=== PATIENT | female | born 1970 | race African-American/Black ===

== ENCOUNTER 2017-09-06 10:48 | Day surgery (SDC) | payer OTHER ==
[2017-08-30 17:09] VITALS: BMI 54.3
[2017-09-06] MEDS ORDERED: HEPARIN NA (PORCINE) 5,000 UNITS/ML 1ML VIAL ONE (11:42)
[2017-09-06] MEDS ORDERED: PROPOFOL 20 ML ONE ×3 (13:34)
[2017-09-06] MEDS ORDERED: fentaNYL CITRATE 250 MCG/5 ML VIAL ONE (13:34)
[2017-09-06] MEDS ORDERED: ROCURONIUM BROMIDE 50 MG/5 ML VIAL ONE (13:34)
[2017-09-06] MEDS ORDERED: MIDAZOLAM HCL 2 MG/2 ML SINGLE DOSE VIAL ONE (13:35)
[2017-09-06] MEDS ORDERED: EPINEPHrine/PF 1 MG/1 ML (1:1,000) AMPULE ONE (14:23)
[2017-09-06] MEDS ORDERED: LIDOCAINE HCL 1%, 10 MG/ML (20ML VIAL) ONE (14:23)
[2017-09-06] MEDS ORDERED: BACITRACIN 15 GM TUBE TOPICAL OINTMENT ONE (14:59)
[2017-09-06] MEDS ORDERED: ONDANSETRON 4 MG/2 ML VIAL ONE (16:38)
[2017-09-06] MEDS ORDERED: NEOSTIGMINE METHYLSULFATE 0.5 MG/ML - 10 ML MDV ONE (16:52)
[2017-09-06] MEDS ORDERED: oxyCODONE HCL 5 MG TABLET PO PRN ×2 (17:08→17:11)
[2017-09-06] MEDS ORDERED: ONDANSETRON 4 MG/2 ML VIAL IVPUSH PRN (17:08)
[2017-09-06] MEDS ORDERED: PROMETHAZINE HCL 25 MG/1 ML VIAL IVPUSH PRN (17:08)
[2017-09-06] MEDS ORDERED: ONDANSETRON 4 MG/2 ML VIAL IVPB PRN (17:11)
[2017-09-06] MEDS ORDERED: LACTATED RINGERS SOLUTION 1,000 ML IV SCH ×2 (17:15)
--- NOTE | 2017-09-06 17:15 | OP ---
Operative Note - Note: Operative Date: 09/06/17 Pre-Operative Diagnosis: breast cancer with asymmetry Operation: bilateral revision of breast reconstruction with free fat grafting to left breast, bilateral nipple reconstruction, liposuction to abdomen and bilateral axillae Post-Operative Diagnosis: Same as Pre-op Surgeon: Joshua Dawkins Anesthesia: General Specimens Removed: right breast flap Operative Report Dictated: Yes
[2017-09-06] MEDS ORDERED: LACTATED RINGERS SOLUTION 1,000 ML/1,000 ML INFUS.BAG IV SCH (18:00)
[2017-09-06] MEDS: GABAPENTIN 100 MG CAPSULE (FP) PO SCH (21:10)
[2017-09-06] MEDS: predniSONE 1 MG TABLET (FP) PO SCH (21:10)
[2017-09-06] MEDS: HEPARIN NA (PORCINE) 5,000 UNITS/ML 1ML VIAL SQ SCH (21:11)
[2017-09-06] MEDS: CEFAZOLIN 1 GM/D5W 1 GM/50 ML BAG IVPB SCH (21:14)
[2017-09-06] MEDS: oxyCODONE HCL 5 MG TABLET PO PRN (21:19)
[2017-09-06] MEDS ORDERED: FOLIC ACID 1 MG TABLET (FP) PO SCH (22:00)
[2017-09-06] MEDS ORDERED: DOCUSATE SODIUM 100 MG CAPSULE (FP) PO SCH (22:00)
--- NOTE | 2017-09-06 23:17 | OP ---
DATE OF OPERATION: 09/06/2017 TITLE OF PROCEDURE: 1. Bilateral revision of breast reconstructive flaps with recreation of lateral mammary fold. 2. Bilateral nipple reconstructions with modified skate flap. 3. Free fat grafting to left reconstructive breast. 4. Liposuction to abdomen harvest of fat grafting. ATTENDING SURGEON: Joshua Dawkins M.D. ANESTHESIA: General endotracheal anesthesia. Patient is marked in the holding area. Awake, aware of all incisions and resulting scars. Understands, agrees to proceed. It is determined that the right reconstructive breast is slightly larger and more particularly laterally than left reconstructed breast and the attempt is to lift the right side while increasing the volume of the left side. Bilateral tunnels for the latissimus dorsi flaps are too full with volume and will be reduced. The patient is given 5000 units of subcutaneous heparin preoperatively. She is given 2 g Ancef preoperatively. She is awake and aware of all risks, benefits, alternatives to the procedure. Sequential compression stockings and CURTIS hose are applied in the holding area. She is brought to the operating room, placed in supine position. All points are carefully padded and positioned in preparation for surgery. The procedure is as follows. A timeout is called after patient is prepped and draped in standard surgical fashion. Patient, procedure, incision sites are verified. At this point, several stab wound incisions are marked and incisions are made for access of wetting solution. Infiltration of wetting solution is performed in bilateral axillae. The left and right breast lateral tails and the abdomen, a total infiltration of 2.5 L of wetting solution is infiltrated. The wetting solution is for each liter of normal saline 1 ampule of 1:100,000 epinephrine and 20 mL of 1% lidocaine plain. After the wetting solution is infiltrated, attention is directed toward the left nipple areolar. Modified skate flap which is inferiorly based is incised. The left sided flap is elevated and folded upon itself. The lateral wings of the skate flap are tubed around one another, secured to each other with a 4-0 nylon suture. The superior flap is then folded over the top of the cylinder and inset with a series of interrupted 4-0 nylon suture. The donor sites are closed with a series of interrupted buried 4-0 Vicryl suture followed by a running 4-0 nylon suture. At the completion of this, attention is then directed toward the fat harvesting. The lateral tail of each breast is marked, and the excess volume in the lateral tail of the reconstructions are liposucked using a 5-mm basket tipped cannula. A total of aspirate from each of these areas is 200 mL. Attention is then directed toward on the left side the lateral fold is adhered to the chest wall. Attention is then directed toward the abdomen where liposuction is performed in a similar fashion with 5 mm basket tipped cannula using a power assisted [employer] system. An additional 1.6 L is left from the abdomen. Endpoint is the adequate graft for use for augmenting the left reconstructed breast. The fat is processed using the [employer] fat processing system and prepared in 10 mL syringes for injection. The liposuction holes are closed with a series of interrupted 5-0 nylon suture 1-cm stab wound incisions beneath the umbilicus and bilateral pannus crease. Attention is then directed toward the surgical revision of the right breast reconstruction. The lateral superior extent of the latissimus dorsi skin paddle is marked and excised. The mastectomy flap superolaterally is re-elevated and the flap mobilized superiorly, tacked to fascia to reposition the flap superiorly with a series of interrupted 2-0 Vicryl suture. Hemostasis is achieved, and the flap is then an excision of additional superolateral mastectomy skin is made. The excised tissues are then closed with a series of interrupted buried deep dermal 3-0 Monocryl suture followed by a running subcuticular 3-0 Monocryl suture. The net effect of this revision is to lift the lateral portion of the right breast reconstruction elevating the inframammary fold, and the lateral breast fold more approximating the contralateral side. Patient brought to a seated upright position. The right nipple areolar is then marked. The right nipple reconstruction is then performed using a modified skate pattern flap as mirror image of the contralateral side. The donor sites are closed with a series of interrupted buried deep dermal 4-0 Vicryl suture followed by a running 4-0 nylon suture. The flap is tubed on itself, and the superior flap is used to create the top for the cylinder. This is inset with 4-0 nylon. Fat grafting is then performed on the slightly undersized left breast reconstruction through several stab wound incisions along the scar of the skin paddle. 1.2-mm Romero cannulas are used with 10 mL syringes, a total of 200 mL of fat is injected using a microdroplet Romero technique globally into the left breast. The end point is a symmetric size with the contralateral right breast. The stab wound incisions are closed with a series of interrupted 5-0 nylon suture. The skin incision is closed with half-inch Steri-Strips, 4x4 gauze, and ABD gauze. The nipple reconstructions are dressed with bacitracin, Xeroform. The liposuction holes in the abdomen are closed with a series of interrupted 5-0 nylon suture. Abdominal binder is applied. A surgical bra is applied. The patient is woken from anesthesia, having tolerated procedure well, transferred to recovery without complications. Kim [id number]
[2017-09-07] MEDS: morphine CARPU-JECT 10 MG/1 ML DISP.SYRIN IVPUSH PRN ×2 (00:11→09:47)
[2017-09-07] MEDS: CEFAZOLIN 1 GM/D5W 1 GM/50 ML BAG IVPB SCH ×2 (02:17→09:35)
[2017-09-07] MEDS: oxyCODONE HCL 5 MG TABLET PO PRN (06:10)
--- NOTE | 2017-09-07 07:40 | PN ---
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 (short form) - Note 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: VSS AF, ambulating, on DVT prophylaxis, all tissues viable, OK for discharge with instructions and eliquis prophylaxis
[2017-09-07] MEDS ORDERED: PT OWN MED DRAWER 7, Y5N ONE (09:19)
[2017-09-07] MEDS: GABAPENTIN 100 MG CAPSULE (FP) PO SCH (09:35)
[2017-09-07] MEDS: predniSONE 1 MG TABLET (FP) PO SCH (09:35)
[2017-09-07] MEDS: HEPARIN NA (PORCINE) 5,000 UNITS/ML 1ML VIAL SQ SCH (09:36)
[2017-09-07] MEDS ORDERED: chlorproMAZINE HCL 25 MG TABLET PO SCH (10:00)
[2017-09-07] MEDS ORDERED: DULoxetine HCL 30 MG CAPSULE.DR (FP) PO SCH (10:00)
[2017-09-07] MEDS ORDERED: DULoxetine HCL 60 MG CAPSULE.DR PO SCH (10:00)
--- NOTE | 2017-09-07 11:50 | PN ---
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, Physician Chief Complaint: s/p bilateral breast reconstruction with fat transfer under general anesthesia History of Present Illness: post op day one - Current Medication List Current Medications: Active Medications Chlorpromazine HCl (Thorazine -) 25 mg PO DAILY [facility] Diltiazem HCl (Cardizem Cd -) 300 mg PO DAILY [facility] Last Admin: 09/07/17 09:34 Dose: 300 mg Docusate Sodium (Colace -) 100 mg PO [facility] Last Admin: 09/06/17 21:11 Dose: 100 mg Duloxetine HCl (Cymbalta -) 60 mg PO DAILY [facility] Last Admin: 09/07/17 09:35 Dose: 60 mg Folic Acid (Folic Acid -) 1 mg PO [facility] Last Admin: 09/06/17 21:10 Dose: 1 mg Gabapentin (Neurontin -) 200 mg PO BID [facility] Last Admin: 09/07/17 09:35 Dose: 200 mg Heparin Sodium (Porcine) (Heparin -) 5,000 unit SQ BID [facility] Last Admin: 09/07/17 09:36 Dose: 5,000 unit Cefazolin Sodium (Ancef 1 Gm Premixed Ivpb -) 1 gm in 50 mls @ 100 mls/hr IVPB Q6H-IV [facility] Stop: 09/12/17 20:59 Last Admin: 09/07/17 09:35 Dose: 100 mls/hr Lactated Ringer's (Lactated Ringers Solution) 1,000 ml in 1,000 mls @ 125 mls/ hr IV ASDIR [facility] Last Admin: 09/06/17 18:21 Dose: Not Given Metoprolol Succinate (Toprol Xl -) 100 mg PO [facility] Last Admin: 09/06/17 21:10 Dose: 100 mg Morphine Sulfate (Morphine Injection -) 3 mg IVPUSH Q4H PRN PRN Reason: PAIN LEVEL 6-10 Last Admin: 09/07/17 09:47 Dose: 3 mg Ondansetron HCl (Zofran Injection) 4 mg IVPUSH Q6H PRN PRN Reason: NAUSEA AND/OR VOMITING Ondansetron HCl (Zofran Injection) 8 mg IVPB Q6H PRN PRN Reason: NAUSEA Oxycodone HCl (Roxicodone -) 5 mg PO Q4H PRN PRN Reason: PAIN LEVEL 1-5 Oxycodone HCl (Roxicodone -) 10 mg PO Q4H PRN PRN Reason: PAIN LEVEL 6-10 Last Admin: 09/07/17 06:10 Dose: 10 mg Prednisone (Deltasone -) 1 mg PO BID [facility] Last Admin: 09/07/17 09:35 Dose: 1 mg - Objective Vital Signs: Vital Signs Temperature 97.6 F 09/07/17 06:00 Pulse Rate 72 09/07/17 06:00 Respiratory Rate 19 09/07/17 06:00 Blood Pressure 172/98 09/07/17 06:00 O2 Sat by Pulse Oximetry (%) 96 09/07/17 08:36 Constitutional: Yes: Well Nourished Cardiovascular: Yes: WNL Respiratory: Yes: WNL Gastrointestinal: Yes: WNL Assessment/Plan post op day one after general anesthesia. Pain controlled with oral analgesics with IV opioid for breakthrough. Pain controlled, no adverse reaction to anesthetic. patient believes she can cope with the pain at home with addition of motrin for additional analgesic. No further intervention by the dept of anesthesia.
--- NOTE | 2017-09-07 13:29 | CONSULT ---
Consultation: REQUESTING PROVIDER: Dr Dawkins CONSULT REQUEST: We have been asked to medically evaluate this patient for hypertension. HISTORY OF PRESENT ILLNESS: Patient is a 47 y/o female with a past medical history of hypertension, anxiety, RA, and left sided breast cancer. Patient is s/p bilateral revision of breast reconstruction with free fat grafting to left breast, bilateral nipple reconstruction, liposuction to abdomen and bilateral axilla. REVIEW OF SYSTEMS: CONSTITUTIONAL: Absent: fever, chills, diaphoresis, generalized weakness, malaise, loss of appetite, weight change HEENT: Absent: rhinorrhea, nasal congestion, throat pain, throat swelling, difficulty swallowing, mouth swelling, ear pain, eye pain, visual changes CARDIOVASCULAR: Absent: chest pain, syncope, palpitations, irregular heart rate, lightheadedness , peripheral edema RESPIRATORY: Absent: cough, shortness of breath, dyspnea with exertion, orthopnea, wheezing, stridor, hemoptysis GASTROINTESTINAL: Absent: abdominal pain, abdominal distension, nausea, vomiting, diarrhea, constipation, melena, hematochezia GENITOURINARY: Absent: dysuria, frequency, urgency, hesitancy, hematuria, flank pain, genital pain MUSCULOSKELETAL: present: pain to surgical site Absent: myalgia, arthralgia, joint swelling, back pain, neck pain SKIN: Absent: rash, itching, pallor HEMATOLOGIC/IMMUNOLOGIC: Absent: easy bleeding, easy bruising, lymphadenopathy, frequent infections ENDOCRINE: Absent: unexplained weight gain, unexplained weight loss, heat intolerance, cold intolerance NEUROLOGIC: Absent: headache, focal weakness or paresthesias, dizziness, unsteady gait, seizure, mental status changes, bladder or bowel incontinence PSYCHIATRIC: Absent: anxiety, depression, suicidal or homicidal ideation, hallucinations. PHYSICAL EXAMINATION Vital Signs - 24 hr 09/06/17 09/06/17 09/06/17 17:01 17:06 17:11 Temperature 98.8 F 98.8 F 98.8 F Pulse Rate 88 87 88 Respiratory 16 16 16 Rate Blood Pressure 176/98 173/97 165/97 O2 Sat by Pulse 98 97 97 Oximetry (%) 09/06/17 09/06/17 09/06/17 17:16 17:31 17:45 Temperature 98.8 F 98.8 F 98.8 F Pulse Rate 83 84 88 Respiratory 16 16 16 Rate Blood Pressure 155/82 152/79 141/76 O2 Sat by Pulse 97 98 98 Oximetry (%) 09/06/17 09/06/17 09/06/17 17:50 18:17 22:00 Temperature 98.8 F 97.4 F L 97.5 F L Pulse Rate 88 77 82 Respiratory 16 18 19 Rate Blood Pressure 141/76 134/76 117/64 O2 Sat by Pulse 100 97 Oximetry (%) 09/07/17 09/07/17 09/07/17 06:00 06:14 08:36 Temperature 97.6 F Pulse Rate 72 Respiratory 19 Rate Blood Pressure 172/98 O2 Sat by Pulse 96 96 Oximetry (%) GENERAL: obese, Awake, alert, and fully oriented, in no acute distress. HEAD: Normal with no signs of trauma. EYES: Pupils equal, round and reactive to light, extraocular movements intact, sclera anicteric, conjunctiva clear. No lid lag. EARS, NOSE, THROAT: Ears normal, nares patent, oropharynx clear without exudates. Moist mucous membranes. NECK: Normal range of motion, supple without lymphadenopathy, JVD, or masses. LUNGS: Breath sounds equal, clear to auscultation bilaterally. No wheezes, and no crackles. No accessory muscle use. HEART: Regular rate and rhythm, normal S1 and S2 without murmur, rub or gallop. ABDOMEN: Soft, nontender, not distended, normoactive bowel sounds, no guarding, no rebound, no masses. No hepatomegaly or splenomegaly. MUSCULOSKELETAL: Normal range of motion at all joints. No bony deformities or tenderness. No CVA tenderness. UPPER EXTREMITIES: 2+ pulses, warm, well-perfused. No cyanosis. No clubbing. Cap refill <2 seconds. No peripheral edema. LOWER EXTREMITIES: 2+ pulses, warm, well-perfused. No calf tenderness. No peripheral edema. NEUROLOGICAL: Cranial nerves II-XII intact. Normal speech. Normal gait. PSYCHIATRIC: Cooperative. Good eye contact. Appropriate mood and affect. SKIN: Warm, dry, normal turgor, chest-->surgical sites, clean dry and intact. no rashes or lesions noted. Active Medications Generic Name Dose Route Start Last Admin Trade Name Freq PRN Reason Stop Dose Admin Chlorpromazine HCl 25 mg 09/07/17 10:00 09/07/17 12:48 Thorazine - PO 25 mg DAILY [facility] Administration Diltiazem HCl 300 mg 09/07/17 10:00 09/07/17 09:34 Cardizem Cd - PO 300 mg DAILY [facility] Administration Docusate Sodium 100 mg 09/06/17 22:00 09/06/17 21:11 Colace - PO 100 mg HS [facility] Administration Duloxetine HCl 60 mg 09/07/17 10:00 09/07/17 09:35 Cymbalta - PO 60 mg DAILY [facility] Administration Folic Acid 1 mg 09/06/17 22:00 09/06/17 21:10 Folic Acid - PO 1 mg HS [facility] Administration Gabapentin 200 mg 09/06/17 22:00 09/07/17 09:35 Neurontin - PO 200 mg BID [facility] Administration Heparin Sodium (Porcine) 5,000 unit 09/06/17 22:00 09/07/17 09:36 Heparin - SQ 5,000 unit BID [facility] Administration Cefazolin Sodium 1 gm in 50 mls @ 100 mls/hr 09/06/17 21:00 09/07/17 09:35 Ancef 1 Gm Premixed Ivpb - IVPB 09/12/17 20:59 100 mls/hr Q6H-IV [facility] Administration Lactated Ringer's 1,000 ml in 1,000 mls @ 125 mls/hr 09/06/17 18:00 09/06/17 18:21 Lactated Ringers Solution IV Not Given ASDIR [facility] Metoprolol Succinate 100 mg 09/06/17 22:00 09/06/17 21:10 Toprol Xl - PO 100 mg HS [facility] Administration Morphine Sulfate 3 mg 09/06/17 17:11 09/07/17 09:47 Morphine Injection - IVPUSH 3 mg Q4H PRN Administration PAIN LEVEL 6-10 Ondansetron HCl 4 mg 09/06/17 17:08 Zofran Injection IVPUSH Q6H PRN NAUSEA AND/OR VOMITING Ondansetron HCl 8 mg 09/06/17 17:11 Zofran Injection IVPB Q6H PRN NAUSEA Oxycodone HCl 5 mg 09/06/17 17:08 Roxicodone - PO Q4H PRN PAIN LEVEL 1-5 Oxycodone HCl 10 mg 09/06/17 17:08 09/07/17 06:10 Roxicodone - PO 10 mg Q4H PRN Administration PAIN LEVEL 6-10 Prednisone 1 mg 09/06/17 22:00 09/07/17 09:35 Deltasone - PO 1 mg BID [facility] Administration ASSESSMENT/PLAN: 1)cardiovascular hypertension - b/p noted to be elevated, likely secondary pain, patient denies any headache, chest pain, or blurred vision - continue home medications, toprol xl and cardizem - strict monitoring q4h 2) heme/onc s/p bilateral revision of breast reconstruction with free fat grafting to left breast, bilateral nipple reconstruction, liposuction to abdomen and bilateral axilla. - continue prn pain medication 3) ms ra - continue prednisone f/e/n - low sodium diet - replete lytes prn Dispo: We will continue to follow the patient. Thank you for this consultative opportunity. Visit type - Emergency Visit Emergency Visit: No - New Patient This patient is new to me today: Yes Date on this admission: 09/07/17 - Critical Care Critical Care patient: No
[2017-09-07 14:07] VITALS: BP 133/64; PULSE 85; TEMP 98.2
--- NOTE | 2017-09-08 09:56 | PATH ---
Surgical Pathology Report Patient Name: CONSTANCE IRELAND [facility]. Rec. #: [id number] /Age/Gender: 1970 (Age: 47) / F Account: [id number] Location: [facility] Taken: 09/06/2017 Received: 09/06/2017 Reported: 09/08/2017 Physicians: Joshua Dawkins Specimen(s) Received EXCESS RIGHT LATISSIMUS Clinical History Breast cancer Final Diagnosis EXCESS RIGHT LATISSIMUS FLAP, EXCISION: SKIN WITH SCAR. FIBROADIPOSE TISSUE WITH NO PATHOLOGIC FINDINGS. Electronically Signed Bonny Meehan M.D. Gross Description Received in formalin labeled "excess right latissimus flap," is a 15.0 x 4.2 cm levin-brown, unoriented portion of skin excised to a depth of 3.3 cm. The epidermal surface displays a central, linear, well-healed scar. There is an additional 3.7 x 1.1 x 0.8 cm unoriented portion of skin with underlying soft tissue also received within the same container. The epidermal surface is unremarkable. Sectioning reveals foci of white fibrous tissue. No discrete lesions are identified. Patient Assistant sections are submitted in one cassette. /09/07/201709/07/2017
== END 2017-09-07 15:52 | disposition home or self-care (01) ==
LOC: FASU 10:48 → FM/S 17:53 → FASU 09-07 15:52
PROVIDERS: ATTEND Plastic Surgery
PROC: 0HQX0ZZ Repair Left Nipple, Open Approach (ICD-10-PCS; 2017-09-06)
PROC: 0HQW0ZZ Repair Right Nipple, Open Approach (ICD-10-PCS; 2017-09-06)
PROC: 0HRU07Z Replacement of Left Breast with Autologous Tissue Substitute, Open Approach (ICD-10-PCS; 2017-09-06)
PROC: 0HRV37Z Replacement of Bilateral Breast with Autologous Tissue Substitute, Percutaneous Approach (ICD-10-PCS; principal; 2017-09-06 14:19)
DX: N65.0 Deformity of reconstructed breast (principal); Z85.3 Personal history of malignant neoplasm of breast
CPT/HCPCS: 84703; 88304-TC; 94010; 94760; J1644

== ENCOUNTER 2020-01-23 06:00 | Day surgery (SDC) | payer OTHER ==
[2020-01-23] MEDS ORDERED: GENTAMICIN SO4 80 MG/2 ML VIAL ONE (07:16)
[2020-01-23] MEDS ORDERED: THROMBIN (BOVINE) 20,000 UNIT VIAL TP ONE (07:16)
[2020-01-23] MEDS ORDERED: PROPOFOL 20 ML ONE ×2 (07:24)
[2020-01-23] MEDS ORDERED: SUCCINYLCHOLINE CHLORIDE 200 MG/10 ML SYRINGE ONE (07:40)
[2020-01-23] MEDS ORDERED: DEXAMETHASONE SOD PHOSPHATE 4 MG/1 ML VIAL ONE (07:40)
[2020-01-23] MEDS ORDERED: ROCURONIUM BROMIDE 50 MG/5 ML SYRINGE ONE (07:40)
[2020-01-23] MEDS ORDERED: EPHEDRINE SULFATE/0.9% NACL/PF 50 MG/10 ML SYRINGE NR ONE (07:40)
== END 2020-01-23 09:55 | disposition home or self-care (01) ==
LOC: JASUSAT 06:00 → EDSTATUS 08:00 → UNDODISIN 09:55 → JASUSAT 09:55
PROVIDERS: ATTEND Neurological Surgery
DX: Z53.8 Procedure and treatment not carried out for other reasons (principal)
CPT/HCPCS: U0003

== ENCOUNTER 2020-01-25 07:30 | Inpatient (IN) | payer OTHER ==
[~2020-01-25 07:30] MED LIST: CEFAZOLIN 3 GM in DEXTROSE 5%-WATER 100 ML IVPB ONE
[2020-01-25] MEDS ORDERED: GENTAMICIN SO4 80 MG/2 ML VIAL ONE (07:39)
[2020-01-25] MEDS ORDERED: THROMBIN (BOVINE) 20,000 UNIT VIAL TP ONE (07:39)
[2020-01-25] MEDS ORDERED: LIDOCAINE HCL 1%, 10 MG/ML (20ML VIAL) ONE (07:41)
[2020-01-25] MEDS ORDERED: THROMBIN (BOVINE) 5,000 UNIT VIAL TP ONE (07:41)
[2020-01-25] MEDS ORDERED: ceFAZolin SODIUM 1 GM VIAL IVPB ONE ×2 (10:47→10:57)
[2020-01-25] MEDS ORDERED: LIDOCAINE 1%/EPI 1:100000 (20 ML MULTI DOSE VIAL) IJ ONE ×2 (10:53→11:00)
[2020-01-25] MEDS ORDERED: HEPARIN NA (PORCINE) 5,000 UNITS/ML 1ML VIAL ONE (11:48)
[2020-01-25 12:32] LABS: ARTERIAL BLD GAS O2 SATURATION 98.5 mmHg (95-98); ARTERIAL BLOOD GAS PO2 142.3 mmHg (80-100)
[2020-01-25 12:33] LABS: BASO % 0.8 % (0-2.0); EOS % 0.7 % (0-4.5); HEMOGLOBIN 12.4 GM/dL (10.7-15.3); LYMPH % 34.2 % (8-40); MCH 25.7 pg (25.7-33.7); MCHC 30.2 g/dl (32.0-36.0); MEAN CELL VOLUME 85.2 fl (80-96); MEAN PLT VOLUME 8.1 fl (7.5-11.1); NEUT % 62.3 % (42.8-82.8); PLATELET COUNT 397 K/MM3 (134-434); RBC 4.82 M/mm3 (3.60-5.2); RDW 17.7 % (11.6-15.6); WHITE BLOOD COUNT 9.1 K/mm3 (4.0-10.0)
[2020-01-25 12:43] LABS: INR 1.16 (0.83-1.09); PROTHROMBIN TIME (PATIENT) 13.7 SEC (9.7-13.0)
[2020-01-25 12:46] LABS: ACTIVATED PTT 107.1 SECONDS (25.2-36.5)
[2020-01-25] MEDS: VASOPRESSIN 40 UNITS in SODIUM CHLORIDE 98 ML IVPB SCH (13:05)
[2020-01-25] MEDS ORDERED: HEPARIN NA (PORCINE) 5,000 UNITS/ML 1ML VIAL IVPUSH PRN ×2 (13:22)
[2020-01-25 13:29] LABS: ALBUMIN 2.7 g/dl (3.4-5.0); BILIRUBIN,TOTAL 0.2 mg/dL (0.2-1); BLOOD UREA NITROGEN 13.7 mg/dL (7-18); CALCIUM 8.8 mg/dL (8.5-10.1); CREATININE 1.1 mg/dL (0.55-1.3); TOT PROT 6.4 g/dl (6.4-8.2)
[2020-01-25] MEDS ORDERED: FENTANYL IVPB 500 MCG/100 ML BAG IVPB ONE (13:29)
[2020-01-25] MEDS ORDERED: HEPARIN - 25,000 UNIT in SODIUM CHLORIDE 495 ML IV SCH (13:30)
--- NOTE | 2020-01-25 13:35 | PN ---
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 (short form) - Note 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: 49F PMH HTN, DM, morbid obesity (BMI 60), severe b/l LE venous stasis and severe b/l upper extremity lymphedema secondary to prior breast cancer history for ACDF. Unable to obtain IV access peripherally and several large plaques and occlusions visualized in peripheral veins on ultrasound. Right subclavian unsuccessful due to inability to pass wire. Triple lumen successfully placed in right groin by Dr. Axel De La Cruz under direct ultrasound visualization. Smooth IV induction, atraumatic intubation x 1 attempt with Glidescope. ETT 7.0 secured 22cm at teeth. About 5 minutes after surgical incision pt becomes acutely hypotensive and hypoxic not responsive to phenylephrine. Epinephrine and vasopressin boluses required to maintain baseline BP. Clonidine patch removed. Decision made to abort surgery. Epinephrine and vasopressin infusions started. A line placed. CXR and official radiology reading rule out pneumothorax. ETT position confirmed above martha. 12 lead EKG done, ABG, lactate, CBC, CMP, d dimer and fibrinogen done. Heparin 5,000 units given IV. CTA to evaluate for PE requested and ordered. Brought pt to ICU. Discussed with ICU team and will follow.
[2020-01-25] MEDS: PROPOFOL 1,000,000 MCG/100 ML VIAL IVPB SCH ×2 (13:38→19:00)
[2020-01-25 13:41] LABS: POTASSIUM 3.8 mmol/L (3.5-5.1)
[2020-01-25] MEDS: FENTANYL NS IVPB 500 MCG/100 ML BAG IVPB SCH (13:52)
[2020-01-25] MEDS ORDERED: HEPARIN NA (PORCINE) 5,000 UNITS/ML 1ML VIAL IVPUSH ONE ×2 (14:15→14:57)
--- NOTE | 2020-01-25 14:21 | PROC ---
Procedure Note Procedure: PROCEDURE NOTE: Left Internal jugular central line placement under ultrasound guidance PROCEDURE FOAM MOLDER: Anatoliy Morataya M.D., PGY3 ATTENDING PHYSICIAN: Danie Hyman M.D. INDICATION: Hypotension requiring vasoactive agents and a Power Injectable central catheter CONSENT: Verbal consent was obtained from pt prior to the procedure. Indications, risks, and benefits were explained at length. PROCEDURE SUMMARY: A time out was performed. My hands were washed immediately prior to the procedure. I wore a surgical cap, mask with protective eyewear, sterile gown and sterile gloves throughout the procedure. The patient was placed in trendelenburg position. The left chest region was prepped using chlorhexidine scrub and draped in sterile fashion. The medial and lateral heads of the sternocleidomastoid muscle, as well as the carotid pulse were identified. The internal jugular vein was identified using dynamic ultrasound. Anesthesia was achieved using Lidocaine 1 percent without epinephrine. Using real-time out of plane guidance, the introducer needle was inserted into the internal jugular vein under direct ultrasound visualization. Venous blood was withdrawn. The syringe was removed and a guidewire was advanced into the introducer needle. The guidewire was visualized in the internal jugular vein by ultrasound. A small incision was made at the skin surface with a scalpel and the introducer needle was exchanged for a dilator over the guidewire. After appropriate dilation was obtained, the dilator was exchanged over the wire for a triple lumen central venous catheter. The wire was removed and the catheter was sutured in place at 15 cm. A biopatch and a sterile Tegaderm were placed over the catheter at the insertion site. At time of procedure completion, all ports aspirated and flushed properly. The patient tolerated the procedure without any hemodynamic compromise. Post-procedure chest x-ray is pending at this time. Estimated blood loss is <5 cc.
--- NOTE | 2020-01-25 14:33 | PN ---
Teaching Attending Note Name of Resident: Anatoliy Morataya ATTENDING PHYSICIAN STATEMENT I saw and evaluated the patient. I reviewed the resident's note and discussed the case with the resident. I agree with the resident's findings and plan as documented. SUBJECTIVE: Pt seen and examined in the ICU. Admitted from OR after hypotensive, hypoxic ep isode during the surgery. ACDF not started yet. Now on epinephrine and vasopressin gtts. Vented on volume assist control with 40% FiO2, PEEP 10. OBJECTIVE: Vital Signs Period Temp Pulse Resp BP Sys/Gibbs Pulse Ox Last 24 Hr 98.0 F-98.0 F 85-97 20-20 147-171/78-101 92-96 Intake & Output 01/22/20 01/23/20 01/24/20 01/25/20 23:59 23:59 23:59 23:59 Intake Total 1000 Output Total 400 Balance 600 Weight 158.757 kg Gen: intubated, sedated Heart: RRR Lung: distant breath sounds Abd: soft, obese Ext: + edema CBC, BMP 01/25/20 12:09 01/25/20 12:09 ABG Results ABG pH 7.280 (7.350-7.450) L 01/25/20 12:09 ABG HCO3 24.4 mmol/L (22-27) 01/25/20 12:09 ABG O2 Sat (Measured) 98.5 mmHg (95-98) H 01/25/20 12:09 ABG O2 Content No Result Required. 01/25/20 12:09 ABG Base Excess -3.0 mmol/L (-2-2) L 01/25/20 12:09 Active Medications Heparin Sodium (Porcine) (Heparin -) 1,000 unit IVPUSH PRN PRN PRN Reason: Heparin Heparin Sodium (Porcine) (Heparin -) 5,000 unit IVPUSH PRN PRN PRN Reason: Heparin Last Admin: 01/25/20 14:15 Dose: 5,000 unit Documented by: Heparin Sodium (Porcine) 25, (000 unit/ Sodium Chloride) 500 mls @ 20 mls/hr IV TITR [facility]; Protocol Last Admin: 01/25/20 14:18 Dose: 1,000 unit/hr, 20 mls/hr Documented by: Fentanyl (Sublimaze Ivpb) 500 mcg in 100 mls @ 10 mls/hr IVPB TITR [facility]; Protocol Last Admin: 01/25/20 13:52 Dose: 50 mcg/hr, 10 mls/hr Documented by: Propofol (Diprivan -) 1,000,000 mcg in 100 mls @ 4.763 mls/hr IVPB TITR [facility]IE; Protocol Last Titration: 01/25/20 14:21 Dose: 10 mcg/kg/min, 9.525 mls/hr Documented by: ASSESSMENT AND PLAN: Acute Hypoxic and Hypercapneic Respiratory Failure r/o MO r/o VTE Shock of unclear etiology at this time Lactic Acidosis HTN DM Morbid Obesity - empiric anticoagulation - titrate pressors to maintain MAP >65 - CTA chest - LE dopplers - echocardiogram - IVF - trend cardiac enzymes, lactate - titrate FiO2, PEEP to keep SpO2 >90% - continue ICU monitoring critical care time spent in reviewing chart, evaluating patient and formulating plan 35 min
--- NOTE | 2020-01-25 14:42 | CONSULT ---
Consultation: REQUESTING PROVIDER: Dr. Vasquez CONSULT REQUEST: We have been asked to medically evaluate this patient for hypotension and respiratory failure. HISTORY OF PRESENT ILLNESS: Pt is a 49 y/o female with HTN, DM, morbid obesity, severe b/l LE venous stasis and severe b/l upper extremity lymphedema secondary to prior breast cancer history for ACDF. Corpectomy to be performed but there were difficulties with IV access and about 5 minutes after surgical incision pt became acutely hypotensive and hypoxic not responsive to phenylephrine. Epinephrine and vasopressin boluses required to maintain baseline BP. Clonidine patch removed. Decision made to abort surgery. Epinephrine and vasopressin infusions started. A-line placed, labs and EKG ordered, Heparin 5,000 units given IV for concern of PE. CTA ordered. Brought pt to ICU for evaluation and monitoring. REVIEW OF SYSTEMS: unable to perform PHYSICAL EXAMINATION Vital Signs - 24 hr 01/25/20 01/25/20 01/25/20 08:20 08:22 08:32 Temperature 98.0 F 98.0 F Pulse Rate 88 88 Respiratory 20 20 Rate Blood Pressure 171/101 H 171/101 H O2 Sat by Pulse 96 96 Oximetry (%) 01/25/20 01/25/20 13:16 13:52 Temperature Pulse Rate 97 H 85 Respiratory 20 20 Rate Blood Pressure 156/81 147/78 O2 Sat by Pulse 92 L 94 L Oximetry (%) GENERAL: Sedated. HEAD: Normal with no signs of trauma. EYES: Pupils equal, round and reactive to light, extraocular movements intact, conjunctiva clear. EARS, NOSE, THROAT: Ears normal, nares patent, moist mucous membranes. NECK: Supple. LUNGS: Clear to auscultation bilaterally. HEART: Regular rate and rhythm, no murmur. ABDOMEN: Soft, nontender, not distended, normoactive bowel sounds. MUSCULOSKELETAL: Normal range of motion at all joints. UPPER EXTREMITIES: Warm, well-perfused. +1 pitting edema. LOWER EXTREMITIES: Warm, well-perfused. +1 pitting edema. SCDs NEUROLOGICAL: unable to assess PSYCHIATRIC: unable to assess SKIN: Warm, dry, normal turgor. Laboratory Results - last 24 hr 01/25/20 01/25/20 01/25/20 08:14 09:00 12:09 WBC RBC Hgb Hct MCV MCH MCHC RDW Plt Count MPV Absolute Neuts (auto) Neutrophils % Lymphocytes % Monocytes % Eosinophils % Basophils % Nucleated RBC % PT with INR INR PTT (Actin FS) Fibrinogen D-Dimer Anticoagulation Therapy No Result Required. Puncture Site No Result Required. Patient Temperature No Result Required. ABG pH 7.280 L ABG pCO2 53.10 H ABG pO2 142.3 H ABG HCO3 24.4 ABG O2 Sat (Measured) 98.5 H ABG O2 Content No Result Required. ABG Base Excess -3.0 L Jeffrey Test No Result Required. Carboxyhemoglobin Methemoglobin Patient On Oxygen No Result Required. O2 Delivery Device No Result Required. Oxygen Flow Rate No Result Required. Vent Mode No Result Required. Vent Rate No Result Required. Mechanical Rate No Result Required. PEEP No Result Required. Pressure Support Vent No Result Required. Sodium Potassium Chloride Carbon Dioxide Anion Gap BUN Creatinine Est GFR (CKD-EPI)AfAm Est GFR (CKD-EPI)NonAf POC Glucometer 93 Random Glucose Lactic Acid Calcium Total Bilirubin AST ALT Alkaline Phosphatase Total Protein Albumin Blood Type O POSITIVE Antibody Screen Negative 01/25/20 01/25/20 01/25/20 12:09 12:09 12:09 WBC 9.1 RBC 4.82 Hgb 12.4 Hct 41.0 D MCV 85.2 MCH 25.7 MCHC 30.2 L RDW 17.7 H Plt Count 397 MPV 8.1 D Absolute Neuts (auto) 5.7 Neutrophils % 62.3 D Lymphocytes % 34.2 Monocytes % 2.0 L Eosinophils % 0.7 D Basophils % 0.8 Nucleated RBC % 0 PT with INR 13.70 H INR 1.16 H PTT (Actin FS) 107.1 H Fibrinogen 303.0 D-Dimer 8578 H Anticoagulation Therapy Puncture Site Patient Temperature ABG pH ABG pCO2 ABG pO2 ABG HCO3 ABG O2 Sat (Measured) ABG O2 Content ABG Base Excess Jeffrey Test Carboxyhemoglobin Methemoglobin Patient On Oxygen O2 Delivery Device Oxygen Flow Rate Vent Mode Vent Rate Mechanical Rate PEEP Pressure Support Vent Sodium Potassium Chloride Carbon Dioxide Anion Gap BUN Creatinine Est GFR (CKD-EPI)AfAm Est GFR (CKD-EPI)NonAf POC Glucometer Random Glucose Lactic Acid Calcium Total Bilirubin AST ALT Alkaline Phosphatase Total Protein Albumin Blood Type Antibody Screen 01/25/20 01/25/20 01/25/20 12:09 12:09 12:20 WBC RBC Hgb Hct MCV MCH MCHC RDW Plt Count MPV Absolute Neuts (auto) Neutrophils % Lymphocytes % Monocytes % Eosinophils % Basophils % Nucleated RBC % PT with INR INR PTT (Actin FS) Fibrinogen D-Dimer Anticoagulation Therapy Puncture Site Patient Temperature ABG pH ABG pCO2 ABG pO2 ABG HCO3 ABG O2 Sat (Measured) ABG O2 Content ABG Base Excess Jeffrey Test Carboxyhemoglobin Methemoglobin 0.3 Patient On Oxygen O2 Delivery Device Oxygen Flow Rate Vent Mode Vent Rate Mechanical Rate PEEP Pressure Support Vent Sodium 139 Potassium 3.8 Chloride 105 Carbon Dioxide 23 Anion Gap 11 BUN 13.7 Creatinine 1.1 Est GFR (CKD-EPI)AfAm 67.32 Est GFR (CKD-EPI)NonAf 58.08 POC Glucometer Random Glucose 223 H Lactic Acid 2.1 H Calcium 8.8 Total Bilirubin 0.2 AST 14 L ALT 14 Alkaline Phosphatase 69 Total Protein 6.4 Albumin 2.7 L Blood Type Antibody Screen 01/25/20 12:36 WBC RBC Hgb Hct MCV MCH MCHC RDW Plt Count MPV Absolute Neuts (auto) Neutrophils % Lymphocytes % Monocytes % Eosinophils % Basophils % Nucleated RBC % PT with INR INR PTT (Actin FS) Fibrinogen D-Dimer Anticoagulation Therapy Puncture Site Patient Temperature ABG pH ABG pCO2 ABG pO2 ABG HCO3 ABG O2 Sat (Measured) ABG O2 Content ABG Base Excess Jeffrey Test Carboxyhemoglobin 0.5 Methemoglobin Patient On Oxygen O2 Delivery Device Oxygen Flow Rate Vent Mode Vent Rate Mechanical Rate PEEP Pressure Support Vent Sodium Potassium Chloride Carbon Dioxide Anion Gap BUN Creatinine Est GFR (CKD-EPI)AfAm Est GFR (CKD-EPI)NonAf POC Glucometer Random Glucose Lactic Acid Calcium Total Bilirubin AST ALT Alkaline Phosphatase Total Protein Albumin Blood Type Antibody Screen Active Medications Generic Name Dose Route Start Last Admin Trade Name Freq PRN Reason Stop Dose Admin Heparin Sodium (Porcine) 1,000 unit 01/25/20 13:22 Heparin - IVPUSH PRN PRN Heparin Heparin Sodium (Porcine) 5,000 unit 01/25/20 13:22 01/25/20 14:15 Heparin - IVPUSH 5,000 unit PRN PRN Administration Heparin Heparin Sodium (Porcine) 25, 500 mls @ 20 mls/hr 01/25/20 13:30 01/25/20 14:18 000 unit/ Sodium Chloride IV 1,000 unit/hr TITR ANGIE 20 mls/hr Administration Protocol 1,000 UNIT/HR Fentanyl 500 mcg in 100 mls @ 10 mls/hr 01/25/20 13:30 01/25/20 13:52 Sublimaze Ivpb IVPB 50 mcg/hr TITR ANGIE 10 mls/hr Administration Protocol 50 MCG/HR Propofol 1,000,000 mcg in 100 mls @ 4.763 mls/hr 01/25/20 13:30 01/25/20 14:21 Diprivan - IVPB 10 mcg/kg/min TITR ANGIE 9.525 mls/hr Titration Protocol 5 MCG/KG/MIN ASSESSMENT/PLAN: Pt is a 49 y/o female with HTN, DM, morbid obesity, severe b/l LE venous stasis and severe b/l upper extremity lymphedema secondary to prior breast cancer history for ACDF. Five minutes into surgery, pt became acutely hypotensive and hypoxic not responsive to phenylephrine. Team was concerned for PE, aborted surgery, and consulted ICU. #neuro -sedated on fentanyl #cardio -hypotension possibly 2/2 hypoxia during procedure -vasopressin -keep MAP >65 #pulm -acute hypoxic and hypercapneic respiratory failure, ABG normalized on ventilator -vent 500/20/40 -CTA no evidence of PE; has posterior bibasilar atelectasis and increased right paratracheal density suggestive of edema or hematoma; pulmonary hypertension -bolus of heparin administered for ppx prior to CTA results -monitor labs #renal -lactic acidosis -trend LA #ID -not febrile, no leukocytosis DVT Ppx SCDs FEN LR 75mL/hr monitor lactate NPO Lines [facility] 01/24 ETT 22cm at [facility] 01/24 Dispo: ICU We will continue to follow the patient. Thank you for this consultative opportunity. FULL CODE updated son over the phone on events of the day Visit type - Emergency Visit Emergency Visit: Yes ED Registration Date: 01/25/20 Care time: The patient presented to the Emergency Department on the above date and was hospitalized for further evaluation of their emergent condition. - New Patient This patient is new to me today: Yes Date on this admission: 01/25/20 - Critical Care Critical Care patient: Yes Total Critical Care Time (in minutes): 36 Critical Care Statement: The care of this patient involved high complexity decision making to prevent further life threatening deterioration of the patient's condition and/or to evaluate & treat vital organ system(s) failure or risk of failure. ATTENDING PHYSICIAN STATEMENT I saw and evaluated the patient. I reviewed the resident's note and discussed the case with the resident. I agree with the resident's findings and plan as documented. SUBJECTIVE: OBJECTIVE: ASSESSMENT AND PLAN:
[2020-01-25 17:17] LABS: ARTERIAL BLD GAS O2 SATURATION 95.7 mmHg (95-98); ARTERIAL BLOOD GAS BASE EXCESS -1.5 mmol/L (-2-2); ARTERIAL BLOOD GAS pH 7.371 (7.350-7.450)
[2020-01-25 17:18] LABS: O2 CONTENT 94.5 % vol
[2020-01-25] MEDS: INSULIN SLIDING SCALE (NOVOLOG) 1 VIAL SQ SCH (18:15)
[2020-01-25 18:48] LABS: BASO % 0.1 % (0-2.0); EOS % 0.1 % (0-4.5); HEMOGLOBIN 11.4 GM/dL (10.7-15.3); LYMPH % 5.8 % (8-40); MCH 25.9 pg (25.7-33.7); MCHC 30.8 g/dl (32.0-36.0); MEAN CELL VOLUME 84.2 fl (80-96); MEAN PLT VOLUME 7.7 fl (7.5-11.1); MONO % 2.6 % (3.8-10.2); NEUT % 91.4 % (42.8-82.8); PLATELET COUNT 314 K/MM3 (134-434); RBC 4.39 M/mm3 (3.60-5.2); RDW 17.1 % (11.6-15.6); WHITE BLOOD COUNT 8.8 K/mm3 (4.0-10.0)
[2020-01-25] MEDS: LACTATED RINGERS SOLUTION 1,000 ML/1,000 ML INFUS.BAG IV SCH (19:00)
[2020-01-25 19:36] LABS: BLOOD UREA NITROGEN 13.9 mg/dL (7-18); CALCIUM 8.5 mg/dL (8.5-10.1); CREATININE 0.9 mg/dL (0.55-1.3); POTASSIUM 3.9 mmol/L (3.5-5.1)
[2020-01-25 20:04] LABS: ANISOCYTOSIS 2+
[2020-01-25 20:05] LABS: PLATELET ESTIMATE ADEQUATE
[2020-01-26] MEDS: INSULIN SLIDING SCALE (NOVOLOG) 1 VIAL SQ SCH ×4 (00:46→17:39)
[2020-01-26] MEDS: PROPOFOL 1,000,000 MCG/100 ML VIAL IVPB SCH ×8 (02:53→23:06)
[2020-01-26] MEDS: LACTATED RINGERS SOLUTION 1,000 ML/1,000 ML INFUS.BAG IV SCH ×3 (02:54→12:40)
[2020-01-26] MEDS: FENTANYL NS IVPB 500 MCG/100 ML BAG IVPB SCH ×4 (05:50→19:44)
[2020-01-26 07:00] LABS: N-TERMINAL BNP 380.5 pg/ml (5-125)
[2020-01-26 08:01] LABS: ALBUMIN 2.9 g/dl (3.4-5.0); BILIRUBIN,TOTAL 0.2 mg/dL (0.2-1); BLOOD UREA NITROGEN 14.4 mg/dL (7-18); CALCIUM 8.8 mg/dL (8.5-10.1); CREATININE 0.7 mg/dL (0.55-1.3); TOT PROT 6.6 g/dl (6.4-8.2)
[2020-01-26 09:26] LABS: ARTERIAL BLD GAS O2 SATURATION 98.1 mmHg (95-98); ARTERIAL BLOOD GAS BASE EXCESS -1.8 mmol/L (-2-2); ARTERIAL BLOOD GAS PO2 119.3 mmHg (80-100); ARTERIAL BLOOD GAS pH 7.349 (7.350-7.450)
--- NOTE | 2020-01-26 09:26 | PN ---
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 (short form) - Note 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: Pt seen and examined. Remains intubated, sedation trial in effect. Pt responsive, following commands. No issues overnight. Chest cta done yesterday with no PE visualized. Vital Signs Temp 97.6 F 01/26/20 07:29 Pulse 76 01/26/20 08:05 Resp 20 01/26/20 08:05 BP 153/87 01/26/20 07:29 Pulse Ox 100 01/26/20 08:05 Intake & Output 01/25/20 01/25/20 01/26/20 11:59 23:59 11:59 Intake Total 1000 344.4 1469 Output Total 860 325 Balance 1000 -515.6 1144 Intake: IV 1000 344.4 1469 DIPRIVAN - 1,000,000 mcg 58.6 429 In 100 ml @ 5 MCG/KG/MIN 4.763 mls/hr IVPB TITR ANGIE Rx#:[id number] Heparin - 25,000 Unit In 210.4 0 Normal Saline - 495 ml @ 1,000 UNIT/HR 20 mls/hr IV TITR ANGIE Rx#: [id number] LACTATED RINGERS SOLUTION 910 1,000 ml In 1,000 ml @ 125 mls/hr IV ASDIR ANGIE Rx#:[id number] Pitressin - 40 Units In 28.8 0 Normal Saline - 98 ml @ 2 UNITS/HR 5 mls/hr IVPB ASDIR ANGIE Rx#:[id number] SUBLIMAZE IVPB 500 mcg In 46.6 130 100 ml @ 50 MCG/HR 10 mls/hr IVPB TITR ANGIE Rx#: [id number] Output: Urine 860 325 Rodriguez 460 325 Other: Voiding Method Indwelling Catheter Indwelling Catheter Bowel Movement No CBC, BMP 01/25/20 18:30 01/26/20 06:00 Gen: intubated, off sedation, responsive, following commands Resp: intubated vented Neck: dressing c/d/i, no hematoma noted Ext: moving all extremities A/P: 49 y/o F w/ PMHx HTN, DM, morbid obesity, b/l LE venous stasis and b/l upper extremity lymphedema secondary to b/l mastectomy/reconstruction/lymph node dissection, now intubated in ICU s/p aborted cervical corpectomy. CTA for r/o PE yesterday negative Duplex for dvt negative Echo pending this AM Labs reviewed Off pressors since last night, maintaining bp systolic in 150s-160s- -Plan for extubation over the weekend -Keep dressing c/d/i -will follow d/w attending Dr Vasquez
--- NOTE | 2020-01-26 10:37 | ECHO ---
Version: 1 Name: [facility] Exam: Adult Echocardiogram Study Date: 01/26/2020, 9:34 AM Age: 49 Years MMode/2D Measurements & Calculations IVSd: 1.57 cm LVIDs: 2.6 cm LVIDd: 4.3 cm LVPWd: 1.34 cm ACS: 2.48 cm Ao root diam: 3.3 cm LVOT diam: 2.39 cm LA dimension: 3.4 cm Doppler Measurements & Calculations MV E max pillo: 58.2 cm/sec MV V2 max: 85.5 cm/sec MV A max pillo: 67.4 cm/sec MV max P.9 mmHg MV mean P.37 mmHg Med E/e': 10.3 MV E/A: 0.86 Med Peak E' Pillo: 5.7 cm/sec Lat E/e': 7.9 Lat Peak E' Pillo: 7.4 cm/sec Ao max P.9 mmHg Ao V2 max: 131.7 cm/sec TR max pillo: 117.4 cm/sec TR max P.5 mmHg Procedure The study was technically difficult with many images being suboptimal in quality. Left Ventricle There is mild concentric left ventricular hypertrophy. Left ventricular systolic function is grossly normal. Ejection Fraction = 50-55%. The transmitral spectral Doppler flow pattern is suggestive of impaired LV relaxation. Regional wall motion abnormalities cannot be excluded due to limited visualization. Right Ventricle The right ventricle is grossly normal size. The right ventricular systolic function is grossly cathy l. Atria The left atrium is borderline dilated. Mitral Valve The mitral valve is normal in structure and function. There is no mitral valve stenosis. There is mi ld mitral regurgitation. Tricuspid Valve The tricuspid valve is normal in structure and function. There is mild tricuspid regurgitation. Righ t ventricular systolic pressure is normal. Aortic Valve The aortic valve opens well. No hemodynamically significant valvular aortic stenosis. No aortic regu rgitation is present. Pulmonic Valve The pulmonic valve is not well seen, but is grossly normal. There is no pulmonic valvular stenosis. Great Vessels The aortic root is normal size. Pericardium/Pleura There is no pericardial effusion. Tech Comments Technically difficult study due to body habitus. Summary Statements The study was technically difficult with many images being suboptimal in quality. Regional wall motion abnormalities cannot be excluded due to limited visualization. Left ventricular systolic function is grossly normal. The transmitral spectral Doppler flow pattern is suggestive of impaired LV relaxation. There is mild tricuspid regurgitation. There is no pericardial effusion. MD Alfaro *Devan 01/26/2020, 10:36 AM Ordering Physician: Phuc Ragland Referring Physician: Lawson Vasquez Performed By: Jose Osorio
--- NOTE | 2020-01-26 11:27 | PN ---
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 (short form) - Note 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: 49F POD1 aborted cervical corpectomy secondary to hemodynamic intability. Pt ruled out for PE, is off pressors, is responsive and is being weaned in preparation for extubation. Will continue to follow.
[2020-01-26] MEDS ORDERED: FENTANYL IVPB 500 MCG/100 ML BAG IVPB ONE (11:28)
[2020-01-26 12:39] LABS: BASO % 0.1 % (0-2.0); HEMATOCRIT 33.6 % (32.4-45.2); HEMOGLOBIN 10.3 GM/dL (10.7-15.3); LYMPH % 13.9 % (8-40); MCH 25.6 pg (25.7-33.7); MCHC 30.5 g/dl (32.0-36.0); MEAN CELL VOLUME 83.7 fl (80-96); MEAN PLT VOLUME 8.1 fl (7.5-11.1); MONO % 6.4 % (3.8-10.2); NEUT % 79.6 % (42.8-82.8); PLATELET COUNT 279 K/MM3 (134-434); RBC 4.01 M/mm3 (3.60-5.2); RDW 17.2 % (11.6-15.6); WHITE BLOOD COUNT 6.2 K/mm3 (4.0-10.0)
[2020-01-26 12:46] LABS: INR 1.06 (0.83-1.09); PROTHROMBIN TIME (PATIENT) 12.5 SEC (9.7-13.0)
[2020-01-26 12:49] LABS: ACTIVATED PTT 28.2 SECONDS (25.2-36.5)
[2020-01-26 13:17] LABS: PHOSPHOROUS 4.4 mg/dL (2.5-4.9)
[2020-01-26] MEDS ORDERED: PROPOFOL 1,000,000 MCG/100 ML VIAL ONE (14:28)
--- NOTE | 2020-01-26 15:30 | EKG ---
Test Reason : Blood Pressure : / mmHG Vent. Rate : 099 BPM Atrial Rate : 099 BPM P-R Int : 180 ms QRS Dur : 094 ms QT Int : 404 ms P-R-T Axes : 063 067 056 degrees QTc Int : 518 ms NORMAL SINUS RHYTHM POSSIBLE LEFT ATRIAL ENLARGEMENT PROLONGED QT ABNORMAL ECG NO PREVIOUS ECGS AVAILABLE Confirmed by ALISSA SHER MD ([id number]) on 01/26/2020 3:30:12 PM Referred By: Lawson Vasquez Confirmed By:ALISSA SHER MD
--- NOTE | 2020-01-26 16:30 | PN ---
Teaching Attending Note Name of Resident: Brenna Tovar ATTENDING PHYSICIAN STATEMENT I saw and evaluated the patient. I reviewed the resident's note and discussed the case with the resident. I agree with the resident's findings and plan as documented. SUBJECTIVE: Patient seen and examined in the ICU. Remains intubated and sedated. Low dose Vasopressin. AC Mode of vent, 40% FiO2. Afberile. CT : Noted results : extensive right paratracheal soft tissue swelling (?) hematoma (?) thyroid Intake & Output 01/23/20 01/24/20 01/25/20 01/26/20 23:59 23:59 23:59 23:59 Intake Total 1344.4 1469 Output Total 860 825 Balance 484.4 644 Weight 350 lb Last Vital Signs Temp Pulse Resp BP Pulse Ox 97.6 F 76 20 153/87 100 01/26/20 07:29 01/26/20 08:05 01/26/20 15:35 01/26/20 07:29 01/26/20 15:35 Active Medications IV Flush (Triple Lumen Flush) 4 ml IVPUSH PRN PRN PRN Reason: Protocol Fentanyl (Sublimaze Ivpb) 500 mcg in 100 mls @ 10 mls/hr IVPB TITR ANGIE; Protocol Last Admin: 01/26/20 12:38 Dose: 100 mcg/hr, 20 mls/hr Documented by: Propofol (Diprivan -) 1,000,000 mcg in 100 mls @ 4.763 mls/hr IVPB TITR ANGIE; Protocol Last Admin: 01/26/20 12:39 Dose: 50 mcg/kg/min, 47.627 mls/hr Documented by: Vasopressin 40 units/ Sodium (Chloride) 100 mls @ 5 mls/hr IVPB ASDIR ANGIE; Protocol Last Titration: 01/25/20 17:04 Dose: 0 units/hr, 0 mls/hr Documented by: Lactated Ringer's (Lactated Ringers Solution) 1,000 ml in 1,000 mls @ 75 mls/hr IV ASDIR ANGIE Last Admin: 01/26/20 12:40 Dose: 75 mls/hr Documented by: Insulin Aspart (Novolog Vial Sliding Scale -) 1 vial SQ Q6HPO ANGIE; Protocol Last Admin: 01/26/20 12:37 Dose: Not Given Documented by: PHYSICAL EXAMINATION Vital Signs - 24 hr 01/25/20 01/25/20 01/25/20 08:20 08:22 08:32 Temperature 98.0 F 98.0 F Pulse Rate 88 88 Respiratory 20 20 Rate Blood Pressure 171/101 H 171/101 H O2 Sat by Pulse 96 96 Oximetry (%) 01/25/20 01/25/20 13:16 13:52 Temperature Pulse Rate 97 H 85 Respiratory 20 20 Rate Blood Pressure 156/81 147/78 O2 Sat by Pulse 92 L 94 L Oximetry (%) GENERAL: Intubated and sedated HEAD: Normal with no signs of trauma. EYES: Pupils equal, round and reactive to light, sclera anicteric, conjunctiva clear. EARS, NOSE, THROAT: Ears normal, nares patent, oropharynx clear without exudates. Moist mucous membranes. NECK: Normal range of motion, supple without lymphadenopathy, JVD, or masses. LUNGS: Vented, diminished. No wheezes, and no crackles. No accessory muscle use. HEART: Regular rate and rhythm, normal S1 and S2 without murmur, rub or gallop. ABDOMEN: Soft, nontender, not distended, normoactive bowel sounds, no guarding, no rebound, no masses. No hepatomegaly or splenomegaly. MUSCULOSKELETAL: Normal range of motion at all joints. No bony deformities or tenderness. No CVA tenderness. UPPER EXTREMITIES: 2+ pulses, warm, well-perfused. No cyanosis. No clubbing. Cap refill <2 seconds. No peripheral edema. LOWER EXTREMITIES: 2+ pulses, warm, well-perfused. No calf tenderness. No peripheral edema. NEUROLOGICAL: Sedated PSYCHIATRIC: Sedated SKIN: Warm, dry, normal turgor, no rashes or lesions noted. Laboratory Results - last 24 hr 01/25/20 01/25/20 01/25/20 08:14 09:00 12:09 WBC RBC Hgb Hct MCV MCH MCHC RDW Plt Count MPV Absolute Neuts (auto) Neutrophils % Lymphocytes % Monocytes % Eosinophils % Basophils % Nucleated RBC % PT with INR INR PTT (Actin FS) Fibrinogen D-Dimer Anticoagulation Therapy No Result Required. Puncture Site No Result Required. Patient Temperature No Result Required. ABG pH 7.280 L ABG pCO2 53.10 H ABG pO2 142.3 H ABG HCO3 24.4 ABG O2 Sat (Measured) 98.5 H ABG O2 Content No Result Required. ABG Base Excess -3.0 L Jeffrey Test No Result Required. Carboxyhemoglobin Methemoglobin Patient On Oxygen No Result Required. O2 Delivery Device No Result Required. Oxygen Flow Rate No Result Required. Vent Mode No Result Required. Vent Rate No Result Required. Mechanical Rate No Result Required. PEEP No Result Required. Pressure Support Vent No Result Required. Sodium Potassium Chloride Carbon Dioxide Anion Gap BUN Creatinine Est GFR (CKD-EPI)AfAm Est GFR (CKD-EPI)NonAf POC Glucometer 93 Random Glucose Lactic Acid Calcium Total Bilirubin AST ALT Alkaline Phosphatase Total Protein Albumin Blood Type O POSITIVE Antibody Screen Negative 01/25/20 01/25/20 01/25/20 12:09 12:09 12:09 WBC 9.1 RBC 4.82 Hgb 12.4 Hct 41.0 D MCV 85.2 MCH 25.7 MCHC 30.2 L RDW 17.7 H Plt Count 397 MPV 8.1 D Absolute Neuts (auto) 5.7 Neutrophils % 62.3 D Lymphocytes % 34.2 Monocytes % 2.0 L Eosinophils % 0.7 D Basophils % 0.8 Nucleated RBC % 0 PT with INR 13.70 H INR 1.16 H PTT (Actin FS) 107.1 H Fibrinogen 303.0 D-Dimer 8578 H Anticoagulation Therapy Puncture Site Patient Temperature ABG pH ABG pCO2 ABG pO2 ABG HCO3 ABG O2 Sat (Measured) ABG O2 Content ABG Base Excess Jeffrey Test Carboxyhemoglobin Methemoglobin Patient On Oxygen O2 Delivery Device Oxygen Flow Rate Vent Mode Vent Rate Mechanical Rate PEEP Pressure Support Vent Sodium Potassium Chloride Carbon Dioxide Anion Gap BUN Creatinine Est GFR (CKD-EPI)AfAm Est GFR (CKD-EPI)NonAf POC Glucometer Random Glucose Lactic Acid Calcium Total Bilirubin AST ALT Alkaline Phosphatase Total Protein Albumin Blood Type Antibody Screen 01/25/20 01/25/20 01/25/20 12:09 12:09 12:20 WBC RBC Hgb Hct MCV MCH MCHC RDW Plt Count MPV Absolute Neuts (auto) Neutrophils % Lymphocytes % Monocytes % Eosinophils % Basophils % Nucleated RBC % PT with INR INR PTT (Actin FS) Fibrinogen D-Dimer Anticoagulation Therapy Puncture Site Patient Temperature ABG pH ABG pCO2 ABG pO2 ABG HCO3 ABG O2 Sat (Measured) ABG O2 Content ABG Base Excess Jeffrey Test Carboxyhemoglobin Methemoglobin 0.3 Patient On Oxygen O2 Delivery Device Oxygen Flow Rate Vent Mode Vent Rate Mechanical Rate PEEP Pressure Support Vent Sodium 139 Potassium 3.8 Chloride 105 Carbon Dioxide 23 Anion Gap 11 BUN 13.7 Creatinine 1.1 Est GFR (CKD-EPI)AfAm 67.32 Est GFR (CKD-EPI)NonAf 58.08 POC Glucometer Random Glucose 223 H Lactic Acid 2.1 H Calcium 8.8 Total Bilirubin 0.2 AST 14 L ALT 14 Alkaline Phosphatase 69 Total Protein 6.4 Albumin 2.7 L Blood Type Antibody Screen 01/25/20 12:36 WBC RBC Hgb Hct MCV MCH MCHC RDW Plt Count MPV Absolute Neuts (auto) Neutrophils % Lymphocytes % Monocytes % Eosinophils % Basophils % Nucleated RBC % PT with INR INR PTT (Actin FS) Fibrinogen D-Dimer Anticoagulation Therapy Puncture Site Patient Temperature ABG pH ABG pCO2 ABG pO2 ABG HCO3 ABG O2 Sat (Measured) ABG O2 Content ABG Base Excess Jeffrey Test Carboxyhemoglobin 0.5 Methemoglobin Patient On Oxygen O2 Delivery Device Oxygen Flow Rate Vent Mode Vent Rate Mechanical Rate PEEP Pressure Support Vent Sodium Potassium Chloride Carbon Dioxide Anion Gap BUN Creatinine Est GFR (CKD-EPI)AfAm Est GFR (CKD-EPI)NonAf POC Glucometer Random Glucose Lactic Acid Calcium Total Bilirubin AST ALT Alkaline Phosphatase Total Protein Albumin Blood Type Antibody Screen Active Medications Generic Name Dose Route Start Last Admin Trade Name Freq PRN Reason Stop Dose Admin Heparin Sodium (Porcine) 1,000 unit 01/25/20 13:22 Heparin - IVPUSH PRN PRN Heparin Heparin Sodium (Porcine) 5,000 unit 01/25/20 13:22 01/25/20 14:15 Heparin - IVPUSH 5,000 unit PRN PRN Administration Heparin Heparin Sodium (Porcine) 25, 500 mls @ 20 mls/hr 01/25/20 13:30 01/25/20 14:18 000 unit/ Sodium Chloride IV 1,000 unit/hr TITR ANGIE 20 mls/hr Administration Protocol 1,000 UNIT/HR Fentanyl 500 mcg in 100 mls @ 10 mls/hr 01/25/20 13:30 01/25/20 13:52 Sublimaze Ivpb IVPB 50 mcg/hr TITR ANGIE 10 mls/hr Administration Protocol 50 MCG/HR Propofol 1,000,000 mcg in 100 mls @ 4.763 mls/hr 01/25/20 13:30 01/25/20 14:21 Diprivan - IVPB 10 mcg/kg/min TITR ANGIE 9.525 mls/hr Titration Protocol 5 MCG/KG/MIN ASSESSMENT/PLAN: Acute Respiratory Failure Suspected narrowed tracheal lumen due to a combination of soft tissue swelling / hematoma / thyromegaly HTN DM Morbid obesity Severe LE venous stasis Severe b/l upper extremity lymphedema secondary to prior breast cancer history for ACDF. Pulmonary HTN Likely OSAS / OHS AC Mode of vent Sedation Follow H & H (+) Leak on cuff testing but less than 50% volume return Hole all AC Monitor off ABX for now but have a low threshold to start Strict I & O Follow CBC Will be conservative with extubation attempts due to complicated condition Requires ICU monitoring Dr Florentino Critical care time spent in reviewing chart, evaluating patient and formulating plan - 36 minutes.
[2020-01-26] MEDS: VASOPRESSIN 40 UNITS in SODIUM CHLORIDE 98 ML IVPB SCH (17:39)
--- NOTE | 2020-01-26 18:39 | PN ---
Physical Exam: SUBJECTIVE: Patient seen and examined. Sedated and on ventilator. OBJECTIVE: Vital Signs Period Temp Pulse Resp BP Sys/Gibbs Pulse Ox Last 24 Hr 97.6 F-98.5 F 70-88 20-24 117-161/69-93 100-100 GENERAL: Sedated. Minimal movement of legs. HEAD: Normal with no signs of trauma. EYES: Pupils equal, round and reactive to light, extraocular movements intact, conjunctiva clear. EARS, NOSE, THROAT: Ears normal, nares patent, moist mucous membranes. NECK: Supple. Minimally palpable air at upper chest midline and to the right. LUNGS: Bronchial sounds but otherwise clear. HEART: Regular rate and rhythm, no murmur. ABDOMEN: Soft, nontender, not distended, normoactive bowel sounds. MUSCULOSKELETAL: Normal range of motion at all joints. UPPER EXTREMITIES: Warm, well-perfused. +1 pitting edema. LOWER EXTREMITIES: Warm, well-perfused. +1 pitting edema. SCDs NEUROLOGICAL: unable to assess PSYCHIATRIC: unable to assess SKIN: Warm, dry, normal turgor. Laboratory Results - last 24 hr 01/25/20 01/25/20 01/25/20 18:30 18:30 18:30 WBC 8.8 RBC 4.39 Hgb 11.4 Hct 37.0 MCV 84.2 MCH 25.9 MCHC 30.8 L RDW 17.1 H Plt Count 314 D MPV 7.7 Absolute Neuts (auto) 8.0 Neutrophils % 91.4 H D Neutrophils % (Manual) 88.0 H Band Neutrophils % 2.0 Lymphocytes % 5.8 L D Lymphocytes % (Manual) 6.0 L Monocytes % 2.6 L Monocytes % (Manual) 4 Eosinophils % 0.1 D Basophils % 0.1 Nucleated RBC % 0 Hypochromia 2+ Platelet Estimate Adequate Anisocytosis 2+ Microcytosis 2+ Stomatocytes 1+ PT with INR INR PTT (Actin FS) Anticoagulation Therapy Puncture Site Patient Temperature ABG pH ABG pCO2 ABG pO2 ABG HCO3 ABG O2 Sat (Measured) ABG O2 Content ABG Base Excess Jeffrey Test Patient On Oxygen O2 Delivery Device Oxygen Flow Rate Vent Mode Vent Rate Mechanical Rate PEEP Pressure Support Vent Sodium 140 Potassium 3.9 Chloride 105 Carbon Dioxide 24 Anion Gap 11 BUN 13.9 Creatinine 0.9 Est GFR (CKD-EPI)AfAm 85.80 Est GFR (CKD-EPI)NonAf 74.03 POC Glucometer Random Glucose 192 H Lactic Acid 1.2 Calcium 8.5 Phosphorus Magnesium Total Bilirubin AST ALT Alkaline Phosphatase Troponin I 0.17 H B-Natriuretic Peptide Total Protein Albumin 01/25/20 01/26/20 01/26/20 20:30 00:45 05:58 WBC RBC Hgb Hct MCV MCH MCHC RDW Plt Count MPV Absolute Neuts (auto) Neutrophils % Neutrophils % (Manual) Band Neutrophils % Lymphocytes % Lymphocytes % (Manual) Monocytes % Monocytes % (Manual) Eosinophils % Basophils % Nucleated RBC % Hypochromia Platelet Estimate Anisocytosis Microcytosis Stomatocytes PT with INR INR PTT (Actin FS) Anticoagulation Therapy Puncture Site Patient Temperature ABG pH ABG pCO2 ABG pO2 ABG HCO3 ABG O2 Sat (Measured) ABG O2 Content ABG Base Excess Jeffrey Test Patient On Oxygen O2 Delivery Device Oxygen Flow Rate Vent Mode Vent Rate Mechanical Rate PEEP Pressure Support Vent Sodium Potassium Chloride Carbon Dioxide Anion Gap BUN Creatinine Est GFR (CKD-EPI)AfAm Est GFR (CKD-EPI)NonAf POC Glucometer 122 127 Random Glucose Lactic Acid Calcium Phosphorus Magnesium Total Bilirubin AST ALT Alkaline Phosphatase Troponin I 0.12 H B-Natriuretic Peptide Total Protein Albumin 01/26/20 01/26/20 01/26/20 06:00 07:48 07:48 WBC 6.2 RBC 4.01 Hgb 10.3 L Hct 33.6 MCV 83.7 MCH 25.6 L MCHC 30.5 L RDW 17.2 H Plt Count 279 MPV 8.1 Absolute Neuts (auto) 4.9 Neutrophils % 79.6 Neutrophils % (Manual) Band Neutrophils % Lymphocytes % 13.9 D Lymphocytes % (Manual) Monocytes % 6.4 D Monocytes % (Manual) Eosinophils % 0.0 D Basophils % 0.1 Nucleated RBC % 0 Hypochromia Platelet Estimate Anisocytosis Microcytosis Stomatocytes PT with INR INR PTT (Actin FS) Anticoagulation Therapy No Result Required. Puncture Site Arterial line Patient Temperature No Result Required. ABG pH 7.349 L ABG pCO2 44.30 ABG pO2 119.3 H ABG HCO3 23.9 ABG O2 Sat (Measured) 98.1 H ABG O2 Content No Result Required. ABG Base Excess -1.8 Jeffrey Test No Result Required. Patient On Oxygen Yes O2 Delivery Device V Oxygen Flow Rate 40 Vent Mode No Result Required. Vent Rate No Result Required. Mechanical Rate V PEEP 10.0 Pressure Support Vent No Result Required. Sodium 139 Potassium 4.0 Chloride 103 Carbon Dioxide 27 Anion Gap 9 BUN 14.4 Creatinine 0.7 Est GFR (CKD-EPI)AfAm 116.27 Est GFR (CKD-EPI)NonAf 100.32 POC Glucometer Random Glucose 133 H Lactic Acid Calcium 8.8 Phosphorus Magnesium Total Bilirubin 0.2 AST 15 ALT 13 Alkaline Phosphatase 56 Troponin I B-Natriuretic Peptide 380.5 H Total Protein 6.6 Albumin 2.9 L 01/26/20 01/26/20 01/26/20 07:48 07:48 12:35 WBC RBC Hgb Hct MCV MCH MCHC RDW Plt Count MPV Absolute Neuts (auto) Neutrophils % Neutrophils % (Manual) Band Neutrophils % Lymphocytes % Lymphocytes % (Manual) Monocytes % Monocytes % (Manual) Eosinophils % Basophils % Nucleated RBC % Hypochromia Platelet Estimate Anisocytosis Microcytosis Stomatocytes PT with INR 12.50 INR 1.06 PTT (Actin FS) 28.2 Anticoagulation Therapy Puncture Site Patient Temperature ABG pH ABG pCO2 ABG pO2 ABG HCO3 ABG O2 Sat (Measured) ABG O2 Content ABG Base Excess Ejffrey Test Patient On Oxygen O2 Delivery Device Oxygen Flow Rate Vent Mode Vent Rate Mechanical Rate PEEP Pressure Support Vent Sodium Potassium Chloride Carbon Dioxide Anion Gap BUN Creatinine Est GFR (CKD-EPI)AfAm Est GFR (CKD-EPI)NonAf POC Glucometer 121 Random Glucose Lactic Acid Calcium Phosphorus 4.4 Magnesium 2.0 Total Bilirubin AST ALT Alkaline Phosphatase Troponin I 0.03 B-Natriuretic Peptide Total Protein Albumin 01/26/20 17:37 WBC RBC Hgb Hct MCV MCH MCHC RDW Plt Count MPV Absolute Neuts (auto) Neutrophils % Neutrophils % (Manual) Band Neutrophils % Lymphocytes % Lymphocytes % (Manual) Monocytes % Monocytes % (Manual) Eosinophils % Basophils % Nucleated RBC % Hypochromia Platelet Estimate Anisocytosis Microcytosis Stomatocytes PT with INR INR PTT (Actin FS) Anticoagulation Therapy Puncture Site Patient Temperature ABG pH ABG pCO2 ABG pO2 ABG HCO3 ABG O2 Sat (Measured) ABG O2 Content ABG Base Excess Jeffrey Test Patient On Oxygen O2 Delivery Device Oxygen Flow Rate Vent Mode Vent Rate Mechanical Rate PEEP Pressure Support Vent Sodium Potassium Chloride Carbon Dioxide Anion Gap BUN Creatinine Est GFR (CKD-EPI)AfAm Est GFR (CKD-EPI)NonAf POC Glucometer 92 Random Glucose Lactic Acid Calcium Phosphorus Magnesium Total Bilirubin AST ALT Alkaline Phosphatase Troponin I B-Natriuretic Peptide Total Protein Albumin Active Medications Generic Name Dose Route Start Last Admin Trade Name Barbara PRN Reason Stop Dose Admin IV Flush 4 ml 01/25/20 14:44 Triple Lumen Flush IVPUSH PRN PRN Protocol Fentanyl 500 mcg in 100 mls @ 10 mls/hr 01/25/20 13:30 01/26/20 17:39 Sublimaze Ivpb IVPB Not Given TITR ANGIE Protocol 50 MCG/HR Propofol 1,000,000 mcg in 100 mls @ 4.763 mls/hr 01/25/20 13:30 01/26/20 18:29 Diprivan - IVPB 50 mcg/kg/min TITR ANGIE 47.627 mls/hr Administration Protocol 5 MCG/KG/MIN Vasopressin 40 units/ Sodium 100 mls @ 5 mls/hr 01/25/20 15:00 01/26/20 17:39 Chloride IVPB Not Given ASDIR ANGIE Protocol 2 UNITS/HR Lactated Ringer's 1,000 ml in 1,000 mls @ 75 mls/hr 01/26/20 07:40 01/26/20 12:40 Lactated Ringers Solution IV 75 mls/hr ASDIR ANGIE Administration Insulin Aspart 1 vial 01/25/20 18:00 01/26/20 17:39 Novolog Vial Sliding Scale - SQ Not Given Q6HPO ANGIE Protocol ASSESSMENT/PLAN: Pt is a 49 y/o female with HTN, DM, morbid obesity, severe b/l LE venous stasis and severe b/l upper extremity lymphedema secondary to prior breast cancer history for ACDF. Five minutes into surgery, pt became acutely hypotensive and hypoxic not responsive to phenylephrine. Team was concerned for PE, aborted surgery, and consulted ICU. #neuro -sedated on fentanyl and propofol -sedation vacation today but pt agitated #cardio -hypotension possibly 2/2 hypoxia during procedure -off vasopressin since last night -keep MAP >65 #pulm -acute hypoxic and hypercapneic respiratory failure, ABG normalized on ventilator yesterday -vent 500/23/06/30 -CTA yesterday showed no evidence of PE; has posterior bibasilar atelectasis and increased right paratracheal density suggestive of edema or hematoma; pulmonary hypertension -CT today shows increased swelling of right paratracheal area -keep pt intubated given swelling around trachea, will reassess if pt can be extubated -bolus of heparin given yesterday for empiric PE tx -monitor labs #renal -lactic acidosis, resolved #ID -not febrile, no leukocytosis DVT Ppx SCDs FEN LR 75mL/hr monitor lactate NPO Lines LIJ 01/24 ETT 22cm at teeth 01/24 Dispo: ICU FULL CODE Spoke to son at bedside today with updates. Visit type - Emergency Visit Emergency Visit: Yes ED Registration Date: 01/25/20 Care time: The patient presented to the Emergency Department on the above date and was hospitalized for further evaluation of their emergent condition. - New Patient This patient is new to me today: No - Critical Care Critical Care patient: Yes Total Critical Care Time (in minutes): 36 Critical Care Statement: The care of this patient involved high complexity decision making to prevent further life threatening deterioration of the patient's condition and/or to evaluate & treat vital organ system(s) failure or risk of failure. ATTENDING PHYSICIAN STATEMENT I saw and evaluated the patient. I reviewed the resident's note and discussed the case with the resident. I agree with the resident's findings and plan as documented. SUBJECTIVE: OBJECTIVE: ASSESSMENT AND PLAN:
[2020-01-27] MEDS: PROPOFOL 1,000,000 MCG/100 ML VIAL IVPB SCH ×10 (00:42→23:03)
[2020-01-27] MEDS: INSULIN SLIDING SCALE (NOVOLOG) 1 VIAL SQ SCH ×4 (00:42→17:23)
[2020-01-27] MEDS: FENTANYL NS IVPB 500 MCG/100 ML BAG IVPB SCH ×4 (00:57→13:33)
[2020-01-27] MEDS: LACTATED RINGERS SOLUTION 1,000 ML/1,000 ML INFUS.BAG IV SCH ×2 (03:38→15:21)
--- NOTE | 2020-01-27 09:04 | PN ---
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 (short form) - Note 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: Pulm/CCM 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 Pt seen and examined in the ICU. Remains intubated and sedated. Minimal vent settings. Edema. Hypertensive. RASS 0 to -1 Comfortable Active Medications IV Flush (Triple Lumen Flush) 4 ml IVPUSH PRN PRN PRN Reason: Protocol Fentanyl (Sublimaze Ivpb) 500 mcg in 100 mls @ 10 mls/hr IVPB TITR ANGIE; Protocol Last Admin: 01/27/20 06:33 Dose: 100 mcg/hr, 20 mls/hr Documented by: Propofol (Diprivan -) 1,000,000 mcg in 100 mls @ 4.763 mls/hr IVPB TITR ANGIE; Protocol Last Admin: 01/27/20 03:37 Dose: 50 mcg/kg/min, 47.627 mls/hr Documented by: Vasopressin 40 units/ Sodium (Chloride) 100 mls @ 5 mls/hr IVPB ASDIR ANGIE; Protocol Last Admin: 01/26/20 17:39 Dose: Not Given Documented by: Lactated Ringer's (Lactated Ringers Solution) 1,000 ml in 1,000 mls @ 75 mls/hr IV ASDIR ANGIE Last Admin: 01/27/20 03:38 Dose: 75 mls/hr Documented by: Insulin Aspart (Novolog Vial Sliding Scale -) 1 vial SQ Q6HPO ANGIE; Protocol Last Admin: 01/27/20 06:27 Dose: Not Given Documented by: Vital Signs Period Temp Pulse Resp BP Sys/Gibbs Pulse Ox Last 24 Hr 96.8 F-97.8 F 71-85 20-22 118-176/64-101 96-100 Intake & Output 01/24/20 01/25/20 01/26/20 01/27/20 23:59 23:59 23:59 23:59 Intake Total 1344.4 3045.3 1455 Output Total 860 1325 Balance 484.4 1720.3 1455 Weight 158.757 kg PHYSICAL EXAMINATION Gen: Morbid obese; orally intubated, calm Neuro: RASS -1; following simple commands HEENT: PERRL; MMM Chest: Rales bilat CV: RRR, S1S2; Abd: Obeses; soft, NT Ext: WWP; 1-2+edema; + pulses Skin:venous discoloration CBC, BMP 01/26/20 07:48 01/26/20 06:00 ABG Results ABG pH 7.349 (7.350-7.450) L 01/26/20 07:48 ABG HCO3 23.9 mmol/L (22-27) 01/26/20 07:48 ABG O2 Sat (Measured) 98.1 mmHg (95-98) H 01/26/20 07:48 ABG O2 Content No Result Required. 01/26/20 07:48 ABG Base Excess -1.8 mmol/L (-2-2) 01/26/20 07:48 CT : Noted results : extensive right paratracheal soft tissue swelling (?) hematoma (?) thyroid ASSESSMENT/PLAN: Acute Respiratory Failure Suspected narrowed tracheal lumen due to a combination of soft tissue swelling / hematoma / thyromegaly HTN DM Morbid obesity Severe LE venous stasis Severe b/l upper extremity lymphedema secondary to prior breast cancer history for ACDF. Pulmonary HTN Likely OSAS / OHS AC Mode of vent Sedation for RASS -1to-2 Diuresis for fluid overload/edema KVO fluid (+) Leak on cuff testing but less than 50% volume return Needs adequate cuff leak prior to extubation BP management Follow H & H Hold all AC Monitor off ABX for now but have a low threshold to start Strict I & O Requires ICU monitoring Lucretia Dia, BRIANA CCT 35mins
[2020-01-27] MEDS ORDERED: FUROSEMIDE 40 MG/4 ML INJECTABLE VIAL IVPUSH ONE (09:29)
[2020-01-27] MEDS: hydrALAZINE HCL 20 MG/ML VIAL IVPUSH PRN (13:36)
[2020-01-27] MEDS ORDERED: DEXTROSE 5%-LACTATED RINGERS 1,000 ML IV SCH (17:30)
[2020-01-28] MEDS: INSULIN SLIDING SCALE (NOVOLOG) 1 VIAL SQ SCH ×4 (00:07→18:01)
[2020-01-28] MEDS: FENTANYL NS IVPB 500 MCG/100 ML BAG IVPB SCH ×6 (00:08→20:15)
[2020-01-28] MEDS: PROPOFOL 1,000,000 MCG/100 ML VIAL IVPB SCH ×10 (00:09→23:05)
[2020-01-28] MEDS ORDERED: DEXTROSE 50%-WATER 25 GM/50 ML DISP.SYRIN ONE (00:15)
[2020-01-28] MEDS ORDERED: DEXTROSE 50%-WATER - 25 GM/50 ML VIAL IVPUSH ONE (00:28)
[2020-01-28] MEDS: DEXTROSE 5%-LACTATED RINGERS 1,000 ML IV SCH ×2 (01:45→22:05)
[2020-01-28 06:19] LABS: HEMATOCRIT 31.8 % (32.4-45.2); HEMOGLOBIN 9.7 GM/dL (10.7-15.3); MCH 25.4 pg (25.7-33.7); MCHC 30.5 g/dl (32.0-36.0); MEAN CELL VOLUME 83.2 fl (80-96); MEAN PLT VOLUME 7.4 fl (7.5-11.1); PLATELET COUNT 255 K/MM3 (134-434); RBC 3.82 M/mm3 (3.60-5.2); WHITE BLOOD COUNT 4.4 K/mm3 (4.0-10.0)
[2020-01-28 06:38] LABS: BLOOD UREA NITROGEN 7.8 mg/dL (7-18); CALCIUM 8.4 mg/dL (8.5-10.1); CREATININE 0.6 mg/dL (0.55-1.3); MAGNESIUM 1.9 mg/dL (1.8-2.4); PHOSPHOROUS 3.5 mg/dL (2.5-4.9); POTASSIUM 3.5 mmol/L (3.5-5.1)
[2020-01-28 06:57] LABS: ARTERIAL BLD GAS O2 SATURATION 98.6 mmHg (95-98); ARTERIAL BLOOD GAS BASE EXCESS 1.1 mmol/L (-2-2); ARTERIAL BLOOD GAS pH 7.399 (7.350-7.450)
[2020-01-28 07:00] LABS: VENT MODE A/C; VENT RATE 20
--- NOTE | 2020-01-28 08:45 | PN ---
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 (short form) - Note 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: Pulm/CCM Pt seen and examined in the ICU. Remains intubated and sedated on Propofol and Fentanyl, RASS-1. Hypertensive ABG Results ABG pH 7.399 (7.350-7.450) 01/28/20 06:00 ABG HCO3 26.1 mmol/L (22-27) 01/28/20 06:00 ABG O2 Sat (Measured) 98.6 mmHg (95-98) H 01/28/20 06:00 ABG O2 Content No Result Required. 01/28/20 06:00 ABG Base Excess 1.1 mmol/L (-2-2) 01/28/20 06:00 Active Medications Hydralazine HCl (Apresoline Injection -) 10 mg IVPUSH Q6H PRN PRN Reason: HYPERTENSION Last Admin: 01/28/20 11:11 Dose: 10 mg Documented by: Hydralazine HCl (Apresoline -) 50 mg PO BID ANGIE IV Flush (Triple Lumen Flush) 4 ml IVPUSH PRN PRN PRN Reason: Protocol Fentanyl (Sublimaze Ivpb) 500 mcg in 100 mls @ 10 mls/hr IVPB TITR ANGIE; Protocol Last Admin: 01/28/20 12:46 Dose: 150 mcg/hr, 30 mls/hr Documented by: Propofol (Diprivan -) 1,000,000 mcg in 100 mls @ 4.763 mls/hr IVPB TITR ANGIE; Protocol Last Admin: 01/28/20 11:03 Dose: 50 mcg/kg/min, 47.627 mls/hr Documented by: Dextrose/Lactated Ringer's (D5-Lr -) 1,000 mls @ 42 mls/hr IV ASDIR ANGIE Last Admin: 01/28/20 01:45 Dose: 42 mls/hr Documented by: Insulin Aspart (Novolog Vial Sliding Scale -) 1 vial SQ Q6HPO ANGIE; Protocol Last Admin: 01/28/20 11:28 Dose: Not Given Documented by: Metoprolol Tartrate (Lopressor -) 50 mg PO TID ANGIE Pantoprazole Sodium (Protonix Iv) 40 mg IVPUSH DAILY ANGIE Vital Signs Period Temp Pulse Resp BP Sys/Gibbs Pulse Ox Last 24 Hr 98.1 F-99.0 F 81-86 18-20 129-174/68-96 100-100 Intake & Output 01/25/20 01/26/20 01/27/20 01/28/20 23:59 23:59 23:59 23:59 Intake Total 1344.4 3045.3 2431.3 1323.6 Output Total 860 1325 3300 1400 Balance 484.4 1720.3 -868.7 -76.4 Weight 158.757 kg 167.829 kg Gen: Morbid obese; orally intubated, calm Neuro: RASS -1; following simple commands HEENT: PERRL; MMM Chest: Rales bilat CV: RRR, S1S2; Abd: Obeses; soft, NT Ext: WWP; 1-2+edema; + pulses Skin:venous discoloration CBC, BMP 01/28/20 05:00 01/28/20 05:00 ASSESSMENT/PLAN: Acute Respiratory Failure Suspected narrowed tracheal lumen due to a combination of soft tissue swelling / hematoma / thyromegaly HTN DM Morbid obesity Severe LE venous stasis Severe b/l upper extremity lymphedema secondary to prior breast cancer history for ACDF. Pulmonary HTN Likely OSAS / OHS -AC Mode of vent, ACPC 20/500/30%/+8 -Continue Fentanyl and Propofol for sedation for RASS -1to-2 -Keep euvolemic -Strict I/O -Trend and replete electrolytes, keep Mg>2, K>4 -KVO fluid -(+) Leak on cuff testing but less than 50% volume return -Needs adequate cuff leak prior to extubation -BP management, insert NGT and start Metoprolol 50 mg TID and Hydralazine 50 mg BID via NGT -Hold all AC due to hematoma -Monitor off ABX for now but have a low threshold to start -Fingersticks, Insulin coverage scale Requires ICU monitoring Tara Avila, ACNP [id number]
[2020-01-28] MEDS: hydrALAZINE HCL 20 MG/ML VIAL IVPUSH PRN (11:11)
[2020-01-28] MEDS ORDERED: METOPROLOL TARTRATE 50 MG TABLET (FP) PO SCH (14:00)
[2020-01-28] MEDS ORDERED: METOPROLOL TARTRATE 50 MG TABLET (FP) ONE ×3 (15:07→21:53)
[2020-01-28] MEDS ORDERED: METOPROLOL TARTRATE 25 MG TABLET (FP) ONE ×2 (15:08→21:54)
[2020-01-28] MEDS ORDERED: FUROSEMIDE 40 MG/4 ML INJECTABLE VIAL IVPUSH ONE (15:13)
[2020-01-28] MEDS: METOPROLOL TARTRATE 25 MG, METOPROLOL TARTRATE 50 MG PO SCH ×2 (15:15→21:55)
[2020-01-28] MEDS: PANTOPRAZOLE SODIUM 40 MG VIAL IVPUSH SCH (15:15)
[2020-01-28] MEDS ORDERED: FENTANYL IVPB 500 MCG/100 ML BAG IVPB ONE (19:49)
[2020-01-28] MEDS: hydrALAZINE HCL 25 MG TABLET (FP) PO SCH (22:51)
[2020-01-29] MEDS: PROPOFOL 1,000,000 MCG/100 ML VIAL IVPB SCH ×6 (01:20→17:25)
[2020-01-29] MEDS: INSULIN SLIDING SCALE (NOVOLOG) 1 VIAL SQ SCH ×5 (06:33→23:16)
[2020-01-29 07:17] LABS: BASO % 0.3 % (0-2.0); EOS % 2.9 % (0-4.5); HEMATOCRIT 30.4 % (32.4-45.2); HEMOGLOBIN 9.3 GM/dL (10.7-15.3); LYMPH % 26.1 % (8-40); MCH 25.3 pg (25.7-33.7); MCHC 30.6 g/dl (32.0-36.0); MEAN CELL VOLUME 82.7 fl (80-96); MONO % 9.7 % (3.8-10.2); PLATELET COUNT 250 K/MM3 (134-434); RBC 3.67 M/mm3 (3.60-5.2); RDW 17.3 % (11.6-15.6)
[2020-01-29] MEDS: DEXTROSE 5%-LACTATED RINGERS 1,000 ML IV SCH (07:34)
[2020-01-29 07:39] LABS: ALBUMIN 2.4 g/dl (3.4-5.0); BILIRUBIN,TOTAL 0.2 mg/dL (0.2-1); CALCIUM 7.8 mg/dL (8.5-10.1); CREATININE 0.4 mg/dL (0.55-1.3); MAGNESIUM 1.7 mg/dL (1.8-2.4); PHOSPHOROUS 3.4 mg/dL (2.5-4.9); POTASSIUM 3.2 mmol/L (3.5-5.1); TOT PROT 5.9 g/dl (6.4-8.2)
[2020-01-29] MEDS ORDERED: MAGNESIUM SULF 50% (8.12 MEQ/2 ML-1 GM VIAL) IVPB ONE (08:26)
[2020-01-29] MEDS ORDERED: KCL 10 MEQ IVPB 10 MEQ/100 ML INFUS.BAG IVPB SCH (08:30)
[2020-01-29] MEDS ORDERED: MAGNESIUM 1GM/D5W - 1 GM/100 ML IVPB IVPB ONE (08:30)
[2020-01-29] MEDS ORDERED: POTASSIUM CHLORIDE ORAL LIQUID 20 MEQ/15 ML PO ONE (08:37)
[2020-01-29] MEDS ORDERED: METOPROLOL TARTRATE 25 MG TABLET (FP) ONE ×2 (08:51→21:27)
[2020-01-29] MEDS ORDERED: METOPROLOL TARTRATE 50 MG TABLET (FP) ONE ×2 (08:51→21:26)
[2020-01-29] MEDS: METOPROLOL TARTRATE 25 MG, METOPROLOL TARTRATE 50 MG PO SCH ×2 (09:00→22:18)
[2020-01-29] MEDS: PANTOPRAZOLE SODIUM 40 MG VIAL IVPUSH SCH (09:01)
[2020-01-29] MEDS: hydrALAZINE HCL 25 MG TABLET (FP) PO SCH ×2 (09:01→22:18)
[2020-01-29] MEDS ORDERED: FUROSEMIDE 40 MG/4 ML INJECTABLE VIAL IVPUSH ONE (09:56)
[2020-01-29] MEDS: FENTANYL NS IVPB 500 MCG/100 ML BAG IVPB SCH ×4 (11:46→18:34)
--- NOTE | 2020-01-29 12:35 | PN ---
Teaching Attending Note Name of Resident: Kimmie Aquino ATTENDING PHYSICIAN STATEMENT I saw and evaluated the patient. I reviewed the resident's note and discussed the case with the resident. I agree with the resident's findings and plan as documented. SUBJECTIVE: Patient seen and examined in the ICU. Remains intubated and sedated on Propofol and Fentanyl. No appreciable leak noted. Exhaled VT almost 500cc. No pressors. Thick secretions noted. Intake & Output 01/26/20 01/27/20 01/28/20 01/29/20 23:59 23:59 23:59 23:59 Intake Total 3045.3 2431.3 2699.6 1405 Output Total 1325 3300 3200 1200 Balance 1720.3 -868.7 -500.4 205 Weight 350 lb 370 lb 370 lb Last Vital Signs Temp Pulse Resp BP Pulse Ox 97.8 F 75 20 140/83 100 01/29/20 08:00 01/29/20 11:56 01/29/20 11:56 01/29/20 11:56 01/29/20 11:56 Active Medications Hydralazine HCl (Apresoline Injection -) 10 mg IVPUSH Q6H PRN PRN Reason: HYPERTENSION Last Admin: 01/28/20 11:11 Dose: 10 mg Documented by: Hydralazine HCl (Apresoline -) 50 mg PO BID ANGIE Last Admin: 01/29/20 09:01 Dose: 50 mg Documented by: IV Flush (Triple Lumen Flush) 4 ml IVPUSH PRN PRN PRN Reason: Protocol Fentanyl (Sublimaze Ivpb) 500 mcg in 100 mls @ 10 mls/hr IVPB TITR ANGIE; Protocol Last Titration: 01/29/20 07:34 Dose: 100 mcg/hr, 20 mls/hr Documented by: Propofol (Diprivan -) 1,000,000 mcg in 100 mls @ 4.763 mls/hr IVPB TITR ANGIE; Protocol Last Admin: 01/29/20 11:13 Dose: 50 mcg/kg/min, 47.627 mls/hr Documented by: Dextrose/Lactated Ringer's (D5-Lr -) 1,000 mls @ 42 mls/hr IV ASDIR ANGIE Last Admin: 01/29/20 07:34 Dose: Not Given Documented by: Nicardipine HCl 25 mg/ (Dextrose) 250 mls @ 25 mls/hr IVPB TITR ANGIE; Protocol Insulin Aspart (Novolog Vial Sliding Scale -) 1 vial SQ Q6HPO ANGIE; Protocol Last Admin: 01/29/20 11:22 Dose: Not Given Documented by: Metoprolol Tartrate 25 mg/ (Metoprolol Tartrate 50 mg) 75 mg PO BID ANGIE Last Admin: 01/29/20 09:00 Dose: 75 mg Documented by: Pantoprazole Sodium (Protonix Iv) 40 mg IVPUSH DAILY [facility] Last Admin: 01/29/20 09:01 Dose: 40 mg Documented by: Gen: Morbid obese; orally intubated Neuro: Sedated HEENT: PERRL; MMM Chest: Vented, bilateral scattered rhonchi CV: RRR, S1S2; Abd: Obeses; soft, NT Ext: WWP; 1-2+edema; + pulses Skin: chronic venous changes Laboratory Results - last 24 hr 01/28/20 01/28/20 01/29/20 17:55 23:30 05:00 WBC 4.0 RBC 3.67 Hgb 9.3 L Hct 30.4 L MCV 82.7 MCH 25.3 L MCHC 30.6 L RDW 17.3 H Plt Count 250 MPV 8.0 Absolute Neuts (auto) 2.4 Neutrophils % 61.0 D Lymphocytes % 26.1 D Monocytes % 9.7 Eosinophils % 2.9 D Basophils % 0.3 Nucleated RBC % 0 Sodium Potassium Chloride Carbon Dioxide Anion Gap BUN Creatinine Est GFR (CKD-EPI)AfAm Est GFR (CKD-EPI)NonAf POC Glucometer 96 86 Random Glucose Calcium Phosphorus Magnesium Total Bilirubin AST ALT Alkaline Phosphatase Total Protein Albumin 01/29/20 01/29/20 01/29/20 05:00 06:32 11:20 WBC RBC Hgb Hct MCV MCH MCHC RDW Plt Count MPV Absolute Neuts (auto) Neutrophils % Lymphocytes % Monocytes % Eosinophils % Basophils % Nucleated RBC % Sodium 143 Potassium 3.2 L Chloride 106 Carbon Dioxide 27 Anion Gap 10 BUN 4.0 L Creatinine 0.4 L Est GFR (CKD-EPI)AfAm 139.77 Est GFR (CKD-EPI)NonAf 120.60 POC Glucometer 96 126 Random Glucose 105 Calcium 7.8 L Phosphorus 3.4 Magnesium 1.7 L Total Bilirubin 0.2 AST 38 H ALT 26 Alkaline Phosphatase 52 Total Protein 5.9 L Albumin 2.4 L ASSESSMENT/PLAN: Acute Respiratory Failure Narrowed tracheal lumen due to a combination of soft tissue swelling / hematoma / thyromegaly HTN DM Morbid obesity Severe LE venous stasis Severe b/l upper extremity lymphedema secondary to prior breast cancer history for ACDF. Pulmonary HTN Likely OSAS / OHS -AC Mode of vent -Continue Fentanyl and Propofol -Strict I/O -Trend and replete electrolytes, keep Mg>2, K>4 -Lasix today -Follow Leak -Enteral feeds -VTE prophylaxis -Monitor off ABX but have a low threshold to start -Follow BMG, Insulin coverage scale -Requires ICU monitoring Dr Florentino Critical care time spent in reviewing chart, evaluating patient and formulating plan - 36 minutes.
[2020-01-29] MEDS: DEXAMETHASONE SOD PHOSPHATE 10 MG/1 ML VIAL IVPUSH SCH ×2 (14:19→17:35)
--- NOTE | 2020-01-29 15:21 | PN ---
Physical Exam: SUBJECTIVE: Patient seen and examined. Pt remained intubated. Off sedation. OBJECTIVE: Vital Signs Period Temp Pulse Resp BP Sys/Gibbs Pulse Ox Last 24 Hr 97.8 F-99.4 F 73-98 14-20 137-198/71-125 95-100 GENERAL: Pt is sedated and intubated. HEENT: ETT in place. Thick secretions present. LUNGS: decreased lung sounds. Rhonchi present b/l HEART: Regular rate and rhythm, S1, S2 without murmur ABDOMEN: Obese. Soft, nondistended. EXTREMITIES: warm, well-perfused, 2+ pitting edema b/l lower extremities. SKIN: Warm, dry Laboratory Last Values WBC 4.0 K/mm3 (4.0-10.0) 01/29/20 05:00 RBC 3.67 M/mm3 (3.60-5.2) 01/29/20 05:00 Hgb 9.3 GM/dL (10.7-15.3) L 01/29/20 05:00 Hct 30.4 % (32.4-45.2) L 01/29/20 05:00 MCV 82.7 fl (80-96) 01/29/20 05:00 MCH 25.3 pg (25.7-33.7) L 01/29/20 05:00 MCHC 30.6 g/dl (32.0-36.0) L 01/29/20 05:00 RDW 17.3 % (11.6-15.6) H 01/29/20 05:00 Plt Count 250 K/MM3 (134-434) 01/29/20 05:00 MPV 8.0 fl (7.5-11.1) 01/29/20 05:00 Absolute Neuts (auto) 2.4 K/mm3 (1.5-8.0) 01/29/20 05:00 Neutrophils % 61.0 % (42.8-82.8) D 01/29/20 05:00 Neutrophils % (Manual) 88.0 % (42.8-82.8) H 01/25/20 18:30 Band Neutrophils % 2.0 % 01/25/20 18:30 Lymphocytes % 26.1 % (8-40) D 01/29/20 05:00 Lymphocytes % (Manual) 6.0 % (8-40) L 01/25/20 18:30 Monocytes % 9.7 % (3.8-10.2) 01/29/20 05:00 Monocytes % (Manual) 4 % (3.8-10.2) 01/25/20 18:30 Eosinophils % 2.9 % (0-4.5) D 01/29/20 05:00 Basophils % 0.3 % (0-2.0) 01/29/20 05:00 Nucleated RBC % 0 % (0-0) 01/29/20 05:00 Hypochromia 2+ 01/25/20 18:30 Platelet Estimate Adequate 01/25/20 18:30 Anisocytosis 2+ 01/25/20 18:30 Microcytosis 2+ 01/25/20 18:30 Stomatocytes 1+ 01/25/20 18:30 PT with INR 12.50 SEC (9.7-13.0) 01/26/20 07:48 INR 1.06 (0.83-1.09) 01/26/20 07:48 PTT (Actin FS) 28.2 SECONDS (25.2-36.5) 01/26/20 07:48 Fibrinogen 303.0 mg/dL (238-498) 01/25/20 12:09 D-Dimer 8578 ng/ml (0-500) H 01/25/20 12:09 Anticoagulation Therapy No Result Required. 01/28/20 06:00 Puncture Site Arterial line 01/28/20 06:00 Patient Temperature No Result Required. 01/28/20 06:00 ABG pH 7.399 (7.350-7.450) 01/28/20 06:00 ABG pCO2 43.20 mmHg (35-45) 01/28/20 06:00 ABG pO2 129.0 mmHg (80-100) H 01/28/20 06:00 ABG HCO3 26.1 mmol/L (22-27) 01/28/20 06:00 ABG O2 Sat (Measured) 98.6 mmHg (95-98) H 01/28/20 06:00 ABG O2 Content No Result Required. 01/28/20 06:00 ABG Base Excess 1.1 mmol/L (-2-2) 01/28/20 06:00 Jeffrey Test Not applicable 01/28/20 06:00 Carboxyhemoglobin 0.5 % (0-2) 01/25/20 12:36 Methemoglobin 0.3 % (0-2) 01/25/20 12:20 Patient On Oxygen Yes 01/28/20 06:00 O2 Delivery Device Vent 01/28/20 06:00 Oxygen Flow Rate 30% 01/28/20 06:00 Vent Mode A/c 01/28/20 06:00 Vent Rate 20 01/28/20 06:00 Mechanical Rate Yes 01/28/20 06:00 PEEP 10.0 cmH2O 01/28/20 06:00 Pressure Support Vent 500 01/28/20 06:00 Sodium 143 mmol/L (136-145) 01/29/20 05:00 Potassium 3.2 mmol/L (3.5-5.1) L 01/29/20 05:00 Chloride 106 mmol/L (98-107) 01/29/20 05:00 Carbon Dioxide 27 mmol/L (21-32) 01/29/20 05:00 Anion Gap 10 MMOL/L (8-16) 01/29/20 05:00 BUN 4.0 mg/dL (7-18) L 01/29/20 05:00 Creatinine 0.4 mg/dL (0.55-1.3) L 01/29/20 05:00 Est GFR (CKD-EPI)AfAm 139.77 01/29/20 05:00 Est GFR (CKD-EPI)NonAf 120.60 01/29/20 05:00 POC Glucometer 126 UNITS (80-120) 01/29/20 11:20 Random Glucose 105 mg/dL (74-106) 01/29/20 05:00 Lactic Acid 1.2 mmol/L (0.4-2.0) 01/25/20 18:30 Calcium 7.8 mg/dL (8.5-10.1) L 01/29/20 05:00 Phosphorus 3.4 mg/dL (2.5-4.9) 01/29/20 05:00 Magnesium 1.7 mg/dL (1.8-2.4) L 01/29/20 05:00 Total Bilirubin 0.2 mg/dL (0.2-1) 01/29/20 05:00 AST 38 U/L (15-37) H 01/29/20 05:00 ALT 26 U/L (13-61) 01/29/20 05:00 Alkaline Phosphatase 52 U/L (45-117) 01/29/20 05:00 Troponin I 0.03 ng/ml (0.00-0.05) 01/26/20 07:48 B-Natriuretic Peptide 380.5 pg/ml (5-125) H 01/26/20 06:00 Total Protein 5.9 g/dl (6.4-8.2) L 01/29/20 05:00 Albumin 2.4 g/dl (3.4-5.0) L 01/29/20 05:00 COVID-19 (AMANDA) Not detected (Not Detected) 01/25/20 12:09 Blood Type O POSITIVE 01/25/20 09:00 Antibody Screen Negative 01/25/20 09:00 Active Medications Dexamethasone Sodium Phosphate (Decadron Injection -) 10 mg IVPUSH Q8H-IV ANGIE Last Admin: 01/29/20 14:19 Dose: 10 mg Documented by: Hydralazine HCl (Apresoline Injection -) 10 mg IVPUSH Q6H PRN PRN Reason: HYPERTENSION Last Admin: 01/28/20 11:11 Dose: 10 mg Documented by: Hydralazine HCl (Apresoline -) 50 mg PO BID ANGIE Last Admin: 01/29/20 09:01 Dose: 50 mg Documented by: IV Flush (Triple Lumen Flush) 4 ml IVPUSH PRN PRN PRN Reason: Protocol Fentanyl (Sublimaze Ivpb) 500 mcg in 100 mls @ 10 mls/hr IVPB TITR ANGIE; Protocol Last Admin: 01/29/20 15:03 Dose: 150 mcg/hr, 30 mls/hr Documented by: Propofol (Diprivan -) 1,000,000 mcg in 100 mls @ 4.763 mls/hr IVPB TITR ANGIE; Protocol Last Admin: 01/29/20 15:07 Dose: 50 mcg/kg/min, 47.627 mls/hr Documented by: Dextrose/Lactated Ringer's (D5-Lr -) 1,000 mls @ 42 mls/hr IV ASDIR ANGIE Last Admin: 01/29/20 07:34 Dose: Not Given Documented by: Nicardipine HCl 25 mg/ (Dextrose) 250 mls @ 25 mls/hr IVPB TITR ANGIE; Protocol Insulin Aspart (Novolog Vial Sliding Scale -) 1 vial SQ Q6HPO [facility]; Protocol Last Admin: 01/29/20 11:22 Dose: Not Given Documented by: Metoprolol Tartrate 25 mg/ (Metoprolol Tartrate 50 mg) 75 mg PO BID [facility] Last Admin: 01/29/20 09:00 Dose: 75 mg Documented by: Pantoprazole Sodium (Protonix Iv) 40 mg IVPUSH DAILY [facility] Last Admin: 01/29/20 09:01 Dose: 40 mg Documented by: ASSESSMENT/PLAN: Pt is a 49 yo female with PMH HTN, DM, morbid obesity, severe b/l LE venous stasis and severe b/l upper extremity lymphedema secondary to prior breast cancer history for ACDF. Pt became acutely hypotensive and hypoxic 5 minutes into surgery and was not responsive to phenylephrine. Team was concerned for PE, aborted surgery, and consulted ICU. Attempted sedation vacation today, pt was agitated and biting on ETT. Thick secretions present, and thus, sedation turned on again. Neuro -sedated on fentanyl and propofol -sedation vacation today but pt agitated, biting on ETT -assess mental status Cardio Hypertension Hypotension possibly 2/2 hypoxia during procedure -Off pressors, keep MAP >65 -Given metoprolol and hydralazine due to HTN (SBP ~200) -Start cardene drip -Start lasix Pulm Narrowed tracheal lumen, bc hematoma vs. soft tissue swelling vs. thyromegaly Acute hypoxic and hypercapneic respiratory failure -vent 20/500/30%/8 -keep pt intubated given swelling around trachea, will reassess daily if pt can be extubated. On assessment, no leak appreciated. -CXR bibasilar pleural effusion w/ atelectasis and/or infiltrates -Start decadron 10q8 -CT neck to assess neck swelling Renal Lactic acidosis, resolved Hypokalemia -K+ 3.2, repleted with 40 mEq PO KCl -monitor I/O's Endo DM -ISS + BGM ID -not febrile, no leukocytosis Ppx -DVT: SCDs FEN -No IVF -Monitor and replete electrolytes -NPO Lines [facility] 01/24 ETT 01/24 OGT 01/24 Dispo: Continue monitoring in ICU Code status: full code Visit type - Emergency Visit Emergency Visit: Yes ED Registration Date: 01/25/20 Care time: The patient presented to the Emergency Department on the above date and was hospitalized for further evaluation of their emergent condition. - New Patient This patient is new to me today: No - Critical Care Critical Care patient: Yes Total Critical Care Time (in minutes): 38 Critical Care Statement: The care of this patient involved high complexity decision making to prevent further life threatening deterioration of the pa sandynt's condition and/or to evaluate & treat vital organ system(s) failure or risk of failure. ATTENDING PHYSICIAN STATEMENT I saw and evaluated the patient. I reviewed the resident's note and discussed the case with the resident. I agree with the resident's findings and plan as documented. SUBJECTIVE: OBJECTIVE: ASSESSMENT AND PLAN:
[2020-01-29] MEDS: NICARDIPINE 25 MG in DEXTROSE 5%-WATER - 240 ML IVPB SCH (22:18)
[2020-01-30] MEDS: hydrALAZINE HCL 20 MG/ML VIAL IVPUSH PRN (02:15)
[2020-01-30] MEDS: DEXAMETHASONE SOD PHOSPHATE 10 MG/1 ML VIAL IVPUSH SCH ×3 (02:27→18:43)
[2020-01-30 06:06] LABS: BASO % 0.1 % (0-2.0); HEMATOCRIT 34.5 % (32.4-45.2); HEMOGLOBIN 10.7 GM/dL (10.7-15.3); LYMPH % 10.4 % (8-40); MCH 25.5 pg (25.7-33.7); MCHC 31.1 g/dl (32.0-36.0); MEAN PLT VOLUME 7.4 fl (7.5-11.1); MONO % 1.9 % (3.8-10.2); NEUT % 87.6 % (42.8-82.8); PLATELET COUNT 288 K/MM3 (134-434); RBC 4.21 M/mm3 (3.60-5.2); WHITE BLOOD COUNT 5.6 K/mm3 (4.0-10.0)
[2020-01-30 06:29] LABS: ALBUMIN 2.7 g/dl (3.4-5.0); BILIRUBIN,TOTAL 0.3 mg/dL (0.2-1); BLOOD UREA NITROGEN 5.5 mg/dL (7-18); CALCIUM 8.7 mg/dL (8.5-10.1); CREATININE 0.5 mg/dL (0.55-1.3); MAGNESIUM 1.9 mg/dL (1.8-2.4); PHOSPHOROUS 3.2 mg/dL (2.5-4.9); POTASSIUM 3.7 mmol/L (3.5-5.1); TOT PROT 7.1 g/dl (6.4-8.2)
[2020-01-30] MEDS: DEXTROSE 5%-LACTATED RINGERS 1,000 ML IV SCH (06:35)
[2020-01-30] MEDS: INSULIN SLIDING SCALE (NOVOLOG) 1 VIAL SQ SCH ×3 (06:37→18:41)
[2020-01-30] MEDS: PROPOFOL 1,000,000 MCG/100 ML VIAL IVPB SCH ×6 (08:05→22:58)
[2020-01-30] MEDS ORDERED: METOPROLOL TARTRATE 50 MG TABLET (FP) ONE ×2 (08:54→21:55)
[2020-01-30] MEDS ORDERED: METOPROLOL TARTRATE 25 MG TABLET (FP) ONE ×2 (08:55→21:55)
[2020-01-30] MEDS: hydrALAZINE HCL 25 MG TABLET (FP) PO SCH ×2 (09:15→22:59)
[2020-01-30] MEDS: FENTANYL NS IVPB 500 MCG/100 ML BAG IVPB SCH ×5 (09:15→22:58)
[2020-01-30] MEDS: PANTOPRAZOLE SODIUM 40 MG VIAL IVPUSH SCH (09:15)
[2020-01-30] MEDS: METOPROLOL TARTRATE 25 MG, METOPROLOL TARTRATE 50 MG PO SCH ×2 (09:17→22:59)
[2020-01-30] MEDS: NICARDIPINE 25 MG in DEXTROSE 5%-WATER - 240 ML IVPB SCH (09:26)
--- NOTE | 2020-01-30 12:16 | PN ---
Physical Exam: SUBJECTIVE: Patient seen and examined. Pt remained intubated and sedated. Received hydralazine 1x overnight. En route to CT scan, pt passed blood clot through left nares as per nurse. OBJECTIVE: Vital Signs Period Temp Pulse Resp BP Sys/Gibbs Pulse Ox Last 24 Hr 97.9 F-98.5 F 72-80 20-22 124-187/67-111 97-100 GENERAL: The patient is awake, alert, and fully oriented, in no acute distress. HEENT: NCAT, pupils LUNGS: decreased breath sounds at the bases. HEART: S1, S2 present, regular rate and rhythm, no murmurs. ABDOMEN: Obese. Soft, nondistended, normoactive bowel sounds. EXTREMITIES: warm, well-perfused, no edema. SKIN: Warm, dry Laboratory Last Values WBC 5.6 K/mm3 (4.0-10.0) 01/30/20 05:23 RBC 4.21 M/mm3 (3.60-5.2) 01/30/20 05:23 Hgb 10.7 GM/dL (10.7-15.3) 01/30/20 05:23 Hct 34.5 % (32.4-45.2) 01/30/20 05:23 MCV 82.0 fl (80-96) 01/30/20 05:23 MCH 25.5 pg (25.7-33.7) L 01/30/20 05:23 MCHC 31.1 g/dl (32.0-36.0) L 01/30/20 05:23 RDW 17.0 % (11.6-15.6) H 01/30/20 05:23 Plt Count 288 K/MM3 (134-434) 01/30/20 05:23 MPV 7.4 fl (7.5-11.1) L 01/30/20 05:23 Absolute Neuts (auto) 4.9 K/mm3 (1.5-8.0) 01/30/20 05:23 Neutrophils % 87.6 % (42.8-82.8) H D 01/30/20 05:23 Neutrophils % (Manual) 88.0 % (42.8-82.8) H 01/25/20 18:30 Band Neutrophils % 2.0 % 01/25/20 18:30 Lymphocytes % 10.4 % (8-40) D 01/30/20 05:23 Lymphocytes % (Manual) 6.0 % (8-40) L 01/25/20 18:30 Monocytes % 1.9 % (3.8-10.2) L D 01/30/20 05:23 Monocytes % (Manual) 4 % (3.8-10.2) 01/25/20 18:30 Eosinophils % 0.0 % (0-4.5) D 01/30/20 05:23 Basophils % 0.1 % (0-2.0) 01/30/20 05:23 Nucleated RBC % 0 % (0-0) 01/30/20 05: Hypochromia 2+ 01/25/20 18:30 Platelet Estimate Adequate 01/25/20 18:30 Anisocytosis 2+ 01/25/20 18:30 Microcytosis 2+ 01/25/20 18:30 Stomatocytes 1+ 01/25/20 18:30 PT with INR 12.50 SEC (9.7-13.0) 01/26/20 07:48 INR 1.06 (0.83-1.09) 01/26/20 07:48 PTT (Actin FS) 28.2 SECONDS (25.2-36.5) 01/26/20 07:48 Fibrinogen 303.0 mg/dL (238-498) 01/25/20 12:09 D-Dimer 8578 ng/ml (0-500) H 01/25/20 12:09 Anticoagulation Therapy No Result Required. 01/28/20 06:00 Puncture Site Arterial line 01/28/20 06:00 Patient Temperature No Result Required. 01/28/20 06:00 ABG pH 7.399 (7.350-7.450) 01/28/20 06:00 ABG pCO2 43.20 mmHg (35-45) 01/28/20 06:00 ABG pO2 129.0 mmHg (80-100) H 01/28/20 06:00 ABG HCO3 26.1 mmol/L (22-27) 01/28/20 06:00 ABG O2 Sat (Measured) 98.6 mmHg (95-98) H 01/28/20 06:00 ABG O2 Content No Result Required. 01/28/20 06:00 ABG Base Excess 1.1 mmol/L (-2-2) 01/28/20 06:00 Jeffrey Test Not applicable 01/28/20 06:00 Carboxyhemoglobin 0.5 % (0-2) 01/25/20 12:36 Methemoglobin 0.3 % (0-2) 01/25/20 12:20 Patient On Oxygen Yes 01/28/20 06:00 O2 Delivery Device Vent 01/28/20 06:00 Oxygen Flow Rate 30% 01/28/20 06:00 Vent Mode A/c 01/28/20 06:00 Vent Rate 20 01/28/20 06:00 Mechanical Rate Yes 01/28/20 06:00 PEEP 10.0 cmH2O 01/28/20 06:00 Pressure Support Vent 500 01/28/20 06:00 Sodium 140 mmol/L (136-145) 01/30/20 05:23 Potassium 3.7 mmol/L (3.5-5.1) 01/30/20 05:23 Chloride 104 mmol/L (98-107) 01/30/20 05:23 Carbon Dioxide 31 mmol/L (21-32) 01/30/20 05:23 Anion Gap 6 MMOL/L (8-16) L 01/30/20 05:23 BUN 5.5 mg/dL (7-18) L 01/30/20 05:23 Creatinine 0.5 mg/dL (0.55-1.3) L 01/30/20 05:23 Est GFR (CKD-EPI)AfAm 129.88 01/30/20 05:23 Est GFR (CKD-EPI)NonAf 112.06 01/30/20 05:23 POC Glucometer 141 UNITS (80-120) 01/30/20 06:27 Random Glucose 164 mg/dL (74-106) H 01/30/20 05:23 Lactic Acid 1.2 mmol/L (0.4-2.0) 01/25/20 18:30 Calcium 8.7 mg/dL (8.5-10.1) 01/30/20 05:23 Phosphorus 3.2 mg/dL (2.5-4.9) 01/30/20 05:23 Magnesium 1.9 mg/dL (1.8-2.4) 01/30/20 05:23 Total Bilirubin 0.3 mg/dL (0.2-1) 01/30/20 05:23 AST 32 U/L (15-37) 01/30/20 05:23 ALT 39 U/L (13-61) 01/30/20 05:23 Alkaline Phosphatase 66 U/L (45-117) 01/30/20 05:23 Troponin I 0.03 ng/ml (0.00-0.05) 01/26/20 07:48 B-Natriuretic Peptide 380.5 pg/ml (5-125) H 01/26/20 06:00 Total Protein 7.1 g/dl (6.4-8.2) 01/30/20 05:23 Albumin 2.7 g/dl (3.4-5.0) L 01/30/20 05:23 COVID-19 (AMANDA) Not detected (Not Detected) 01/25/20 12:09 Blood Type O POSITIVE 01/25/20 09:00 Antibody Screen Negative 01/25/20 09:00 Active Medications Dexamethasone Sodium Phosphate (Decadron Injection -) 10 mg IVPUSH Q8H-IV ANGIE Last Admin: 01/30/20 09:15 Dose: 10 mg Documented by: Hydralazine HCl (Apresoline Injection -) 10 mg IVPUSH Q6H PRN PRN Reason: HYPERTENSION Last Admin: 01/30/20 02:15 Dose: 10 mg Documented by: Hydralazine HCl (Apresoline -) 50 mg PO BID ANGIE Last Admin: 01/30/20 09:15 Dose: 50 mg Documented by: IV Flush (Triple Lumen Flush) 4 ml IVPUSH PRN PRN PRN Reason: Protocol Fentanyl (Sublimaze Ivpb) 500 mcg in 100 mls @ 10 mls/hr IVPB TITR ANGIE; Protocol Last Admin: 01/30/20 09:15 Dose: 150 mcg/hr, 30 mls/hr Documented by: Propofol (Diprivan -) 1,000,000 mcg in 100 mls @ 4.763 mls/hr IVPB TITR ANGIE; Protocol Last Admin: 01/30/20 10:14 Dose: 50 mcg/kg/min, 47.627 mls/hr Documented by: Dextrose/Lactated Ringer's (D5-Lr -) 1,000 mls @ 42 mls/hr IV ASDIR ANGIE Last Admin: 01/30/20 06:35 Dose: Not Given Documented by: Nicardipine HCl 25 mg/ (Dextrose) 250 mls @ 25 mls/hr IVPB TITR [facility]; Protocol Last Admin: 01/30/20 09:26 Dose: Not Given Documented by: Insulin Aspart (Novolog Vial Sliding Scale -) 1 vial SQ Q6HPO [facility]; Protocol Last Admin: 01/30/20 06:37 Dose: Not Given Documented by: Metoprolol Tartrate 25 mg/ (Metoprolol Tartrate 50 mg) 75 mg PO BID [facility] Last Admin: 01/30/20 09:17 Dose: 75 mg Documented by: Pantoprazole Sodium (Protonix Iv) 40 mg IVPUSH DAILY [facility] Last Admin: 01/30/20 09:15 Dose: 40 mg Documented by: ASSESSMENT/PLAN: Pt is a 49 yo female with PMH HTN, DM, morbid obesity, severe b/l LE venous stasis and severe b/l upper extremity lymphedema secondary to prior breast cancer history for ACDF. Pt became acutely hypotensive and hypoxic 5 minutes into surgery and pt was not responsive to phenylephrine. Team was concerned for PE, aborted surgery, and consulted ICU. Neuro -sedated on fentanyl and propofol -sedation vacation daily -assess mental status Cardio Hypertension Hypotension possibly 2/2 hypoxia during procedure -Off pressors, keep MAP >65 -Continue Hydralazine 10mg IV q6h PRN, metoprolol 75 mg BID for BP control -Start cardene drip if needed Pulm Narrowed tracheal lumen, bc hematoma vs. soft tissue swelling vs. thyromegaly Acute hypoxic and hypercapneic respiratory failure -Assess cuff leak daily -vent 20/500/30%/8 -keep pt intubated given swelling around trachea, will reassess daily if pt can be extubated. On assessment, no leak appreciated. -Continue decadron 10q8 -CT neck showed slight decrease of swelling/hematoma. -CXR slightly improved infiltrative change and pleural fluid diminished slightly Renal Lactic acidosis, resolved Hypokalemia, resolved -Monitor electrolytes -monitor I/O's -IV furosemide today Endo DM -ISS + BGM ID -not febrile, no leukocytosis -COVID negative Ppx -DVT: SCDs -GI: PPI FEN -D5/LR @ 42 mls/hr -Monitor and replete electrolytes -NPO Lines [facility] 01/24 ETT 01/24 OGT 01/24 Dispo: Continue monitoring in ICU. Code status: full code Visit type - Emergency Visit Emergency Visit: Yes ED Registration Date: 01/25/20 Care time: The patient presented to the Emergency Department on the above date and was hospitalized for further evaluation of their emergent condition. - New Patient This patient is new to me today: No - Critical Care Critical Care patient: Yes Total Critical Care Time (in minutes): 41 Critical Care Statement: The care of this patient involved high complexity decision making to prevent further life threatening deterioration of the patient's condition and/or to evaluate & treat vital organ system(s) failure or risk of failure. ATTENDING PHYSICIAN STATEMENT I saw and evaluated the patient. I reviewed the resident's note and discussed the case with the resident. I agree with the resident's findings and plan as documented. SUBJECTIVE: OBJECTIVE: ASSESSMENT AND PLAN:
--- NOTE | 2020-01-30 12:59 | PN ---
Teaching Attending Note Name of Resident: Kimmie Aquino ATTENDING PHYSICIAN STATEMENT I saw and evaluated the patient. I reviewed the resident's note and discussed the case with the resident. I agree with the resident's findings and plan as documented. SUBJECTIVE: Patient seen and examined in the ICU. Remains intubated and sedated on Propofol and Fentanyl. No appreciable leak noted. Exhaled VT almost 500cc. No pressors. Thick bloody secretions noted. Intake & Output 01/27/20 01/28/20 01/29/20 01/30/20 23:59 23:59 23:59 23:59 Intake Total 2431.3 2699.6 3803 Output Total 3300 3200 3650 900 Balance -868.7 -500.4 153 -900 Weight 350 lb 370 lb 370 lb 375 lb Last Vital Signs Temp Pulse Resp BP Pulse Ox 97.9 F 80 20 169/95 98 01/30/20 10:00 01/30/20 10:00 01/30/20 10:00 01/30/20 10:00 01/30/20 10:00 Active Medications Dexamethasone Sodium Phosphate (Decadron Injection -) 10 mg IVPUSH Q8H-IV ANGIE Last Admin: 01/30/20 09:15 Dose: 10 mg Documented by: Hydralazine HCl (Apresoline Injection -) 10 mg IVPUSH Q6H PRN PRN Reason: HYPERTENSION Last Admin: 01/30/20 02:15 Dose: 10 mg Documented by: Hydralazine HCl (Apresoline -) 50 mg PO BID ANGIE Last Admin: 01/30/20 09:15 Dose: 50 mg Documented by: IV Flush (Triple Lumen Flush) 4 ml IVPUSH PRN PRN PRN Reason: Protocol Fentanyl (Sublimaze Ivpb) 500 mcg in 100 mls @ 10 mls/hr IVPB TITR ANGIE; Protocol Last Admin: 01/30/20 12:25 Dose: 150 mcg/hr, 30 mls/hr Documented by: Propofol (Diprivan -) 1,000,000 mcg in 100 mls @ 4.763 mls/hr IVPB TITR ANGIE; Protocol Last Admin: 01/30/20 10:14 Dose: 50 mcg/kg/min, 47.627 mls/hr Documented by: Dextrose/Lactated Ringer's (D5-Lr -) 1,000 mls @ 42 mls/hr IV ASDIR [facility] Last Admin: 01/30/20 06:35 Dose: Not Given Documented by: Nicardipine HCl 25 mg/ (Dextrose) 250 mls @ 25 mls/hr IVPB TITR [facility]; Protocol Last Admin: 01/30/20 09:26 Dose: Not Given Documented by: Insulin Aspart (Novolog Vial Sliding Scale -) 1 vial SQ Q6HPO [facility]; Protocol Last Admin: 01/30/20 12:31 Dose: 2 units Documented by: Metoprolol Tartrate 25 mg/ (Metoprolol Tartrate 50 mg) 75 mg PO BID [facility] Last Admin: 01/30/20 09:17 Dose: 75 mg Documented by: Pantoprazole Sodium (Protonix Iv) 40 mg IVPUSH DAILY [facility] Last Admin: 01/30/20 09:15 Dose: 40 mg Documented by: Gen: Morbid obese; orally intubated Neuro: Sedated HEENT: PERRL; MMM Chest: Vented, bilateral scattered rhonchi CV: RRR, S1S2; Abd: Obeses; soft, NT Ext: WWP; 1-2+edema; + pulses Skin: chronic venous changes Laboratory Results - last 24 hr 01/29/20 01/29/20 01/30/20 17:11 22:23 05:23 WBC 5.6 RBC 4.21 Hgb 10.7 Hct 34.5 MCV 82.0 MCH 25.5 L MCHC 31.1 L RDW 17.0 H Plt Count 288 MPV 7.4 L Absolute Neuts (auto) 4.9 Neutrophils % 87.6 H D Lymphocytes % 10.4 D Monocytes % 1.9 L D Eosinophils % 0.0 D Basophils % 0.1 Nucleated RBC % 0 Sodium Potassium Chloride Carbon Dioxide Anion Gap BUN Creatinine Est GFR (CKD-EPI)AfAm Est GFR (CKD-EPI)NonAf POC Glucometer 142 177 Random Glucose Calcium Phosphorus Magnesium Total Bilirubin AST ALT Alkaline Phosphatase Total Protein Albumin 01/30/20 01/30/20 01/30/20 05:23 06:27 12:29 WBC RBC Hgb Hct MCV MCH MCHC RDW Plt Count MPV Absolute Neuts (auto) Neutrophils % Lymphocytes % Monocytes % Eosinophils % Basophils % Nucleated RBC % Sodium 140 Potassium 3.7 Chloride 104 Carbon Dioxide 31 Anion Gap 6 L BUN 5.5 L Creatinine 0.5 L Est GFR (CKD-EPI)AfAm 129.88 Est GFR (CKD-EPI)NonAf 112.06 POC Glucometer 141 154 Random Glucose 164 H Calcium 8.7 Phosphorus 3.2 Magnesium 1.9 Total Bilirubin 0.3 AST 32 ALT 39 Alkaline Phosphatase 66 Total Protein 7.1 Albumin 2.7 L ASSESSMENT/PLAN: Acute Respiratory Failure Narrowed tracheal lumen due to a combination of soft tissue swelling / hematoma / thyromegaly HTN DM Morbid obesity Severe LE venous stasis Severe b/l upper extremity lymphedema secondary to prior breast cancer history for ACDF. Pulmonary HTN Likely OSAS / OHS -Dexamethasone -AC Mode of vent -Continue Fentanyl and Propofol -Strict I/O -Trend and replete electrolytes, keep Mg>2, K>4 -Lasix today -Follow Leak -Enteral feeds -VTE prophylaxis -Monitor off ABX but have a low threshold to start -Follow BMG, Insulin coverage scale -Requires ICU monitoring Dr Florentino Critical care time spent in reviewing chart, evaluating patient and formulating plan - 36 minutes.
[2020-01-30] MEDS ORDERED: FUROSEMIDE 40 MG/4 ML INJECTABLE VIAL IVPUSH ONE (14:53)
[2020-01-31] MEDS: PROPOFOL 1,000,000 MCG/100 ML VIAL IVPB SCH ×7 (02:04→20:24)
[2020-01-31] MEDS: DEXAMETHASONE SOD PHOSPHATE 10 MG/1 ML VIAL IVPUSH SCH ×3 (02:04→18:15)
[2020-01-31] MEDS: INSULIN SLIDING SCALE (NOVOLOG) 1 VIAL SQ SCH ×4 (02:25→18:32)
[2020-01-31] MEDS: DEXTROSE 5%-LACTATED RINGERS 1,000 ML IV SCH (06:18)
[2020-01-31] MEDS: FENTANYL NS IVPB 500 MCG/100 ML BAG IVPB SCH ×7 (06:19→21:20)
[2020-01-31 07:28] LABS: BASO % 0.1 % (0-2.0); HEMATOCRIT 33.9 % (32.4-45.2); HEMOGLOBIN 10.7 GM/dL (10.7-15.3); LYMPH % 12.9 % (8-40); MCH 25.8 pg (25.7-33.7); MCHC 31.6 g/dl (32.0-36.0); MEAN CELL VOLUME 81.5 fl (80-96); MEAN PLT VOLUME 7.8 fl (7.5-11.1); MONO % 4.2 % (3.8-10.2); NEUT % 82.8 % (42.8-82.8); PLATELET COUNT 303 K/MM3 (134-434); RBC 4.16 M/mm3 (3.60-5.2); RDW 16.9 % (11.6-15.6); WHITE BLOOD COUNT 6.1 K/mm3 (4.0-10.0)
[2020-01-31 07:42] LABS: ALBUMIN 2.6 g/dl (3.4-5.0); BILIRUBIN,TOTAL 0.3 mg/dL (0.2-1); BLOOD UREA NITROGEN 9.6 mg/dL (7-18); CALCIUM 8.5 mg/dL (8.5-10.1); CREATININE 0.5 mg/dL (0.55-1.3); MAGNESIUM 2.2 mg/dL (1.8-2.4); PHOSPHOROUS 3.2 mg/dL (2.5-4.9); POTASSIUM 3.6 mmol/L (3.5-5.1); TOT PROT 7.1 g/dl (6.4-8.2)
[2020-01-31] MEDS ORDERED: METOPROLOL TARTRATE 50 MG TABLET (FP) ONE ×2 (08:11→22:26)
[2020-01-31] MEDS ORDERED: METOPROLOL TARTRATE 25 MG TABLET (FP) ONE ×2 (08:11→22:26)
[2020-01-31] MEDS: hydrALAZINE HCL 25 MG TABLET (FP) PO SCH ×3 (08:16→22:36)
[2020-01-31] MEDS: METOPROLOL TARTRATE 25 MG, METOPROLOL TARTRATE 50 MG PO SCH ×3 (08:18→22:36)
[2020-01-31] MEDS: PANTOPRAZOLE SODIUM 40 MG VIAL IVPUSH SCH (09:32)
--- NOTE | 2020-01-31 11:56 | PN ---
Teaching Attending Note Name of Resident: Amanda Pierre ATTENDING PHYSICIAN STATEMENT I saw and evaluated the patient. I reviewed the resident's note and discussed the case with the resident. I agree with the resident's findings and plan as documented. SUBJECTIVE: Pt seen and examined in the ICU. Remains intubated, sedated. No air leak today with cuff deflation. Purulent drainage from nares. OBJECTIVE: Vital Signs Period Temp Pulse Resp BP Sys/Gibbs Pulse Ox Last 24 Hr 96.7 F-98.6 F 61-73 20-21 132-187/75-115 98-100 Intake & Output 01/28/20 01/29/20 01/30/20 01/31/20 23:59 23:59 23:59 23:59 Intake Total 2699.6 3803 1298 Output Total 3200 3650 2390 700 Balance -500.4 153 -1092 -700 Weight 167.829 kg 167.829 kg 170.097 kg Gen: intubated, sedated Heart: RRR Lung: distant breath sounds Abd: soft, obese Ext: + edema CBC, BMP 01/31/20 06:32 01/31/20 06:32 Active Medications Dexamethasone Sodium Phosphate (Decadron Injection -) 10 mg IVPUSH Q8H-IV ANGIE Last Admin: 01/31/20 09:32 Dose: 10 mg Documented by: Hydralazine HCl (Apresoline -) 50 mg PO BID ANGIE Last Admin: 01/31/20 09:31 Dose: Not Given Documented by: IV Flush (Triple Lumen Flush) 4 ml IVPUSH PRN PRN PRN Reason: Protocol Fentanyl (Sublimaze Ivpb) 500 mcg in 100 mls @ 10 mls/hr IVPB TITR ANGIE; Protocol Last Admin: 01/31/20 11:13 Dose: 150 mcg/hr, 30 mls/hr Documented by: Propofol (Diprivan -) 1,000,000 mcg in 100 mls @ 4.763 mls/hr IVPB TITR ANGIE; Protocol Last Admin: 01/31/20 11:20 Dose: 50 mcg/kg/min, 47.627 mls/hr Documented by: Dextrose/Lactated Ringer's (D5-Lr -) 1,000 mls @ 42 mls/hr IV ASDIR ANGIE Last Admin: 01/31/20 06:18 Dose: 42 mls/hr Documented by: Nicardipine HCl 25 mg/ (Dextrose) 250 mls @ 25 mls/hr IVPB TITR [facility]; Protocol Last Admin: 01/30/20 09:26 Dose: Not Given Documented by: Insulin Aspart (Novolog Vial Sliding Scale -) 1 vial SQ Q6HPO [facility]; Protocol Last Admin: 01/31/20 08:50 Dose: Not Given Documented by: Metoprolol Tartrate 25 mg/ (Metoprolol Tartrate 50 mg) 75 mg PO BID [facility] Last Admin: 01/31/20 09:31 Dose: Not Given Documented by: Pantoprazole Sodium (Protonix Iv) 40 mg IVPUSH DAILY [facility] Last Admin: 01/31/20 09:32 Dose: 40 mg Documented by: ASSESSMENT AND PLAN: Acute Hypoxic and Hypercapneic Respiratory Failure Upper Airway Obstruction/Soft Tissue Swelling/Hematoma/Thyromegaly Sinusitis Morbid Obesity Pulmonary HTN HTN DM Likely TEJAL/OHS - continue decadron - daily assessment of air leak - glucose control - start empiric antibiotics - FiO2, PEEP to keep SpO2 >90% - start enteral feeds - DVT/GI prophylaxis - continue ICU monitoring critical care time spent in reviewing chart, evaluating patient and formulating plan 35 min
[2020-01-31] MEDS ORDERED: AMINO ACIDS 4.25%/D5W 1,000 ML IV SCH (12:00)
[2020-01-31] MEDS ORDERED: FUROSEMIDE 40 MG/4 ML INJECTABLE VIAL IVPUSH ONE (13:06)
[2020-01-31] MEDS ORDERED: cefTRIAXone SODIUM 1 GM VIAL ONE (13:19)
[2020-01-31] MEDS ORDERED: DEXTROSE 5%-WATER - 50 ML IVPB ONE (13:19)
[2020-01-31] MEDS: CEFTRIAXONE 1 GM in DEXTROSE 5%-WATER - 50 ML IVPB SCH (13:25)
--- NOTE | 2020-01-31 13:44 | PN ---
Physical Exam: SUBJECTIVE: Patient seen and examined in the ICU. Pt remained sedated and intubated. No overnight events. OBJECTIVE: Vital Signs Period Temp Pulse Resp BP Sys/Gibbs Pulse Ox Last 24 Hr 96.7 F-98.6 F 61-73 20-21 132-187/75-115 98-100 GENERAL: The patient is sedated and intubated. HEENT: NCAT, ETT in place. OG tube in place. Green, foul-smelling exudates from b/l nares. LUNGS: decreased breath sounds at the bases. HEART: S1, S2 present, regular rate and rhythm, no murmurs. ABDOMEN: Obese. Soft, nondistended, bowel sounds present in all 4 quadrants. EXTREMITIES: warm, well-perfused, no edema. SCDs in place. SKIN: Warm, dry Laboratory Last Values WBC 6.1 K/mm3 (4.0-10.0) 01/31/20 06:32 RBC 4.16 M/mm3 (3.60-5.2) 01/31/20 06:32 Hgb 10.7 GM/dL (10.7-15.3) 01/31/20 06:32 Hct 33.9 % (32.4-45.2) 01/31/20 06:32 MCV 81.5 fl (80-96) 01/31/20 06:32 MCH 25.8 pg (25.7-33.7) 01/31/20 06:32 MCHC 31.6 g/dl (32.0-36.0) L 01/31/20 06:32 RDW 16.9 % (11.6-15.6) H 01/31/20 06:32 Plt Count 303 K/MM3 (134-434) 01/31/20 06:32 MPV 7.8 fl (7.5-11.1) 01/31/20 06:32 Absolute Neuts (auto) 5.1 K/mm3 (1.5-8.0) 01/31/20 06:32 Neutrophils % 82.8 % (42.8-82.8) 01/31/20 06:32 Neutrophils % (Manual) 88.0 % (42.8-82.8) H 01/25/20 18:30 Band Neutrophils % 2.0 % 01/25/20 18:30 Lymphocytes % 12.9 % (8-40) D 01/31/20 06:32 Lymphocytes % (Manual) 6.0 % (8-40) L 01/25/20 18:30 Monocytes % 4.2 % (3.8-10.2) D 01/31/20 06:32 Monocytes % (Manual) 4 % (3.8-10.2) 01/25/20 18:30 Eosinophils % 0.0 % (0-4.5) 01/31/20 06:32 Basophils % 0.1 % (0-2.0) 01/31/20 06:32 Nucleated RBC % 0 % (0-0) 01/31/20 06:32 Hypochromia 2+ 01/25/20 18:30 Platelet Estimate Adequate 01/25/20 18:30 Anisocytosis 2+ 01/25/20 18:30 Microcytosis 2+ 01/25/20 18:30 Stomatocytes 1+ 01/25/20 18:30 PT with INR 12.50 SEC (9.7-13.0) 01/26/20 07:48 INR 1.06 (0.83-1.09) 01/26/20 07:48 PTT (Actin FS) 28.2 SECONDS (25.2-36.5) 01/26/20 07:48 Fibrinogen 303.0 mg/dL (238-498) 01/25/20 12:09 D-Dimer 8578 ng/ml (0-500) H 01/25/20 12:09 Anticoagulation Therapy No Result Required. 01/28/20 06:00 Puncture Site Arterial line 01/28/20 06:00 Patient Temperature No Result Required. 01/28/20 06:00 ABG pH 7.399 (7.350-7.450) 01/28/20 06:00 ABG pCO2 43.20 mmHg (35-45) 01/28/20 06:00 ABG pO2 129.0 mmHg (80-100) H 01/28/20 06:00 ABG HCO3 26.1 mmol/L (22-27) 01/28/20 06:00 ABG O2 Sat (Measured) 98.6 mmHg (95-98) H 01/28/20 06:00 ABG O2 Content No Result Required. 01/28/20 06:00 ABG Base Excess 1.1 mmol/L (-2-2) 01/28/20 06:00 Jeffrey Test Not applicable 01/28/20 06:00 Carboxyhemoglobin 0.5 % (0-2) 01/25/20 12:36 Methemoglobin 0.3 % (0-2) 01/25/20 12:20 Patient On Oxygen Yes 01/28/20 06:00 O2 Delivery Device Vent 01/28/20 06:00 Oxygen Flow Rate 30% 01/28/20 06:00 Vent Mode A/c 01/28/20 06:00 Vent Rate 20 01/28/20 06:00 Mechanical Rate Yes 01/28/20 06:00 PEEP 10.0 cmH2O 01/28/20 06:00 Pressure Support Vent 500 01/28/20 06:00 Sodium 141 mmol/L (136-145) 01/31/20 06:32 Potassium 3.6 mmol/L (3.5-5.1) 01/31/20 06:32 Chloride 102 mmol/L (98-107) 01/31/20 06:32 Carbon Dioxide 30 mmol/L (21-32) 01/31/20 06:32 Anion Gap 8 MMOL/L (8-16) 01/31/20 06:32 BUN 9.6 mg/dL (7-18) 01/31/20 06:32 Creatinine 0.5 mg/dL (0.55-1.3) L 01/31/20 06:32 Est GFR (CKD-EPI)AfAm 129.88 01/31/20 06:32 Est GFR (CKD-EPI)NonAf 112.06 01/31/20 06:32 POC Glucometer 138 UNITS (80-120) 01/31/20 12:18 Random Glucose 186 mg/dL (74-106) H 01/31/20 06:32 Lactic Acid 1.2 mmol/L (0.4-2.0) 01/25/20 18:30 Calcium 8.5 mg/dL (8.5-10.1) 01/31/20 06:32 Phosphorus 3.2 mg/dL (2.5-4.9) 01/31/20 06:32 Magnesium 2.2 mg/dL (1.8-2.4) 01/31/20 06:32 Total Bilirubin 0.3 mg/dL (0.2-1) 01/31/20 06:32 AST 19 U/L (15-37) 01/31/20 06:32 ALT 32 U/L (13-61) 01/31/20 06:32 Alkaline Phosphatase 62 U/L (45-117) 01/31/20 06:32 Troponin I 0.03 ng/ml (0.00-0.05) 01/26/20 07:48 B-Natriuretic Peptide 380.5 pg/ml (5-125) H 01/26/20 06:00 Total Protein 7.1 g/dl (6.4-8.2) 01/31/20 06:32 Albumin 2.6 g/dl (3.4-5.0) L 01/31/20 06:32 COVID-19 (AMANDA) Not detected (Not Detected) 01/25/20 12:09 Blood Type O POSITIVE 01/25/20 09:00 Antibody Screen Negative 01/25/20 09:00 Active Medications Dexamethasone Sodium Phosphate (Decadron Injection -) 10 mg IVPUSH Q8H-IV ANGIE Last Admin: 01/31/20 09:32 Dose: 10 mg Documented by: Hydralazine HCl (Apresoline -) 50 mg PO BID ANGIE Last Admin: 01/31/20 09:31 Dose: Not Given Documented by: IV Flush (Triple Lumen Flush) 4 ml IVPUSH PRN PRN PRN Reason: Protocol Fentanyl (Sublimaze Ivpb) 500 mcg in 100 mls @ 10 mls/hr IVPB TITR ANGIE; Protocol Last Admin: 01/31/20 13:34 Dose: Not Given Documented by: Propofol (Diprivan -) 1,000,000 mcg in 100 mls @ 4.763 mls/hr IVPB TITR ANGIE; Protocol Last Admin: 01/31/20 13:34 Dose: 50 mcg/kg/min, 47.627 mls/hr Documented by: Dextrose/Lactated Ringer's (D5-Lr -) 1,000 mls @ 42 mls/hr IV ASDIR ANGIE Last Admin: 01/31/20 06:18 Dose: 42 mls/hr Documented by: Nicardipine HCl 25 mg/ (Dextrose) 250 mls @ 25 mls/hr IVPB TITR ANGIE; Protocol Last Admin: 01/30/20 09:26 Dose: Not Given Documented by: Amino Acids (Clinimix -) 1,000 mls @ 42 mls/hr IV Q24H ANGIE Ceftriaxone Sodium 1 gm/ (Dextrose) 50 mls @ 200 mls/hr IVPB DAILY [facility]; Protocol Last Admin: 01/31/20 13:25 Dose: 200 mls/hr Documented by: Insulin Aspart (Novolog Vial Sliding Scale -) 1 vial SQ Q6HPO [facility]; Protocol Last Admin: 01/31/20 13:13 Dose: Not Given Documented by: Metoprolol Tartrate 25 mg/ (Metoprolol Tartrate 50 mg) 75 mg PO BID ANGIE Last Admin: 01/31/20 09:31 Dose: Not Given Documented by: Pantoprazole Sodium (Protonix Iv) 40 mg IVPUSH DAILY [facility] Last Admin: 01/31/20 09:32 Dose: 40 mg Documented by: ASSESSMENT/PLAN: Pt is a 49 yo female with PMH HTN, DM, morbid obesity, severe b/l LE venous stasis and severe b/l upper extremity lymphedema secondary to prior breast cancer history for ACDF. Pt became acutely hypotensive and hypoxic 5 minutes into surgery and pt was not responsive to phenylephrine. Team was concerned for PE, aborted surgery, and consulted ICU. No acute overnight events. Neuro -sedated on fentanyl and propofol -sedation vacation daily -assess mental status Cardio Hypertension Hypotension possibly 2/2 hypoxia during procedure -Off pressors, keep MAP >65 -Continue Hydralazine 10mg IV q6h PRN, metoprolol 75 mg BID for BP control -Start cardene drip if needed Pulm Narrowed tracheal lumen, bc hematoma vs. soft tissue swelling vs. thyromegaly Acute hypoxic and hypercapneic respiratory failure -Assess cuff leak daily -vent 20/500/30%/8 -keep pt intubated given swelling around trachea, will reassess daily if pt can be extubated. On assessment, no leak appreciated. -Continue decadron 10q8 -CT neck showed slight decrease of swelling/hematoma. -CXR today with little change Renal Lactic acidosis, resolved Hypokalemia, resolved -Monitor electrolytes -monitor I/O's -IV furosemide today Endo DM -ISS + BGM ID Sinusitis - Start Ceftriaxone. -not febrile, no leukocytosis -COVID negative Ppx -DVT: SCDs -GI: PPI FEN -D5/LR @ 42 mls/hr -Monitor and replete electrolytes -Start Clinimix and triglycerides Lines [facility] 01/24 ETT 01/24 OGT 01/24 Dispo: Continue monitoring in ICU. Code status: full code Visit type - Emergency Visit Emergency Visit: Yes ED Registration Date: 01/25/20 Care time: The patient presented to the Emergency Department on the above date and was hospitalized for further evaluation of their emergent condition. - New Patient This patient is new to me today: No - Critical Care Critical Care patient: Yes Total Critical Care Time (in minutes): 38 Critical Care Statement: The care of this patient involved high complexity decision making to prevent further life threatening deterioration of the patient's condition and/or to evaluate & treat vital organ system(s) failure or risk of failure. ATTENDING PHYSICIAN STATEMENT I saw and evaluated the patient. I reviewed the resident's note and discussed the case with the resident. I agree with the resident's findings and plan as documented. SUBJECTIVE: OBJECTIVE: ASSESSMENT AND PLAN:
[2020-01-31] MEDS ORDERED: fentaNYL CITRATE 250 MCG/5 ML VIAL ONE (14:31)
[2020-01-31] MEDS: NICARDIPINE 25 MG in DEXTROSE 5%-WATER - 240 ML IVPB SCH ×2 (14:58→21:20)
[2020-01-31] MEDS ORDERED: PT OWN MED DRAWER 7, Y5N ONE (17:23)
[2020-02-01] MEDS: NICARDIPINE 25 MG in DEXTROSE 5%-WATER - 240 ML IVPB SCH ×3 (02:00→10:01)
[2020-02-01] MEDS: DEXAMETHASONE SOD PHOSPHATE 10 MG/1 ML VIAL IVPUSH SCH ×3 (02:02→17:23)
[2020-02-01] MEDS: INSULIN SLIDING SCALE (NOVOLOG) 1 VIAL SQ SCH ×5 (06:21→23:34)
[2020-02-01 07:25] LABS: HEMATOCRIT 35.1 % (32.4-45.2); HEMOGLOBIN 10.8 GM/dL (10.7-15.3); LYMPH % 13.4 % (8-40); MCH 25.2 pg (25.7-33.7); MCHC 30.8 g/dl (32.0-36.0); MEAN CELL VOLUME 81.8 fl (80-96); MEAN PLT VOLUME 7.7 fl (7.5-11.1); MONO % 6.4 % (3.8-10.2); NEUT % 80.2 % (42.8-82.8); PLATELET COUNT 315 K/MM3 (134-434); RBC 4.29 M/mm3 (3.60-5.2); RDW 17.3 % (11.6-15.6); WHITE BLOOD COUNT 6.2 K/mm3 (4.0-10.0)
[2020-02-01] MEDS: FENTANYL NS IVPB 500 MCG/100 ML BAG IVPB SCH ×2 (07:50→14:50)
[2020-02-01 07:51] LABS: ALBUMIN 2.6 g/dl (3.4-5.0); BILIRUBIN,TOTAL 0.3 mg/dL (0.2-1); BLOOD UREA NITROGEN 14.2 mg/dL (7-18); CALCIUM 8.2 mg/dL (8.5-10.1); CREATININE 0.6 mg/dL (0.55-1.3); MAGNESIUM 2.1 mg/dL (1.8-2.4); PHOSPHOROUS 2.8 mg/dL (2.5-4.9); POTASSIUM 3.7 mmol/L (3.5-5.1)
[2020-02-01] MEDS ORDERED: FUROSEMIDE 40 MG/4 ML INJECTABLE VIAL IVPUSH ONE (08:30)
[2020-02-01] MEDS: PROPOFOL 1,000,000 MCG/100 ML VIAL IVPB SCH ×4 (09:18→16:00)
[2020-02-01] MEDS ORDERED: DEXTROSE 5%-WATER - 50 ML IVPB ONE (09:35)
[2020-02-01] MEDS ORDERED: METOPROLOL TARTRATE 50 MG TABLET (FP) ONE ×2 (09:35→20:13)
[2020-02-01] MEDS ORDERED: METOPROLOL TARTRATE 25 MG TABLET (FP) ONE ×2 (09:35→20:13)
[2020-02-01] MEDS ORDERED: cefTRIAXone SODIUM 1 GM VIAL ONE (09:35)
[2020-02-01] MEDS: DEXTROSE 5%-LACTATED RINGERS 1,000 ML IV SCH (09:38)
[2020-02-01] MEDS: METOPROLOL TARTRATE 25 MG, METOPROLOL TARTRATE 50 MG PO SCH ×2 (09:39→22:17)
[2020-02-01] MEDS: PANTOPRAZOLE SODIUM 40 MG VIAL IVPUSH SCH (09:39)
[2020-02-01] MEDS: hydrALAZINE HCL 25 MG TABLET (FP) PO SCH ×2 (09:39→23:34)
[2020-02-01] MEDS: CEFTRIAXONE 1 GM in DEXTROSE 5%-WATER - 50 ML IVPB SCH (09:39)
--- NOTE | 2020-02-01 11:13 | PN ---
Physical Exam: SUBJECTIVE: Patient seen and examined. Pt remains intubated and sedated. No acute overnight events. OBJECTIVE: Vital Signs Period Temp Pulse Resp BP Sys/Gibbs Pulse Ox Last 24 Hr 97.6 F-98.6 F 63-85 18-21 127-170/68-101 100-100 GENERAL: The patient is sedated and intubated. HEENT: NCAT, ETT in place. OG tube in place. Green, foul-smelling exudates from nose and mouth. LUNGS: decreased breath sounds at the bases. HEART: S1, S2 present, regular rate and rhythm, no murmurs. ABDOMEN: Obese. Soft, nondistended, bowel sounds present in all 4 quadrants. EXTREMITIES: warm, well-perfused, edematous in extremities. SCDs in place. SKIN: Warm, dry Laboratory Last Values WBC 6.2 K/mm3 (4.0-10.0) 02/01/20 06:00 RBC 4.29 M/mm3 (3.60-5.2) 02/01/20 06:00 Hgb 10.8 GM/dL (10.7-15.3) 02/01/20 06:00 Hct 35.1 % (32.4-45.2) 02/01/20 06:00 MCV 81.8 fl (80-96) 02/01/20 06:00 MCH 25.2 pg (25.7-33.7) L 02/01/20 06:00 MCHC 30.8 g/dl (32.0-36.0) L 02/01/20 06:00 RDW 17.3 % (11.6-15.6) H 02/01/20 06:00 Plt Count 315 K/MM3 (134-434) 02/01/20 06:00 MPV 7.7 fl (7.5-11.1) 02/01/20 06:00 Absolute Neuts (auto) 5.0 K/mm3 (1.5-8.0) 02/01/20 06:00 Neutrophils % 80.2 % (42.8-82.8) 02/01/20 06:00 Neutrophils % (Manual) 88.0 % (42.8-82.8) H 01/25/20 18:30 Band Neutrophils % 2.0 % 01/25/20 18:30 Lymphocytes % 13.4 % (8-40) 02/01/20 06:00 Lymphocytes % (Manual) 6.0 % (8-40) L 01/25/20 18:30 Monocytes % 6.4 % (3.8-10.2) 02/01/20 06:00 Monocytes % (Manual) 4 % (3.8-10.2) 01/25/20 18:30 Eosinophils % 0.0 % (0-4.5) 02/01/20 06:00 Basophils % 0.0 % (0-2.0) 02/01/20 06:00 Nucleated RBC % 0 % (0-0) 02/01/20 06:00 Hypochromia 2+ 01/25/20 18:30 Platelet Estimate Adequate 01/25/20 18:30 Anisocytosis 2+ 01/25/20 18:30 Microcytosis 2+ 01/25/20 18:30 Stomatocytes 1+ 01/25/20 18:30 PT with INR 12.50 SEC (9.7-13.0) 01/26/20 07:48 INR 1.06 (0.83-1.09) 01/26/20 07:48 PTT (Actin FS) 28.2 SECONDS (25.2-36.5) 01/26/20 07:48 Fibrinogen 303.0 mg/dL (238-498) 01/25/20 12:09 D-Dimer 8578 ng/ml (0-500) H 01/25/20 12:09 Anticoagulation Therapy No Result Required. 01/28/20 06:00 Puncture Site Arterial line 01/28/20 06:00 Patient Temperature No Result Required. 01/28/20 06:00 ABG pH 7.399 (7.350-7.450) 01/28/20 06:00 ABG pCO2 43.20 mmHg (35-45) 01/28/20 06:00 ABG pO2 129.0 mmHg (80-100) H 01/28/20 06:00 ABG HCO3 26.1 mmol/L (22-27) 01/28/20 06:00 ABG O2 Sat (Measured) 98.6 mmHg (95-98) H 01/28/20 06:00 ABG O2 Content No Result Required. 01/28/20 06:00 ABG Base Excess 1.1 mmol/L (-2-2) 01/28/20 06:00 Jeffrey Test Not applicable 01/28/20 06:00 Carboxyhemoglobin 0.5 % (0-2) 01/25/20 12:36 Methemoglobin 0.3 % (0-2) 01/25/20 12:20 Patient On Oxygen Yes 01/28/20 06:00 O2 Delivery Device Vent 01/28/20 06:00 Oxygen Flow Rate 30% 01/28/20 06:00 Vent Mode A/c 01/28/20 06:00 Vent Rate 20 01/28/20 06:00 Mechanical Rate Yes 01/28/20 06:00 PEEP 10.0 cmH2O 01/28/20 06:00 Pressure Support Vent 500 01/28/20 06:00 Sodium 140 mmol/L (136-145) 02/01/20 06:00 Potassium 3.7 mmol/L (3.5-5.1) 02/01/20 06:00 Chloride 100 mmol/L (98-107) 02/01/20 06:00 Carbon Dioxide 29 mmol/L (21-32) 02/01/20 06:00 Anion Gap 11 MMOL/L (8-16) 02/01/20 06:00 BUN 14.2 mg/dL (7-18) 02/01/20 06:00 Creatinine 0.6 mg/dL (0.55-1.3) 02/01/20 06:00 Est GFR (CKD-EPI)AfAm 122.32 02/01/20 06:00 Est GFR (CKD-EPI)NonAf 105.54 02/01/20 06:00 POC Glucometer 198 UNITS (80-120) 02/01/20 11:47 Random Glucose 212 mg/dL (74-106) H 02/01/20 06:00 Lactic Acid 1.2 mmol/L (0.4-2.0) 01/25/20 18:30 Calcium 8.2 mg/dL (8.5-10.1) L 02/01/20 06:00 Phosphorus 2.8 mg/dL (2.5-4.9) 02/01/20 06:00 Magnesium 2.1 mg/dL (1.8-2.4) 02/01/20 06:00 Total Bilirubin 0.3 mg/dL (0.2-1) 02/01/20 06:00 AST 14 U/L (15-37) L 02/01/20 06:00 ALT 26 U/L (13-61) 02/01/20 06:00 Alkaline Phosphatase 57 U/L (45-117) 02/01/20 06:00 Troponin I 0.03 ng/ml (0.00-0.05) 01/26/20 07:48 B-Natriuretic Peptide 380.5 pg/ml (5-125) H 01/26/20 06:00 Total Protein 7.0 g/dl (6.4-8.2) 02/01/20 06:00 Albumin 2.6 g/dl (3.4-5.0) L 02/01/20 06:00 Triglycerides 159 mg/dL (0-150) H 02/01/20 06:00 COVID-19 (AMANDA) Not detected (Not Detected) 01/25/20 12:09 Blood Type O POSITIVE 01/25/20 09:00 Antibody Screen Negative 01/25/20 09:00 Active Medications Dexamethasone Sodium Phosphate (Decadron Injection -) 10 mg IVPUSH Q8H-IV ANGIE Last Admin: 02/01/20 09:39 Dose: 10 mg Documented by: Hydralazine HCl (Apresoline -) 50 mg PO BID ANGIE Last Admin: 02/01/20 09:39 Dose: 50 mg Documented by: IV Flush (Triple Lumen Flush) 4 ml IVPUSH PRN PRN PRN Reason: Protocol Fentanyl (Sublimaze Ivpb) 500 mcg in 100 mls @ 10 mls/hr IVPB TITR ANGIE; Protocol Last Admin: 02/01/20 07:50 Dose: 150 mcg/hr, 30 mls/hr Documented by: Propofol (Diprivan -) 1,000,000 mcg in 100 mls @ 4.763 mls/hr IVPB TITR ANGIE; Protocol Last Admin: 02/01/20 11:55 Dose: 50 mcg/kg/min, 47.627 mls/hr Documented by: Nicardipine HCl 25 mg/ (Dextrose) 250 mls @ 25 mls/hr IVPB TITR ANGIE; Protocol Last Titration: 02/01/20 11:00 Dose: 0 mg/hr, 0 mls/hr Documented by: Ceftriaxone Sodium 1 gm/ (Dextrose) 50 mls @ 200 mls/hr IVPB DAILY ANGIE; Protocol Last Admin: 02/01/20 09:39 Dose: 200 mls/hr Documented by: Insulin Aspart (Novolog Vial Sliding Scale -) 1 vial SQ Q6HPO ANGIE; Protocol Last Admin: 02/01/20 11:51 Dose: 4 units Documented by: Metoprolol Tartrate 25 mg/ (Metoprolol Tartrate 50 mg) 75 mg PO BID ANGIE Last Admin: 02/01/20 09:39 Dose: 75 mg Documented by: Pantoprazole Sodium (Protonix Iv) 40 mg IVPUSH DAILY [facility] Last Admin: 02/01/20 09:39 Dose: 40 mg Documented by: ASSESSMENT/PLAN: Pt is a 49 yo female with PMH HTN, DM, morbid obesity, severe b/l LE venous stasis and severe b/l upper extremity lymphedema secondary to prior breast cancer history for ACDF. Pt became acutely hypotensive and hypoxic 5 minutes into surgery and pt was not responsive to phenylephrine. Team aborted surgery, pt admitted to ICU. No acute overnight events. Neuro -sedated on fentanyl and propofol -sedation vacation daily -assess mental status Cardio Hypertension Hypotension possibly 2/2 hypoxia during procedure -Off pressors, but now hypertensive w/ SBP >180 -Continue Hydralazine 10mg IV q6h PRN, metoprolol 75 mg BID for BP control -C/w cardene drip -IV lasix today Pulm Narrowed tracheal lumen, secondary to hematoma vs. soft tissue swelling vs. thyromegaly Acute hypoxic and hypercapneic respiratory failure -Assess cuff leak daily -vent 20/500/30%/8 -keep pt intubated given swelling around trachea, will reassess daily if pt can be extubated. On assessment, no leak appreciated. -Continue decadron 10q8 -CT neck showed slight decrease of swelling/hematoma. -CXR 01/31 with congestive infiltrates. Renal Lactic acidosis, resolved Hypokalemia, resolved -Monitor electrolytes -monitor I/O's -IV furosemide today Endo DM -ISS + BGM ID Sinusitis - Continue Ceftriaxone. -not febrile, no leukocytosis -COVID negative Ppx -DVT: SCDs -GI: PPI FEN -D5/LR @ 42 mls/hr -Monitor and replete electrolytes -d/c Clinimix -started feeds (promote) Lines [facility] 01/24 ETT 01/24 OGT 01/24 Family discussion: Spoke to sister at bedside. Updated her on pt's status. Dispo: Continue monitoring in ICU. Code status: full code Visit type - Emergency Visit Emergency Visit: Yes ED Registration Date: 01/25/20 Care time: The patient presented to the Emergency Department on the above date and was hospitalized for further evaluation of their emergent condition. - New Patient This patient is new to me today: No - Critical Care Critical Care patient: Yes Total Critical Care Time (in minutes): 39 Critical Care Statement: The care of this patient involved high complexity decision making to prevent further life threatening deterioration of the patient's condition and/or to evaluate & treat vital organ system(s) failure or risk of failure. ATTENDING PHYSICIAN STATEMENT I saw and evaluated the patient. I reviewed the resident's note and discussed the case with the resident. I agree with the resident's findings and plan as documented. SUBJECTIVE: OBJECTIVE: ASSESSMENT AND PLAN:
[2020-02-01] MEDS ORDERED: FENTANYL NS IVPB 500 MCG/100 ML BAG IVPB ONE (13:51)
--- NOTE | 2020-02-01 15:12 | PN ---
Teaching Attending Note Name of Resident: Kimmie Aquino ATTENDING PHYSICIAN STATEMENT I saw and evaluated the patient. I reviewed the resident's note and discussed the case with the resident. I agree with the resident's findings and plan as documented. SUBJECTIVE: Patient seen and examined in the ICU. Remains intubated and sedated on Propofol and Fentanyl. No appreciable leak noted. Exhaled VT almost 500cc. No pressors. Thick bloody secretions still noted. Intake & Output 01/29/20 01/30/20 01/31/20 02/01/20 23:59 23:59 23:59 23:59 Intake Total 3803 1298 1235 1893 Output Total 3650 2390 2220 1900 Balance 153 -1092 -985 -7 Weight 370 lb 375 lb 373 lb 3.881 oz Last Vital Signs Temp Pulse Resp BP Pulse Ox 97.3 F L 59 L 20 152/92 100 02/01/20 14:00 02/01/20 14:00 02/01/20 14:00 02/01/20 14:00 02/01/20 14:00 Active Medications Amino Acids (Prosource No Carb Liquid Pkt) 30 ml PO TIDCM ANGIE Dexamethasone Sodium Phosphate (Decadron Injection -) 10 mg IVPUSH Q8H-IV ANGIE Last Admin: 02/01/20 09:39 Dose: 10 mg Documented by: Hydralazine HCl (Apresoline -) 50 mg PO BID ANGIE Last Admin: 02/01/20 09:39 Dose: 50 mg Documented by: IV Flush (Triple Lumen Flush) 4 ml IVPUSH PRN PRN PRN Reason: Protocol Propofol (Diprivan -) 1,000,000 mcg in 100 mls @ 4.763 mls/hr IVPB TITR ANGIE; Protocol Last Titration: 02/01/20 12:42 Dose: 35 mcg/kg/min, 33.339 mls/hr Documented by: Nicardipine HCl 25 mg/ (Dextrose) 250 mls @ 25 mls/hr IVPB TITR ANGIE; Protocol Last Titration: 02/01/20 11:00 Dose: 0 mg/hr, 0 mls/hr Documented by: Ceftriaxone Sodium 1 gm/ (Dextrose) 50 mls @ 200 mls/hr IVPB DAILY ANGIE; Protocol Last Admin: 02/01/20 09:39 Dose: 200 mls/hr Documented by: Fentanyl (Sublimaze Ivpb) 500 mcg in 100 mls @ 5 mls/hr IVPB TITR ANGIE; Protocol Insulin Aspart (Novolog Vial Sliding Scale -) 1 vial SQ Q6HPO [facility]; Protocol Last Admin: 02/01/20 11:51 Dose: 4 units Documented by: Metoprolol Tartrate 25 mg/ (Metoprolol Tartrate 50 mg) 75 mg PO BID [facility] Last Admin: 02/01/20 09:39 Dose: 75 mg Documented by: Pantoprazole Sodium (Protonix Iv) 40 mg IVPUSH DAILY [facility] Last Admin: 02/01/20 09:39 Dose: 40 mg Documented by: Gen: Morbid obese; orally intubated Neuro: Sedated HEENT: PERRL; MMM Chest: Vented, bilateral scattered rhonchi CV: RRR, S1S2; Abd: Obeses; soft, NT Ext: WWP; 1-2+edema; + pulses Skin: chronic venous changes Laboratory Results - last 24 hr 01/31/20 02/01/20 02/01/20 18:31 05:58 06:00 WBC 6.2 RBC 4.29 Hgb 10.8 Hct 35.1 MCV 81.8 MCH 25.2 L MCHC 30.8 L RDW 17.3 H Plt Count 315 MPV 7.7 Absolute Neuts (auto) 5.0 Neutrophils % 80.2 Lymphocytes % 13.4 Monocytes % 6.4 Eosinophils % 0.0 Basophils % 0.0 Nucleated RBC % 0 Sodium Potassium Chloride Carbon Dioxide Anion Gap BUN Creatinine Est GFR (CKD-EPI)AfAm Est GFR (CKD-EPI)NonAf POC Glucometer 145 202 Random Glucose Calcium Phosphorus Magnesium Total Bilirubin AST ALT Alkaline Phosphatase Total Protein Albumin Triglycerides 02/01/20 02/01/20 06:00 11:47 WBC RBC Hgb Hct MCV MCH MCHC RDW Plt Count MPV Absolute Neuts (auto) Neutrophils % Lymphocytes % Monocytes % Eosinophils % Basophils % Nucleated RBC % Sodium 140 Potassium 3.7 Chloride 100 Carbon Dioxide 29 Anion Gap 11 BUN 14.2 Creatinine 0.6 Est GFR (CKD-EPI)AfAm 122.32 Est GFR (CKD-EPI)NonAf 105.54 POC Glucometer 198 Random Glucose 212 H Calcium 8.2 L Phosphorus 2.8 Magnesium 2.1 Total Bilirubin 0.3 AST 14 L ALT 26 Alkaline Phosphatase 57 Total Protein 7.0 Albumin 2.6 L Triglycerides 159 H ASSESSMENT/PLAN: Acute Respiratory Failure Narrowed tracheal lumen due to a combination of soft tissue swelling / hematoma / thyromegaly HTN DM Morbid obesity Severe LE venous stasis Severe b/l upper extremity lymphedema secondary to prior breast cancer history for ACDF. Pulmonary HTN Likely OSAS / OHS -Dexamethasone -AC Mode of vent -Continue Fentanyl and Propofol -Strict I/O -Trend and replete electrolytes, keep Mg>2, K>4 -Lasix -Follow Leak -Enteral feeds -VTE prophylaxis -Follow BMG, Insulin coverage scale -Requires ICU monitoring Dr Florentino Critical care time spent in reviewing chart, evaluating patient and formulating plan - 36 minutes.
[2020-02-01] MEDS: AMINO ACIDS/PROTEIN HYDROLYS 30 ML LIQUID.PKT PO SCH (17:23)
[2020-02-01] MEDS ORDERED: PT OWN MED DRAWER 7, Y5N ONE (20:14)
[2020-02-02] MEDS ORDERED: MIDAZOLAM HCL 2 MG/2 ML SINGLE DOSE VIAL IVPUSH ONE (00:12)
[2020-02-02] MEDS: DEXAMETHASONE SOD PHOSPHATE 10 MG/1 ML VIAL IVPUSH SCH ×3 (02:17→17:09)
[2020-02-02 06:08] LABS: BASO % 0.1 % (0-2.0); HEMATOCRIT 34.6 % (32.4-45.2); HEMOGLOBIN 10.7 GM/dL (10.7-15.3); LYMPH % 19.3 % (8-40); MCH 25.4 pg (25.7-33.7); MCHC 30.8 g/dl (32.0-36.0); MEAN CELL VOLUME 82.3 fl (80-96); MEAN PLT VOLUME 7.5 fl (7.5-11.1); MONO % 6.2 % (3.8-10.2); NEUT % 74.4 % (42.8-82.8); PLATELET COUNT 315 K/MM3 (134-434); RDW 16.9 % (11.6-15.6); WHITE BLOOD COUNT 5.3 K/mm3 (4.0-10.0)
[2020-02-02] MEDS ORDERED: MIDAZOLAM 100 MG/100 ML MG IVPB ONE ×2 (06:20→22:52)
[2020-02-02 06:44] LABS: ALBUMIN 2.6 g/dl (3.4-5.0); BILIRUBIN,TOTAL 0.3 mg/dL (0.2-1); BLOOD UREA NITROGEN 17.4 mg/dL (7-18); CALCIUM 8.2 mg/dL (8.5-10.1); CREATININE 0.6 mg/dL (0.55-1.3); MAGNESIUM 2.4 mg/dL (1.8-2.4); PHOSPHOROUS 3.1 mg/dL (2.5-4.9); POTASSIUM 3.3 mmol/L (3.5-5.1); TOT PROT 6.8 g/dl (6.4-8.2)
[2020-02-02] MEDS: MIDAZOLAM 100 MG in SODIUM CHLORIDE 100 ML IVPB SCH (06:58)
[2020-02-02] MEDS: INSULIN SLIDING SCALE (NOVOLOG) 1 VIAL SQ SCH ×3 (06:59→17:10)
[2020-02-02] MEDS: PROPOFOL 1,000,000 MCG/100 ML VIAL IVPB SCH ×6 (07:19→18:54)
[2020-02-02] MEDS: SCOPOLAMINE HYDROBROMIDE 1 PATCH PATCH.TD72 TD SCH (07:20)
[2020-02-02] MEDS: AMINO ACIDS/PROTEIN HYDROLYS 30 ML LIQUID.PKT PO SCH ×3 (07:20→17:08)
--- NOTE | 2020-02-02 07:51 | PN ---
Physical Exam: SUBJECTIVE: Patient seen and examined. Pt was actively biting on tube and had copious secretions. Night team added versed and scopolamine patch. OBJECTIVE: Vital Signs Period Temp Pulse Resp BP Sys/Gibbs Pulse Ox Last 24 Hr 97.3 F-98.8 F 59-93 18-29 123-177/66-113 99-100 GENERAL: The patient is sedated and intubated. HEENT: NCAT, ETT in place. OG tube in place. Less secretions noted. LUNGS: decreased breath sounds at the bases. HEART: S1, S2 present, regular rate and rhythm, no murmurs. ABDOMEN: Obese. Soft, nondistended, bowel sounds present in all 4 quadrants. EXTREMITIES: warm, well-perfused, edematous in extremities. SCDs in place. SKIN: Warm, dry Laboratory Last Values WBC 5.3 K/mm3 (4.0-10.0) 02/02/20 05:15 RBC 4.20 M/mm3 (3.60-5.2) 02/02/20 05:15 Hgb 10.7 GM/dL (10.7-15.3) 02/02/20 05:15 Hct 34.6 % (32.4-45.2) 02/02/20 05:15 MCV 82.3 fl (80-96) 02/02/20 05:15 MCH 25.4 pg (25.7-33.7) L 02/02/20 05:15 MCHC 30.8 g/dl (32.0-36.0) L 02/02/20 05:15 RDW 16.9 % (11.6-15.6) H 02/02/20 05:15 Plt Count 315 K/MM3 (134-434) 02/02/20 05:15 MPV 7.5 fl (7.5-11.1) 02/02/20 05:15 Absolute Neuts (auto) 3.9 K/mm3 (1.5-8.0) 02/02/20 05:15 Neutrophils % 74.4 % (42.8-82.8) 02/02/20 05:15 Neutrophils % (Manual) 88.0 % (42.8-82.8) H 01/25/20 18:30 Band Neutrophils % 2.0 % 01/25/20 18:30 Lymphocytes % 19.3 % (8-40) D 02/02/20 05:15 Lymphocytes % (Manual) 6.0 % (8-40) L 01/25/20 18:30 Monocytes % 6.2 % (3.8-10.2) 02/02/20 05:15 Monocytes % (Manual) 4 % (3.8-10.2) 01/25/20 18:30 Eosinophils % 0.0 % (0-4.5) 02/02/20 05:15 Basophils % 0.1 % (0-2.0) D 02/02/20 05:15 Nucleated RBC % 0 % (0-0) 02/02/20 05:15 Hypochromia 2+ 01/25/20 18:30 Platelet Estimate Adequate 01/25/20 18:30 Anisocytosis 2+ 01/25/20 18:30 Microcytosis 2+ 01/25/20 18:30 Stomatocytes 1+ 01/25/20 18:30 PT with INR 12.50 SEC (9.7-13.0) 01/26/20 07:48 INR 1.06 (0.83-1.09) 01/26/20 07:48 PTT (Actin FS) 28.2 SECONDS (25.2-36.5) 01/26/20 07:48 Fibrinogen 303.0 mg/dL (238-498) 01/25/20 12:09 D-Dimer 8578 ng/ml (0-500) H 01/25/20 12:09 Anticoagulation Therapy No Result Required. 01/28/20 06:00 Puncture Site Arterial line 01/28/20 06:00 Patient Temperature No Result Required. 01/28/20 06:00 ABG pH 7.399 (7.350-7.450) 01/28/20 06:00 ABG pCO2 43.20 mmHg (35-45) 01/28/20 06:00 ABG pO2 129.0 mmHg (80-100) H 01/28/20 06:00 ABG HCO3 26.1 mmol/L (22-27) 01/28/20 06:00 ABG O2 Sat (Measured) 98.6 mmHg (95-98) H 01/28/20 06:00 ABG O2 Content No Result Required. 01/28/20 06:00 ABG Base Excess 1.1 mmol/L (-2-2) 01/28/20 06:00 Jeffrey Test Not applicable 01/28/20 06:00 Carboxyhemoglobin 0.5 % (0-2) 01/25/20 12:36 Methemoglobin 0.3 % (0-2) 01/25/20 12:20 Patient On Oxygen Yes 01/28/20 06:00 O2 Delivery Device Vent 01/28/20 06:00 Oxygen Flow Rate 30% 01/28/20 06:00 Vent Mode A/c 01/28/20 06:00 Vent Rate 20 01/28/20 06:00 Mechanical Rate Yes 01/28/20 06:00 PEEP 10.0 cmH2O 01/28/20 06:00 Pressure Support Vent 500 01/28/20 06:00 Sodium 137 mmol/L (136-145) 02/02/20 05:15 Potassium 3.3 mmol/L (3.5-5.1) L 02/02/20 05:15 Chloride 100 mmol/L (98-107) 02/02/20 05:15 Carbon Dioxide 31 mmol/L (21-32) 02/02/20 05:15 Anion Gap 6 MMOL/L (8-16) L 02/02/20 05:15 BUN 17.4 mg/dL (7-18) 02/02/20 05:15 Creatinine 0.6 mg/dL (0.55-1.3) 02/02/20 05:15 Est GFR (CKD-EPI)AfAm 122.32 02/02/20 05:15 Est GFR (CKD-EPI)NonAf 105.54 02/02/20 05:15 POC Glucometer 224 UNITS (80-120) 02/02/20 10:57 Random Glucose 215 mg/dL (74-106) H 02/02/20 05:15 Lactic Acid 1.2 mmol/L (0.4-2.0) 01/25/20 18:30 Calcium 8.2 mg/dL (8.5-10.1) L 02/02/20 05:15 Phosphorus 3.1 mg/dL (2.5-4.9) 02/02/20 05:15 Magnesium 2.4 mg/dL (1.8-2.4) 02/02/20 05:15 Total Bilirubin 0.3 mg/dL (0.2-1) 02/02/20 05:15 AST 9 U/L (15-37) L 02/02/20 05:15 ALT 22 U/L (13-61) 02/02/20 05:15 Alkaline Phosphatase 57 U/L (45-117) 02/02/20 05:15 Troponin I 0.03 ng/ml (0.00-0.05) 01/26/20 07:48 B-Natriuretic Peptide 380.5 pg/ml (5-125) H 01/26/20 06:00 Total Protein 6.8 g/dl (6.4-8.2) 02/02/20 05:15 Albumin 2.6 g/dl (3.4-5.0) L 02/02/20 05:15 Triglycerides 159 mg/dL (0-150) H 02/01/20 06:00 COVID-19 (AMANDA) Not detected (Not Detected) 01/25/20 12:09 Blood Type O POSITIVE 01/25/20 09:00 Antibody Screen Negative 01/25/20 09:00 Active Medications Amino Acids (Prosource No Carb Liquid Pkt) 30 ml PO TIDCM ANGIE Last Admin: 02/02/20 11:05 Dose: 30 ml Documented by: Dexamethasone Sodium Phosphate (Decadron Injection -) 10 mg IVPUSH Q8H-IV ANGIE Last Admin: 02/02/20 09:15 Dose: 10 mg Documented by: Hydralazine HCl (Apresoline -) 50 mg PO BID ANGIE Last Admin: 02/02/20 09:15 Dose: 50 mg Documented by: IV Flush (Triple Lumen Flush) 4 ml IVPUSH PRN PRN PRN Reason: Protocol Propofol (Diprivan -) 1,000,000 mcg in 100 mls @ 4.763 mls/hr IVPB TITR ANGIE; Protocol Last Admin: 02/02/20 15:44 Dose: Not Given Documented by: Nicardipine HCl 25 mg/ (Dextrose) 250 mls @ 25 mls/hr IVPB TITR ANGIE; Protocol Last Titration: 02/02/20 15:45 Dose: 0 mg/hr, 0 mls/hr Documented by: Ceftriaxone Sodium 1 gm/ (Dextrose) 50 mls @ 200 mls/hr IVPB DAILY ANGIE; Protocol Last Admin: 07/31/20 09:13 Dose: 200 mls/hr Documented by: Fentanyl (Sublimaze Ivpb) 500 mcg in 100 mls @ 5 mls/hr IVPB TITR [facility]; Protocol Last Admin: 02/02/20 15:46 Dose: 50 mcg/hr, 10 mls/hr Documented by: Midazolam HCl 100 mg/ Sodium (Chloride) 100 mls @ 1 mls/hr IVPB TITR [facility]; Protocol Last Admin: 02/02/20 06:58 Dose: 4 mg/hr, 4 mls/hr Documented by: Insulin Aspart (Novolog Vial Sliding Scale -) 1 vial SQ Q6HPO [facility]; Protocol Last Admin: 02/02/20 11:05 Dose: 4 units Documented by: Metoprolol Tartrate 25 mg/ (Metoprolol Tartrate 50 mg) 75 mg PO BID [facility] Last Admin: 02/02/20 09:15 Dose: 75 mg Documented by: Pantoprazole Sodium (Protonix Iv) 40 mg IVPUSH DAILY [facility] Last Admin: 02/02/20 09:13 Dose: 40 mg Documented by: Scopolamine HBr (Transderm-Scop -) 1 patch TD Q72H [facility] Last Admin: 02/02/20 07:20 Dose: 1 patch Documented by: ASSESSMENT/PLAN: Pt is a 49 yo female with PMH HTN, DM, morbid obesity, severe b/l LE venous stasis and severe b/l upper extremity lymphedema secondary to prior breast cancer history for ACDF. Pt became acutely hypotensive and hypoxic 5 minutes into surgery and pt was not responsive to phenylephrine. Team aborted surgery, pt admitted to ICU. Overnight, pt actively biting ETT. Night team added versed and scopolamine patch. Neuro -sedated on fentanyl, propofol. Started versed. -sedation vacation -assess mental status Cardio Hypertension Hypotension possibly 2/2 hypoxia during procedure -Off pressors, but now hypertensive w/ SBP >180 -Continue Hydralazine 50mg PO BID, metoprolol 75 mg BID for BP control -C/w cardene drip -IV lasix today Pulm Narrowed tracheal lumen, secondary to hematoma vs. soft tissue swelling vs. thyromegaly Acute hypoxic and hypercapneic respiratory failure -Assess cuff leak daily -vent 20/500/30%/8 -keep pt intubated given swelling around trachea, will reassess daily if pt can be extubated. On assessment, pt pulling Tv 410. Cuff leak appreciated (Tv sustained at 370). Will continue to reasses. -Continue decadron 10q8 -CT neck showed slight decrease of swelling/hematoma. -CXR 01/31 with congestive infiltrates. -Started scopolamine for secretions Renal Lactic acidosis, resolved Hypokalemia, resolved -Monitor electrolytes -monitor I/O's -IV furosemide today Endo DM -ISS + BGM MSK Aborted ACDF secondary to acute hypoxic respiratory failure -Discussed with surgery if previously planned surgery should be contemplated prior to extubation. Surgery recommends pt be medically optimized prior to surgical intervention and would like anesthesia input. ID Sinusitis - Continue Ceftriaxone (01/30). -not febrile, no leukocytosis -COVID negative Ppx -DVT: SCDs -GI: PPI FEN -no standing fluids -Monitor and replete electrolytes -continue feeds (promote) Lines RIJ 02/01 ETT 01/24 OGT 01/24 Dispo: Continue monitoring in ICU. Visit type - Emergency Visit Emergency Visit: No - New Patient This patient is new to me today: No - Critical Care Critical Care patient: Yes Total Critical Care Time (in minutes): 37 Critical Care Statement: The care of this patient involved high complexity decision making to prevent further life threatening deterioration of the patient's condition and/or to evaluate & treat vital organ system(s) failure or risk of failure. ATTENDING PHYSICIAN STATEMENT I saw and evaluated the patient. I reviewed the resident's note and discussed the case with the resident. I agree with the resident's findings and plan as documented. SUBJECTIVE: OBJECTIVE: ASSESSMENT AND PLAN:
[2020-02-02] MEDS ORDERED: METOPROLOL TARTRATE 25 MG TABLET (FP) ONE ×2 (08:57→19:38)
[2020-02-02] MEDS ORDERED: METOPROLOL TARTRATE 50 MG TABLET (FP) ONE ×2 (08:57→19:38)
[2020-02-02] MEDS ORDERED: DEXTROSE 5%-WATER - 50 ML IVPB ONE (08:58)
[2020-02-02] MEDS ORDERED: cefTRIAXone SODIUM 1 GM VIAL ONE (08:58)
[2020-02-02] MEDS: KCL 10 MEQ IVPB 10 MEQ/100 ML INFUS.BAG IVPB SCH ×3 (09:13→11:35)
[2020-02-02] MEDS: CEFTRIAXONE 1 GM in DEXTROSE 5%-WATER - 50 ML IVPB SCH (09:13)
[2020-02-02] MEDS: PANTOPRAZOLE SODIUM 40 MG VIAL IVPUSH SCH (09:13)
[2020-02-02] MEDS: METOPROLOL TARTRATE 25 MG, METOPROLOL TARTRATE 50 MG PO SCH ×2 (09:15→21:05)
[2020-02-02] MEDS: hydrALAZINE HCL 25 MG TABLET (FP) PO SCH ×2 (09:15→21:05)
[2020-02-02] MEDS ORDERED: FUROSEMIDE 40 MG/4 ML INJECTABLE VIAL IVPUSH ONE (10:35)
[2020-02-02] MEDS: FENTANYL NS IVPB 500 MCG/100 ML BAG IVPB SCH ×2 (10:46→15:46)
--- NOTE | 2020-02-02 12:26 | PN ---
Teaching Attending Note Name of Resident: Kimmie Aquino ATTENDING PHYSICIAN STATEMENT I saw and evaluated the patient. I reviewed the resident's note and discussed the case with the resident. I agree with the resident's findings and plan as documented. SUBJECTIVE: Patient seen and examined in the ICU. Remains intubated and sedated on Propofol and Fentanyl. (+) Leak today : but residual VT consistently around 350. No pressors. Less thick bloody secretions noted. Intake & Output 01/30/20 01/31/20 02/01/20 02/02/20 23:59 23:59 23:59 23:59 Intake Total 1298 1235 3000 1155 Output Total 2390 2220 2170 1400 Balance -1092 -985 830 -245 Weight 375 lb 373 lb 3.881 oz 363 lb 11.2 oz Last Vital Signs Temp Pulse Resp BP Pulse Ox 97.4 F L 74 20 113/60 100 02/02/20 08:00 02/02/20 10:45 02/02/20 12:01 02/02/20 10:45 02/02/20 10:00 Active Medications Amino Acids (Prosource No Carb Liquid Pkt) 30 ml PO TIDCM ANGIE Last Admin: 02/02/20 11:05 Dose: 30 ml Documented by: Dexamethasone Sodium Phosphate (Decadron Injection -) 10 mg IVPUSH Q8H-IV ANGIE Last Admin: 02/02/20 09:15 Dose: 10 mg Documented by: Hydralazine HCl (Apresoline -) 50 mg PO BID ANGIE Last Admin: 02/02/20 09:15 Dose: 50 mg Documented by: IV Flush (Triple Lumen Flush) 4 ml IVPUSH PRN PRN PRN Reason: Protocol Propofol (Diprivan -) 1,000,000 mcg in 100 mls @ 4.763 mls/hr IVPB TITR ANGIE; Protocol Last Titration: 02/02/20 09:38 Dose: 40 mcg/kg/min, 38.102 mls/hr Documented by: Nicardipine HCl 25 mg/ (Dextrose) 250 mls @ 25 mls/hr IVPB TITR ANGIE; Protocol Last Titration: 02/02/20 10:45 Dose: 1.25 mg/hr, 12.5 mls/hr Documented by: Ceftriaxone Sodium 1 gm/ (Dextrose) 50 mls @ 200 mls/hr IVPB DAILY ANGIE; Protocol Last Admin: 02/02/20 09:13 Dose: 200 mls/hr Documented by: Fentanyl (Sublimaze Ivpb) 500 mcg in 100 mls @ 5 mls/hr IVPB TITR ANGIE; Protocol Last Admin: 02/02/20 10:46 Dose: 50 mcg/hr, 10 mls/hr Documented by: Midazolam HCl 100 mg/ Sodium (Chloride) 100 mls @ 1 mls/hr IVPB TITR ANGIE; Protocol Last Admin: 02/02/20 06:58 Dose: 4 mg/hr, 4 mls/hr Documented by: Insulin Aspart (Novolog Vial Sliding Scale -) 1 vial SQ Q6HPO ANGIE; Protocol Last Admin: 02/02/20 11:05 Dose: 4 units Documented by: Metoprolol Tartrate 25 mg/ (Metoprolol Tartrate 50 mg) 75 mg PO BID ANGIE Last Admin: 02/02/20 09:15 Dose: 75 mg Documented by: Pantoprazole Sodium (Protonix Iv) 40 mg IVPUSH DAILY [facility] Last Admin: 02/02/20 09:13 Dose: 40 mg Documented by: Scopolamine HBr (Transderm-Scop -) 1 patch TD Q72H [facility] Last Admin: 02/02/20 07:20 Dose: 1 patch Documented by: Gen: Morbid obese; orally intubated Neuro: Sedated HEENT: PERRL; MMM Chest: Vented, bilateral scattered rhonchi CV: RRR, S1S2; Abd: Obeses; soft, NT Ext: WWP; 1-2+edema; + pulses Skin: chronic venous changes Laboratory Results - last 24 hr 02/01/20 02/01/20 02/02/20 17:44 22:42 05:15 WBC 5.3 RBC 4.20 Hgb 10.7 Hct 34.6 MCV 82.3 MCH 25.4 L MCHC 30.8 L RDW 16.9 H Plt Count 315 MPV 7.5 Absolute Neuts (auto) 3.9 Neutrophils % 74.4 Lymphocytes % 19.3 D Monocytes % 6.2 Eosinophils % 0.0 Basophils % 0.1 D Nucleated RBC % 0 Sodium Potassium Chloride Carbon Dioxide Anion Gap BUN Creatinine Est GFR (CKD-EPI)AfAm Est GFR (CKD-EPI)NonAf POC Glucometer 117 197 Random Glucose Calcium Phosphorus Magnesium Total Bilirubin AST ALT Alkaline Phosphatase Total Protein Albumin 02/02/20 02/02/20 02/02/20 05:15 05:51 10:57 WBC RBC Hgb Hct MCV MCH MCHC RDW Plt Count MPV Absolute Neuts (auto) Neutrophils % Lymphocytes % Monocytes % Eosinophils % Basophils % Nucleated RBC % Sodium 137 Potassium 3.3 L Chloride 100 Carbon Dioxide 31 Anion Gap 6 L BUN 17.4 Creatinine 0.6 Est GFR (CKD-EPI)AfAm 122.32 Est GFR (CKD-EPI)NonAf 105.54 POC Glucometer 302 224 Random Glucose 215 H Calcium 8.2 L Phosphorus 3.1 Magnesium 2.4 Total Bilirubin 0.3 AST 9 L ALT 22 Alkaline Phosphatase 57 Total Protein 6.8 Albumin 2.6 L ASSESSMENT/PLAN: Acute Respiratory Failure Narrowed tracheal lumen due to a combination of soft tissue swelling / hematoma / thyromegaly HTN DM Morbid obesity Severe LE venous stasis Severe b/l upper extremity lymphedema secondary to prior breast cancer history for ACDF. Pulmonary HTN Likely OSAS / OHS -Dexamethasone -AC Mode of vent -Continue Fentanyl and Propofol -Strict I/O -Trend and replete electrolytes, keep Mg>2, K>4 -Lasix -Follow Leak -Enteral feeds -VTE prophylaxis -Follow BMG, Insulin coverage scale -To discuss with surgery and anesthesia if previous planned surgical procedure should be contemplated prior to a trial of extubation -Requires ICU monitoring Dr Florentino Critical care time spent in reviewing chart, evaluating patient and formulating plan - 36 minutes.
[2020-02-02] MEDS: NICARDIPINE 25 MG in DEXTROSE 5%-WATER - 240 ML IVPB SCH (15:45)
--- NOTE | 2020-02-02 15:48 | PROC ---
Central Line Insertion Indication: Poor Venous Access Risks and Benefits Explained: Yes Consent on Chart: Yes Central Line: Triple Lumen Catheter Anesthesia: other Sterile Technique: Yes Ultrasound Guided Assistance: Yes Position: Right Internal Jugular Post Insertion: Yes: Bilateral Breath Sounds, Bilateral Chest Expansion, Chest X-Ray Ordered Sterile Dressing Applied: Yes
[2020-02-02] MEDS ORDERED: INSULIN (NOVOLOG) ASPART 100 UNITS/ML 10ML VIAL ONE (23:58)
[2020-02-03] MEDS: INSULIN SLIDING SCALE (NOVOLOG) 1 VIAL SQ SCH ×4 (00:30→17:04)
[2020-02-03] MEDS: DEXAMETHASONE SOD PHOSPHATE 10 MG/1 ML VIAL IVPUSH SCH ×3 (01:03→17:04)
[2020-02-03] MEDS ORDERED: PROPOFOL 1,000,000 MCG/100 ML VIAL ONE (06:23)
--- NOTE | 2020-02-03 07:20 | PN ---
Physical Exam: SUBJECTIVE: Patient seen and examined. Pt remained intubated and sedated. No acute overnight events. OBJECTIVE: Vital Signs Period Temp Pulse Resp BP Sys/Gibbs Pulse Ox Last 24 Hr 97.4 F-98.8 F 31-92 20-22 113-154/60-92 98-100 GENERAL: The patient is sedated and intubated. HEENT: NCAT, ETT in place. OG tube in place. Less secretions noted. LUNGS: decreased breath sounds at the bases. HEART: S1, S2 present, regular rate and rhythm, no murmurs. ABDOMEN: Obese. Soft, nondistended, bowel sounds present in all 4 quadrants. EXTREMITIES: warm, well-perfused, edematous in extremities. SCDs in place. SKIN: Warm, dry Laboratory Last Values WBC 5.8 K/mm3 (4.0-10.0) 02/03/20 05:00 RBC 4.35 M/mm3 (3.60-5.2) 02/03/20 05:00 Hgb 11.0 GM/dL (10.7-15.3) 02/03/20 05:00 Hct 35.3 % (32.4-45.2) 02/03/20 05:00 MCV 81.0 fl (80-96) 02/03/20 05:00 MCH 25.4 pg (25.7-33.7) L 02/03/20 05:00 MCHC 31.3 g/dl (32.0-36.0) L 02/03/20 05:00 RDW 16.6 % (11.6-15.6) H 02/03/20 05:00 Plt Count 307 K/MM3 (134-434) 02/03/20 05:00 MPV 7.7 fl (7.5-11.1) 02/03/20 05:00 Absolute Neuts (auto) 4.7 K/mm3 (1.5-8.0) 02/03/20 05:00 Neutrophils % 80.2 % (42.8-82.8) 02/03/20 05:00 Neutrophils % (Manual) 73.2 % (42.8-82.8) 02/03/20 05:00 Band Neutrophils % 0.0 % 02/03/20 05:00 Lymphocytes % 15.4 % (8-40) D 02/03/20 05:00 Lymphocytes % (Manual) 19.6 % (8-40) D 02/03/20 05:00 Monocytes % 4.3 % (3.8-10.2) 02/03/20 05:00 Monocytes % (Manual) 3 % (3.8-10.2) L 02/03/20 05:00 Eosinophils % 0.0 % (0-4.5) 02/03/20 05:00 Eosinophils % (Manual) 0.0 % (0-4.5) 02/03/20 05:00 Basophils % 0.1 % (0-2.0) 02/03/20 05:00 Basophils % (Manual) 0.0 % (0-2.0) 02/03/20 05:00 Myelocytes % (Man) 3 % (0-2) H 02/03/20 05:00 Promyelocytes % (Man) 0 % (0-2) 02/03/20 05:00 Blast Cells % (Manual) 0 % (0-0) 02/03/20 05:00 Nucleated RBC % 0 % (0-0) 02/03/20 05:00 Metamyelocytes 0 % (0-2) 02/03/20 05:00 Hypochromia 0 02/03/20 05:00 Platelet Estimate Normal 02/03/20 05:00 Polychromasia 0 02/03/20 05:00 Poikilocytosis 0 02/03/20 05:00 Anisocytosis 0 02/03/20 05:00 Microcytosis 0 02/03/20 05:00 Macrocytosis 0 02/03/20 05:00 Stomatocytes 1+ 01/25/20 18:30 PT with INR 12.50 SEC (9.7-13.0) 01/26/20 07:48 INR 1.06 (0.83-1.09) 01/26/20 07:48 PTT (Actin FS) 28.2 SECONDS (25.2-36.5) 01/26/20 07:48 Fibrinogen 303.0 mg/dL (238-498) 01/25/20 12:09 D-Dimer 8578 ng/ml (0-500) H 01/25/20 12:09 Anticoagulation Therapy No Result Required. 01/28/20 06:00 Puncture Site Arterial line 01/28/20 06:00 Patient Temperature No Result Required. 01/28/20 06:00 ABG pH 7.399 (7.350-7.450) 01/28/20 06:00 ABG pCO2 43.20 mmHg (35-45) 01/28/20 06:00 ABG pO2 129.0 mmHg (80-100) H 01/28/20 06:00 ABG HCO3 26.1 mmol/L (22-27) 01/28/20 06:00 ABG O2 Sat (Measured) 98.6 mmHg (95-98) H 01/28/20 06:00 ABG O2 Content No Result Required. 01/28/20 06:00 ABG Base Excess 1.1 mmol/L (-2-2) 01/28/20 06:00 Jeffrey Test Not applicable 01/28/20 06:00 Carboxyhemoglobin 0.5 % (0-2) 01/25/20 12:36 Methemoglobin 0.3 % (0-2) 01/25/20 12:20 Patient On Oxygen Yes 01/28/20 06:00 O2 Delivery Device Vent 01/28/20 06:00 Oxygen Flow Rate 30% 01/28/20 06:00 Vent Mode A/c 01/28/20 06:00 Vent Rate 20 01/28/20 06:00 Mechanical Rate Yes 01/28/20 06:00 PEEP 10.0 cmH2O 01/28/20 06:00 Pressure Support Vent 500 01/28/20 06:00 Sodium 136 mmol/L (136-145) 02/03/20 05:00 Potassium 4.0 mmol/L (3.5-5.1) 02/03/20 05:00 Chloride 101 mmol/L (98-107) 02/03/20 05:00 Carbon Dioxide 30 mmol/L (21-32) 02/03/20 05:00 Anion Gap 5 MMOL/L (8-16) L 02/03/20 05:00 BUN 23.4 mg/dL (7-18) H 02/03/20 05:00 Creatinine 0.6 mg/dL (0.55-1.3) 02/03/20 05:00 Est GFR (CKD-EPI)AfAm 122.32 02/03/20 05:00 Est GFR (CKD-EPI)NonAf 105.54 02/03/20 05:00 POC Glucometer 203 UNITS (80-120) 02/03/20 16:26 Random Glucose 221 mg/dL (74-106) H 02/03/20 05:00 Lactic Acid 1.2 mmol/L (0.4-2.0) 01/25/20 18:30 Calcium 8.2 mg/dL (8.5-10.1) L 02/03/20 05:00 Phosphorus 3.4 mg/dL (2.5-4.9) 02/03/20 05:00 Magnesium 2.4 mg/dL (1.8-2.4) 02/03/20 05:00 Total Bilirubin 0.4 mg/dL (0.2-1) 02/03/20 05:00 AST 28 U/L (15-37) 02/03/20 05:00 ALT 34 U/L (13-61) 02/03/20 05:00 Alkaline Phosphatase 59 U/L (45-117) 02/03/20 05:00 Troponin I 0.03 ng/ml (0.00-0.05) 01/26/20 07:48 B-Natriuretic Peptide 380.5 pg/ml (5-125) H 01/26/20 06:00 Total Protein 6.6 g/dl (6.4-8.2) 02/03/20 05:00 Albumin 2.4 g/dl (3.4-5.0) L 02/03/20 05:00 Triglycerides 159 mg/dL (0-150) H 02/01/20 06:00 COVID-19 (AMANDA) Not detected (Not Detected) 01/25/20 12:09 Blood Type O POSITIVE 01/25/20 09:00 Antibody Screen Negative 01/25/20 09:00 Active Medications Amino Acids (Prosource No Carb Liquid Pkt) 30 ml PO TIDCM ANGIE Last Admin: 02/03/20 17:04 Dose: 30 ml Documented by: Dexamethasone Sodium Phosphate (Decadron Injection -) 10 mg IVPUSH Q8H-IV ANGIE Last Admin: 02/03/20 17:04 Dose: 10 mg Documented by: Hydralazine HCl (Apresoline -) 50 mg PO TID ANGIE IV Flush (Triple Lumen Flush) 4 ml IVPUSH PRN PRN PRN Reason: Protocol Propofol (Diprivan -) 1,000,000 mcg in 100 mls @ 4.763 mls/hr IVPB TITR ANGIE; Protocol Last Admin: 02/03/20 15:25 Dose: 50 mcg/kg/min, 47.627 mls/hr Documented by: Nicardipine HCl 25 mg/ (Dextrose) 250 mls @ 25 mls/hr IVPB TITR ANGIE; Protocol Last Admin: 02/03/20 14:00 Dose: 5 mg/hr, 50 mls/hr Documented by: Fentanyl (Sublimaze Ivpb) 500 mcg in 100 mls @ 5 mls/hr IVPB TITR ANGIE; Protocol Last Admin: 02/03/20 16:46 Dose: 75 mcg/hr, 15 mls/hr Documented by: Midazolam HCl 100 mg/ Sodium (Chloride) 100 mls @ 1 mls/hr IVPB TITR ANGIE; Protocol Last Admin: 02/03/20 11:36 Dose: 5 mg/hr, 5 mls/hr Documented by: Insulin Aspart (Novolog Vial Sliding Scale -) 1 vial SQ Q6HPO ANGIE; Protocol Last Admin: 02/03/20 17:04 Dose: 4 units Documented by: Metoprolol Tartrate 25 mg/ (Metoprolol Tartrate 50 mg) 75 mg PO BID [facility] Last Admin: 02/03/20 09:04 Dose: 75 mg Documented by: Pantoprazole Sodium (Protonix Iv) 40 mg IVPUSH DAILY [facility] Last Admin: 02/03/20 09:03 Dose: 40 mg Documented by: Scopolamine HBr (Transderm-Scop -) 1 patch TD Q72H [facility] Last Admin: 02/02/20 07:20 Dose: 1 patch Documented by: ASSESSMENT/PLAN: Pt is a 49 yo female with PMH HTN, DM, morbid obesity, severe b/l LE venous stasis and severe b/l upper extremity lymphedema secondary to prior breast cancer history for ACDF. Pt became acutely hypotensive and hypoxic 5 minutes into surgery and pt was not responsive to phenylephrine. Team aborted surgery, pt admitted to ICU. No acute events overnight. Neuro -sedated on fentanyl, propofol, versed -sedation vacation -assess mental status Cardio Hypertension Hypotension possibly 2/2 hypoxia during procedure -Off pressors, but now hypertensive w/ SBP >180 -Continue metoprolol, hydralazine. -Taper cardene drip Pulm Narrowed tracheal lumen, secondary to hematoma vs. soft tissue swelling vs. thyromegaly Acute hypoxic and hypercapneic respiratory failure -Assess cuff leak daily -vent 20/500/30%/8 -keep pt intubated given swelling around trachea, will reassess daily if pt can be extubated. On assessment, no cuff leak appreciated. Will continue to assess. -Continue decadron 10q8 -CT neck showed slight decrease of swelling/hematoma. -CXR 02/01 with little change compared to yesterday's study. Continues to have b/l infiltrates -c/w scopolamine for secretions Renal Lactic acidosis, resolved Hypokalemia, resolved -Monitor electrolytes -monitor I/O's Endo DM -ISS + BGM MSK Aborted ACDF secondary to acute hypoxic respiratory failure -Discussed with surgery if previously planned surgery should be contemplated prior to extubation. Surgery recommends pt be medically optimized prior to surgical intervention. ID Sinusitis - Continue Ceftriaxone (01/30). -not febrile, no leukocytosis -COVID negative Ppx -DVT: SCDs -GI: PPI FEN -no standing fluids -Monitor and replete electrolytes -continue feeds (promote) Lines RIJ 02/01 ETT 01/24 OGT 01/24 Dispo: Continue monitoring in ICU. Visit type - Emergency Visit Emergency Visit: Yes ED Registration Date: 01/25/20 Care time: The patient presented to the Emergency Department on the above date and was hospitalized for further evaluation of their emergent condition. - New Patient This patient is new to me today: No - Critical Care Critical Care patient: Yes Total Critical Care Time (in minutes): 38 Critical Care Statement: The care of this patient involved high complexity decision making to prevent further life threatening deterioration of the patient's condition and/or to evaluate & treat vital organ system(s) failure or risk of failure. ATTENDING PHYSICIAN STATEMENT I saw and evaluated the patient. I reviewed the resident's note and discussed the case with the resident. I agree with the resident's findings and plan as documented. SUBJECTIVE: OBJECTIVE: ASSESSMENT AND PLAN:
[2020-02-03 07:23] LABS: BASO % 0.1 % (0-2.0); HEMATOCRIT 35.3 % (32.4-45.2); LYMPH % 15.4 % (8-40); MCH 25.4 pg (25.7-33.7); MCHC 31.3 g/dl (32.0-36.0); MEAN PLT VOLUME 7.7 fl (7.5-11.1); MONO % 4.3 % (3.8-10.2); NEUT % 80.2 % (42.8-82.8); PLATELET COUNT 307 K/MM3 (134-434); RBC 4.35 M/mm3 (3.60-5.2); RDW 16.6 % (11.6-15.6); WHITE BLOOD COUNT 5.8 K/mm3 (4.0-10.0)
[2020-02-03 07:33] LABS: ALBUMIN 2.4 g/dl (3.4-5.0); BILIRUBIN,TOTAL 0.4 mg/dL (0.2-1); BLOOD UREA NITROGEN 23.4 mg/dL (7-18); CALCIUM 8.2 mg/dL (8.5-10.1); CREATININE 0.6 mg/dL (0.55-1.3); MAGNESIUM 2.4 mg/dL (1.8-2.4); PHOSPHOROUS 3.4 mg/dL (2.5-4.9); TOT PROT 6.6 g/dl (6.4-8.2)
[2020-02-03] MEDS ORDERED: METOPROLOL TARTRATE 25 MG TABLET (FP) ONE (09:00)
[2020-02-03] MEDS ORDERED: METOPROLOL TARTRATE 50 MG TABLET (FP) ONE (09:00)
[2020-02-03] MEDS ORDERED: cefTRIAXone SODIUM 1 GM VIAL ONE (09:00)
[2020-02-03] MEDS ORDERED: DEXTROSE 5%-WATER - 50 ML IVPB ONE (09:00)
[2020-02-03] MEDS: AMINO ACIDS/PROTEIN HYDROLYS 30 ML LIQUID.PKT PO SCH ×3 (09:02→17:04)
[2020-02-03] MEDS: PANTOPRAZOLE SODIUM 40 MG VIAL IVPUSH SCH (09:03)
[2020-02-03] MEDS: CEFTRIAXONE 1 GM in DEXTROSE 5%-WATER - 50 ML IVPB SCH (09:03)
[2020-02-03] MEDS: hydrALAZINE HCL 25 MG TABLET (FP) PO SCH (09:04)
[2020-02-03] MEDS: METOPROLOL TARTRATE 25 MG, METOPROLOL TARTRATE 50 MG PO SCH ×2 (09:04→22:26)
[2020-02-03] MEDS: MIDAZOLAM 100 MG in SODIUM CHLORIDE 100 ML IVPB SCH ×2 (09:05→11:36)
[2020-02-03] MEDS: NICARDIPINE 25 MG in DEXTROSE 5%-WATER - 240 ML IVPB SCH ×2 (09:05→14:00)
--- NOTE | 2020-02-03 10:15 | PN ---
Teaching Attending Note Name of Resident: Kimmie Aquino ATTENDING PHYSICIAN STATEMENT I saw and evaluated the patient. I reviewed the resident's note and discussed the case with the resident. I agree with the resident's findings and plan as documented. SUBJECTIVE: Pt seen and examined in the ICU. Remains intubated, sedated. No air leak today with cuff deflation. Remains on cardene gtt for BP control. OBJECTIVE: Vital Signs Period Temp Pulse Resp BP Sys/Gibbs Pulse Ox Last 24 Hr 98 F-98.8 F 31-92 20-22 113-154/60-96 98-100 Intake & Output 01/31/20 02/01/20 02/02/20 02/03/20 23:59 23:59 23:59 23:59 Intake Total 1235 3000 2923 1047 Output Total 2220 2170 3100 Balance -985 830 -177 1047 Weight 169.3 kg 164.972 kg 164.291 kg Gen: intubated, sedated Heart: RRR Lung: distant breath sounds Abd: soft, obese Ext: + edema CBC, BMP 02/03/20 05:00 02/03/20 05:00 Active Medications Amino Acids (Prosource No Carb Liquid Pkt) 30 ml PO TIDCM ANGIE Last Admin: 02/03/20 09:02 Dose: 30 ml Documented by: Dexamethasone Sodium Phosphate (Decadron Injection -) 10 mg IVPUSH Q8H-IV ANGIE Last Admin: 02/03/20 09:04 Dose: 10 mg Documented by: Hydralazine HCl (Apresoline -) 50 mg PO BID ANGIE Last Admin: 02/03/20 09:04 Dose: 50 mg Documented by: IV Flush (Triple Lumen Flush) 4 ml IVPUSH PRN PRN PRN Reason: Protocol Propofol (Diprivan -) 1,000,000 mcg in 100 mls @ 4.763 mls/hr IVPB TITR ANGIE; Protocol Last Admin: 02/02/20 18:54 Dose: 40 mcg/kg/min, 38.102 mls/hr Documented by: Nicardipine HCl 25 mg/ (Dextrose) 250 mls @ 25 mls/hr IVPB TITR ANGIE; Protocol Last Admin: 02/03/20 09:05 Dose: 5 mg/hr, 50 mls/hr Documented by: Ceftriaxone Sodium 1 gm/ (Dextrose) 50 mls @ 200 mls/hr IVPB DAILY ANGIE; Protocol Last Admin: 02/03/20 09:03 Dose: 200 mls/hr Documented by: Fentanyl (Sublimaze Ivpb) 500 mcg in 100 mls @ 5 mls/hr IVPB TITR ANGIE; Protocol Last Titration: 02/03/20 06:08 Dose: 75 mcg/hr, 15 mls/hr Documented by: Midazolam HCl 100 mg/ Sodium (Chloride) 100 mls @ 1 mls/hr IVPB TITR ANGIE; Protocol Last Admin: 02/03/20 09:05 Dose: Not Given Documented by: Insulin Aspart (Novolog Vial Sliding Scale -) 1 vial SQ Q6HPO [facility]; Protocol Last Admin: 02/03/20 05:58 Dose: 4 units Documented by: Metoprolol Tartrate 25 mg/ (Metoprolol Tartrate 50 mg) 75 mg PO BID [facility] Last Admin: 02/03/20 09:04 Dose: 75 mg Documented by: Pantoprazole Sodium (Protonix Iv) 40 mg IVPUSH DAILY [facility] Last Admin: 02/03/20 09:03 Dose: 40 mg Documented by: Scopolamine HBr (Transderm-Scop -) 1 patch TD Q72H [facility] Last Admin: 02/02/20 07:20 Dose: 1 patch Documented by: ASSESSMENT AND PLAN: Acute Hypoxic and Hypercapneic Respiratory Failure Upper Airway Obstruction/Soft Tissue Swelling/Hematoma/Thyromegaly Sinusitis Hypertensive Urgency Morbid Obesity Pulmonary HTN HTN DM Likely TEJAL/OHS - continue decadron - daily assessment of air leak - glucose control - continue empiric antibiotics - taper cardene gtt - FiO2, PEEP to keep SpO2 >90% - enteral feeds - DVT/GI prophylaxis - continue ICU monitoring critical care time spent in reviewing chart, evaluating patient and formulating plan 35 min
[2020-02-03] MEDS ORDERED: MIDAZOLAM 100 MG/100 ML MG IVPB ONE ×2 (10:23→21:31)
[2020-02-03 10:30] LABS: ANISOCYTOSIS 0; MACROCYTOSIS 0; PLATELET ESTIMATE NORMAL
[2020-02-03] MEDS: PROPOFOL 1,000,000 MCG/100 ML VIAL IVPB SCH ×2 (11:00→15:25)
[2020-02-03] MEDS: FENTANYL NS IVPB 500 MCG/100 ML BAG IVPB SCH ×2 (11:36→16:46)
[2020-02-03] MEDS: hydrALAZINE HCL 50 MG TABLET (FP) PO SCH (22:26)
[2020-02-04] MEDS: INSULIN SLIDING SCALE (NOVOLOG) 1 VIAL SQ SCH ×4 (00:05→18:11)
[2020-02-04] MEDS ORDERED: PT OWN MED DRAWER 7, Y5N ONE (03:00)
[2020-02-04] MEDS: DEXAMETHASONE SOD PHOSPHATE 10 MG/1 ML VIAL IVPUSH SCH ×3 (03:05→17:42)
[2020-02-04] MEDS: MIDAZOLAM 100 MG in SODIUM CHLORIDE 100 ML IVPB SCH (07:11)
[2020-02-04] MEDS: hydrALAZINE HCL 50 MG TABLET (FP) PO SCH ×3 (07:11→21:33)
[2020-02-04 07:16] LABS: BASO % 0.1 % (0-2.0); HEMATOCRIT 37.6 % (32.4-45.2); HEMOGLOBIN 11.6 GM/dL (10.7-15.3); LYMPH % 10.3 % (8-40); MCH 25.3 pg (25.7-33.7); MEAN CELL VOLUME 81.8 fl (80-96); MEAN PLT VOLUME 7.7 fl (7.5-11.1); MONO % 4.4 % (3.8-10.2); NEUT % 85.2 % (42.8-82.8); PLATELET COUNT 332 K/MM3 (134-434); WHITE BLOOD COUNT 8.6 K/mm3 (4.0-10.0)
[2020-02-04] MEDS: PROPOFOL 1,000,000 MCG/100 ML VIAL IVPB SCH ×6 (07:27→18:37)
[2020-02-04 07:45] LABS: ALBUMIN 2.6 g/dl (3.4-5.0); BILIRUBIN,TOTAL 0.4 mg/dL (0.2-1); BLOOD UREA NITROGEN 21.4 mg/dL (7-18); CALCIUM 8.5 mg/dL (8.5-10.1); CREATININE 0.5 mg/dL (0.55-1.3); MAGNESIUM 2.8 mg/dL (1.8-2.4); PHOSPHOROUS 3.4 mg/dL (2.5-4.9); POTASSIUM 3.5 mmol/L (3.5-5.1); TOT PROT 6.7 g/dl (6.4-8.2)
[2020-02-04] MEDS ORDERED: fentaNYL CITRATE 250 MCG/5 ML VIAL ONE (08:32)
[2020-02-04] MEDS: FENTANYL NS IVPB 500 MCG/100 ML BAG IVPB SCH ×3 (08:38→17:42)
[2020-02-04] MEDS ORDERED: METOPROLOL TARTRATE 25 MG TABLET (FP) ONE ×2 (09:05→20:11)
[2020-02-04] MEDS ORDERED: METOPROLOL TARTRATE 50 MG TABLET (FP) ONE ×2 (09:05→20:11)
[2020-02-04] MEDS: PANTOPRAZOLE SODIUM 40 MG VIAL IVPUSH SCH (09:07)
[2020-02-04] MEDS: AMINO ACIDS/PROTEIN HYDROLYS 30 ML LIQUID.PKT PO SCH ×2 (09:07→11:54)
[2020-02-04] MEDS: NICARDIPINE 25 MG in DEXTROSE 5%-WATER - 240 ML IVPB SCH (09:07)
[2020-02-04] MEDS: METOPROLOL TARTRATE 25 MG, METOPROLOL TARTRATE 50 MG PO SCH ×2 (09:07→21:33)
--- NOTE | 2020-02-04 10:27 | PN ---
Teaching Attending Note Name of Resident: Holden Campos ATTENDING PHYSICIAN STATEMENT I saw and evaluated the patient. I reviewed the resident's note and discussed the case with the resident. I agree with the resident's findings and plan as documented. SUBJECTIVE: Pt seen and examined in the ICU. Remains intubated, sedated. + air leak today with cuff deflation. Off cardene gtt. OBJECTIVE: Vital Signs Period Temp Pulse Resp BP Sys/Gibbs Pulse Ox Last 24 Hr 97.9 F-99.1 F 60-74 20- 120-153/60-101 98-100 Intake & Output 02/01/20 02/02/20 02/03/20 02/04/20 23:59 23:59 23:59 23:59 Intake Total 3000 2923 2457 1052.6 Output Total 2170 3100 800 2000 Balance 830 -177 1657 -947.4 Weight 169.3 kg 164.972 kg 164.291 kg 166.06 kg Gen: intubated, sedated Heart: RRR Lung: distant breath sounds Abd: soft, obese Ext: + edema CBC, BMP 02/04/20 05:30 02/04/20 05:30 Active Medications Amino Acids (Prosource No Carb Liquid Pkt) 30 ml PO TIDCM ANGIE Last Admin: 02/04/20 09:07 Dose: 30 ml Documented by: Dexamethasone Sodium Phosphate (Decadron Injection -) 10 mg IVPUSH Q8H-IV ANGIE Last Admin: 02/04/20 09:07 Dose: 10 mg Documented by: Hydralazine HCl (Apresoline -) 50 mg PO TID ANGIE Last Admin: 02/04/20 07:11 Dose: 50 mg Documented by: IV Flush (Triple Lumen Flush) 4 ml IVPUSH PRN PRN PRN Reason: Protocol Propofol (Diprivan -) 1,000,000 mcg in 100 mls @ 4.763 mls/hr IVPB TITR ANGIE; Protocol Last Admin: 02/04/20 07:27 Dose: 50 mcg/kg/min, 47.627 mls/hr Documented by: Nicardipine HCl 25 mg/ (Dextrose) 250 mls @ 25 mls/hr IVPB TITR ANGIE; Protocol Last Admin: 02/04/20 09:07 Dose: Not Given Documented by: Fentanyl (Sublimaze Ivpb) 500 mcg in 100 mls @ 5 mls/hr IVPB TITR [facility]; Protocol Last Admin: 02/04/20 08:38 Dose: 75 mcg/hr, 15 mls/hr Documented by: Midazolam HCl 100 mg/ Sodium (Chloride) 100 mls @ 1 mls/hr IVPB TITR [facility]; Protocol Last Titration: 02/04/20 08:37 Dose: 5 mg/hr, 5 mls/hr Documented by: Insulin Aspart (Novolog Vial Sliding Scale -) 1 vial SQ Q6HPO [facility]; Protocol Last Admin: 02/04/20 07:11 Dose: 4 units Documented by: Metoprolol Tartrate 25 mg/ (Metoprolol Tartrate 50 mg) 75 mg PO BID [facility] Last Admin: 02/04/20 09:07 Dose: 75 mg Documented by: Pantoprazole Sodium (Protonix Iv) 40 mg IVPUSH DAILY [facility] Last Admin: 02/04/20 09:07 Dose: 40 mg Documented by: Scopolamine HBr (Transderm-Scop -) 1 patch TD Q72H [facility] Last Admin: 02/02/20 07:20 Dose: 1 patch Documented by: ASSESSMENT AND PLAN: Acute Hypoxic and Hypercapneic Respiratory Failure Upper Airway Obstruction/Soft Tissue Swelling/Hematoma/Thyromegaly Sinusitis Hypertensive Urgency Morbid Obesity Pulmonary HTN HTN DM Likely TEJAL/OHS - continue decadron - daily assessment of air leak - glucose control - continue empiric antibiotics - off cardene gtt - FiO2, PEEP to keep SpO2 >90% - hold sedation in AM to assess mental status - spontaneous breathing trials in AM if mental status improved - enteral feeds - DVT/GI prophylaxis - continue ICU monitoring critical care time spent in reviewing chart, evaluating patient and formulating plan 35 min
--- NOTE | 2020-02-04 13:39 | PN ---
Physical Exam: SUBJECTIVE: Patient seen and examined Patient was examined by bedside in the ICU. Patient in no acute distress. Pt Intubated and sedated. No acute events overnight. Tested cuff with deflation and was found to have air leak. OBJECTIVE: Vital Signs Period Temp Pulse Resp BP Sys/Gibbs Pulse Ox Last 24 Hr 97.8 F-99.1 F 58-74 20-20 120-153/60-101 98-100 GENERAL: The patient is awake, alert, and fully oriented, in no acute distress. HEAD: Normal with no signs of trauma. EYES: PERRL, extraocular movements intact, sclera anicteric, conjunctiva clear. No ptosis. ENT: Ears normal, nares patent, oropharynx clear without exudates, moist mucous membranes. NECK: Trachea midline, full range of motion, supple. LUNGS: Breath sounds decreased, clear to auscultation bilaterally, no wheezes, no crackles, no accessory muscle use. HEART: Regular rate and rhythm, S1, S2 without murmur, rub or gallop. ABDOMEN: Soft, nontender, nondistended, normoactive bowel sounds, no guarding, no rebound, n, no masses. EXTREMITIES: 2+ pulses, warm, well-perfused, no edema. NEUROLOGICAL: Cranial nerves II through XII grossly intact. Normal speech, gait not observed. PSYCH: Normal mood, normal affect. SKIN: Warm, dry, normal turgor, no rashes or lesions noted Laboratory Results - last 24 hr 02/03/20 02/03/20 02/04/20 16:26 23:56 05:30 WBC 8.6 RBC 4.60 Hgb 11.6 Hct 37.6 MCV 81.8 MCH 25.3 L MCHC 31.0 L RDW 17.0 H Plt Count 332 MPV 7.7 Absolute Neuts (auto) 7.4 Neutrophils % 85.2 H Lymphocytes % 10.3 D Monocytes % 4.4 Eosinophils % 0.0 Basophils % 0.1 Nucleated RBC % 0 Sodium Potassium Chloride Carbon Dioxide Anion Gap BUN Creatinine Est GFR (CKD-EPI)AfAm Est GFR (CKD-EPI)NonAf POC Glucometer 203 164 Random Glucose Calcium Phosphorus Magnesium Total Bilirubin AST ALT Alkaline Phosphatase Total Protein Albumin 02/04/20 02/04/20 02/04/20 05:30 05:50 11:40 WBC RBC Hgb Hct MCV MCH MCHC RDW Plt Count MPV Absolute Neuts (auto) Neutrophils % Lymphocytes % Monocytes % Eosinophils % Basophils % Nucleated RBC % Sodium 137 Potassium 3.5 Chloride 99 Carbon Dioxide 32 Anion Gap 6 L BUN 21.4 H Creatinine 0.5 L Est GFR (CKD-EPI)AfAm 129.88 Est GFR (CKD-EPI)NonAf 112.06 POC Glucometer 220 150 Random Glucose 220 H Calcium 8.5 Phosphorus 3.4 Magnesium 2.8 H Total Bilirubin 0.4 AST 20 ALT 38 Alkaline Phosphatase 62 Total Protein 6.7 Albumin 2.6 L Active Medications Generic Name Dose Route Start Last Admin Trade Name Freq PRN Reason Stop Dose Admin Amino Acids 30 ml 02/01/20 17:30 02/04/20 11:54 Prosource No Carb Liquid Pkt PO 30 ml TIDCM ANGIE Administration Dexamethasone Sodium Phosphate 10 mg 01/29/20 12:30 02/04/20 09:07 Decadron Injection - IVPUSH 10 mg Q8H-IV ANGIE Administration Hydralazine HCl 50 mg 02/03/20 22:00 02/04/20 07:11 Apresoline - PO 50 mg TID ANGIE Administration IV Flush 4 ml 01/25/20 14:44 Triple Lumen Flush IVPUSH PRN PRN Protocol Propofol 1,000,000 mcg in 100 mls @ 4.763 mls/hr 01/25/20 13:30 02/04/20 12:14 Diprivan - IVPB 50 mcg/kg/min TITR ANGIE 47.627 mls/hr Administration Protocol 5 MCG/KG/MIN Nicardipine HCl 25 mg/ 250 mls @ 25 mls/hr 01/29/20 10:00 02/04/20 09:07 Dextrose IVPB Not Given TITR ANGIE Protocol 2.5 MG/HR Fentanyl 500 mcg in 100 mls @ 5 mls/hr 02/01/20 14:45 02/04/20 08:38 Sublimaze Ivpb IVPB 75 mcg/hr TITR ANGIE 15 mls/hr Administration Protocol 25 MCG/HR Midazolam HCl 100 mg/ Sodium 100 mls @ 1 mls/hr 02/02/20 06:30 02/04/20 09:30 Chloride IVPB 4 mg/hr TITR ANGIE 4 mls/hr Titration Protocol 1 MG/HR Insulin Aspart 1 vial 01/25/20 18:00 02/04/20 11:48 Novolog Vial Sliding Scale - SQ Not Given Q6HPO [facility] Protocol Metoprolol Tartrate 25 mg/ 75 mg 01/28/20 14:15 02/04/20 09:07 Metoprolol Tartrate 50 mg PO 75 mg BID ANGIE Administration Pantoprazole Sodium 40 mg 01/28/20 12:15 02/04/20 09:07 Protonix Iv IVPUSH 40 mg DAILY ANGIE Administration Scopolamine HBr 1 patch 02/02/20 06:30 02/02/20 07:20 Transderm-Scop - TD 1 patch Q72H ANGIE Administration ASSESSMENT/PLAN: 49 y.o. F PMHx HTN, DM, obesity. She became hypotensive/hypoxic during surgery and was non-responsive to phenylepherine subsequently admitted to the ICU. # Neuro - Sedated on Propofol, fentanyol, versed - Plan in the morning to hold sedation to asses mental status and feeds. # Cardio - Not currently on pressors - Continue to maintain MAP >65 - Metoprolol and hydralazine for HTN - Cardene stopped # Pulm - Intubated - Narrowed tracheal lumen, secondary to hematoma vs soft tissue swelling vs. thyromegaly - Continue with cuff deflation for leaks - No cuff leak appreciated - Swellign around trachea, will be reqssesing daily with cuff leak to determine potential for extubation - b/l interstitial infiltrates - Scopolamine to reduce secretions - Decadron 10q8 # Renal - Lytes WNL continue to monitor - Monitor I&O's # MSK - Surgery recommends patient to be medically optimized prior to intervention # Prophylaxis - DVT: b/l SCD's - Protonix IVP 40mg daily # FEN - Not currently on IVF - Continue feeds - Monitor electrolytes - Monitor daily weights # Lines - RIJ Placed 02/01 - ETT Placed 01/24 - OGT Placed 01/24 # Dispo - Patient intubated and sedated in the ICU; Will continue to monitor vitals and labs. Visit type - Emergency Visit Emergency Visit: No - New Patient This patient is new to me today: Yes Date on this admission: 02/06/20 - Critical Care Critical Care patient: Yes Total Critical Care Time (in minutes): 45 Critical Care Statement: The care of this patient involved high complexity decision making to prevent further life threatening deterioration of the patient's condition and/or to evaluate & treat vital organ system(s) failure or risk of failure. ATTENDING PHYSICIAN STATEMENT I saw and evaluated the patient. I reviewed the resident's note and discussed the case with the resident. I agree with the resident's findings and plan as documented. SUBJECTIVE: OBJECTIVE: ASSESSMENT AND PLAN:
[2020-02-04] MEDS: AMINO ACIDS/PROTEIN HYDROLYS 30 ML LIQUID.PKT NGT SCH ×2 (18:11→21:33)
[2020-02-04] MEDS ORDERED: MIDAZOLAM 100 MG/100 ML MG IVPB ONE (20:10)
[2020-02-05] MEDS: INSULIN SLIDING SCALE (NOVOLOG) 1 VIAL SQ SCH ×5 (00:18→23:46)
[2020-02-05] MEDS: DEXAMETHASONE SOD PHOSPHATE 10 MG/1 ML VIAL IVPUSH SCH ×3 (01:02→17:51)
[2020-02-05] MEDS: hydrALAZINE HCL 50 MG TABLET (FP) PO SCH ×3 (06:08→21:29)
[2020-02-05] MEDS: SCOPOLAMINE HYDROBROMIDE 1 PATCH PATCH.TD72 TD SCH (06:09)
[2020-02-05 06:54] LABS: HEMATOCRIT 35.7 % (32.4-45.2); HEMOGLOBIN 11.1 GM/dL (10.7-15.3); MCH 25.4 pg (25.7-33.7); MEAN PLT VOLUME 7.9 fl (7.5-11.1); PLATELET COUNT 280 K/MM3 (134-434); RBC 4.36 M/mm3 (3.60-5.2); RDW 17.2 % (11.6-15.6); WHITE BLOOD COUNT 9.7 K/mm3 (4.0-10.0)
--- NOTE | 2020-02-05 07:06 | PN ---
Physical Exam: SUBJECTIVE: Patient seen and examined. No acute events overnight. Pt remained sedated and intubated. OBJECTIVE: Vital Signs Period Temp Pulse Resp BP Sys/Gibbs Pulse Ox Last 24 Hr 97.8 F-99.1 F 58-80 - 104-134/60-91 93-100 GENERAL: The patient remained sedated and intubated. HEENT: NCAT, ETT in place. OG tube in place. Less secretions noted. LUNGS: decreased breath sounds at the bases. HEART: S1, S2 present, regular rate and rhythm, no murmurs. ABDOMEN: Obese. Soft, nondistended, bowel sounds present in all 4 quadrants. EXTREMITIES: warm, well-perfused, edematous in extremities. SCDs in place. SKIN: Warm, dry Laboratory Last Values WBC 9.7 K/mm3 (4.0-10.0) 02/05/20 05:27 RBC 4.36 M/mm3 (3.60-5.2) 02/05/20 05:27 Hgb 11.1 GM/dL (10.7-15.3) 02/05/20 05:27 Hct 35.7 % (32.4-45.2) 02/05/20 05:27 MCV 82.0 fl (80-96) 02/05/20 05:27 MCH 25.4 pg (25.7-33.7) L 02/05/20 05:27 MCHC 31.0 g/dl (32.0-36.0) L 02/05/20 05:27 RDW 17.2 % (11.6-15.6) H 02/05/20 05:27 Plt Count 280 K/MM3 (134-434) 02/05/20 05:27 MPV 7.9 fl (7.5-11.1) 02/05/20 05:27 Absolute Neuts (auto) 7.4 K/mm3 (1.5-8.0) 02/04/20 05:30 Neutrophils % 85.2 % (42.8-82.8) H 02/04/20 05:30 Neutrophils % (Manual) 73.2 % (42.8-82.8) 02/03/20 05:00 Band Neutrophils % 0.0 % 02/03/20 05:00 Lymphocytes % 10.3 % (8-40) D 02/04/20 05:30 Lymphocytes % (Manual) 19.6 % (8-40) D 02/03/20 05:00 Monocytes % 4.4 % (3.8-10.2) 02/04/20 05:30 Monocytes % (Manual) 3 % (3.8-10.2) L 02/03/20 05:00 Eosinophils % 0.0 % (0-4.5) 02/04/20 05:30 Eosinophils % (Manual) 0.0 % (0-4.5) 02/03/20 05:00 Basophils % 0.1 % (0-2.0) 02/04/20 05:30 Basophils % (Manual) 0.0 % (0-2.0) 02/03/20 05:00 Myelocytes % (Man) 3 % (0-2) H 02/03/20 05:00 Promyelocytes % (Man) 0 % (0-2) 02/03/20 05:00 Blast Cells % (Manual) 0 % (0-0) 02/03/20 05:00 Nucleated RBC % 0 % (0-0) 02/04/20 05:30 Metamyelocytes 0 % (0-2) 02/03/20 05:00 Hypochromia 0 02/03/20 05:00 Platelet Estimate Normal 02/03/20 05:00 Polychromasia 0 02/03/20 05:00 Poikilocytosis 0 02/03/20 05:00 Anisocytosis 0 02/03/20 05:00 Microcytosis 0 02/03/20 05:00 Macrocytosis 0 02/03/20 05:00 Stomatocytes 1+ 01/25/20 18:30 PT with INR 12.50 SEC (9.7-13.0) 01/26/20 07:48 INR 1.06 (0.83-1.09) 01/26/20 07:48 PTT (Actin FS) 28.2 SECONDS (25.2-36.5) 01/26/20 07:48 Fibrinogen 303.0 mg/dL (238-498) 01/25/20 12:09 D-Dimer 8578 ng/ml (0-500) H 01/25/20 12:09 Anticoagulation Therapy No Result Required. 01/28/20 06:00 Puncture Site Arterial line 01/28/20 06:00 Patient Temperature No Result Required. 01/28/20 06:00 ABG pH 7.399 (7.350-7.450) 01/28/20 06:00 ABG pCO2 43.20 mmHg (35-45) 01/28/20 06:00 ABG pO2 129.0 mmHg (80-100) H 01/28/20 06:00 ABG HCO3 26.1 mmol/L (22-27) 01/28/20 06:00 ABG O2 Sat (Measured) 98.6 mmHg (95-98) H 01/28/20 06:00 ABG O2 Content No Result Required. 01/28/20 06:00 ABG Base Excess 1.1 mmol/L (-2-2) 01/28/20 06:00 Jeffrey Test Not applicable 01/28/20 06:00 Carboxyhemoglobin 0.5 % (0-2) 01/25/20 12:36 Methemoglobin 0.3 % (0-2) 01/25/20 12:20 Patient On Oxygen Yes 01/28/20 06:00 O2 Delivery Device Vent 01/28/20 06:00 Oxygen Flow Rate 30% 01/28/20 06:00 Vent Mode A/c 01/28/20 06:00 Vent Rate 20 01/28/20 06:00 Mechanical Rate Yes 01/28/20 06:00 PEEP 10.0 cmH2O 01/28/20 06:00 Pressure Support Vent 500 01/28/20 06:00 Sodium 138 mmol/L (136-145) 02/05/20 05:27 Potassium 3.7 mmol/L (3.5-5.1) 02/05/20 05:27 Chloride 101 mmol/L (98-107) 02/05/20 05:27 Carbon Dioxide 26 mmol/L (21-32) 02/05/20 05:27 Anion Gap 11 MMOL/L (8-16) 02/05/20 05:27 BUN 26.8 mg/dL (7-18) H 02/05/20 05:27 Creatinine 0.7 mg/dL (0.55-1.3) 02/05/20 05:27 Est GFR (CKD-EPI)AfAm 116.27 02/05/20 05:27 Est GFR (CKD-EPI)NonAf 100.32 02/05/20 05:27 POC Glucometer 154 UNITS (80-120) 02/05/20 11:06 Random Glucose 203 mg/dL (74-106) H 02/05/20 05:27 Lactic Acid 1.2 mmol/L (0.4-2.0) 01/25/20 18:30 Calcium 7.8 mg/dL (8.5-10.1) L 02/05/20 05:27 Phosphorus 3.7 mg/dL (2.5-4.9) 02/05/20 05:27 Magnesium 2.7 mg/dL (1.8-2.4) H 02/05/20 05:27 Total Bilirubin 0.4 mg/dL (0.2-1) 02/04/20 05:30 AST 20 U/L (15-37) 02/04/20 05:30 ALT 38 U/L (13-61) 02/04/20 05:30 Alkaline Phosphatase 62 U/L (45-117) 02/04/20 05:30 Troponin I 0.03 ng/ml (0.00-0.05) 01/26/20 07:48 B-Natriuretic Peptide 380.5 pg/ml (5-125) H 01/26/20 06:00 Total Protein 6.7 g/dl (6.4-8.2) 02/04/20 05:30 Albumin 2.6 g/dl (3.4-5.0) L 02/04/20 05:30 Triglycerides 159 mg/dL (0-150) H 02/01/20 06:00 COVID-19 (AMANDA) Not detected (Not Detected) 01/25/20 12:09 Blood Type O POSITIVE 01/25/20 09:00 Antibody Screen Negative 01/25/20 09:00 Active Medications Amino Acids (Prosource No Carb Liquid Pkt) 30 ml NGT QID [facility] Last Admin: 02/05/20 13:42 Dose: 30 ml Documented by: Dexamethasone Sodium Phosphate (Decadron Injection -) 6 mg IVPUSH Q8H-IV ANGIE Hydralazine HCl (Apresoline -) 50 mg PO TID [facility] Last Admin: 02/05/20 13:42 Dose: 50 mg Documented by: IV Flush (Triple Lumen Flush) 4 ml IVPUSH PRN PRN PRN Reason: Protocol Last Admin: 02/05/20 09:48 Dose: 4 ml Documented by: Propofol (Diprivan -) 1,000,000 mcg in 100 mls @ 4.763 mls/hr IVPB TITR ANGIE; Protocol Last Titration: 02/04/20 19:00 Dose: 50 mcg/kg/min, 47.627 mls/hr Documented by: Fentanyl (Sublimaze Ivpb) 500 mcg in 100 mls @ 5 mls/hr IVPB TITR ANGIE; Protocol Last Admin: 02/05/20 07:26 Dose: 75 mcg/hr, 15 mls/hr Documented by: Midazolam HCl 100 mg/ Sodium (Chloride) 100 mls @ 1 mls/hr IVPB TITR ANGIE; Protocol Last Titration: 02/04/20 19:00 Dose: 4 mg/hr, 4 mls/hr Documented by: Insulin Aspart (Novolog Vial Sliding Scale -) 1 vial SQ Q6HPO ANGIE; Protocol Last Admin: 02/05/20 11:07 Dose: 2 units Documented by: Metoprolol Tartrate 25 mg/ (Metoprolol Tartrate 50 mg) 75 mg PO BID ANGIE Last Admin: 02/05/20 09:39 Dose: 75 mg Documented by: Pantoprazole Sodium (Protonix Iv) 40 mg IVPUSH DAILY ANGIE Last Admin: 02/05/20 09:39 Dose: 40 mg Documented by: Scopolamine HBr (Transderm-Scop -) 1 patch TD Q72H ANGIE Last Admin: 02/05/20 06:09 Dose: 1 patch Documented by: ASSESSMENT/PLAN: Pt is a 49 yo female with PMH HTN, DM, morbid obesity, severe b/l LE venous stasis and severe b/l upper extremity lymphedema secondary to prior breast ca ncer history for ACDF. Pt became acutely hypotensive and hypoxic 5 minutes into surgery and pt was not responsive to phenylephrine. Team aborted surgery, pt admitted to ICU. Neuro Aborted ACDF secondary to acute hypoxic respiratory failure -Discussed with surgery if previously planned surgery should be contemplated prior to extubation. Surgery recommends pt be medically optimized prior to surgical intervention. -Hold sedation and assess mental status. Pt was arousable with sedation vacation. -Spontaneous breathing trials as tolerated. -If pt is not to be extubated and sedatives required, recommend precedex and/or propofol. Cardio Hypertension Hypotension possibly 2/2 hypoxia during procedure -Off pressors, but now hypertensive w/ SBP >180 -Continue metoprolol, hydralazine. -Off cardene drip Pulm Narrowed tracheal lumen, secondary to hematoma vs. soft tissue swelling vs. thyromegaly Acute hypoxic and hypercapneic respiratory failure -CPAP mode PSV 15, PEEP 8, FiO2 40%, tolerated well. -keep pt intubated given swelling around trachea, will reassess daily if pt can be extubated. On assessment, cuff leak appreciated. Continue to assess for cuff leak daily. -Tapered decadron to 6q8 -CT neck showed slight decrease of swelling/hematoma. -CXR 02/03 with worsening progressive bibasilar changes. -c/w scopolamine for secretions Renal Lactic acidosis, resolved Hypokalemia, resolved -Monitor electrolytes -monitor I/O's Endo DM -ISS + BGM ID Sinusitis - Currently off ceftriaxone. Received for 4 days. Low threshold to restart antibiotics. -not febrile, no leukocytosis -COVID negative -f/u sputum culture Ppx -DVT: SCDs -GI: PPI FEN -no standing fluids -Monitor and replete electrolytes -continue feeds (promote) Lines RIJ 02/01 ETT 01/24 OGT 01/24 Family discussion: 02/04 Spoke to sister, Cindy, on telephone. Updated her about pt's status. Dispo: Continue monitoring in ICU. Visit type - Emergency Visit Emergency Visit: Yes ED Registration Date: 01/25/20 Care time: The patient presented to the Emergency Department on the above date and was hospitalized for further evaluation of their emergent condition. - New Patient This patient is new to me today: No - Critical Care Critical Care patient: Yes Total Critical Care Time (in minutes): 39 Critical Care Statement: The care of this patient involved high complexity decision making to prevent further life threatening deterioration of the patient's condition and/or to evaluate & treat vital organ system(s) failure or risk of failure. ATTENDING PHYSICIAN STATEMENT I saw and evaluated the patient. I reviewed the resident's note and discussed the case with the resident. I agree with the resident's findings and plan as documented. SUBJECTIVE: OBJECTIVE: ASSESSMENT AND PLAN:
[2020-02-05 07:14] LABS: BLOOD UREA NITROGEN 26.8 mg/dL (7-18); CALCIUM 7.8 mg/dL (8.5-10.1); CREATININE 0.7 mg/dL (0.55-1.3); MAGNESIUM 2.7 mg/dL (1.8-2.4); PHOSPHOROUS 3.7 mg/dL (2.5-4.9); POTASSIUM 3.7 mmol/L (3.5-5.1)
[2020-02-05] MEDS ORDERED: METOPROLOL TARTRATE 50 MG TABLET (FP) ONE ×2 (07:17→20:35)
[2020-02-05] MEDS ORDERED: METOPROLOL TARTRATE 25 MG TABLET (FP) ONE ×2 (07:17→20:36)
[2020-02-05] MEDS: FENTANYL NS IVPB 500 MCG/100 ML BAG IVPB SCH (07:26)
[2020-02-05] MEDS: PANTOPRAZOLE SODIUM 40 MG VIAL IVPUSH SCH (09:39)
[2020-02-05] MEDS: AMINO ACIDS/PROTEIN HYDROLYS 30 ML LIQUID.PKT NGT SCH ×4 (09:39→21:29)
[2020-02-05] MEDS: METOPROLOL TARTRATE 25 MG, METOPROLOL TARTRATE 50 MG PO SCH ×2 (09:39→21:29)
[2020-02-05] MEDS: TRIPLE LUMEN FLUSH 4 ML ML IVPUSH PRN (09:48)
[2020-02-05] MEDS ORDERED: FUROSEMIDE 40 MG/4 ML INJECTABLE VIAL IVPUSH ONE (11:31)
--- NOTE | 2020-02-05 12:48 | PN ---
Teaching Attending Note Name of Resident: Kimmie Aquino ATTENDING PHYSICIAN STATEMENT I saw and evaluated the patient. I reviewed the resident's note and discussed the case with the resident. I agree with the resident's findings and plan as documented. SUBJECTIVE: Pt seen and examined in the ICU. Remains intubated, sedated. + air leak today w ith cuff deflation. Arousable off sedation. OBJECTIVE: Vital Signs Period Temp Pulse Resp BP Sys/Gibbs Pulse Ox Last 24 Hr 97.9 F-99.8 F 61-106 20-34 104-161/59-112 93-97 Intake & Output 02/02/20 02/03/20 02/04/20 02/05/20 23:59 23:59 23:59 23:59 Intake Total 2923 2457 2815.6 610 Output Total 3100 800 2850 600 Balance -177 1657 -34.4 10 Weight 164.972 kg 164.291 kg 166.06 kg Gen: intubated, sedated Heart: RRR Lung: distant breath sounds Abd: soft, obese Ext: + edema CBC, BMP 02/05/20 05:27 02/05/20 05:27 Active Medications Amino Acids (Prosource No Carb Liquid Pkt) 30 ml NGT QID [facility] Last Admin: 02/05/20 09:39 Dose: 30 ml Documented by: Dexamethasone Sodium Phosphate (Decadron Injection -) 6 mg IVPUSH Q8H-IV [facility]GIE Hydralazine HCl (Apresoline -) 50 mg PO TID [facility] Last Admin: 02/05/20 06:08 Dose: 50 mg Documented by: IV Flush (Triple Lumen Flush) 4 ml IVPUSH PRN PRN PRN Reason: Protocol Last Admin: 02/05/20 09:48 Dose: 4 ml Documented by: Propofol (Diprivan -) 1,000,000 mcg in 100 mls @ 4.763 mls/hr IVPB TITR [facility]; Protocol Last Titration: 02/04/20 19:00 Dose: 50 mcg/kg/min, 47.627 mls/hr Documented by: Fentanyl (Sublimaze Ivpb) 500 mcg in 100 mls @ 5 mls/hr IVPB TITR [facility]GIE; Protocol Last Admin: 02/05/20 07:26 Dose: 75 mcg/hr, 15 mls/hr Documented by: Midazolam HCl 100 mg/ Sodium (Chloride) 100 mls @ 1 mls/hr IVPB TITR [facility]; Protocol Last Titration: 02/04/20 19:00 Dose: 4 mg/hr, 4 mls/hr Documented by: Insulin Aspart (Novolog Vial Sliding Scale -) 1 vial SQ Q6HPO [facility]; Protocol Last Admin: 02/05/20 11:07 Dose: 2 units Documented by: Metoprolol Tartrate 25 mg/ (Metoprolol Tartrate 50 mg) 75 mg PO BID [facility] Last Admin: 02/05/20 09:39 Dose: 75 mg Documented by: Pantoprazole Sodium (Protonix Iv) 40 mg IVPUSH DAILY [facility] Last Admin: 02/05/20 09:39 Dose: 40 mg Documented by: Scopolamine HBr (Transderm-Scop -) 1 patch TD Q72H [facility] Last Admin: 02/05/20 06:09 Dose: 1 patch Documented by: ASSESSMENT AND PLAN: Acute Hypoxic and Hypercapneic Respiratory Failure Upper Airway Obstruction/Soft Tissue Swelling/Hematoma/Thyromegaly Sinusitis Hypertensive Urgency Morbid Obesity Pulmonary HTN HTN DM Likely TEJAL/OHS - taper decadron - daily assessment of air leak - glucose control - continue empiric antibiotics - off cardene gtt - FiO2, PEEP to keep SpO2 >90% - hold sedation to assess mental status - spontaneous breathing trials as tolerated - enteral feeds - DVT/GI prophylaxis - continue ICU monitoring critical care time spent in reviewing chart, evaluating patient and formulating plan 35 min
[2020-02-05] MEDS: PROPOFOL 1,000,000 MCG/100 ML VIAL IVPB SCH (17:20)
[2020-02-06] MEDS: DEXAMETHASONE SOD PHOSPHATE 10 MG/1 ML VIAL IVPUSH SCH ×2 (01:34→10:01)
[2020-02-06] MEDS: INSULIN SLIDING SCALE (NOVOLOG) 1 VIAL SQ SCH ×3 (06:58→17:00)
--- NOTE | 2020-02-06 07:05 | PN ---
Physical Exam: SUBJECTIVE: Patient seen and examined. Pt is arousable off sedation and remained intubated. Tolerated CPAP mode and was subsequently extubated during rounds. OBJECTIVE: Vital Signs Period Temp Pulse Resp BP Sys/Gibbs Pulse Ox Last 24 Hr 98.8 F-100.4 F 67-106 20-34 100-161/54-112 95-99 GENERAL: The patient is arousable off sedation. Follows commands. HEENT: NCAT, ETT in place. OG tube in place. Increased oral secretions. LUNGS: Decreased breath sounds b/l HEART: S1, S2 present, regular rate and rhythm, no murmurs. ABDOMEN: Obese. Soft, nondistended, bowel sounds present in all 4 quadrants. EXTREMITIES: warm, well-perfused, edematous in extremities. SCDs in place. SKIN: Warm, dry Laboratory Last Values WBC 9.7 K/mm3 (4.0-10.0) 02/05/20 05:27 RBC 4.36 M/mm3 (3.60-5.2) 02/05/20 05:27 Hgb 11.1 GM/dL (10.7-15.3) 02/05/20 05:27 Hct 35.7 % (32.4-45.2) 02/05/20 05:27 MCV 82.0 fl (80-96) 02/05/20 05:27 MCH 25.4 pg (25.7-33.7) L 02/05/20 05:27 MCHC 31.0 g/dl (32.0-36.0) L 02/05/20 05:27 RDW 17.2 % (11.6-15.6) H 02/05/20 05:27 Plt Count 280 K/MM3 (134-434) 02/05/20 05:27 MPV 7.9 fl (7.5-11.1) 02/05/20 05:27 Absolute Neuts (auto) 7.4 K/mm3 (1.5-8.0) 02/04/20 05:30 Neutrophils % 85.2 % (42.8-82.8) H 02/04/20 05:30 Neutrophils % (Manual) 73.2 % (42.8-82.8) 02/03/20 05:00 Band Neutrophils % 0.0 % 02/03/20 05:00 Lymphocytes % 10.3 % (8-40) D 02/04/20 05:30 Lymphocytes % (Manual) 19.6 % (8-40) D 02/03/20 05:00 Monocytes % 4.4 % (3.8-10.2) 02/04/20 05:30 Monocytes % (Manual) 3 % (3.8-10.2) L 02/03/20 05:00 Eosinophils % 0.0 % (0-4.5) 02/04/20 05:30 Eosinophils % (Manual) 0.0 % (0-4.5) 02/03/20 05:00 Basophils % 0.1 % (0-2.0) 02/04/20 05:30 Basophils % (Manual) 0.0 % (0-2.0) 02/03/20 05:00 Myelocytes % (Man) 3 % (0-2) H 02/03/20 05:00 Promyelocytes % (Man) 0 % (0-2) 02/03/20 05:00 Blast Cells % (Manual) 0 % (0-0) 02/03/20 05:00 Nucleated RBC % 0 % (0-0) 02/04/20 05:30 Metamyelocytes 0 % (0-2) 02/03/20 05:00 Hypochromia 0 02/03/20 05:00 Platelet Estimate Normal 02/03/20 05:00 Polychromasia 0 02/03/20 05:00 Poikilocytosis 0 02/03/20 05:00 Anisocytosis 0 02/03/20 05:00 Microcytosis 0 02/03/20 05:00 Macrocytosis 0 02/03/20 05:00 Stomatocytes 1+ 01/25/20 18:30 PT with INR 12.50 SEC (9.7-13.0) 01/26/20 07:48 INR 1.06 (0.83-1.09) 01/26/20 07:48 PTT (Actin FS) 28.2 SECONDS (25.2-36.5) 01/26/20 07:48 Fibrinogen 303.0 mg/dL (238-498) 01/25/20 12:09 D-Dimer 8578 ng/ml (0-500) H 01/25/20 12:09 Anticoagulation Therapy No Result Required. 01/28/20 06:00 Puncture Site Arterial line 01/28/20 06:00 Patient Temperature No Result Required. 01/28/20 06:00 ABG pH 7.399 (7.350-7.450) 01/28/20 06:00 ABG pCO2 43.20 mmHg (35-45) 01/28/20 06:00 ABG pO2 129.0 mmHg (80-100) H 01/28/20 06:00 ABG HCO3 26.1 mmol/L (22-27) 01/28/20 06:00 ABG O2 Sat (Measured) 98.6 mmHg (95-98) H 01/28/20 06:00 ABG O2 Content No Result Required. 01/28/20 06:00 ABG Base Excess 1.1 mmol/L (-2-2) 01/28/20 06:00 Jeffrey Test Not applicable 01/28/20 06:00 Carboxyhemoglobin 0.5 % (0-2) 01/25/20 12:36 Methemoglobin 0.3 % (0-2) 01/25/20 12:20 Patient On Oxygen Yes 01/28/20 06:00 O2 Delivery Device Vent 01/28/20 06:00 Oxygen Flow Rate 30% 01/28/20 06:00 Vent Mode A/c 01/28/20 06:00 Vent Rate 20 01/28/20 06:00 Mechanical Rate Yes 01/28/20 06:00 PEEP 10.0 cmH2O 01/28/20 06:00 Pressure Support Vent 500 01/28/20 06:00 Sodium 138 mmol/L (136-145) 02/05/20 05:27 Potassium 3.7 mmol/L (3.5-5.1) 02/05/20 05:27 Chloride 101 mmol/L (98-107) 02/05/20 05:27 Carbon Dioxide 26 mmol/L (21-32) 02/05/20 05:27 Anion Gap 11 MMOL/L (8-16) 02/05/20 05:27 BUN 26.8 mg/dL (7-18) H 02/05/20 05:27 Creatinine 0.7 mg/dL (0.55-1.3) 02/05/20 05:27 Est GFR (CKD-EPI)AfAm 116.27 08/03/20 05:27 Est GFR (CKD-EPI)NonAf 100.32 02/05/20 05:27 POC Glucometer 149 UNITS (80-120) 02/06/20 06:55 Random Glucose 203 mg/dL (74-106) H 02/05/20 05:27 Lactic Acid 1.2 mmol/L (0.4-2.0) 01/25/20 18:30 Calcium 7.8 mg/dL (8.5-10.1) L 02/05/20 05:27 Phosphorus 3.7 mg/dL (2.5-4.9) 02/05/20 05:27 Magnesium 2.7 mg/dL (1.8-2.4) H 02/05/20 05:27 Total Bilirubin 0.4 mg/dL (0.2-1) 02/04/20 05:30 AST 20 U/L (15-37) 02/04/20 05:30 ALT 38 U/L (13-61) 02/04/20 05:30 Alkaline Phosphatase 62 U/L (45-117) 02/04/20 05:30 Troponin I 0.03 ng/ml (0.00-0.05) 01/26/20 07:48 B-Natriuretic Peptide 380.5 pg/ml (5-125) H 01/26/20 06:00 Total Protein 6.7 g/dl (6.4-8.2) 02/04/20 05:30 Albumin 2.6 g/dl (3.4-5.0) L 02/04/20 05:30 Triglycerides 159 mg/dL (0-150) H 02/01/20 06:00 COVID-19 (AMANDA) Not detected (Not Detected) 01/25/20 12:09 Blood Type O POSITIVE 01/25/20 09:00 Antibody Screen Negative 01/25/20 09:00 Active Medications Amino Acids (Prosource No Carb Liquid Pkt) 30 ml NGT QID [facility] Last Admin: 02/06/20 10:01 Dose: 30 ml Documented by: Dexamethasone Sodium Phosphate (Decadron Injection -) 4 mg IVPUSH BID [facility] Hydralazine HCl (Apresoline -) 50 mg PO TID [facility] Last Admin: 02/06/20 07:11 Dose: 50 mg Documented by: IV Flush (Triple Lumen Flush) 4 ml IVPUSH PRN PRN PRN Reason: Protocol Last Admin: 02/06/20 09:48 Dose: 4 ml Documented by: Propofol (Diprivan -) 1,000,000 mcg in 100 mls @ 4.763 mls/hr IVPB TITR [facility]GIE; Protocol Last Titration: 02/06/20 08:45 Dose: 0 mcg/kg/min, 0 mls/hr Documented by: Piperacillin Sod/Tazobactam (Sod 4.5 gm/ Dextrose) 100 mls @ 200 mls/hr IVPB Q6H-IV ANGIE; Protocol Last Admin: 02/06/20 12:18 Dose: 200 mls/hr Documented by: Insulin Aspart (Novolog Vial Sliding Scale -) 1 vial SQ Q6HPO [facility]; Protocol Last Admin: 02/06/20 12:30 Dose: Not Given Documented by: Metoprolol Tartrate 25 mg/ (Metoprolol Tartrate 50 mg) 75 mg PO BID [facility] Last Admin: 02/06/20 10:04 Dose: 75 mg Documented by: Pantoprazole Sodium (Protonix Iv) 40 mg IVPUSH DAILY [facility] Last Admin: 02/06/20 10:00 Dose: 40 mg Documented by: Scopolamine HBr (Transderm-Scop -) 1 patch TD Q72H [facility] Last Admin: 02/05/20 06:09 Dose: 1 patch Documented by: ASSESSMENT/PLAN: Pt is a 49 yo female with PMH HTN, DM, morbid obesity, severe b/l LE venous stasis and severe b/l upper extremity lymphedema secondary to prior breast cancer history for ACDF. Pt became acutely hypotensive and hypoxic 5 minutes into surgery and pt was not responsive to phenylephrine. Team aborted surgery, pt admitted to ICU. Neuro Aborted ACDF secondary to acute hypoxic respiratory failure -Discussed with surgery if previously planned surgery should be contemplated prior to extubation. Surgery recommends pt be medically optimized prior to surgical intervention. -Hold sedation and assess mental status. Pt was arousable with sedation vacation. -Spontaneous breathing trials as tolerated. -Aspiration precautions Cardio Hypertension Hypotension possibly 2/2 hypoxia during procedure -Off pressors, but now hypertensive w/ SBP >180 -Continue metoprolol, hydralazine. -Off cardene drip Pulm Narrowed tracheal lumen, secondary to hematoma vs. soft tissue swelling vs. thyromegaly Acute hypoxic and hypercapneic respiratory failure -Extubated 02/05 during rounds. On BiPAP and tolerating well. Keep SpO2 >90% -Tapered decadron to 4mg BID. -CT neck showed slight decrease of swelling/hematoma. -CXR 02/05 persistent fluid, atelectasis at bases -c/w scopolamine for secretions Renal Lactic acidosis, resolved Hypokalemia, resolved -Monitor electrolytes -monitor I/O's Endo DM -ISS + BGM ID Sinusitis Leukocytosis - Start Zosyn -Afebrile -COVID negative -Sputum culture grew non-lactose fermenting GNB -f/u Bcx Ppx -DVT: SCDs -GI: PPI FEN -no standing fluids -Monitor and replete electrolytes -NPO as per dietary -Speech and swallow consulted Lines ALFREDITO 02/01 Family discussion: 02/05 Spoke to sister, Cindy, on telephone. Updated her about pt's status. Dispo: Continue monitoring in ICU. Visit type - Emergency Visit Emergency Visit: Yes ED Registration Date: 01/25/20 Care time: The patient presented to the Emergency Department on the above date and was hospitalized for further evaluation of their emergent condition. - New Patient This patient is new to me today: No - Critical Care Critical Care patient: Yes Total Critical Care Time (in minutes): 39 Critical Care Statement: The care of this patient involved high complexity decision making to prevent further life threatening deterioration of the patient's condition and/or to evaluate & treat vital organ system(s) failure or risk of failure. ATTENDING PHYSICIAN STATEMENT I saw and evaluated the patient. I reviewed the resident's note and discussed the case with the resident. I agree with the resident's findings and plan as documented. SUBJECTIVE: OBJECTIVE: ASSESSMENT AND PLAN:
[2020-02-06] MEDS: hydrALAZINE HCL 50 MG TABLET (FP) PO SCH ×2 (07:11→15:31)
[2020-02-06 07:42] LABS: BASO % 0.2 % (0-2.0); HEMATOCRIT 33.3 % (32.4-45.2); HEMOGLOBIN 10.4 GM/dL (10.7-15.3); LYMPH % 7.1 % (8-40); MCH 25.9 pg (25.7-33.7); MCHC 31.2 g/dl (32.0-36.0); MEAN CELL VOLUME 83.1 fl (80-96); MEAN PLT VOLUME 7.8 fl (7.5-11.1); MONO % 3.4 % (3.8-10.2); NEUT % 89.3 % (42.8-82.8); PLATELET COUNT 265 K/MM3 (134-434); RBC 4.01 M/mm3 (3.60-5.2); RDW 17.5 % (11.6-15.6); WHITE BLOOD COUNT 13.1 K/mm3 (4.0-10.0)
[2020-02-06 08:11] LABS: ALBUMIN 2.4 g/dl (3.4-5.0); BILIRUBIN,TOTAL 0.4 mg/dL (0.2-1); BLOOD UREA NITROGEN 31.8 mg/dL (7-18); CREATININE 0.7 mg/dL (0.55-1.3); MAGNESIUM 2.8 mg/dL (1.8-2.4); PHOSPHOROUS 2.9 mg/dL (2.5-4.9); POTASSIUM 3.5 mmol/L (3.5-5.1)
[2020-02-06] MEDS: TRIPLE LUMEN FLUSH 4 ML ML IVPUSH PRN (09:48)
[2020-02-06] MEDS ORDERED: METOPROLOL TARTRATE 50 MG TABLET (FP) ONE (09:52)
[2020-02-06] MEDS ORDERED: METOPROLOL TARTRATE 25 MG TABLET (FP) ONE (09:53)
[2020-02-06] MEDS ORDERED: cefTRIAXone SODIUM 1 GM VIAL ONE (09:53)
[2020-02-06] MEDS ORDERED: DEXTROSE 5%-WATER - 50 ML IVPB ONE (09:53)
[2020-02-06] MEDS: PANTOPRAZOLE SODIUM 40 MG VIAL IVPUSH SCH (10:00)
[2020-02-06] MEDS: AMINO ACIDS/PROTEIN HYDROLYS 30 ML LIQUID.PKT NGT SCH ×4 (10:01→22:17)
[2020-02-06] MEDS: CEFTRIAXONE 1 GM in DEXTROSE 5%-WATER - 50 ML IVPB SCH ×2 (10:01→10:47)
[2020-02-06] MEDS: METOPROLOL TARTRATE 25 MG, METOPROLOL TARTRATE 50 MG PO SCH (10:04)
[2020-02-06] MEDS ORDERED: PIPERACILLIN/TAZOB 3.375 GM 3.375 GM in DEXTROSE 5%-WATER - 50 ML IVPB SCH (10:30)
[2020-02-06] MEDS ORDERED: PIPERACILLIN/TAZOB 4.5 GM 4.5 GM in DEXTROSE 5%-WATER 100 ML IVPB ONE (11:29)
[2020-02-06] MEDS ORDERED: DEXTROSE 5%-WATER 100 ML IVPB ONE ×3 (12:15→21:10)
[2020-02-06] MEDS ORDERED: PIPERACILLIN/TAZOBACTAM 4.5 GM VIAL IVPB ONE ×3 (12:15→21:10)
[2020-02-06] MEDS: PIPERACILLIN/TAZOB 4.5 GM 4.5 GM in DEXTROSE 5%-WATER 100 ML IVPB SCH ×3 (12:18→22:16)
--- NOTE | 2020-02-06 12:37 | PN ---
Teaching Attending Note Name of Resident: Kimmie Aquino ATTENDING PHYSICIAN STATEMENT I saw and evaluated the patient. I reviewed the resident's note and discussed the case with the resident. I agree with the resident's findings and plan as documented. SUBJECTIVE: Pt seen and examined in the ICU. Remains intubated, arousable off sedation. Aaron ted on CPAP/PS with good RSBI and subsequently extubated during rounds. OBJECTIVE: Vital Signs Period Temp Pulse Resp BP Sys/Gibbs Pulse Ox Last 24 Hr 98.8 F-100.4 F 67-89 20-30 100-149/54-97 95-100 Intake & Output 02/03/20 02/04/20 02/05/20 02/06/20 23:59 23:59 23:59 23:59 Intake Total 2457 2815.6 1363 667 Output Total 800 2850 2100 1100 Balance 1657 -34.4 -737 -433 Weight 164.291 kg 166.06 kg 165.47 kg Gen: intubated, sedated Heart: RRR Lung: distant breath sounds Abd: soft, obese Ext: + edema CBC, BMP 02/06/20 05:00 02/06/20 05:00 Active Medications Amino Acids (Prosource No Carb Liquid Pkt) 30 ml NGT QID [facility] Last Admin: 02/06/20 10:01 Dose: 30 ml Documented by: Dexamethasone Sodium Phosphate (Decadron Injection -) 6 mg IVPUSH Q8H-IV [facility] Last Admin: 02/06/20 10:01 Dose: 6 mg Documented by: Hydralazine HCl (Apresoline -) 50 mg PO TID [facility] Last Admin: 02/06/20 07:11 Dose: 50 mg Documented by: IV Flush (Triple Lumen Flush) 4 ml IVPUSH PRN PRN PRN Reason: Protocol Last Admin: 02/06/20 09:48 Dose: 4 ml Documented by: Propofol (Diprivan -) 1,000,000 mcg in 100 mls @ 4.763 mls/hr IVPB TITR ANGIE; P rotocol Last Titration: 02/06/20 08:45 Dose: 0 mcg/kg/min, 0 mls/hr Documented by: Piperacillin Sod/Tazobactam (Sod 4.5 gm/ Dextrose) 100 mls @ 200 mls/hr IVPB Q6H-IV [facility]; Protocol Last Admin: 02/06/20 12:18 Dose: 200 mls/hr Documented by: Insulin Aspart (Novolog Vial Sliding Scale -) 1 vial SQ Q6HPO [facility]; Protocol Last Admin: 02/06/20 12:30 Dose: Not Given Documented by: Metoprolol Tartrate 25 mg/ (Metoprolol Tartrate 50 mg) 75 mg PO BID [facility] Last Admin: 02/06/20 10:04 Dose: 75 mg Documented by: Pantoprazole Sodium (Protonix Iv) 40 mg IVPUSH DAILY [facility] Last Admin: 02/06/20 10:00 Dose: 40 mg Documented by: Scopolamine HBr (Transderm-Scop -) 1 patch TD Q72H [facility] Last Admin: 02/05/20 06:09 Dose: 1 patch Documented by: ASSESSMENT AND PLAN: Acute Hypoxic and Hypercapneic Respiratory Failure Upper Airway Obstruction/Soft Tissue Swelling/Hematoma/Thyromegaly Sinusitis Hypertensive Urgency Morbid Obesity Pulmonary HTN HTN DM Likely TEJAL/OHS - taper decadron - pt extubated to BiPAP - glucose control - continue empiric antibiotics - off cardene gtt - FiO2, PEEP to keep SpO2 >90% - aspiration precautions - DVT/GI prophylaxis - continue ICU monitoring critical care time spent in reviewing chart, evaluating patient and formulating plan 35 min
--- NOTE | 2020-02-06 14:28 | CONSULT ---
Admitting History and Physical - Admission History of Present Illness: 49 y/o F w h/o DM,morbid obesity,severe bilateral LE venous stasis & lymphedema,Breast ca, admitted to ICU 01/24 with cervical spondylosis s/p aborted cervical corpectomy acute hypoxic and hypercapneic respiratory failure, ABG normalized on ventilator Enteral feeding started low rate due to propofol swelling at tracheal site- started on IV Decadro Extubated today. Selected Entries 02/06/20 02/06/20 02/06/20 00:22 02:00 04:00 Breakfast Temperature 99.1 F 99.2 F Blood Pressure 132/80 133/78 138/83 02/06/20 02/06/20 02/06/20 06:00 08:00 10:00 Breakfast NPO Temperature 99.5 F 98.9 F Blood Pressure 135/79 140/75 160/87 02/06/20 02/06/20 12:00 14:00 Breakfast Temperature 98.8 F Blood Pressure 158/95 141/84 Laboratory Tests 01/25/20 02/05/20 02/06/20 12:09 05:27 05:00 WBC 9.7 13.1 H COVID-19 ([facility]ANDA) Not detected Acute Hypoxic and Hypercapneic Respiratory Failure Upper Airway Obstruction/Soft Tissue Swelling/Hematoma/Thyromegaly Sinusitis Hypertensive Urgency Morbid Obesity Pulmonary HTN HTN DM Likely TEJAL/OHS - Past Medical History ...LMP: 08/24/17 ...LMP Comment: LMP>1year - Smoking History Smoking history: Never smoked Have you smoked in the past 12 months: No - Alcohol/Substance Use Hx Alcohol Use: No History - Admission Reason For Visit: CERVICAL SPONDYLOSIS - Diagnostics X-ray: Report Reviewed Other: Report Reviewed (CT soft tissue neck x 2) - Hearing Hearing: Normal Speech Evaluation - Communication Primary Language: ARGENTINE Recommendations - Speech Evaluation, Impression/Plan Impression: Chart reviewed. Pt on BIPAP. Too lethargic for PO trials - Dysphagia Impressions/Plan Dysphagia Impressions: Too Lethargic to Assess
[2020-02-06 14:53] LABS: ARTERIAL BLD GAS O2 SATURATION 97.1 mmHg (95-98); ARTERIAL BLOOD GAS BASE EXCESS 3.7 mmol/L (-2-2); ARTERIAL BLOOD GAS PO2 91.8 mmHg (80-100); ARTERIAL BLOOD GAS pH 7.416 (7.350-7.450)
[2020-02-06 14:57] LABS: ALLENS TEST POSITIVE
[2020-02-06 14:58] LABS: VENT MODE S/T; VENT RATE 14
[2020-02-06] MEDS: PROPOFOL 1,000,000 MCG/100 ML VIAL IVPB SCH (15:32)
[2020-02-06] MEDS ORDERED: hydrALAZINE HCL 20 MG/ML VIAL IVPUSH PRN (15:58)
[2020-02-06] MEDS ORDERED: METOPROLOL TARTRATE 5 MG/5 ML VIAL IVPUSH PRN (15:59)
[2020-02-06] MEDS: METOPROLOL TARTRATE 5 MG/5 ML VIAL IVPUSH SCH (19:04)
[2020-02-06] MEDS: hydrALAZINE HCL 20 MG/ML VIAL IVPUSH SCH (19:05)
[2020-02-06] MEDS ORDERED: ACETAMINOPHEN 1000 MG/100 ML VIAL (NON FORMULARY) IVPB PRN (22:16)
[2020-02-06] MEDS: DEXAMETHASONE SOD PHOSPHATE 4 MG/1 ML VIAL IVPUSH SCH (22:16)
[2020-02-07 01:14] LABS: ARTERIAL BLD GAS O2 SATURATION 95.8 mmHg (95-98); ARTERIAL BLOOD GAS BASE EXCESS 5.7 mmol/L (-2-2); ARTERIAL BLOOD GAS PO2 76.4 mmHg (80-100); ARTERIAL BLOOD GAS pH 7.455 (7.350-7.450)
[2020-02-07] MEDS: METOPROLOL TARTRATE 5 MG/5 ML VIAL IVPUSH SCH ×4 (01:17→21:16)
[2020-02-07] MEDS: INSULIN SLIDING SCALE (NOVOLOG) 1 VIAL SQ SCH ×2 (01:17→18:02)
[2020-02-07 01:22] LABS: ALLENS TEST POSITIVE
[2020-02-07] MEDS ORDERED: PIPERACILLIN/TAZOBACTAM 4.5 GM VIAL IVPB ONE ×4 (01:45→20:19)
[2020-02-07] MEDS ORDERED: DEXTROSE 5%-WATER 100 ML IVPB ONE ×4 (01:45→20:19)
[2020-02-07] MEDS: hydrALAZINE HCL 20 MG/ML VIAL IVPUSH SCH (02:08)
[2020-02-07] MEDS: PIPERACILLIN/TAZOB 4.5 GM 4.5 GM in DEXTROSE 5%-WATER 100 ML IVPB SCH ×4 (02:08→21:25)
[2020-02-07 06:30] LABS: BASO % 0.3 % (0-2.0); HEMATOCRIT 36.2 % (32.4-45.2); HEMOGLOBIN 11.2 GM/dL (10.7-15.3); LYMPH % 9.5 % (8-40); MCH 25.5 pg (25.7-33.7); MCHC 30.9 g/dl (32.0-36.0); MEAN CELL VOLUME 82.4 fl (80-96); MEAN PLT VOLUME 7.7 fl (7.5-11.1); MONO % 6.5 % (3.8-10.2); NEUT % 83.7 % (42.8-82.8); PLATELET COUNT 318 K/MM3 (134-434); RBC 4.39 M/mm3 (3.60-5.2); RDW 17.1 % (11.6-15.6); WHITE BLOOD COUNT 10.8 K/mm3 (4.0-10.0)
[2020-02-07 06:49] LABS: ALBUMIN 2.5 g/dl (3.4-5.0); BILIRUBIN,TOTAL 0.5 mg/dL (0.2-1); BLOOD UREA NITROGEN 19.8 mg/dL (7-18); CALCIUM 8.1 mg/dL (8.5-10.1); CREATININE 0.6 mg/dL (0.55-1.3); MAGNESIUM 2.5 mg/dL (1.8-2.4); PHOSPHOROUS 2.4 mg/dL (2.5-4.9); POTASSIUM 3.4 mmol/L (3.5-5.1); TOT PROT 6.6 g/dl (6.4-8.2)
[2020-02-07] MEDS ORDERED: hydrALAZINE HCL 20 MG/ML VIAL IVPUSH PRN (06:50)
--- NOTE | 2020-02-07 07:17 | PN ---
Physical Exam: SUBJECTIVE: Patient seen and examined. Overnight, pt had pooling secretion in her BiPAP and thus was changed to Hi-flow. Pt remained lethargic. Pt remained febrile, despite Ofirmev, as per night team. OBJECTIVE: Vital Signs Period Temp Pulse Resp BP Sys/Gibbs Pulse Ox Last 24 Hr 98.5 F-100.8 F 69-103 15-27 132-167/75-98 95-100 GENERAL: Lethargic. Follows commands. HEENT: NCAT, On high-flow oxygen. Less secretions noted. LUNGS: Decreased breath sounds b/l HEART: S1, S2 present, regular rate and rhythm, no murmurs. ABDOMEN: Obese. Soft, nondistended, bowel sounds present in all 4 quadrants. EXTREMITIES: warm, well-perfused, edematous in extremities. SCDs in place. SKIN: Warm, dry Laboratory Last Values WBC 10.8 K/mm3 (4.0-10.0) H 02/07/20 05:00 RBC 4.39 M/mm3 (3.60-5.2) 02/07/20 05:00 Hgb 11.2 GM/dL (10.7-15.3) 02/07/20 05:00 Hct 36.2 % (32.4-45.2) 02/07/20 05:00 MCV 82.4 fl (80-96) 02/07/20 05:00 MCH 25.5 pg (25.7-33.7) L 02/07/20 05:00 MCHC 30.9 g/dl (32.0-36.0) L 02/07/20 05:00 RDW 17.1 % (11.6-15.6) H 02/07/20 05:00 Plt Count 318 K/MM3 (134-434) 02/07/20 05:00 MPV 7.7 fl (7.5-11.1) 02/07/20 05:00 Absolute Neuts (auto) 9.0 K/mm3 (1.5-8.0) H 02/07/20 05:00 Neutrophils % 83.7 % (42.8-82.8) H 02/07/20 05:00 Neutrophils % (Manual) 73.2 % (42.8-82.8) 02/03/20 05:00 Band Neutrophils % 0.0 % 02/03/20 05:00 Lymphocytes % 9.5 % (8-40) D 02/07/20 05:00 Lymphocytes % (Manual) 19.6 % (8-40) D 02/03/20 05:00 Monocytes % 6.5 % (3.8-10.2) D 02/07/20 05:00 Monocytes % (Manual) 3 % (3.8-10.2) L 02/03/20 05:00 Eosinophils % 0.0 % (0-4.5) 02/07/20 05:00 Eosinophils % (Manual) 0.0 % (0-4.5) 02/03/20 05:00 Basophils % 0.3 % (0-2.0) 02/07/20 05:00 Basophils % (Manual) 0.0 % (0-2.0) 02/03/20 05:00 Myelocytes % (Man) 3 % (0-2) H 02/03/20 05:00 Promyelocytes % (Man) 0 % (0-2) 02/03/20 05:00 Blast Cells % (Manual) 0 % (0-0) 02/03/20 05:00 Nucleated RBC % 0 % (0-0) 02/07/20 05:00 Metamyelocytes 0 % (0-2) 02/03/20 05:00 Hypochromia 0 02/03/20 05:00 Platelet Estimate Normal 02/03/20 05:00 Polychromasia 0 02/03/20 05:00 Poikilocytosis 0 02/03/20 05:00 Anisocytosis 0 02/03/20 05:00 Microcytosis 0 02/03/20 05:00 Macrocytosis 0 02/03/20 05:00 Stomatocytes 1+ 01/25/20 18:30 PT with INR 12.50 SEC (9.7-13.0) 01/26/20 07:48 INR 1.06 (0.83-1.09) 01/26/20 07:48 PTT (Actin FS) 28.2 SECONDS (25.2-36.5) 01/26/20 07:48 Fibrinogen 303.0 mg/dL (238-498) 01/25/20 12:09 D-Dimer 8578 ng/ml (0-500) H 01/25/20 12:09 Anticoagulation Therapy No Result Required. 02/07/20 01:00 Puncture Site Right radial 02/07/20 01:00 Patient Temperature No Result Required. 02/07/20 01:00 ABG pH 7.455 (7.350-7.450) H 02/07/20 01:00 ABG pCO2 44.10 mmHg (35-45) 02/07/20 01:00 ABG pO2 76.4 mmHg (80-100) L 02/07/20 01:00 ABG HCO3 30.3 mmol/L (22-27) H 02/07/20 01:00 ABG O2 Sat (Measured) 95.8 mmHg (95-98) 02/07/20 01:00 ABG O2 Content No Result Required. 02/07/20 01:00 ABG Base Excess 5.7 mmol/L (-2-2) H 02/07/20 01:00 Jeffrey Test Positive 02/07/20 01:00 Carboxyhemoglobin 0.5 % (0-2) 01/25/20 12:36 Methemoglobin 0.3 % (0-2) 01/25/20 12:20 Patient On Oxygen Yes 02/07/20 01:00 O2 Delivery Device Hfnc 02/07/20 01:00 Oxygen Flow Rate 40% 02/07/20 01:00 Vent Mode No Result Required. 02/07/20 01:00 Vent Rate No Result Required. 02/07/20 01:00 Mechanical Rate No Result Required. 02/07/20 01:00 PEEP No Result Required. 02/07/20 01:00 Pressure Support Vent 30l 02/07/20 01:00 Sodium 142 mmol/L (136-145) 02/07/20 05:00 Potassium 3.4 mmol/L (3.5-5.1) L 02/07/20 05:00 Chloride 103 mmol/L (98-107) 02/07/20 05:00 Carbon Dioxide 30 mmol/L (21-32) 02/07/20 05:00 Anion Gap 10 MMOL/L (8-16) 02/07/20 05:00 BUN 19.8 mg/dL (7-18) H 02/07/20 05:00 Creatinine 0.6 mg/dL (0.55-1.3) 02/07/20 05:00 Est GFR (CKD-EPI)AfAm 122.32 02/07/20 05:00 Est GFR (CKD-EPI)NonAf 105.54 02/07/20 05:00 POC Glucometer 147 UNITS (80-120) 02/07/20 06:10 Random Glucose 147 mg/dL (74-106) H 02/07/20 05:00 Lactic Acid 1.2 mmol/L (0.4-2.0) 01/25/20 18:30 Calcium 8.1 mg/dL (8.5-10.1) L 02/07/20 05:00 Phosphorus 2.4 mg/dL (2.5-4.9) L 02/07/20 05:00 Magnesium 2.5 mg/dL (1.8-2.4) H 02/07/20 05:00 Total Bilirubin 0.5 mg/dL (0.2-1) 02/07/20 05:00 AST 15 U/L (15-37) 02/07/20 05:00 ALT 49 U/L (13-61) 02/07/20 05:00 Alkaline Phosphatase 65 U/L (45-117) 02/07/20 05:00 Troponin I 0.03 ng/ml (0.00-0.05) 01/26/20 07:48 B-Natriuretic Peptide 380.5 pg/ml (5-125) H 01/26/20 06:00 Total Protein 6.6 g/dl (6.4-8.2) 02/07/20 05:00 Albumin 2.5 g/dl (3.4-5.0) L 02/07/20 05:00 Triglycerides 159 mg/dL (0-150) H 02/01/20 06:00 COVID-19 (AMANDA) Not detected (Not Detected) 01/25/20 12:09 Blood Type O POSITIVE 01/25/20 09:00 Antibody Screen Negative 01/25/20 09:00 Active Medications Acetaminophen (Ofirmev Injection -) 1,000 mg IVPB Q6H PRN PRN Reason: FEVER Stop: 02/07/20 22:17 Amino Acids (Prosource No Carb Liquid Pkt) 30 ml NGT QID ANGIE Last Admin: 02/07/20 14:45 Dose: Not Given Documented by: Dexamethasone Sodium Phosphate (Decadron Injection -) 2 mg IVPUSH BID [facility] Stop: 02/08/20 10:01 Hydralazine HCl (Apresoline Injection -) 25 mg IVPUSH Q8H PRN PRN Reason: SBP > 110 IV Flush (Triple Lumen Flush) 4 ml IVPUSH PRN PRN PRN Reason: Protocol Last Admin: 02/06/20 09:48 Dose: 4 ml Documented by: Piperacillin Sod/Tazobactam (Sod 4.5 gm/ Dextrose) 100 mls @ 200 mls/hr IVPB Q6H-IV ANGIE; Protocol Last Admin: 02/07/20 14:47 Dose: 200 mls/hr Documented by: Insulin Aspart (Novolog Vial Sliding Scale -) 1 vial SQ Q6HPO ANGIE; Protocol Last Admin: 02/07/20 01:17 Dose: Not Given Documented by: Metoprolol Tartrate (Lopressor Injection -) 5 mg IVPUSH Q6H ANGIE Last Admin: 02/07/20 13:42 Dose: 5 mg Documented by: Pantoprazole Sodium (Protonix Iv) 40 mg IVPUSH DAILY ANGIE Last Admin: 02/07/20 09:23 Dose: 40 mg Documented by: Scopolamine HBr (Transderm-Scop -) 1 patch TD Q72H ANGIE Last Admin: 02/05/20 06:09 Dose: 1 patch Documented by: ASSESSMENT/PLAN: Pt is a 49 yo female with PMH HTN, DM, morbid obesity, severe b/l LE venous stasis and severe b/l upper extremity lymphedema secondary to prior breast cancer history for ACDF. Pt became acutely hypotensive and hypoxic 5 minutes into surgery and pt was not responsive to phenylephrine. Team aborted surgery, p t admitted to ICU. Patient seen and examined. Overnight, pt had pooling secretion in her BiPAP and thus was changed to HFOT. Pt remained lethargic and not following commands. Pt remained febrile, despite Ofirmev as per night team. Neuro Aborted ACDF secondary to acute hypoxic respiratory failure -Discussed with surgery if previously planned surgery should be contemplated prior to extubation. Surgery recommends pt be medically optimized prior to surgical intervention. -Aspiration precautions -remains lethargic, if there is evidence of focal deficits, consider CT head Cardio Hypertension Hypotension possibly 2/2 hypoxia during procedure -Off pressors, but now hypertensive w/ SBP >180 -Continue metoprolol, hydralazine. -Off cardene drip Pulm Narrowed tracheal lumen, secondary to hematoma vs. soft tissue swelling vs. thyromegaly Acute hypoxic and hypercapneic respiratory failure -Extubated 02/05 during rounds. Currently on HFOT 30%, tolerating well. Keep SpO2 >90% -Tapered decadron to 2mg BID. -CT neck showed slight decrease of swelling/hematoma. -CXR 02/06 persistent fluid, atelectasis at bases with slight improvement in R lung. -c/w scopolamine for secretions -Chest PT -incentive spirometry Renal Lactic acidosis, resolved Hypokalemia, resolved -Monitor electrolytes -monitor I/O's Endo DM -ISS + BGM ID Sinusitis Leukocytosis -Febrile overnight Tmax 100.8 -WBC downtrending -COVID negative -Sputum culture grew moderate Serratia marcescens; Blood culture grew gram positive cocci - C/w Zosyn (day 2) and start Vancomycin (day 1) - f/u cultures Ppx -DVT: SCDs -GI: PPI FEN -no standing fluids -Monitor and replete electrolytes -Speech and swallow consulted. Recommended NPO. Lines [facility] 02/01 Family discussion: 02/05 Spoke to sister, Cindy, on telephone. Updated her about pt's status. Dispo: Continue monitoring in ICU. Visit type - Emergency Visit Emergency Visit: Yes ED Registration Date: 01/25/20 Care time: The patient presented to the Emergency Department on the above date and was hospitalized for further evaluation of their emergent condition. - New Patient This patient is new to me today: No - Critical Care Critical Care patient: Yes Total Critical Care Time (in minutes): 37 Critical Care Statement: The care of this patient involved high complexity decision making to prevent further life threatening deterioration of the patient's condition and/or to evaluate & treat vital organ system(s) failure or risk of failure. ATTENDING PHYSICIAN STATEMENT I saw and evaluated the patient. I reviewed the resident's note and discussed the case with the resident. I agree with the resident's findings and plan as documented. SUBJECTIVE: OBJECTIVE: ASSESSMENT AND PLAN:
[2020-02-07 08:53] LABS: ARTERIAL BLD GAS O2 SATURATION 97.4 mmHg (95-98); ARTERIAL BLOOD GAS BASE EXCESS 7.6 mmol/L (-2-2); ARTERIAL BLOOD GAS PO2 92.7 mmHg (80-100); ARTERIAL BLOOD GAS pH 7.468 (7.350-7.450)
[2020-02-07 08:56] LABS: ALLENS TEST POSITIVE; PT'S TEMP 100.9
[2020-02-07 08:57] LABS: VENT MODE 30
[2020-02-07] MEDS: KCL 10 MEQ IVPB 10 MEQ/100 ML INFUS.BAG IVPB SCH ×3 (09:20→11:00)
[2020-02-07] MEDS: DEXAMETHASONE SOD PHOSPHATE 4 MG/1 ML VIAL IVPUSH SCH ×2 (09:20→21:25)
[2020-02-07] MEDS: AMINO ACIDS/PROTEIN HYDROLYS 30 ML LIQUID.PKT NGT SCH ×4 (09:23→21:25)
[2020-02-07] MEDS: PANTOPRAZOLE SODIUM 40 MG VIAL IVPUSH SCH (09:23)
--- NOTE | 2020-02-07 09:53 | PN ---
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, [employer] - Note 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: Selected Entries 02/06/20 02/07/20 02/07/20 22:00 00:00 01:00 Supper NPO Temperature 100.3 F H Pulse Rate 85 89 Blood Pressure 161/89 151/98 02/07/20 02/07/20 02/07/20 01:17 02:00 04:00 Supper Temperature 100.5 F H 100.6 F H Pulse Rate 83 80 98 H Blood Pressure 161/89 167/89 147/83 02/07/20 02/07/20 02/07/20 06:00 08:00 09:36 Supper Temperature 100.8 F H Pulse Rate 103 H 92 H 99 H Blood Pressure 161/87 159/98 139/90 Laboratory Tests 02/06/20 02/07/20 05:00 05:00 WBC 13.1 H 10.8 H Per EMR, overnight, pt had pooling secretion in her BiPAP and thus was changed to Hi-flow. Pt remained lethargic and not following commands. Pt remained febrile. Scopalamine patch placed on 02/04. Q72 hrs. To follow once more alert and responsive. Continue NPO.
--- NOTE | 2020-02-07 11:26 | PN ---
Teaching Attending Note Name of Resident: Kimmie Aquino ATTENDING PHYSICIAN STATEMENT I saw and evaluated the patient. I reviewed the resident's note and discussed the case with the resident. I agree with the resident's findings and plan as documented. SUBJECTIVE: Pt seen and examined in the ICU. Extubated yesterday without incident. Placed on HFOT 30% overnight. More alert, awake but still somnolent. Low grade fevers. OBJECTIVE: Vital Signs Period Temp Pulse Resp BP Sys/Gibbs Pulse Ox Last 24 Hr 98.5 F-100.8 F 73-103 15-29 132-167/75-98 95-100 Intake & Output 02/04/20 02/05/20 02/06/20 02/07/20 23:59 23:59 23:59 23:59 Intake Total 2815.6 1363 1027 Output Total 2850 2100 2500 Balance -34.4 -054 -1472 Weight 166.06 kg 165.47 kg Gen: intubated, sedated Heart: RRR Lung: distant breath sounds Abd: soft, obese Ext: + edema CBC, BMP 02/07/20 05:00 02/07/20 05:00 Active Medications Acetaminophen (Ofirmev Injection -) 1,000 mg IVPB Q6H PRN PRN Reason: FEVER Stop: 02/07/20 22:17 Amino Acids (Prosource No Carb Liquid Pkt) 30 ml NGT QID [facility] Last Admin: 02/07/20 09:23 Dose: Not Given Documented by: Dexamethasone Sodium Phosphate (Decadron Injection -) 4 mg IVPUSH BID [facility] Last Admin: 02/07/20 09:20 Dose: 4 mg Documented by: Hydralazine HCl (Apresoline Injection -) 25 mg IVPUSH Q8H PRN PRN Reason: SBP > 110 IV Flush (Triple Lumen Flush) 4 ml IVPUSH PRN PRN PRN Reason: Protocol Last Admin: 02/06/20 09:48 Dose: 4 ml Documented by: Piperacillin Sod/Tazobactam (Sod 4.5 gm/ Dextrose) 100 mls @ 200 mls/hr IVPB Q6H-IV [facility]; Protocol Last Admin: 02/07/20 09:20 Dose: 200 mls/hr Documented by: Insulin Aspart (Novolog Vial Sliding Scale -) 1 vial SQ Q6HPO [facility]; Protocol Last Admin: 02/07/20 01:17 Dose: Not Given Documented by: Metoprolol Tartrate (Lopressor Injection -) 5 mg IVPUSH Q6H [facility] Last Admin: 02/07/20 01:17 Dose: 5 mg Documented by: Pantoprazole Sodium (Protonix Iv) 40 mg IVPUSH DAILY [facility] Last Admin: 02/07/20 09:23 Dose: 40 mg Documented by: Scopolamine HBr (Transderm-Scop -) 1 patch TD Q72H [facility] Last Admin: 02/05/20 06:09 Dose: 1 patch Documented by: ASSESSMENT AND PLAN: Acute Hypoxic and Hypercapneic Respiratory Failure Upper Airway Obstruction/Soft Tissue Swelling/Hematoma/Thyromegaly Sinusitis Hypertensive Urgency Morbid Obesity Pulmonary HTN HTN DM Likely TEJAL/OHS - taper off decadron - glucose control - continue empiric antibiotics - incentive spirometry - chest PT - titrate HFOT to keep SpO2 >90% - aspiration precautions - DVT/GI prophylaxis - continue ICU monitoring critical care time spent in reviewing chart, evaluating patient and formulating plan 35 min
[2020-02-07] MEDS ORDERED: VANCOMYCIN 1 GM in D5W (PRE-DOCKED) 1,000 MG/250 ML IVPB ONE (12:00)
[2020-02-08] MEDS ORDERED: DEXTROSE 5%-WATER 100 ML IVPB ONE ×3 (00:56→15:26)
[2020-02-08] MEDS ORDERED: PIPERACILLIN/TAZOBACTAM 4.5 GM VIAL IVPB ONE ×2 (00:56→07:51)
[2020-02-08] MEDS: INSULIN SLIDING SCALE (NOVOLOG) 1 VIAL SQ SCH ×5 (01:25→17:58)
[2020-02-08] MEDS: METOPROLOL TARTRATE 5 MG/5 ML VIAL IVPUSH SCH ×4 (01:26→18:12)
[2020-02-08] MEDS: PIPERACILLIN/TAZOB 4.5 GM 4.5 GM in DEXTROSE 5%-WATER 100 ML IVPB SCH ×2 (02:00→08:07)
[2020-02-08] MEDS: SCOPOLAMINE HYDROBROMIDE 1 PATCH PATCH.TD72 TD SCH (06:48)
[2020-02-08 06:50] LABS: BASO % 0.1 % (0-2.0); EOS % 0.5 % (0-4.5); HEMATOCRIT 36.1 % (32.4-45.2); HEMOGLOBIN 10.9 GM/dL (10.7-15.3); LYMPH % 9.3 % (8-40); MCH 25.4 pg (25.7-33.7); MCHC 30.2 g/dl (32.0-36.0); MEAN CELL VOLUME 84.2 fl (80-96); MEAN PLT VOLUME 7.7 fl (7.5-11.1); MONO % 6.6 % (3.8-10.2); NEUT % 83.5 % (42.8-82.8); PLATELET COUNT 297 K/MM3 (134-434); RBC 4.29 M/mm3 (3.60-5.2); RDW 17.3 % (11.6-15.6)
[2020-02-08 07:29] LABS: ALBUMIN 2.6 g/dl (3.4-5.0); BILIRUBIN,TOTAL 0.6 mg/dL (0.2-1); CALCIUM 8.2 mg/dL (8.5-10.1); CREATININE 0.7 mg/dL (0.55-1.3); MAGNESIUM 2.5 mg/dL (1.8-2.4); PHOSPHOROUS 3.6 mg/dL (2.5-4.9); POTASSIUM 3.8 mmol/L (3.5-5.1); TOT PROT 6.4 g/dl (6.4-8.2)
--- NOTE | 2020-02-08 07:32 | PN ---
Physical Exam: SUBJECTIVE: Patient seen and examined. No acute events overnight. Pt tolerated HFOT. Upon my examination, pt tried to speak. She follows commands, squeezes hands and answers to yes/no questions. OBJECTIVE: Vital Signs Period Temp Pulse Resp BP Sys/Gibbs Pulse Ox Last 24 Hr 99.1 F-100.6 F 86-125 16-33 91-159/54-102 88-100 GENERAL: Lethargic. Follows commands. HEENT: NCAT, On high-flow oxygen. LUNGS: Decreased breath sounds b/l HEART: S1, S2 present, regular rate and rhythm, no murmurs. ABDOMEN: Obese. Soft, nondistended, bowel sounds present in all 4 quadrants. EXTREMITIES: warm, well-perfused, edematous in extremities. SCDs in place. SKIN: Warm, dry Laboratory Last Values WBC 10.0 K/mm3 (4.0-10.0) 02/08/20 05:30 RBC 4.29 M/mm3 (3.60-5.2) 02/08/20 05:30 Hgb 10.9 GM/dL (10.7-15.3) 02/08/20 05:30 Hct 36.1 % (32.4-45.2) 02/08/20 05:30 MCV 84.2 fl (80-96) 02/08/20 05:30 MCH 25.4 pg (25.7-33.7) L 02/08/20 05:30 MCHC 30.2 g/dl (32.0-36.0) L 02/08/20 05:30 RDW 17.3 % (11.6-15.6) H 02/08/20 05:30 Plt Count 297 K/MM3 (134-434) 02/08/20 05:30 MPV 7.7 fl (7.5-11.1) 02/08/20 05:30 Absolute Neuts (auto) 8.4 K/mm3 (1.5-8.0) H 02/08/20 05:30 Neutrophils % 83.5 % (42.8-82.8) H 02/08/20 05:30 Neutrophils % (Manual) 73.2 % (42.8-82.8) 02/03/20 05:00 Band Neutrophils % 0.0 % 02/03/20 05:00 Lymphocytes % 9.3 % (8-40) 02/08/20 05:30 Lymphocytes % (Manual) 19.6 % (8-40) D 02/03/20 05:00 Monocytes % 6.6 % (3.8-10.2) 02/08/20 05:30 Monocytes % (Manual) 3 % (3.8-10.2) L 02/03/20 05:00 Eosinophils % 0.5 % (0-4.5) D 02/08/20 05:30 Eosinophils % (Manual) 0.0 % (0-4.5) 02/03/20 05:00 Basophils % 0.1 % (0-2.0) 02/08/20 05:30 Basophils % (Manual) 0.0 % (0-2.0) 02/03/20 05:00 Myelocytes % (Man) 3 % (0-2) H 02/03/20 05:00 Promyelocytes % (Man) 0 % (0-2) 02/03/20 05:00 Blast Cells % (Manual) 0 % (0-0) 02/03/20 05:00 Nucleated RBC % 0 % (0-0) 02/08/20 05:30 Metamyelocytes 0 % (0-2) 02/03/20 05:00 Hypochromia 0 02/03/20 05:00 Platelet Estimate Normal 02/03/20 05:00 Polychromasia 0 02/03/20 05:00 Poikilocytosis 0 02/03/20 05:00 Anisocytosis 0 02/03/20 05:00 Microcytosis 0 02/03/20 05:00 Macrocytosis 0 02/03/20 05:00 Stomatocytes 1+ 01/25/20 18:30 PT with INR 12.50 SEC (9.7-13.0) 01/26/20 07:48 INR 1.06 (0.83-1.09) 01/26/20 07:48 PTT (Actin FS) 28.2 SECONDS (25.2-36.5) 01/26/20 07:48 Fibrinogen 303.0 mg/dL (238-498) 01/25/20 12:09 D-Dimer 8578 ng/ml (0-500) H 01/25/20 12:09 Anticoagulation Therapy No 02/07/20 08:25 Puncture Site Right radial 02/07/20 08:25 Patient Temperature 100.9 02/07/20 08:25 ABG pH 7.468 (7.350-7.450) H 02/07/20 08:25 ABG pCO2 45.60 mmHg (35-45) H 02/07/20 08:25 ABG pO2 92.7 mmHg (80-100) 02/07/20 08:25 ABG HCO3 32.3 mmol/L (22-27) H 02/07/20 08:25 ABG O2 Sat (Measured) 97.4 mmHg (95-98) 02/07/20 08:25 ABG O2 Content No Result Required. 02/07/20 08:25 ABG Base Excess 7.6 mmol/L (-2-2) H 02/07/20 08:25 Jeffrey Test Positive 02/07/20 08:25 Carboxyhemoglobin 0.5 % (0-2) 01/25/20 12:36 Methemoglobin 0.3 % (0-2) 01/25/20 12:20 Patient On Oxygen Yes 02/07/20 08:25 O2 Delivery Device Hf 02/07/20 08:25 Oxygen Flow Rate 40 02/07/20 08:25 Vent Mode 30 02/07/20 08:25 Vent Rate No Result Required. 02/07/20 08:25 Mechanical Rate Y 02/07/20 08:25 PEEP No Result Required. 02/07/20 08:25 Pressure Support Vent No Result Required. 02/07/20 08:25 Sodium 145 mmol/L (136-145) 02/08/20 05:30 Potassium 3.8 mmol/L (3.5-5.1) 02/08/20 05:30 Chloride 104 mmol/L (98-107) 02/08/20 05:30 Carbon Dioxide 32 mmol/L (21-32) 02/08/20 05:30 Anion Gap 9 MMOL/L (8-16) 02/08/20 05:30 BUN 18.0 mg/dL (7-18) 02/08/20 05:30 Creatinine 0.7 mg/dL (0.55-1.3) 02/08/20 05:30 Est GFR (CKD-EPI)AfAm 116.27 02/08/20 05:30 Est GFR (CKD-EPI)NonAf 100.32 02/08/20 05:30 POC Glucometer 93 UNITS (80-120) 02/08/20 11:20 Random Glucose 118 mg/dL (74-106) H 02/08/20 05:30 Lactic Acid 1.2 mmol/L (0.4-2.0) 01/25/20 18:30 Calcium 8.2 mg/dL (8.5-10.1) L 02/08/20 05:30 Phosphorus 3.6 mg/dL (2.5-4.9) 02/08/20 05:30 Magnesium 2.5 mg/dL (1.8-2.4) H 02/08/20 05:30 Total Bilirubin 0.6 mg/dL (0.2-1) 02/08/20 05:30 AST 101 U/L (15-37) H 02/08/20 05:30 ALT 176 U/L (13-61) H 02/08/20 05:30 Alkaline Phosphatase 79 U/L (45-117) 02/08/20 05:30 Troponin I 0.03 ng/ml (0.00-0.05) 01/26/20 07:48 B-Natriuretic Peptide 380.5 pg/ml (5-125) H 01/26/20 06:00 Total Protein 6.4 g/dl (6.4-8.2) 02/08/20 05:30 Albumin 2.6 g/dl (3.4-5.0) L 02/08/20 05:30 Triglycerides 159 mg/dL (0-150) H 02/01/20 06:00 Urine Color Yellow 02/08/20 16:00 Urine Appearance Cloudy 02/08/20 16:00 Urine pH 5.5 (5.0-8.0) 02/08/20 16:00 Ur Specific [place] 1.024 (1.010-1.035) 02/08/20 16:00 Urine Protein 1+ (NEGATIVE) H 02/08/20 16:00 Urine Glucose (UA) Negative (NEGATIVE) 02/08/20 16:00 Urine Ketones Trace (NEGATIVE) H 02/08/20 16:00 Urine Blood 2+ (NEGATIVE) H 02/08/20 16:00 Urine Nitrite Negative (NEGATIVE) 02/08/20 16:00 Urine Bilirubin Negative (NEGATIVE) 02/08/20 16:00 Urine Urobilinogen 1.0 mg/dL (0.2-1.0) 02/08/20 16:00 Ur Leukocyte Esterase 1+ (NEGATIVE) H 02/08/20 16:00 Urine WBC (Auto) 73 /uL (0-25.8) 02/08/20 16:00 Urine RBC (Auto) 298 /uL (0-23.9) 02/08/20 16:00 Urine Casts (Auto) 26 /uL (0-3.1) 02/08/20 16:00 U Epithel Cells (Auto) >36 /uL (0-25.1) 02/08/20 16:00 Urine Bacteria (Auto) 78 /uL (0-1359) 02/08/20 16:00 COVID-19 (AMANDA) Not detected (Not Detected) 01/25/20 12:09 Blood Type O POSITIVE 01/25/20 09:00 Antibody Screen Negative 01/25/20 09:00 Active Medications Amino Acids (Prosource No Carb Liquid Pkt) 30 ml NGT QID ANGIE Last Admin: 02/08/20 17:58 Dose: Not Given Documented by: Enoxaparin Sodium (Lovenox -) 40 mg SQ DAILY [facility] Hydralazine HCl (Apresoline Injection -) 25 mg IVPUSH Q8H PRN PRN Reason: SBP > 110 Last Admin: 02/08/20 16:04 Dose: 25 mg Documented by: IV Flush (Triple Lumen Flush) 4 ml IVPUSH PRN PRN PRN Reason: Protocol Last Admin: 02/06/20 09:48 Dose: 4 ml Documented by: Ceftriaxone Sodium 2 gm/ (Dextrose) 100 mls @ 100 mls/hr IVPB DAILY ANGIE; Protocol Last Admin: 02/08/20 15:36 Dose: 100 mls/hr Documented by: Vancomycin HCl 1,500 mg/ (Dextrose) 500 mls @ 125 mls/hr IVPB Q12H ANGIE; Protocol Last Admin: 02/08/20 16:55 Dose: 125 mls/hr Documented by: Amino Acids (Clinimix -) 1,000 mls @ 42 mls/hr IV Q24H ANGIE Last Admin: 02/08/20 17:07 Dose: 42 mls/hr Documented by: Insulin Aspart (Novolog Vial Sliding Scale -) 1 vial SQ Q6HPO [facility]; Protocol Last Admin: 02/08/20 17:58 Dose: Not Given Documented by: Metoprolol Tartrate (Lopressor Injection -) 5 mg IVPUSH Q6H [facility] Last Admin: 02/08/20 18:12 Dose: 5 mg Documented by: Multivitamins/Minerals (Infuvite Adult -) 10 ml IV DAILY [facility] Last Admin: 02/08/20 17:07 Dose: 10 ml Documented by: Pantoprazole Sodium (Protonix Iv) 40 mg IVPUSH DAILY [facility] Last Admin: 02/08/20 09:15 Dose: 40 mg Documented by: Scopolamine HBr (Transderm-Scop -) 1 patch TD Q72H [facility] Last Admin: 02/08/20 06:48 Dose: 1 patch Documented by: ASSESSMENT/PLAN: Pt is a 49 yo female with PMH HTN, DM, morbid obesity, severe b/l LE venous stasis and severe b/l upper extremity lymphedema secondary to prior breast cancer history for ACDF. Pt became acutely hypotensive and hypoxic 5 minutes into surgery and pt was not responsive to phenylephrine. Team aborted surgery, pt admitted to ICU. No acute events overnight. Pt tolerated HFOT. Upon my examination, pt tried to speak. She follows commands, squeezes hands and answers to yes/no questions. Neuro Aborted ACDF secondary to acute hypoxic respiratory failure -As per neurosurgery, pt is unfit to undergo previously planned spinal surgery. There are no plans to proceed with previously planned procedure during this admission. -Aspiration precautions -remains lethargic, if there is evidence of focal deficits, consider CT head Cardio Hypertension Hypotension possibly secondary to hypoxia during procedure -Off pressors, but now hypertensive w/ SBP >180 -Continue metoprolol, hydralazine. -Off cardene drip Pulm Narrowed tracheal lumen, secondary to hematoma vs. soft tissue swelling vs. thyromegaly Acute hypoxic and hypercapneic respiratory failure -Extubated 02/05 during rounds. Currently on HFOT 30%, tolerating well. Keep SpO2 >90% -CT neck showed slight decrease of swelling/hematoma. -CXR 02/06 persistent fluid, atelectasis at bases with slight improvement in R lung. -c/w scopolamine for secretions -Chest PT -incentive spirometry Renal Lactic acidosis, resolved Hypokalemia, resolved -Monitor electrolytes -monitor I/O's Endo DM -ISS + BGM ID Bacteremia Sinusitis, improved Leukocytosis, improved -Febrile overnight Tmax 100.8 -WBC downtrending -COVID negative -Sputum culture grew moderate Serratia marcescens; Blood culture grew coagulase negative staph - ID consulted. D/c Zosyn. C/w Vancomycin (day 2). Start ceftriaxone (day 1) - f/u cultures Ppx -DVT: lovenox -GI: PPI FEN -No standing fluids -Clinimix & infuvite -Monitor and replete electrolytes -Speech and swallow consulted. Recommended NPO. Lines [facility] 02/07 Family discussion: 02/07 Spoke to sister, Cindy, on telephone. Updated her about pt's status. Dispo: Continue monitoring in ICU. Visit type - Emergency Visit Emergency Visit: Yes ED Registration Date: 01/25/20 Care time: The patient presented to the Emergency Department on the above date and was hospitalized for further evaluation of their emergent condition. - New Patient This patient is new to me today: No - Critical Care Critical Care patient: Yes Total Critical Care Time (in minutes): 37 Critical Care Statement: The care of this patient involved high complexity decision making to prevent further life threatening deterioration of the patient's condition and/or to evaluate & treat vital organ system(s) failure or risk of failure. ATTENDING PHYSICIAN STATEMENT I saw and evaluated the patient. I reviewed the resident's note and discussed the case with the resident. I agree with the resident's findings and plan as documented. SUBJECTIVE: OBJECTIVE: ASSESSMENT AND PLAN:
[2020-02-08] MEDS: AMINO ACIDS/PROTEIN HYDROLYS 30 ML LIQUID.PKT NGT SCH ×4 (09:15→21:32)
[2020-02-08] MEDS: PANTOPRAZOLE SODIUM 40 MG VIAL IVPUSH SCH (09:15)
[2020-02-08] MEDS: DEXAMETHASONE SOD PHOSPHATE 4 MG/1 ML VIAL IVPUSH SCH (09:16)
--- NOTE | 2020-02-08 10:30 | PN ---
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, AIRPORT OPERATIONS SPECIALIST - Note 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: Selected Entries 02/07/20 02/07/20 02/07/20 00:00 01:00 01:17 Supper Temperature 100.3 F H Pulse Rate 85 89 83 Respiratory 22 H 27 H Rate Respiratory Depth Respiratory Effort Blood Pressure O2 Sat by Pulse 100 Oximetry (%) Oxygen Delivery High Flow O2 Method 02/07/20 02/07/20 02/07/20 02:00 04:00 04:25 Supper Temperature 100.5 F H 100.6 F H Pulse Rate 80 98 H Respiratory 27 H 24 H Rate Respiratory Depth Respiratory Effort Blood Pressure O2 Sat by Pulse 100 Oximetry (%) Oxygen Delivery Method 02/07/20 02/07/20 02/07/20 06:00 08:00 08:50 Supper Temperature 100.8 F H Pulse Rate 103 H 92 H Respiratory 25 H 26 H Rate Respiratory Depth Respiratory Effort Blood Pressure O2 Sat by Pulse 100 100 Oximetry (%) Oxygen Delivery Method 02/07/20 02/07/20 02/07/20 09:36 10:00 11:20 Supper NPO Temperature 100.6 F H Pulse Rate 99 H 98 H Respiratory 16 29 H Rate Respiratory Shallow Depth Respiratory Short of Breath Effort Blood Pressure O2 Sat by Pulse 100 100 Oximetry (%) Oxygen Delivery Method 02/07/20 02/07/20 02/07/20 12:00 13:42 14:00 Supper Temperature 99.1 F Pulse Rate 124 H 114 H 117 H Respiratory 26 H 33 H Rate Respiratory Depth Respiratory Effort Blood Pressure O2 Sat by Pulse 88 L 100 Oximetry (%) Oxygen Delivery Method 02/07/20 02/07/20 02/07/20 15:45 16:00 17:05 Supper Temperature Pulse Rate 104 H Respiratory 20 Rate Respiratory Depth Respiratory Effort Blood Pressure O2 Sat by Pulse 100 100 100 Oximetry (%) Oxygen Delivery Method 02/07/20 02/07/20 02/07/20 18:00 20:00 20:14 Supper Temperature 99.3 F 99.4 F Pulse Rate 106 H 106 H 104 H Respiratory 20 21 H Rate Respiratory Depth Respiratory Effort Blood Pressure O2 Sat by Pulse 100 100 100 Oximetry (%) Oxygen Delivery High Flow O2 Method 02/07/20 02/07/20 02/07/20 20:16 21:00 21:16 Supper Temperature 99.4 F Pulse Rate 89 89 Respiratory 25 H Rate Respiratory Shallow Depth Respiratory Short of Breath Effort Blood Pressure O2 Sat by Pulse 100 100 Oximetry (%) Oxygen Delivery High Flow O2 Method 02/07/20 02/08/20 02/08/20 22:00 00:00 00:33 Supper NPO Temperature 99.7 F H Pulse Rate 99 H Respiratory 27 H Rate Respiratory Depth Respiratory Effort Blood Pressure 126/94 O2 Sat by Pulse 100 Oximetry (%) Oxygen Delivery Method 02/08/20 02/08/20 02/08/20 01:26 02:00 04:00 Supper Temperature 100.3 F H Pulse Rate Respiratory Rate Respiratory Depth Respiratory Effort Blood Pressure 153/98 147/96 123/83 O2 Sat by Pulse 100 Oximetry (%) Oxygen Delivery Method 02/08/20 02/08/20 02/08/20 04:30 06:00 06:48 Supper Temperature 99.4 F Pulse Rate Respiratory Rate Respiratory Depth Respiratory Effort Blood Pressure 153/102 H 153/102 H O2 Sat by Pulse 100 Oximetry (%) Oxygen Delivery Method 02/08/20 02/08/20 02/08/20 08:00 08:20 08:33 Supper Temperature 99.7 F H Pulse Rate Respiratory Rate Respiratory Depth Respiratory Effort Blood Pressure 160/99 148/96 O2 Sat by Pulse 100 100 Oximetry (%) Oxygen Delivery Method 02/08/20 08:39 Supper Temperature Pulse Rate Respiratory Rate Respiratory Depth Respiratory Non-Labored Effort Blood Pressure O2 Sat by Pulse 100 Oximetry (%) Oxygen Delivery High Flow O2 Method Laboratory Tests 02/05/20 02/06/20 02/07/20 05:27 05:00 05:00 WBC 9.7 13.1 H 10.8 H 02/08/20 05:30 WBC 10.0 Per nursing last night-pt remains lethargic at times, is unable to verbalize and makes little attempt to do so. cannot move extremities with and without commands. pt cannot swallow saliva, it is either pooling in her mouth or it is dribbling out of the side of her mouth. She is constantly needing suctioning to clear her airway. pt coughing more frequently tonight. pt with low grade temp 100.3 Seen bedside in ICU, more awake, mouthing words occasioinally but aphonic/no voicing. No9 pooling of saliva noted. New scopalamine patch placed this am Continue NPO Consider Clinimix if not med contraindicated. On Hi-rocky; NGT contraindicated.
--- NOTE | 2020-02-08 11:16 | PN ---
Teaching Attending Note Name of Resident: Kimmie Aquino ATTENDING PHYSICIAN STATEMENT I saw and evaluated the patient. I reviewed the resident's note and discussed the case with the resident. I agree with the resident's findings and plan as documented. SUBJECTIVE: Pt seen and examined in the ICU. Remains on HFOT 70%, saturating well. More jess rt, awake but still somnolent. Low grade fevers. Blood cultures growing coag neg staph. OBJECTIVE: Vital Signs Period Temp Pulse Resp BP Sys/Gibbs Pulse Ox Last 24 Hr 99.1 F-100.3 F 86-125 16-33 91-160/54-102 88-100 Intake & Output 02/05/20 02/06/20 02/07/20 02/08/20 23:59 23:59 23:59 23:59 Intake Total 1363 1027 320 200 Output Total 2100 2500 1100 1200 Balance -737 -1473 -780 -1000 Weight 165.47 kg 165.47 kg Gen: intubated, sedated Heart: RRR Lung: distant breath sounds Abd: soft, obese Ext: + edema CBC, BMP 02/08/20 05:30 02/08/20 05:30 Active Medications Amino Acids (Prosource No Carb Liquid Pkt) 30 ml NGT QID ANGIE Last Admin: 02/08/20 09:15 Dose: Not Given Documented by: Hydralazine HCl (Apresoline Injection -) 25 mg IVPUSH Q8H PRN PRN Reason: SBP > 110 IV Flush (Triple Lumen Flush) 4 ml IVPUSH PRN PRN PRN Reason: Protocol Last Admin: 02/06/20 09:48 Dose: 4 ml Documented by: Piperacillin Sod/Tazobactam (Sod 4.5 gm/ Dextrose) 100 mls @ 200 mls/hr IVPB Q6H-IV ANGIE; Protocol Last Admin: 02/08/20 08:07 Dose: 200 mls/hr Documented by: Insulin Aspart (Novolog Vial Sliding Scale -) 1 vial SQ Q6HPO ANGIE; Protocol Last Admin: 02/08/20 05:48 Dose: Not Given Documented by: Metoprolol Tartrate (Lopressor Injection -) 5 mg IVPUSH Q6H ANGIE Last Admin: 02/08/20 06:48 Dose: 5 mg Documented by: Pantoprazole Sodium (Protonix Iv) 40 mg IVPUSH DAILY ANGIE Last Admin: 02/08/20 09:15 Dose: 40 mg Documented by: Scopolamine HBr (Transderm-Scop -) 1 patch TD Q72H [facility] Last Admin: 02/08/20 06:48 Dose: 1 patch Documented by: ASSESSMENT AND PLAN: Acute Hypoxic and Hypercapneic Respiratory Failure improving Upper Airway Obstruction/Soft Tissue Swelling/Hematoma/Thyromegaly Sinusitis Gram Positive Bacteremia Hypertensive Urgency Morbid Obesity Pulmonary HTN HTN DM Likely TEJAL/OHS - taper off decadron - glucose control - continue antibiotics - f/u cultures - d/c central line - incentive spirometry - chest PT - titrate HFOT to keep SpO2 >90% - aspiration precautions - DVT/GI prophylaxis - continue ICU monitoring critical care time spent in reviewing chart, evaluating patient and formulating plan 35 min
--- NOTE | 2020-02-08 12:40 | CON.ID ---
Consult Consult Specialty:: infectious disease Referred by:: dr meeks Reason for Consultation:: bacteremia - History of Present Illness Chief Complaint: positive blood cultures History of Present Illness: 49 yo female with obesity, breast cancer admitted after aborted neurosurgic surgery- she was in the OR for a C5 corpectomy- she developed hypotension and hypoxia and the procedure was aborted 01/24 she was transferred to the ICU intubated and sedated- w/u for PE was negative she was treated with iv cefazolin periop then ceftriaxone 01/31 to 02/02. she was extubated two days ago-02/05 low grade fevers since 02/04 has been on steroids since 01/28, d/ted today- for neck swelling that has improved (probable hematoma) she is alert without complaints cvp left IJ placed 01/24 and changed to Right IJ on 02/01 cultures sent 02/05 from central line for fever- now growing 10/06 bottle coag negative staph received vancomycin one gram yesterday started on zosyn 02/05 - History Source History Provided By: Patient, Medical Record Limitations to Obtaining History: Clinical Condition - Past Medical History Cardio/Vascular: Yes: HTN ...LMP: 08/24/17 ...LMP Comment: LMP>1year Heme/Onc: Yes: Cancer (breast cancer) Rheumatology: Yes: Rheumatoid Arthritis Additional Medical History: bilateral venous stasis. morbid obesity - Past Surgical History Additional Surgical History: s/p bilateral mastectomy and reconstruction 2014. s/p gastric lap band - Alcohol/Substance Use Hx Alcohol Use: No - Smoking History Smoking history: Never smoked Have you smoked in the past 12 months: No - Social History ADL: Independent History of Recent Travel: No Home Medications - Allergies Allergies/Adverse Reactions: Allergies Allergy/AdvReac Type Severity Reaction Status Date / Time CHELY Inhibitors Allergy "swelling Verified 01/25/20 08:18 of tongue and face" lisinopril [From Zestril] Allergy Angioedema Verified 01/25/20 08:18 - Home Medications Home Medications: Ambulatory Orders Metoprolol Succinate [Toprol Xl] 150 mg PO HS 09/20/15 Gabapentin [Neurontin] 300 mg PO AM 08/30/17 Baclofen 10 mg PO DAILY 01/01/20 Clonidine Patch [Catapres Tts Patch -] 0.2 mg TD WEEKLY 01/24/20 Doxepin HCl [Sinequan -] 25 mg PO HS 01/24/20 Fluticasone Propionate [Flovent Diskus] 50 mcg IH DAILY 01/24/20 Gabapentin 600 mg PO HS 01/24/20 Hydralazine HCl 50 mg PO Q8H 01/24/20 Omeprazole Magnesium [Prilosec Otc] 20 mg PO DAILY 01/24/20 Rosuvastatin [Crestor -] 10 mg PO DAILY 01/24/20 Sitagliptin Phosphate [Januvia] 100 mg PO DAILY 01/24/20 Chlorthalidone 25 mg PO DAILY 02/02/20 Folic Acid 1 mg PO DAILY 02/02/20 Furosemide 40 mg PO DAILY 02/02/20 Leflunomide 20 mg PO DAILY 02/02/20 Mirabegron [Myrbetriq] 50 mg PO DAILY 02/02/20 Oxybutynin Chloride [Oxybutynin Chloride ER] 10 mg PO DAILY 02/02/20 Family Medical History Family History: Unable to Obtain Review of Systems Unable to obtain ROS, reason: unable to obtain - Review of Systems HENT: reports: No Symptoms Cardiovascular: reports: No Symptoms. denies: Chest Pain, Shortness of Breath Gastrointestinal: reports: No Symptoms. denies: Abdominal Pain Physical Exam Vital Signs: Vital Signs Temperature 100.0 F H 02/08/20 12:00 Pulse Rate 96 H 02/08/20 12:19 Respiratory Rate 02/08/20 12:00 Blood Pressure 163/102 H 02/08/20 12:19 O2 Sat by Pulse Oximetry (%) 100 02/08/20 12:00 Constitutional: Yes: Well Nourished, No Distress, Calm, Obese Eyes: Yes: Conjunctiva Clear HENT: Yes: Atraumatic, Normocephalic. No: Thrush Neck: Yes: Supple, Other (right IJ- no erythema noted at IV site some fullness right neck no fluctuance) Cardiovascular: Yes: Regular Rate and Rhythm Respiratory: Yes: CTA Bilaterally, Diminished (bilaterally) Gastrointestinal: Yes: WNL, Normal Bowel Sounds, Soft Breast(s): Yes: Other (bilateral surgical incsions both breasts) Extremities: Yes: Other (bilateral venous stasis) Edema: No Peripheral Pulses WNL: Yes Psychiatric: Yes: Alert Labs: CBC, BMP 02/08/20 05:30 02/08/20 05:30 Microbiology 02/06/20 12:20 Blood - Central Line Blood Culture - Preliminary Staphylococcus Coagulase Neg 02/06/20 12:20 Blood - Central Line Blood Culture - Preliminary Staphylococcus Coagulase Neg 02/05/20 12:00 Sputum - Endotrachea Suction/Ventilator Gram Stain - Final 02/05/20 12:00 Sputum - Endotrachea Suction/Ventilator Sputum Culture - Final Serratia Marcescens Beta Hem Streptococcus Group F Imaging - Results Chest X-ray: Report Reviewed, Image Reviewed (patchy infiltrates) Problem List - Problems (1) Fever Code(s): R50.9 - FEVER, UNSPECIFIED (2) Bacteremia Code(s): R78.81 - BACTEREMIA (3) Pneumonia Code(s): J18.9 - PNEUMONIA, UNSPECIFIED ORGANISM (4) Obesity Code(s): E66.9 - OBESITY, UNSPECIFIED (5) Cervical spine disease Code(s): M48.9 - SPONDYLOPATHY, UNSPECIFIED (6) Breast cancer Code(s): C50.919 - MALIGNANT NEOPLASM OF UNSP SITE OF UNSPECIFIED FEMALE BREAST (7) History of breast cancer Code(s): Z85.3 - PERSONAL HISTORY OF MALIGNANT NEOPLASM OF BREAST Assessment/Plan fevers- ?pneumonia, ?catheter related bacteremia- 10/06/ bottles drawn from central line with coag neg staph ' would change line if possible repeat blood cultures, start vancomycin 1250 bid after repeat blood cultures are sent d/c zosyn can switch to rocephin based on sensitivities of the sputum culture d/w spud driller and icu team
--- NOTE | 2020-02-08 13:09 | PN ---
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 (short form) - Note 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: Patient extubated with positive blood cultures. Case reviewed with Dr. Polk of Anesthesiology who agrees that patient is not currently fit to undergo the previously planned spinal procedure. There are no plans to proceed with the surgery during this admission.
[2020-02-08] MEDS ORDERED: VANCOMYCIN HCL 1,250 MG in DEXTROSE 5%-WATER - 250 ML IVPB SCH (13:15)
[2020-02-08] MEDS: CEFTRIAXONE 2 GM in DEXTROSE 5%-WATER 100 ML IVPB SCH (15:36)
--- NOTE | 2020-02-08 16:18 | PROC ---
Central Line Insertion Indication: Poor Venous Access Risks and Benefits Explained: Yes Consent on Chart: Yes Central Line: Triple Lumen Catheter Anesthesia: 1% Lidocaine Sterile Technique: Yes Ultrasound Guided Assistance: Yes Position: Left Internal Jugular Post Insertion: Yes: Bilateral Breath Sounds, Bilateral Chest Expansion, Chest X-Ray Ordered Sterile Dressing Applied: Yes
[2020-02-08] MEDS ORDERED: FUROSEMIDE 40 MG/4 ML INJECTABLE VIAL IVPUSH ONE (16:41)
[2020-02-08] MEDS: VANCOMYCIN HCL 1,500 MG in DEXTROSE 5%-WATER - 500 ML IVPB SCH (16:55)
[2020-02-08] MEDS: AMINO ACIDS 4.25%/D5W 1,000 ML IV SCH (17:07)
[2020-02-08] MEDS: MULTIVIT INJ. ADULT COMBO WITH VIT K 1 COMBO 10 ML VIAL IV SCH (17:07)
[2020-02-08 17:37] LABS: EPI CELLS >36 /uL (0-25.1); HYALINE CASTS 26 /uL (0-3.1); PH,URINE 5.5 (5.0-8.0); URINE APPEARANCE CLOUDY; URINE BACTERIA 78 /uL (0-1359); URINE BILIRUBIN NEGATIVE (NEGATIVE); URINE COLOR YELLOW; URINE GLUCOSE (UA) NEGATIVE (NEGATIVE); URINE KETONE TRACE (NEGATIVE); URINE LEUK ESTERASE 1+ (NEGATIVE); URINE NITRITE NEGATIVE (NEGATIVE); URINE PROTEIN 1+ (NEGATIVE); URINE RBC 298 /uL (0-23.9); URINE WBC 73 /uL (0-25.8)
[2020-02-09] MEDS: METOPROLOL TARTRATE 5 MG/5 ML VIAL IVPUSH SCH ×4 (00:56→19:05)
[2020-02-09] MEDS: INSULIN SLIDING SCALE (NOVOLOG) 1 VIAL SQ SCH ×4 (00:56→18:54)
[2020-02-09] MEDS ORDERED: PT OWN MED DRAWER 7, Y5N ONE ×6 (01:06→18:42)
[2020-02-09] MEDS: VANCOMYCIN HCL 1,500 MG in DEXTROSE 5%-WATER - 500 ML IVPB SCH ×2 (02:20→14:48)
[2020-02-09 07:08] LABS: BASO % 0.1 % (0-2.0); EOS % 2.2 % (0-4.5); HEMATOCRIT 36.1 % (32.4-45.2); LYMPH % 20.5 % (8-40); MCH 25.5 pg (25.7-33.7); MCHC 30.4 g/dl (32.0-36.0); MEAN CELL VOLUME 83.7 fl (80-96); MEAN PLT VOLUME 7.7 fl (7.5-11.1); MONO % 12.2 % (3.8-10.2); PLATELET COUNT 257 K/MM3 (134-434); RBC 4.31 M/mm3 (3.60-5.2); RDW 17.4 % (11.6-15.6); WHITE BLOOD COUNT 6.9 K/mm3 (4.0-10.0)
[2020-02-09 07:37] LABS: ALBUMIN 2.7 g/dl (3.4-5.0); BILIRUBIN,TOTAL 0.4 mg/dL (0.2-1); BLOOD UREA NITROGEN 14.4 mg/dL (7-18); CALCIUM 8.2 mg/dL (8.5-10.1); CREATININE 0.5 mg/dL (0.55-1.3); MAGNESIUM 2.1 mg/dL (1.8-2.4); POTASSIUM 3.1 mmol/L (3.5-5.1); TOT PROT 6.4 g/dl (6.4-8.2)
[2020-02-09] MEDS ORDERED: POTASSIUM PHOSPHATE 15 MM in DEXTROSE 5%-WATER - 250 ML IVPB ONE (07:59)
[2020-02-09] MEDS ORDERED: POTASSIUM CHLORIDE 20 MEQ PREMIX IVPB 100 ML IVPB SCH (08:00)
--- NOTE | 2020-02-09 08:23 | PN ---
Physical Exam: SUBJECTIVE: Patient seen and examined. No acute events overnight. Pt has been afebrile overnight. She still follow commands and answers to yes or no questions. OBJECTIVE: Vital Signs Period Temp Pulse Resp BP Sys/Gibbs Pulse Ox Last 24 Hr 96.9 F-100.0 F 80-110 14-29 85-169/48-110 98-100 General: Follows commands. Opens eyes to voice. Lethargic. Not in acute distress. HEENT: NCAT, EOMI, on HFOT, dry mucous membranes Cardio: regular rate and rhythm, no murmurs Pulmonary: Decreased breath sounds at the bases b/l GI: Obese, soft, nontender to palpation. Bowel sounds present in all 4 quadrants. Extremities: warm, well-perfused, edematous in all extremities. SCD's in place. Skin: warm, dry Laboratory Last Values WBC 6.9 K/mm3 (4.0-10.0) 02/09/20 06:20 RBC 4.31 M/mm3 (3.60-5.2) 02/09/20 06:20 Hgb 11.0 GM/dL (10.7-15.3) 02/09/20 06:20 Hct 36.1 % (32.4-45.2) 02/09/20 06:20 MCV 83.7 fl (80-96) 02/09/20 06:20 MCH 25.5 pg (25.7-33.7) L 02/09/20 06:20 MCHC 30.4 g/dl (32.0-36.0) L 02/09/20 06:20 RDW 17.4 % (11.6-15.6) H 02/09/20 06:20 Plt Count 257 K/MM3 (134-434) 02/09/20 06:20 MPV 7.7 fl (7.5-11.1) 02/09/20 06:20 Absolute Neuts (auto) 4.5 K/mm3 (1.5-8.0) 02/09/20 06:20 Neutrophils % 65.0 % (42.8-82.8) D 02/09/20 06:20 Neutrophils % (Manual) 73.2 % (42.8-82.8) 02/03/20 05:00 Band Neutrophils % 0.0 % 02/03/20 05:00 Lymphocytes % 20.5 % (8-40) D 02/09/20 06:20 Lymphocytes % (Manual) 19.6 % (8-40) D 02/03/20 05:00 Monocytes % 12.2 % (3.8-10.2) H D 02/09/20 06:20 Monocytes % (Manual) 3 % (3.8-10.2) L 02/03/20 05:00 Eosinophils % 2.2 % (0-4.5) D 02/09/20 06:20 Eosinophils % (Manual) 0.0 % (0-4.5) 02/03/20 05:00 Basophils % 0.1 % (0-2.0) 02/09/20 06:20 Basophils % (Manual) 0.0 % (0-2.0) 02/03/20 05:00 Myelocytes % (Man) 3 % (0-2) H 02/03/20 05:00 Promyelocytes % (Man) 0 % (0-2) 02/03/20 05:00 Blast Cells % (Manual) 0 % (0-0) 02/03/20 05:00 Nucleated RBC % 0 % (0-0) 02/09/20 06:20 Metamyelocytes 0 % (0-2) 02/03/20 05:00 Hypochromia 0 02/03/20 05:00 Platelet Estimate Normal 02/03/20 05:00 Polychromasia 0 02/03/20 05:00 Poikilocytosis 0 02/03/20 05:00 Anisocytosis 0 02/03/20 05:00 Microcytosis 0 02/03/20 05:00 Macrocytosis 0 02/03/20 05:00 Stomatocytes 1+ 01/25/20 18:30 PT with INR 12.50 SEC (9.7-13.0) 01/26/20 07:48 INR 1.06 (0.83-1.09) 01/26/20 07:48 PTT (Actin FS) 28.2 SECONDS (25.2-36.5) 01/26/20 07:48 Fibrinogen 303.0 mg/dL (238-498) 01/25/20 12:09 D-Dimer 8578 ng/ml (0-500) H 01/25/20 12:09 Anticoagulation Therapy No 08/05/20 08:25 Puncture Site Right radial 02/07/20 08:25 Patient Temperature 100.9 02/07/20 08:25 ABG pH 7.468 (7.350-7.450) H 02/07/20 08:25 ABG pCO2 45.60 mmHg (35-45) H 02/07/20 08:25 ABG pO2 92.7 mmHg (80-100) 02/07/20 08:25 ABG HCO3 32.3 mmol/L (22-27) H 02/07/20 08:25 ABG O2 Sat (Measured) 97.4 mmHg (95-98) 02/07/20 08:25 ABG O2 Content No Result Required. 02/07/20 08:25 ABG Base Excess 7.6 mmol/L (-2-2) H 02/07/20 08:25 Jeffrey Test Positive 02/07/20 08:25 Carboxyhemoglobin 0.5 % (0-2) 01/25/20 12:36 Methemoglobin 0.3 % (0-2) 01/25/20 12:20 Patient On Oxygen Yes 02/07/20 08:25 O2 Delivery Device Hf 02/07/20 08:25 Oxygen Flow Rate 40 02/07/20 08:25 Vent Mode 30 02/07/20 08:25 Vent Rate No Result Required. 02/07/20 08:25 Mechanical Rate Y 02/07/20 08:25 PEEP No Result Required. 02/07/20 08:25 Pressure Support Vent No Result Required. 02/07/20 08:25 Sodium 143 mmol/L (136-145) 02/09/20 06:20 Potassium 3.1 mmol/L (3.5-5.1) L 02/09/20 06:20 Chloride 99 mmol/L (98-107) 02/09/20 06:20 Carbon Dioxide 34 mmol/L (21-32) H 02/09/20 06:20 Anion Gap 10 MMOL/L (8-16) 02/09/20 06:20 BUN 14.4 mg/dL (7-18) 02/09/20 06:20 Creatinine 0.5 mg/dL (0.55-1.3) L 02/09/20 06:20 Est GFR (CKD-EPI)AfAm 128.97 02/09/20 06:20 Est GFR (CKD-EPI)NonAf 111.28 02/09/20 06:20 POC Glucometer 141 UNITS (80-120) 02/09/20 12:12 Random Glucose 159 mg/dL (74-106) H 02/09/20 06:20 Lactic Acid 1.2 mmol/L (0.4-2.0) 01/25/20 18:30 Calcium 8.2 mg/dL (8.5-10.1) L 02/09/20 06:20 Phosphorus 2.0 mg/dL (2.5-4.9) L 02/09/20 06:20 Magnesium 2.1 mg/dL (1.8-2.4) 02/09/20 06:20 Total Bilirubin 0.4 mg/dL (0.2-1) 02/09/20 06:20 AST 25 U/L (15-37) 02/09/20 06:20 ALT 106 U/L (13-61) H 02/09/20 06:20 Alkaline Phosphatase 70 U/L (45-117) 02/09/20 06:20 Troponin I 0.03 ng/ml (0.00-0.05) 01/26/20 07:48 B-Natriuretic Peptide 380.5 pg/ml (5-125) H 01/26/20 06:00 Total Protein 6.4 g/dl (6.4-8.2) 02/09/20 06:20 Albumin 2.7 g/dl (3.4-5.0) L 02/09/20 06:20 Triglycerides 159 mg/dL (0-150) H 02/01/20 06:00 Urine Color Yellow 02/08/20 16:00 Urine Appearance Cloudy 02/08/20 16:00 Urine pH 5.5 (5.0-8.0) 02/08/20 16:00 Ur Specific Fowler 1.024 (1.010-1.035) 02/08/20 16:00 Urine Protein 1+ (NEGATIVE) H 02/08/20 16:00 Urine Glucose (UA) Negative (NEGATIVE) 02/08/20 16:00 Urine Ketones Trace (NEGATIVE) H 02/08/20 16:00 Urine Blood 2+ (NEGATIVE) H 02/08/20 16:00 Urine Nitrite Negative (NEGATIVE) 02/08/20 16:00 Urine Bilirubin Negative (NEGATIVE) 02/08/20 16:00 Urine Urobilinogen 1.0 mg/dL (0.2-1.0) 02/08/20 16:00 Ur Leukocyte Esterase 1+ (NEGATIVE) H 02/08/20 16:00 Urine WBC (Auto) 73 /uL (0-25.8) 02/08/20 16:00 Urine RBC (Auto) 298 /uL (0-23.9) 02/08/20 16:00 Urine Casts (Auto) 26 /uL (0-3.1) 02/08/20 16:00 U Pathogenic Cast Auto None /lpf (NEGATIVE) 02/08/20 16:00 U Epithel Cells (Auto) >36 /uL (0-25.1) 02/08/20 16:00 U Sm Round Cell (Auto) None 02/08/20 16:00 Urine Bacteria (Auto) 78 /uL (0-1359) 02/08/20 16:00 COVID-19 (AMANDA) Not detected (Not Detected) 01/25/20 12:09 Blood Type O POSITIVE 01/25/20 09:00 Antibody Screen Negative 01/25/20 09:00 Active Medications Enoxaparin Sodium (Lovenox -) 40 mg SQ DAILY ANGIE Last Admin: 02/09/20 09:14 Dose: 40 mg Documented by: Hydralazine HCl (Apresoline Injection -) 25 mg IVPUSH Q8H PRN PRN Reason: SBP > 110 Last Admin: 02/08/20 16:04 Dose: 25 mg Documented by: IV Flush (Triple Lumen Flush) 4 ml IVPUSH PRN PRN PRN Reason: Protocol Last Admin: 02/06/20 09:48 Dose: 4 ml Documented by: Ceftriaxone Sodium 2 gm/ (Dextrose) 100 mls @ 100 mls/hr IVPB DAILY ANGIE; Protocol Last Admin: 02/09/20 09:08 Dose: 100 mls/hr Documented by: Vancomycin HCl 1,500 mg/ (Dextrose) 500 mls @ 125 mls/hr IVPB Q12H ANGIE; Protocol Last Admin: 02/09/20 14:48 Dose: 125 mls/hr Documented by: Amino Acids (Clinimix -) 1,000 mls @ 42 mls/hr IV Q24H ANGIE Last Admin: 02/08/20 17:07 Dose: 42 mls/hr Documented by: Insulin Aspart (Novolog Vial Sliding Scale -) 1 vial SQ Q6HPO [facility]; Protocol Last Admin: 02/09/20 12:15 Dose: Not Given Documented by: Metoprolol Tartrate (Lopressor Injection -) 5 mg IVPUSH Q6H [facility] Last Admin: 02/09/20 12:06 Dose: 5 mg Documented by: Multivitamins/Minerals (Infuvite Adult -) 10 ml IV DAILY [facility] Last Admin: 02/09/20 10:04 Dose: Not Given Documented by: Pantoprazole Sodium (Protonix Iv) 40 mg IVPUSH DAILY [facility] Last Admin: 02/09/20 09:13 Dose: 40 mg Documented by: Scopolamine HBr (Transderm-Scop -) 1 patch TD Q72H [facility] Last Admin: 02/08/20 06:48 Dose: 1 patch Documented by: ASSESSMENT/PLAN: Pt is a 49 yo female with PMH HTN, DM, morbid obesity, severe b/l LE venous stasis and severe b/l upper extremity lymphedema secondary to prior breast cancer history for ACDF. Pt became acutely hypotensive and hypoxic 5 minutes into surgery and pt was not responsive to phenylephrine. Team aborted surgery, pt admitted to ICU. No acute events overnight. Pt tolerated HFOT. Upon my examination, pt tried to speak. She follows commands, squeezes hands and answers to yes/no questions. No acute events overnight. Neuro Aborted ACDF secondary to acute hypoxic respiratory failure -As per neurosurgery, pt is unfit to undergo previously planned spinal surgery. There are no plans to proceed with previously planned procedure during this admission. -Aspiration precautions -remains lethargic, if there is evidence of focal deficits, consider CT head Cardio Hypertension Hypotension possibly secondary to hypoxia during procedure -Off pressors, but now hypertensive w/ SBP >180 -Continue metoprolol, hydralazine. -Off cardene drip Pulm Narrowed tracheal lumen, secondary to hematoma vs. soft tissue swelling vs. thyromegaly Acute hypoxic and hypercapneic respiratory failure -Extubated 02/05. Currently on HFOT 50% at 40L/min, tolerating well. Keep SpO2 >90%. -CT neck showed slight decrease of swelling/hematoma. -CXR 02/08 showed NGT placement in satisfactory location -c/w scopolamine for secretions -Chest PT -incentive spirometry GI - Speech and swallow eval done. NPO for now. - Weapons Specialist consulted. Clinimix and infuvite provide insufficient calories. Insert NG tube and follow recommended diet. Renal Lactic acidosis, resolved Hypokalemia, resolved -Monitor electrolytes -monitor I/O's Endo DM -ISS + BGM ID Bacteremia Sinusitis, improved Leukocytosis, improved -Febrile overnight Tmax 100.8 -WBC downtrending -COVID negative -Sputum culture grew moderate Serratia marcescens; Blood culture grew coagulase negative staph - ID consulted. D/c Zosyn. C/w Vancomycin (day 3) and ceftriaxone (day 2). F/u vanc trough - f/u cultures Ppx -DVT: lovenox -GI: PPI FEN -No standing fluids -Clinimix & infuvite -Monitor and replete electrolytes -Speech and swallow consulted. Recommended NPO. LTD - [facility] 02/07 - NGT 02/08 Dispo: Transfer for further management. Visit type - Emergency Visit Emergency Visit: Yes ED Registration Date: 01/25/20 Care time: The patient presented to the Emergency Department on the above date and was hospitalized for further evaluation of their emergent condition. - New Patient This patient is new to me today: No - Critical Care Critical Care patient: Yes Total Critical Care Time (in minutes): 37 Critical Care Statement: The care of this patient involved high complexity decision making to prevent further life threatening deterioration of the patient's condition and/or to evaluate & treat vital organ system(s) failure or risk of failure. ATTENDING PHYSICIAN STATEMENT I saw and evaluated the patient. I reviewed the resident's note and discussed the case with the resident. I agree with the resident's findings and plan as documented. SUBJECTIVE: OBJECTIVE: ASSESSMENT AND PLAN:
[2020-02-09] MEDS ORDERED: DEXTROSE 5%-WATER 100 ML IVPB ONE (09:07)
[2020-02-09] MEDS: CEFTRIAXONE 2 GM in DEXTROSE 5%-WATER 100 ML IVPB SCH (09:08)
[2020-02-09] MEDS: PANTOPRAZOLE SODIUM 40 MG VIAL IVPUSH SCH (09:13)
[2020-02-09] MEDS ORDERED: ENOXAPARIN NA (PORCINE) 40 MG/0.4 ML DISP.SYRIN SQ SCH (10:00)
[2020-02-09] MEDS: MULTIVIT INJ. ADULT COMBO WITH VIT K 1 COMBO 10 ML VIAL IV SCH (10:04)
--- NOTE | 2020-02-09 11:02 | PN ---
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 (short form) - Note 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: doing well no complaints s/p central line change yesterday blood cultures repeated Vital Signs Period Temp Pulse Resp BP Sys/Gibbs Pulse Ox Last 24 Hr 96.9 F-100.0 F 80-110 14-29 85-169/48-110 98-100 high flow oxyen awake responsive cor-rrr lungs decreased bs at bases abd soft,nt ext +edema of the hands venous stasis CBC, BMP 02/09/20 06:20 02/09/20 06:20 Microbiology 02/06/20 12:20 Blood - Central Line Blood Culture - Preliminary Staphylococcus Coagulase Neg 02/06/20 12:20 Blood - Central Line Blood Culture - Preliminary Staphylococcus Coagulase Neg 02/05/20 12:00 Sputum - Endotrachea Suction/Ventilator Gram Stain - Final 02/05/20 12:00 Sputum - Endotrachea Suction/Ventilator Sputum Culture - Final Serratia Marcescens Beta Hem Streptococcus Group F a/p bacteremia-SCN pneumonia obesity s/p resp failure continue vanco/rocephin repeat blood cultures pending vanco trough ordered for today encourage incentive spirometry OOB Problem List - Problems (1) Fever Code(s): R50.9 - FEVER, UNSPECIFIED (2) Bacteremia Code(s): R78.81 - BACTEREMIA (3) Pneumonia Code(s): J18.9 - PNEUMONIA, UNSPECIFIED ORGANISM (4) Obesity Code(s): E66.9 - OBESITY, UNSPECIFIED (5) Cervical spine disease Code(s): M48.9 - SPONDYLOPATHY, UNSPECIFIED (6) Breast cancer Code(s): C50.919 - MALIGNANT NEOPLASM OF UNSP SITE OF UNSPECIFIED FEMALE BREAST (7) History of breast cancer Code(s): Z85.3 - PERSONAL HISTORY OF MALIGNANT NEOPLASM OF BREAST
--- NOTE | 2020-02-09 11:54 | PN ---
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, [employer] - Note 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: Selected Entries 02/08/20 02/09/20 02/09/20 10:00 00:00 00:56 Lunch NPO Temperature Pulse Rate 80 103 H Blood Pressure 85/48 L 108/69 02/09/20 02/09/20 02/09/20 02:00 04:00 06:00 Lunch Temperature 99.0 F Pulse Rate 95 H 104 H 88 Blood Pressure 144/81 131/73 107/77 02/09/20 02/09/20 02/09/20 06:08 08:00 08:33 Lunch Temperature 98.9 F Pulse Rate 102 H 97 H 89 Blood Pressure 115/77 103/67 02/09/20 10:00 Lunch Temperature 98.3 F Pulse Rate 98 H Blood Pressure 131/85 Laboratory Tests 02/09/20 06:20 WBC 6.9 More alert, responsive, slow to respond. Slightly audible/dysphonic today, on hi rocky. Was aphonic yesterday. No pooling of saliva, new Scopalamine patch placed yesterday. Swallowing saliva with effort, grimace, denies pain. Clinimixd ordered. Suggest continue NPO, with hope for continued improvement over the weekend, reassess/maybe MBS Wednesday.
[2020-02-09] MEDS ORDERED: METOPROLOL TARTRATE 5 MG/5 ML VIAL IVPUSH ONE (12:42)
--- NOTE | 2020-02-09 13:26 | PN ---
Teaching Attending Note Name of Resident: Kimmie Aquino ATTENDING PHYSICIAN STATEMENT I saw and evaluated the patient. I reviewed the resident's note and discussed the case with the resident. I agree with the resident's findings and plan as documented. SUBJECTIVE: Patient seen and examined in the ICU. Remains on HFOT 40L & 50% FiO2. No pressors. Sinus Tachycardia. OBJECTIVE: Intake & Output 02/06/20 02/07/20 02/08/20 02/09/20 23:59 23:59 23:59 23:59 Intake Total 1027 224 714 2188 Output Total 2500 1100 4030 700 Balance -0703 -780 -6670 400 Weight 364 lb 12.8 oz 364 lb 12.8 oz 365 lb 8 oz 364 lb 13.84 oz Last Vital Signs Temp Pulse Resp BP Pulse Ox 98.3 F 151 H 20 110/71 100 02/09/20 10:00 02/09/20 12:54 02/09/20 10:00 02/09/20 12:54 02/09/20 11:22 Active Medications Enoxaparin Sodium (Lovenox -) 40 mg SQ DAILY ANGIE Last Admin: 02/09/20 09:14 Dose: 40 mg Documented by: Hydralazine HCl (Apresoline Injection -) 25 mg IVPUSH Q8H PRN PRN Reason: SBP > 110 Last Admin: 02/08/20 16:04 Dose: 25 mg Documented by: IV Flush (Triple Lumen Flush) 4 ml IVPUSH PRN PRN PRN Reason: Protocol Last Admin: 02/06/20 09:48 Dose: 4 ml Documented by: Ceftriaxone Sodium 2 gm/ (Dextrose) 100 mls @ 100 mls/hr IVPB DAILY ANGIE; Protocol Last Admin: 02/09/20 09:08 Dose: 100 mls/hr Documented by: Vancomycin HCl 1,500 mg/ (Dextrose) 500 mls @ 125 mls/hr IVPB Q12H ANGIE; Protocol Last Admin: 02/09/20 02:20 Dose: 125 mls/hr Documented by: Amino Acids (Clinimix -) 1,000 mls @ 42 mls/hr IV Q24H ANGIE Last Admin: 02/08/20 17:07 Dose: 42 mls/hr Documented by: Insulin Aspart (Novolog Vial Sliding Scale -) 1 vial SQ Q6HPO ANGIE; Protocol Last Admin: 02/09/20 12:15 Dose: Not Given Documented by: Metoprolol Tartrate (Lopressor Injection -) 5 mg IVPUSH Q6H [facility] Last Admin: 02/09/20 12:06 Dose: 5 mg Documented by: Multivitamins/Minerals (Infuvite Adult -) 10 ml IV DAILY [facility] Last Admin: 02/09/20 10:04 Dose: Not Given Documented by: Pantoprazole Sodium (Protonix Iv) 40 mg IVPUSH DAILY [facility] Last Admin: 02/09/20 09:13 Dose: 40 mg Documented by: Scopolamine HBr (Transderm-Scop -) 1 patch TD Q72H [facility] Last Admin: 02/08/20 06:48 Dose: 1 patch Documented by: Gen: Somnolent but easily arousable, on HFOT Heart: RRR Lung: distant breath sounds Abd: soft, obese Ext: + edema Laboratory Results - last 24 hr 02/08/20 02/08/20 02/09/20 16:00 17:56 00:54 WBC RBC Hgb Hct MCV MCH MCHC RDW Plt Count MPV Absolute Neuts (auto) Neutrophils % Lymphocytes % Monocytes % Eosinophils % Basophils % Nucleated RBC % Sodium Potassium Chloride Carbon Dioxide Anion Gap BUN Creatinine Est GFR (CKD-EPI)AfAm Est GFR (CKD-EPI)NonAf POC Glucometer 150 121 Random Glucose Calcium Phosphorus Magnesium Total Bilirubin AST ALT Alkaline Phosphatase Total Protein Albumin Urine Color Yellow Urine Appearance Cloudy Urine pH 5.5 Ur Specific [place] 1.024 Urine Protein 1+ H Urine Glucose (UA) Negative Urine Ketones Trace H Urine Blood 2+ H Urine Nitrite Negative Urine Bilirubin Negative Urine Urobilinogen 1.0 Ur Leukocyte Esterase 1+ H Urine WBC (Auto) 73 Urine RBC (Auto) 298 Urine Casts (Auto) 26 U Pathogenic Cast Auto None U Epithel Cells (Auto) >36 U Sm Round Cell (Auto) None Urine Bacteria (Auto) 78 02/09/20 02/09/20 02/09/20 06:20 06:20 06:26 WBC 6.9 RBC 4.31 Hgb 11.0 Hct 36.1 MCV 83.7 MCH 25.5 L MCHC 30.4 L RDW 17.4 H Plt Count 257 MPV 7.7 Absolute Neuts (auto) 4.5 Neutrophils % 65.0 D Lymphocytes % 20.5 D Monocytes % 12.2 H D Eosinophils % 2.2 D Basophils % 0.1 Nucleated RBC % 0 Sodium 143 Potassium 3.1 L Chloride 99 Carbon Dioxide 34 H Anion Gap 10 BUN 14.4 Creatinine 0.5 L Est GFR (CKD-EPI)AfAm 128.97 Est GFR (CKD-EPI)NonAf 111.28 POC Glucometer 143 Random Glucose 159 H Calcium 8.2 L Phosphorus 2.0 L Magnesium 2.1 Total Bilirubin 0.4 AST 25 ALT 106 H Alkaline Phosphatase 70 Total Protein 6.4 Albumin 2.7 L Urine Color Urine Appearance Urine pH Ur Specific [place] Urine Protein Urine Glucose (UA) Urine Ketones Urine Blood Urine Nitrite Urine Bilirubin Urine Urobilinogen Ur Leukocyte Esterase Urine WBC (Auto) Urine RBC (Auto) Urine Casts (Auto) U Pathogenic Cast Auto U Epithel Cells (Auto) U Sm Round Cell (Auto) Urine Bacteria (Auto) 02/09/20 12:12 WBC RBC Hgb Hct MCV MCH MCHC RDW Plt Count MPV Absolute Neuts (auto) Neutrophils % Lymphocytes % Monocytes % Eosinophils % Basophils % Nucleated RBC % Sodium Potassium Chloride Carbon Dioxide Anion Gap BUN Creatinine Est GFR (CKD-EPI)AfAm Est GFR (CKD-EPI)NonAf POC Glucometer 141 Random Glucose Calcium Phosphorus Magnesium Total Bilirubin AST ALT Alkaline Phosphatase Total Protein Albumin Urine Color Urine Appearance Urine pH Ur Specific [place] Urine Protein Urine Glucose (UA) Urine Ketones Urine Blood Urine Nitrite Urine Bilirubin Urine Urobilinogen Ur Leukocyte Esterase Urine WBC (Auto) Urine RBC (Auto) Urine Casts (Auto) U Pathogenic Cast Auto U Epithel Cells (Auto) U Sm Round Cell (Auto) Urine Bacteria (Auto) ASSESSMENT AND PLAN: Acute Hypoxic and Hypercapneic Respiratory Failure improving Upper Airway Obstruction/Soft Tissue Swelling/Hematoma/Thyromegaly Sinusitis Gram Positive Bacteremia Hypertensive Urgency Morbid Obesity Pulmonary HTN HTN DM Likely OSAS/OHS - HFOT as needed - taper off decadron - glucose control - continue antibiotics - f/u cultures - TLC was changed - incentive spirometry - chest PT - aspiration precautions - DVT/GI prophylaxis - continue ICU monitoring for tenuous overall status Dr Florentino
[2020-02-09] MEDS: AMINO ACIDS 4.25%/D5W 1,000 ML IV SCH (19:00)
[2020-02-09] MEDS ORDERED: TRIPLE LUMEN FLUSH 4 ML ML IVPUSH PRN (22:33)
[2020-02-09] MEDS ORDERED: hydrALAZINE HCL 20 MG/ML VIAL IVPUSH PRN (22:33)
[2020-02-10] MEDS: INSULIN SLIDING SCALE (NOVOLOG) 1 VIAL SQ SCH ×5 (00:50→17:27)
[2020-02-10] MEDS: METOPROLOL TARTRATE 5 MG/5 ML VIAL IVPUSH SCH ×4 (01:27→18:51)
[2020-02-10] MEDS ORDERED: VANCOMYCIN HCL 1,500 MG in DEXTROSE 5%-WATER - 500 ML IVPB SCH (02:15)
[2020-02-10] MEDS ORDERED: PT OWN MED DRAWER 7, Y5N ONE (02:35)
--- NOTE | 2020-02-10 07:45 | PN ---
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, Physician Chief Complaint: PULMONARY SOMNOLENT,AROUSABLE,NON-VERBAL ,-RESP DISTRESS ON HFOT,O2 SAT 98% - Current Medication List Current Medications: Active Medications Enoxaparin Sodium (Lovenox -) 40 mg SQ DAILY ANGIE Hydralazine HCl (Apresoline Injection -) 25 mg IVPUSH Q8H PRN PRN Reason: SBP > 110 IV Flush (Triple Lumen Flush) 4 ml IVPUSH PRN PRN PRN Reason: Protocol Ceftriaxone Sodium 2 gm/ (Dextrose) 100 mls @ 100 mls/hr IVPB DAILY ANGIE; Protocol Amino Acids (Clinimix -) 1,000 mls @ 42 mls/hr IV Q24H ANGIE Vancomycin HCl 1,500 mg/ (Dextrose) 500 mls @ 250 mls/hr IVPB Q12H ANGIE; Protocol Last Admin: 02/10/20 03:55 Dose: 250 mls/hr Documented by: Insulin Aspart (Novolog Vial Sliding Scale -) 1 vial SQ Q6HPO ANGIE; Protocol Last Admin: 02/10/20 06:07 Dose: 2 unit Documented by: Metoprolol Tartrate (Lopressor Injection -) 5 mg IVPUSH Q6H ANGIE Last Admin: 02/10/20 06:47 Dose: 5 mg Documented by: Multivitamins/Minerals (Infuvite Adult -) 10 ml IV DAILY [facility] Pantoprazole Sodium (Protonix Iv) 40 mg IVPUSH DAILY [facility] Scopolamine HBr (Transderm-Scop -) 1 patch TD Q72H [facility] - Objective Vital Signs: Vital Signs Temperature 98.0 F 02/10/20 05:49 Pulse Rate 100 H 02/10/20 06:47 Respiratory Rate 18 02/10/20 05:49 Blood Pressure 113/76 02/10/20 06:47 O2 Sat by Pulse Oximetry (%) 99 02/10/20 05:49 Constitutional: Yes: Obese, Other (SOMNOLENT) Eyes: Yes: WNL HENT: Yes: WNL Neck: Yes: Other (- STRIDOR) Cardiovascular: Yes: Tachycardia, S2 Respiratory: Yes: Diminished Gastrointestinal: Yes: Normal Bowel Sounds, Soft Extremities: Yes: WNL Edema: Yes Labs: CBC, BMP Assessment/Plan ASSESSMENT AND PLAN: Acute Hypoxic and Hypercapneic Respiratory Failure improving Upper Airway Obstruction/Soft Tissue Swelling/Hematoma/Thyromegaly Sinusitis Gram Positive Bacteremia Hypertensive Urgency Morbid Obesity Pulmonary HTN HTN DM Likely OSAS/OHS - HFOT - glucose control - antibiotics - incentive spirometry - chest PT - aspiration precautions - DVT/GI prophylaxis - titrate bp meds DR BALDERAS
[2020-02-10 08:27] LABS: BASO % 0.3 % (0-2.0); HEMATOCRIT 39.1 % (32.4-45.2); HEMOGLOBIN 11.8 GM/dL (10.7-15.3); LYMPH % 23.3 % (8-40); MCH 25.6 pg (25.7-33.7); MCHC 30.2 g/dl (32.0-36.0); MEAN CELL VOLUME 84.9 fl (80-96); MONO % 11.5 % (3.8-10.2); NEUT % 60.9 % (42.8-82.8); PLATELET COUNT 150 K/MM3 (134-434); RBC 4.61 M/mm3 (3.60-5.2); RDW 17.3 % (11.6-15.6); WHITE BLOOD COUNT 7.3 K/mm3 (4.0-10.0)
[2020-02-10 08:42] LABS: ALBUMIN 2.7 g/dl (3.4-5.0); ALK PHOS 67 U/L (45-117); ANION GAP 8 MMOL/L (8-16); BILIRUBIN,TOTAL 0.6 mg/dL (0.2-1); BLOOD UREA NITROGEN 12.1 mg/dL (7-18); CALCIUM 8.6 mg/dL (8.5-10.1); CHLORIDE 97 mmol/L (98-107); CO2 36 mmol/L (21-32); CREATININE 0.6 mg/dL (0.55-1.3); GLUCOSE,RANDOM 153 mg/dL (74-106); MAGNESIUM 2.2 mg/dL (1.8-2.4); PHOSPHOROUS 2.4 mg/dL (2.5-4.9); POTASSIUM 3.7 mmol/L (3.5-5.1); SGOT/AST 26 U/L (15-37); SGPT/ALT 73 U/L (13-61); SODIUM 141 mmol/L (136-145); TOT PROT 6.5 g/dl (6.4-8.2)
[2020-02-10] MEDS ORDERED: DEXTROSE 5%-WATER 100 ML IVPB ONE (10:19)
[2020-02-10] MEDS: PANTOPRAZOLE SODIUM 40 MG VIAL IVPUSH SCH (10:23)
[2020-02-10] MEDS: CEFTRIAXONE 2 GM in DEXTROSE 5%-WATER 100 ML IVPB SCH (10:23)
[2020-02-10] MEDS: MULTIVIT INJ. ADULT COMBO WITH VIT K 1 COMBO 10 ML VIAL IV SCH (10:24)
[2020-02-10] MEDS: ENOXAPARIN NA (PORCINE) 40 MG/0.4 ML DISP.SYRIN SQ SCH (10:53)
[2020-02-10 12:24] LABS: PLATELET ESTIMATE DECREASED
[2020-02-10] MEDS: DAPTOMYCIN 1,000 MG in SODIUM CHLORIDE 100 ML IVPB SCH (13:31)
--- NOTE | 2020-02-10 13:35 | PN ---
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 (short form) - Note 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: awake and alert, transferred from ICU last night still some drooling of clear saliva, denies throat pain Vital Signs Period Temp Pulse Resp BP Sys/Gibbs Pulse Ox Last 24 Hr 97.2 F-99.1 F 94-155 16-25 113-190/75-97 96-100 cor-rrr lungs decreased bs at bases abd soft,nt ext no edema venous stasis changes CBC, BMP 02/10/20 07:40 02/10/20 07:40 Laboratory Tests 02/10/20 02:00 Vancomycin Pre-Dose 15.5 H Microbiology 02/06/20 12:20 Blood - Central Line Blood Culture - Final Staphylococcus Epidermidis 02/08/20 16:00 Urine - Urine - Catheterized Urine Culture - Final Normal Urogenital Vi Yeast Like Organism 02/08/20 15:50 Blood - Peripheral Venous Blood Culture - Preliminary Pending Organism Pending Organism#2 02/06/20 12:20 Blood - Central Line Blood Culture - Final Staphylococcus Coagulase Neg 02/08/20 15:50 Blood - Peripheral Venous Blood Culture - Preliminary Pending Organism Pending Organism#2 02/05/20 12:00 Sputum - Endotrachea Suction/Ventilator Gram Stain - Final 02/05/20 12:00 Sputum - Endotrachea Suction/Ventilator Sputum Culture - Fi nal Serratia Marcescens Beta Hem Streptococcus Group F a/p bacteremia-staph epi- vanco sylvie is 4!- have asked micro to review- repeat blood cultures drawn when new central line was placed on 02/07 are positive as well! will switch to daptomycin- dosing d/w pharmacy, repeat blood cultures today, echo on Wednesday cpk added on to am labs pneumonia-on ceftriaxone obesity s/p resp failure encourage incentive spirometry OOB Problem List - Problems (1) Fever Code(s): R50.9 - FEVER, UNSPECIFIED (2) Bacteremia Code(s): R78.81 - BACTEREMIA (3) Pneumonia Code(s): J18.9 - PNEUMONIA, UNSPECIFIED ORGANISM (4) Obesity Code(s): E66.9 - OBESITY, UNSPECIFIED (5) Cervical spine disease Code(s): M48.9 - SPONDYLOPATHY, UNSPECIFIED (6) Breast cancer Code(s): C50.919 - MALIGNANT NEOPLASM OF UNSP SITE OF UNSPECIFIED FEMALE BREAST (7) History of breast cancer Code(s): Z85.3 - PERSONAL HISTORY OF MALIGNANT NEOPLASM OF BREAST
--- NOTE | 2020-02-10 14:10 | PN ---
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 (short form) - Note 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: SUBJ: Briefly, 50yo F who originally presented for cervical corpectomy with Dr. Vasquez. Upon separation of SCMs patient became hypotensive and hypoxic. Procedure was aborted and patient was transferred to ICU for acute care. Patient was intubated at this time and placed on multiple pressors. Throughout her stay patient was noted to have 4/4 bottles of coag neg staph which had not cleared on multiple re-draws. Patient was extubated and was noted to have stridor which she was receiving Decadron (last dose 02/06). She remained hemodynamically stable and was transferred out of the ICU to telemetry. Upon my exam today patient is unable to fully verbalize, but is awake and alert. She is able to follow commands and nod to yes/no questions. Vital Signs Temperature 100.2 F H 02/10/20 13:58 Pulse Rate 104 H 02/10/20 13:58 Respiratory Rate 20 02/10/20 13:58 Blood Pressure 125/75 02/10/20 13:31 O2 Sat by Pulse Oximetry (%) 98 02/10/20 13:20 PE: Gen: NAD, awake, listens to commands, not able to significantly verbalize, sitting in chair position HEENT: NC/AT, TIERNEY, sclera anicteric, MMM, + clear secretions Neck: Stridor present, unable to assess JVD due to position and body habitus, L- sided TLC C/D/I with clean bandage and biopatch LUNG: B/l rhonchi present, HF 40L/40% CARD: RRR, no murmurs, S1/S2 normal ABD: Soft, Nt/ND, normoactive BS, obese EXT: 1+ DP pulses, mod nonpitting edema noted, chronic skin changes noted without any erythema Skin: Dry, chronic skin changed in b/l lower extremities without area of ulceration. Sacrum not examined CBC, BMP 02/10/20 07:40 02/10/20 07:40 Hepatic Panel Total Bilirubin 0.6 mg/dL (0.2-1) 02/10/20 07:40 AST 26 U/L (15-37) 02/10/20 07:40 ALT 73 U/L (13-61) H 02/10/20 07:40 Alkaline Phosphatase 67 U/L (45-117) 02/10/20 07:40 Albumin 2.7 g/dl (3.4-5.0) L 02/10/20 07:40 Microbiology 02/06/20 12:20 Blood - Central Line Blood Culture - Final Staphylococcus Epidermidis 02/08/20 16:00 Urine - Urine - Catheterized Urine Culture - Final Normal Urogenital Vi Yeast Like Organism 02/08/20 15:50 Blood - Peripheral Venous Blood Culture - Preliminary Pending Organism Pending Organism#2 02/06/20 12:20 Blood - Central Line Blood Culture - Final Staphylococcus Coagulase Neg 02/08/20 15:50 Blood - Peripheral Venous Blood Culture - Preliminary Pending Organism Pending Organism#2 02/05/20 12:00 Sputum - Endotrachea Suction/Ventilator Gram Stain - Final 02/05/20 12:00 Sputum - Endotrachea Suction/Ventilator Sputum Culture - Final Serratia Marcescens Beta Hem Streptococcus Group F Active Medications Dexamethasone Sodium Phosphate (Decadron Injection -) 10 mg IVPUSH ONCE ONE Stop: 02/10/20 14:09 Enoxaparin Sodium (Lovenox -) 40 mg SQ DAILY ANGIE Last Admin: 02/10/20 10:53 Dose: 40 mg Documented by: Hydralazine HCl (Apresoline Injection -) 25 mg IVPUSH Q8H PRN PRN Reason: SBP > 110 Last Admin: 02/10/20 09:04 Dose: 25 mg Documented by: IV Flush (Triple Lumen Flush) 4 ml IVPUSH PRN PRN PRN Reason: Protocol Ceftriaxone Sodium 2 gm/ (Dextrose) 100 mls @ 100 mls/hr IVPB DAILY [facility]; Protocol Last Admin: 02/10/20 10:23 Dose: 100 mls/hr Documented by: Amino Acids (Clinimix -) 1,000 mls @ 42 mls/hr IV Q24H ANGIE Daptomycin 1,000 mg/ Sodium (Chloride) 100 mls @ 100 mls/hr IVPB DAILY@1300 ANGIE; Protocol Last Admin: 02/10/20 13:31 Dose: 100 mls/hr Documented by: Insulin Aspart (Novolog Vial Sliding Scale -) 1 vial SQ Q6HPO ANGIE; Protocol Last Admin: 02/10/20 12:38 Dose: Not Given Documented by: Metoprolol Tartrate (Lopressor Injection -) 5 mg IVPUSH Q6H [facility] Last Admin: 02/10/20 13:31 Dose: 5 mg Documented by: Multivitamins/Minerals (Infuvite Adult -) 10 ml IV DAILY [facility] Last Admin: 02/10/20 10:24 Dose: 10 ml Documented by: Pantoprazole Sodium (Protonix Iv) 40 mg IVPUSH DAILY [facility] Last Admin: 02/10/20 10:23 Dose: 40 mg Documented by: Scopolamine HBr (Transderm-Scop -) 1 patch TD Q72H [facility] Assessment/Plan: Acute hypoxic hypercapneic respiratory failure Soft Tissue swelling vs. Hematoma vs. Upper Airway Obstruction Persistent Gram Positive Bacteremia Hypetension Pulmonary HTN T2DM Obesity hypoventilation Syndrome --Decadron x1 dose given for residual stridor and soft tissue swelling --continue HFO2 per pulmonary; wean O2 as tolerated --Persistent bacteremia with Vanco MACKENZIE 4 --Switched to Daptomycin today; continue Ceftriaxone for PNA coverage --repeat Blood Cx to be followed --CPK added to AM --Echocardiogram to be performed to r/o any abnormalities --Scopolamine for secretion control FEN: Fluids: none Electrolyte abnormalities: None Nutrition: Tube feeds due to tenuous upper airway status; NPO otherwise PPX: Lovenox daily, Protonix Daily Case discussed with ID and Pulm Dustin Calderon DO - IM
[2020-02-10] MEDS ORDERED: ACETAMINOPHEN 1000 MG/100 ML VIAL (NON FORMULARY) IVPB PRN (14:14)
[2020-02-10] MEDS ORDERED: DEXAMETHASONE SOD PHOSPHATE 10 MG/1 ML VIAL IVPUSH ONE (15:10)
[2020-02-10] MEDS: AMINO ACIDS 4.25%/D5W 1,000 ML IV SCH (15:47)
[2020-02-11] MEDS: METOPROLOL TARTRATE 5 MG/5 ML VIAL IVPUSH SCH ×4 (01:30→18:16)
[2020-02-11] MEDS: INSULIN SLIDING SCALE (NOVOLOG) 1 VIAL SQ SCH ×4 (06:33→23:46)
[2020-02-11] MEDS ORDERED: PT OWN MED DRAWER 7, Y5N ONE ×3 (06:35→13:30)
[2020-02-11] MEDS: SCOPOLAMINE HYDROBROMIDE 1 PATCH PATCH.TD72 TD SCH (06:38)
[2020-02-11 06:41] LABS: HEMATOCRIT 36.3 % (32.4-45.2); HEMOGLOBIN 11.2 GM/dL (10.7-15.3); MCH 25.5 pg (25.7-33.7); MCHC 30.7 g/dl (32.0-36.0); MEAN CELL VOLUME 83.1 fl (80-96); PLATELET COUNT 259 K/MM3 (134-434); RBC 4.37 M/mm3 (3.60-5.2); RDW 17.4 % (11.6-15.6); WHITE BLOOD COUNT 7.1 K/mm3 (4.0-10.0)
--- NOTE | 2020-02-11 07:07 | PN ---
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, Physician History of Present Illness: pulmonary somnolent ,arousable,-resp distress on hfot, fio2 50%,flow 50L ,o2 sat 100% - Current Medication List Current Medications: Active Medications Acetaminophen (Ofirmev Injection -) 1,000 mg IVPB Q6H PRN PRN Reason: PAIN LEVEL 6-10 Stop: 02/11/20 14:14 Last Admin: 02/10/20 17:44 Dose: 1,000 mg Documented by: Enoxaparin Sodium (Lovenox -) 40 mg SQ DAILY [facility] Last Admin: 02/10/20 10:53 Dose: 40 mg Documented by: Hydralazine HCl (Apresoline Injection -) 25 mg IVPUSH Q8H PRN PRN Reason: SBP > 110 Last Admin: 02/10/20 09:04 Dose: 25 mg Documented by: IV Flush (Triple Lumen Flush) 4 ml IVPUSH PRN PRN PRN Reason: Protocol Ceftriaxone Sodium 2 gm/ (Dextrose) 100 mls @ 100 mls/hr IVPB DAILY [facility]; Protocol Last Admin: 02/10/20 10:23 Dose: 100 mls/hr Documented by: Amino Acids (Clinimix -) 1,000 mls @ 42 mls/hr IV Q24H ANGIE Last Admin: 02/10/20 15:47 Dose: 42 mls/hr Documented by: Daptomycin 1,000 mg/ Sodium (Chloride) 100 mls @ 100 mls/hr IVPB DAILY@1300 ANGIE; Protocol Last Admin: 02/10/20 13:31 Dose: 100 mls/hr Documented by: Insulin Aspart (Novolog Vial Sliding Scale -) 1 vial SQ Q6HPO [facility]; Protocol Last Admin: 02/11/20 06:33 Dose: Not Given Documented by: Metoprolol Tartrate (Lopressor Injection -) 5 mg IVPUSH Q6H [facility] Last Admin: 02/11/20 06:38 Dose: 5 mg Documented by: Multivitamins/Minerals (Infuvite Adult -) 10 ml IV DAILY [facility] Last Admin: 02/10/20 10:24 Dose: 10 ml Documented by: Pantoprazole Sodium (Protonix Iv) 40 mg IVPUSH DAILY [facility] Last Admin: 02/10/20 10:23 Dose: 40 mg Documented by: Scopolamine HBr (Transderm-Scop -) 1 patch TD Q72H [facility] Last Admin: 02/11/20 06:38 Dose: 1 patch Documented by: - Objective Vital Signs: Vital Signs Temperature 99.4 F 02/11/20 01:00 Pulse Rate 109 H 02/11/20 06:38 Respiratory Rate 18 02/11/20 01:00 Blood Pressure 157/91 02/11/20 06:38 O2 Sat by Pulse Oximetry (%) 100 02/11/20 04:32 Constitutional: Yes: Obese, Other (SOMNOLENT) Eyes: Yes: WNL HENT: Yes: WNL Neck: Yes: Other (MIN STRIDOR) Cardiovascular: Yes: Tachycardia, S1, S2 Respiratory: Yes: Diminished Gastrointestinal: Yes: Normal Bowel Sounds, Soft Extremities: Yes: WNL Edema: No Labs: INR, PTT INR 1.06 (0.83-1.09) 01/26/20 07:48 Fibrinogen 303.0 mg/dL (238-498) 01/25/20 12:09 Assessment/Plan ASSESSMENT AND PLAN: Acute Hypoxic and Hypercapneic Respiratory Failure improving Upper Airway Obstruction/Soft Tissue Swelling/Hematoma/Thyromegaly Sinusitis Gram Positive Bacteremia Hypertensive Urgency Morbid Obesity Pulmonary HTN HTN DM Likely OSAS/OHS - HFOT - glucose control - antibiotics - incentive spirometry - chest PT - aspiration precautions - DVT/GI prophylaxis - titrate bp meds - decadron DR BALDERAS
[2020-02-11 07:12] LABS: BLOOD UREA NITROGEN 14.9 mg/dL (7-18); CALCIUM 8.5 mg/dL (8.5-10.1); CREATININE 0.5 mg/dL (0.55-1.3); POTASSIUM 3.5 mmol/L (3.5-5.1)
[2020-02-11] MEDS ORDERED: DEXTROSE 5%-WATER 100 ML IVPB ONE (08:58)
[2020-02-11] MEDS: PANTOPRAZOLE SODIUM 40 MG VIAL IVPUSH SCH (09:42)
[2020-02-11] MEDS: ENOXAPARIN NA (PORCINE) 40 MG/0.4 ML DISP.SYRIN SQ SCH (09:43)
[2020-02-11] MEDS: CEFTRIAXONE 2 GM in DEXTROSE 5%-WATER 100 ML IVPB SCH (10:52)
[2020-02-11] MEDS: MULTIVIT INJ. ADULT COMBO WITH VIT K 1 COMBO 10 ML VIAL IV SCH (10:52)
[2020-02-11] MEDS ORDERED: INSULIN (NOVOLOG) ASPART 100 UNITS/ML 10ML VIAL ONE (12:30)
[2020-02-11] MEDS: DEXAMETHASONE SOD PHOSPHATE 4 MG/1 ML VIAL IM ONE ×2 (13:31→13:48)
[2020-02-11 13:39] LABS: ARTERIAL BLD GAS O2 SATURATION 98.8 mmHg (95-98); ARTERIAL BLOOD GAS BASE EXCESS 10.8 mmol/L (-2-2); ARTERIAL BLOOD GAS PO2 137.5 mmHg (80-100); ARTERIAL BLOOD GAS pH 7.435 (7.350-7.450)
[2020-02-11 13:53] LABS: ALLENS TEST POSITIVE
[2020-02-11] MEDS: DAPTOMYCIN 1,000 MG in SODIUM CHLORIDE 100 ML IVPB SCH (14:07)
--- NOTE | 2020-02-11 15:34 | PN ---
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 (short form) - Note 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: more alert mouthing words feels a bit better Vital Signs Period Temp Pulse Resp BP Sys/Gibbs Pulse Ox Last 24 Hr 98.4 F-99.4 F 106-120 17-19 142-157/79-97 97-100 cor-rrr lungs decreased bs at bases abd soft,nt ext +edema venous stasis changes both feet squeezes with hand and moves both feet on command CBC, BMP 02/11/20 05:23 02/11/20 05:23 Microbiology 02/10/20 12:17 Blood - Peripheral Venous Blood Culture - Preliminary NO GROWTH OBTAINED AFTER 24 HOURS, INCUBATION TO CONTINUE FOR 4 DAYS. 02/10/20 12:11 Blood - Peripheral Venous Blood Culture - Preliminary NO GROWTH OBTAINED AFTER 24 HOURS, INCUBATION TO CONTINUE FOR 4 DAYS. 02/06/20 12:20 Blood - Central Line Blood Culture - Preliminary Staphylococcus Epidermidis Pending Organism 02/08/20 15:50 Blood - Peripheral Venous Blood Culture - Preliminary Staphylococcus Coagulase Neg 02/08/20 15:50 Blood - Peripheral Venous Blood Culture - Preliminary Staphylococcus Coagulase Neg 02/08/20 16:00 Urine - Urine - Catheterized Urine Culture - Final Normal Urogenital Vi Yeast Like Organism 02/06/20 12:20 Blood - Central Line Blood Culture - Final Staphylococcus Coagulase Neg 02/05/20 12:00 Sputum - Endotrachea Suction/Ventilator Gram Stain - Final 02/05/20 12:00 Sputum - Endotrachea Suction/Ventilator Sputum Culture - Final Serratia Marcescens Beta Hem Streptococcus Group F a/p bacteremia-staph epi- vanco sylvie is 4!- have asked micro to review- repeat blood cultures drawn when new central line was placed on 02/07 are positive as well! continue daptomycin- await sensitivities and further ID of blood cultures, echo in am, repeat blood culture pending 02/09 cpk wnl pneumonia-on ceftriaxone obesity s/p resp failure encourage incentive spirometry OOB Problem List - Problems (1) Fever Code(s): R50.9 - FEVER, UNSPECIFIED (2) Bacteremia Code(s): R78.81 - BACTEREMIA (3) Pneumonia Code(s): J18.9 - PNEUMONIA, UNSPECIFIED ORGANISM (4) Obesity Code(s): E66.9 - OBESITY, UNSPECIFIED (5) Cervical spine disease Code(s): M48.9 - SPONDYLOPATHY, UNSPECIFIED (6) Breast cancer Code(s): C50.919 - MALIGNANT NEOPLASM OF UNSP SITE OF UNSPECIFIED FEMALE BREAST (7) History of breast cancer Code(s): Z85.3 - PERSONAL HISTORY OF MALIGNANT NEOPLASM OF BREAST
--- NOTE | 2020-02-11 16:28 | CONSULT ---
Consult - text type - Consultation Consultation Note: Was called to assess a patient for worsening of respiratory insufficiency and possible admission to ICU. During assessment patient is awake, alert to name and place, following simple commands. HDS, remains on HFNC. Lung sounds decreased bilaterally. Patients is very weak, BL LE strength 0/5, BL UE 1/5. As per nursing patient is not using incentive spirometry. -Strongly encourage incentive spirometry -PT/OT -Needs to ambulate to improve respiratory status -Pulmonary toileting -[place] PRN Dispo: patient does not need admission to critical care at this time, if any questions or concerns please call ext [phone] Tara Avila ACNP [id number]
[2020-02-11] MEDS: AMINO ACIDS 4.25%/D5W 1,000 ML IV SCH (16:33)
--- NOTE | 2020-02-11 20:43 | PN ---
Physical Exam: SUBJECTIVE: Patient seen and examined at bedside, tired appearing, arousable but lethargic, on HFOT. OBJECTIVE: Vital Signs Period Temp Pulse Resp BP Sys/Gibbs Pulse Ox Last 24 Hr 98.6 F-99.4 F 76-115 17-20 137-180/79-94 97-100 Gen: Tired appearing, morbidly obese, answers to name, lethargic, adequate cough HEENT: NC/AT, TIERNEY, sclera anicteric, MMM, + clear secretions Neck: no audible strido, supple LUNG: B/l rhonchi present, HF 40L/40% CARD: RRR, no murmurs, S1/S2 normal ABD: Soft, Nt/ND, normoactive BS, obese EXT: 1+ DP pulses, mod nonpitting edema noted, chronic skin changes noted without any erythema Skin: Dry, chronic skin changed in b/l lower extremities without area of ulceration. Sacrum not examined Laboratory Results - last 24 hr 02/11/20 02/11/20 02/11/20 00:05 05:23 05:23 WBC 7.1 RBC 4.37 Hgb 11.2 Hct 36.3 MCV 83.1 MCH 25.5 L MCHC 30.7 L RDW 17.4 H Plt Count 259 D MPV 8.0 Anticoagulation Therapy Puncture Site Patient Temperature ABG pH ABG pCO2 ABG pO2 ABG HCO3 ABG O2 Sat (Measured) ABG O2 Content ABG Base Excess Jeffrey Test Patient On Oxygen O2 Delivery Device Oxygen Flow Rate Vent Mode Vent Rate Mechanical Rate PEEP Pressure Support Vent Sodium 140 Potassium 3.5 Chloride 98 Carbon Dioxide 33 H Anion Gap 9 BUN 14.9 Creatinine 0.5 L Est GFR (CKD-EPI)AfAm 128.97 Est GFR (CKD-EPI)NonAf 111.28 POC Glucometer 188 Random Glucose 163 H Calcium 8.5 Creatine Kinase 55 02/11/20 02/11/20 02/11/20 06:32 11:19 13:12 WBC RBC Hgb Hct MCV MCH MCHC RDW Plt Count MPV Anticoagulation Therapy No Result Required. Puncture Site Right radial Patient Temperature No Result Required. ABG pH 7.435 ABG pCO2 56.40 H ABG pO2 137.5 H ABG HCO3 37.0 H ABG O2 Sat (Measured) 98.8 H ABG O2 Content No Result Required. ABG Base Excess 10.8 H Jeffrey Test Positive Patient On Oxygen Yes O2 Delivery Device Hfnc Oxygen Flow Rate 50% Vent Mode No Result Required. Vent Rate No Result Required. Mechanical Rate No Result Required. PEEP No Result Required. Pressure Support Vent No Result Required. Sodium Potassium Chloride Carbon Dioxide Anion Gap BUN Creatinine Est GFR (CKD-EPI)AfAm Est GFR (CKD-EPI)NonAf POC Glucometer 149 155 Random Glucose Calcium Creatine Kinase 02/11/20 18:12 WBC RBC Hgb Hct MCV MCH MCHC RDW Plt Count MPV Anticoagulation Therapy Puncture Site Patient Temperature ABG pH ABG pCO2 ABG pO2 ABG HCO3 ABG O2 Sat (Measured) ABG O2 Content ABG Base Excess Jeffrey Test Patient On Oxygen O2 Delivery Device Oxygen Flow Rate Vent Mode Vent Rate Mechanical Rate PEEP Pressure Support Vent Sodium Potassium Chloride Carbon Dioxide Anion Gap BUN Creatinine Est GFR (CKD-EPI)AfAm Est GFR (CKD-EPI)NonAf POC Glucometer 197 Random Glucose Calcium Creatine Kinase Active Medications Generic Name Dose Route Start Last Admin Trade Name Freq PRN Reason Stop Dose Admin Enoxaparin Sodium 40 mg 02/10/20 10:00 02/11/20 09:43 Lovenox - SQ 40 mg DAILY ANGIE Administration Hydralazine HCl 25 mg 02/09/20 22:33 02/10/20 09:04 Apresoline Injection - IVPUSH 25 mg Q8H PRN Administration SBP > 110 IV Flush 4 ml 02/09/20 22:33 Triple Lumen Flush IVPUSH PRN PRN Protocol Ceftriaxone Sodium 2 gm/ 100 mls @ 100 mls/hr 02/10/20 10:00 02/11/20 10:52 Dextrose IVPB 100 mls/hr DAILY ANGIE Administration Protocol Amino Acids 1,000 mls @ 42 mls/hr 02/10/20 16:15 02/11/20 16:33 Clinimix - IV 42 mls/hr Q24H ANGIE Administration Daptomycin 1,000 mg/ Sodium 100 mls @ 100 mls/hr 02/10/20 13:00 02/11/20 14:07 Chloride IVPB 100 mls/hr DAILY@1300 ANGIE Administration Protocol Insulin Aspart 1 vial 02/10/20 00:00 02/11/20 18:16 Novolog Vial Sliding Scale - SQ 2 unit Q6HPO ANGIE Administration Protocol Metoprolol Tartrate 5 mg 02/10/20 01:00 02/11/20 18:16 Lopressor Injection - IVPUSH 5 mg Q6H ANGIE Administration Multivitamins/Minerals 10 ml 02/10/20 10:00 02/11/20 10:52 Infuvite Adult - IV 10 ml DAILY NAGIE Administration Pantoprazole Sodium 40 mg 02/10/20 10:00 02/11/20 09:42 Protonix Iv IVPUSH 40 mg DAILY NAGIE Administration Scopolamine HBr 1 patch 02/11/20 06:30 02/11/20 06:38 Transderm-Scop - TD 1 patch Q72H ANGIE Administration ASSESSMENT/PLAN: 50 F Acute hypercapenic and hypoxic respiratory failure Suspected neck hematoma Morbidly obese Suspected TEJAL/OHS CAP PNA Staph bacteremia HTN HLD Plan: Advanced abx to Daptomycin due to refractory Staph bacteremia Cont. Ceftriaxone for CAP Incentive spirometry Strict avoidance of sedatives/opioids/gabapentanoids, frequent re-orientation Encourage OOB to chair/ambulation when more alert Close monitoring of airway, restart Decadron for some mild stridor noted by nursing staff DVT ppx: Lovenox Visit type - Emergency Visit Emergency Visit: Yes ED Registration Date: 01/25/20 Care time: The patient presented to the Emergency Department on the above date and was hospitalized for further evaluation of their emergent condition. - New Patient This patient is new to me today: Yes Date on this admission: 02/11/20 - Critical Care Critical Care patient: No - Discharge Referral Referred to [facility] Med P.C.: No
[2020-02-11] MEDS ORDERED: METOPROLOL TARTRATE 5 MG/5 ML VIAL IVPUSH ONE (21:04)
[2020-02-11] MEDS ORDERED: ACETAMINOPHEN 1000 MG/100 ML VIAL (NON FORMULARY) IVPB ONE ×2 (21:12→21:30)
[2020-02-11] MEDS ORDERED: LABETALOL HCL 200 MG TABLET (FP) PO ONE (22:13)
[2020-02-11] MEDS ORDERED: LABETALOL HCL 5 MG/1 ML (100MG/20 ML VIAL) IVPUSH ONE (22:19)
[2020-02-11] MEDS ORDERED: dilTIAZem HCL 50 MG/10 ML - 10 ML VIAL IVPUSH ONE (22:49)
[2020-02-12] MEDS ORDERED: HEPARIN NA (PORCINE) 5,000 UNITS/ML 1ML VIAL IVPUSH PRN (00:56)
[2020-02-12] MEDS ORDERED: dilTIAZem HCL 50 MG/10 ML - 10 ML VIAL IVPUSH ONE (01:07)
[2020-02-12] MEDS ORDERED: ASPIRIN 81 MG CHEWABLE TABLETS PO SCH (01:07)
[2020-02-12] MEDS: METOPROLOL TARTRATE 5 MG/5 ML VIAL IVPUSH SCH ×4 (02:28→19:16)
[2020-02-12] MEDS: HEPARIN - 25,000 UNIT in SODIUM CHLORIDE 495 ML IV SCH (03:08)
--- NOTE | 2020-02-12 03:31 | PN ---
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 (short form) - Note 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: Night team was paged at about 9:15 PM for concern of hypertensive urgency (BP max 190/80) and sustained tachycardia in the 150s-160s (HR max 160). Chart reviewed for current regimen and existing workup. Pt unable to tolerate PO. IV lopressor 5 mg was given. This resulted in the BP decreasing to 140/98 but tachycardia was sustained. Case discussed with PCP: hydralazine dc'd d/t concern for reflex tachycardia, IV labetalol 10 mg given and IV diltiazem 5 mg given. Duplex LE's ordered and negative. EKG showed new-onset Aflutter w/ ?St elevation in lead III and AVF but less than 2mm. Case was then discussed with Cardiology who had low suspicion for STEMI as likely it was p wave hidden in j point. Trop NEG. Diltiazem 25 mg IV administered and heparin drip initiated. After receiving the diltiazem bolus, pt's tachcardia improved to 80s. EKG returned to NSR, will not start dilt drip unless pt gets tachycardic again and changes rhythm. Spoke with nurse to keep a close eye on pt, will reassess later.
[2020-02-12] MEDS: INSULIN SLIDING SCALE (NOVOLOG) 1 VIAL SQ SCH ×3 (05:47→17:18)
[2020-02-12] MEDS: DILTIAZEM INJECTION 125 MG in SODIUM CHLORIDE 100 ML IVPB SCH (07:25)
[2020-02-12] MEDS ORDERED: DEXTROSE 5%-WATER 100 ML IVPB ONE (09:02)
[2020-02-12] MEDS ORDERED: PT OWN MED DRAWER 7, Y5N ONE (09:02)
[2020-02-12] MEDS: CEFTRIAXONE 2 GM in DEXTROSE 5%-WATER 100 ML IVPB SCH (09:08)
[2020-02-12] MEDS: PANTOPRAZOLE SODIUM 40 MG VIAL IVPUSH SCH (09:08)
--- NOTE | 2020-02-12 09:35 | CON.CARD ---
Consult Consult Specialty:: Cardiology Referred by:: Hospitalist Medicine Reason for Consultation:: Paroxysmal aflutter -> NSR - History of Present Illness Chief Complaint: Dyspnea History of Present Illness: 50 yo female morbid obesity, OSAS/OHS, HTN heart disease, hyperlipidemia, diastolic dysfunction while initating C5 corpectomy sustained hypotension, hypoxemia, procedure aborted 01/24, workup for PE unrevealing, extubated 02/05, [facility] CVP changed to [facility] CVP 02/01, currently maintained on HFOT in NSR. Overnight, she was evaluated for hypertensive urgency (BP max 190/80) and sustained tachycardia in the 150s-160s (HR max 160). Pt unable to tolerate PO. IV lopressor 5 mg was given. This resulted in the BP decreasing to 140/98 but tachycardia was sustained. IV labetalol 10 mg given and IV diltiazem 5 mg given. Duplex LE's ordered and negative. EKG showed new-onset Aflutter w/ RVR. Trop NEG. Diltiazem 25 mg IV administered and heparin drip initiated. After receiving the diltiazem bolus, pt's tachcardia improved to 80s. EKG returned to NSR. - History Source History Provided By: Medical Record Limitations to Obtaining History: Clinical Condition - Past Medical History Cardio/Vascular: Yes: HTN ...LMP: 08/24/17 ...LMP Comment: LMP>1year Rheumatology: Yes: Rheumatoid Arthritis Additional Medical History: bilateral venous stasis. morbid obesity - Past Surgical History Additional Surgical History: s/p bilateral mastectomy and reconstruction 2014. s/p gastric lap band - Alcohol/Substance Use Hx Alcohol Use: No - Smoking History Smoking history: Never smoked Have you smoked in the past 12 months: No - Social History ADL: Independent History of Recent Travel: No Home Medications - Allergies Allergies/Adverse Reactions: Allergies Allergy/AdvReac Type Severity Reaction Status Date / Time CHELY Inhibitors Allergy "swelling Verified 01/25/20 08:18 of tongue and face" lisinopril [From Zestril] Allergy Angioedema Verified 01/25/20 08:18 - Home Medications Home Medications: Ambulatory Orders Metoprolol Succinate [Toprol Xl] 150 mg PO HS 09/20/15 Gabapentin [Neurontin] 300 mg PO AM 08/30/17 Baclofen 10 mg PO DAILY 01/01/20 Clonidine Patch [Catapres Tts Patch -] 0.2 mg TD WEEKLY 01/24/20 Doxepin HCl [Sinequan -] 25 mg PO HS 01/24/20 Fluticasone Propionate [Flovent Diskus] 50 mcg IH DAILY 01/24/20 Gabapentin 600 mg PO HS 01/24/20 Hydralazine HCl 50 mg PO Q8H 01/24/20 Omeprazole Magnesium [Prilosec Otc] 20 mg PO DAILY 01/24/20 Rosuvastatin [Crestor -] 10 mg PO DAILY 01/24/20 Sitagliptin Phosphate [Januvia] 100 mg PO DAILY 01/24/20 Chlorthalidone 25 mg PO DAILY 02/02/20 Folic Acid 1 mg PO DAILY 02/02/20 Furosemide 40 mg PO DAILY 02/02/20 Leflunomide 20 mg PO DAILY 02/02/20 Mirabegron [Myrbetriq] 50 mg PO DAILY 02/02/20 Oxybutynin Chloride [Oxybutynin Chloride ER] 10 mg PO DAILY 02/02/20 Review of Systems - Review of Systems Cardiovascular: reports: Shortness of Breath Vital Signs: Vital Signs Temperature 99.0 F 02/12/20 05:41 Pulse Rate 78 02/12/20 09:15 Respiratory Rate 18 02/12/20 05:41 Blood Pressure 159/100 02/12/20 05:41 O2 Sat by Pulse Oximetry (%) 99 02/12/20 09:15 Constitutional: Yes: No Distress, Calm Respiratory: Yes: SOB, Other (HFOT) Gastrointestinal: Yes: Soft, Abdomen, Obese, Hypoactive Bowel Sounds Cardiovascular: Yes: Regular Rate and Rhythm JVD: No Carotid Bruit: No Heart Sounds: Yes: S1, S2 Edema: No - Other Data Labs, Other Data: CBC, BMP 02/11/20 05:23 02/11/20 05:23 INR, PTT INR 1.06 (0.83-1.09) 01/26/20 07:48 Fibrinogen 303.0 mg/dL (238-498) 01/25/20 12:09 Troponin, BNP 02/12/20 02:20 Troponin I 0.03 Troponin, BNP 02/12/20 02:20 Troponin I 0.03 Aflutter @ 144 -> NSR Echo: Report Reviewed Ejection Fraction %: LVEF > or = 40 % Imaging - Results Chest X-ray: Report Reviewed (Central congestion) Ultrasound: Report Reviewed ([facility] US:No DVT) Problem List - Problems (1) Paroxysmal atrial flutter Code(s): I48.92 - UNSPECIFIED ATRIAL FLUTTER (2) Hypertensive heart disease Code(s): I11.9 - HYPERTENSIVE HEART DISEASE WITHOUT HEART FAILURE Qualifiers: Heart failure presence: without heart failure Qualified Code(s): I11.9 - Hypertensive heart disease without heart failure (3) Bacteremia Code(s): R78.81 - BACTEREMIA (4) Cervical spine disease Code(s): M48.9 - SPONDYLOPATHY, UNSPECIFIED (5) Obesity Code(s): E66.9 - OBESITY, UNSPECIFIED (6) Diastolic dysfunction Code(s): I51.89 - OTHER ILL-DEFINED HEART DISEASES Assessment/Plan 01/26/2020 Echo: Normal LV size and fxn, mild TR, borderline LAE 1. Paroxysmal atrial flutter ->NSR 2. Hypertensive Urgency 3. Acute Hypoxic and Hypercapneic Respiratory Failure improving 4. Upper Airway Obstruction/Soft Tissue Swelling/Hematoma/Thyromegaly 5. Sinusitis 6. Gram Positive Bacteremia suspect line sepsis, CAP PNA 7. Morbid Obesity 8. Pulmonary HTN 9. DM 10. Likely OSAS/OHS P:1. Continue IV Lopressor and Cardizem for rate-control pending re-establ ishment of oral intake, heparin gtt->DOAC as post-op hemostasis achieved, IV hydralazine for HTN 2. Abx per C&S and document clearance, line previously d/ted 3. HFOT as needed, taper off decadron, glycemic control, incentive spirometry, chest PT, aspiration precautions, DVT/GI prophylaxis 4. Thank you for consultative opportunity
[2020-02-12] MEDS ORDERED: LABETALOL HCL 100 MG TABLET (FP) PO SCH (10:00)
--- NOTE | 2020-02-12 10:05 | PN ---
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 (short form) - Note 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: difficult night, tachycardia with aflutter-now resolved now resolved actually speaking much better this am-able to vocalize raising hands much better this am Vital Signs Period Temp Pulse Resp BP Sys/Gibbs Pulse Ox Last 24 Hr 98.3 F-100.6 F 76-160 18-20 123-190/78-100 97-100 cor-rrr lungs- decreased bs at bases abd soft,nt ext less edema moving arms and legs better CBC, BMP 02/11/20 05:23 02/11/20 05:23 Microbiology 02/10/20 12:17 Blood - Peripheral Venous Blood Culture - Preliminary NO GROWTH OBTAINED AFTER 24 HOURS, INCUBATION TO CONTINUE FOR 4 DAYS. 02/10/20 12:11 Blood - Peripheral Venous Blood Culture - Preliminary NO GROWTH OBTAINED AFTER 24 HOURS, INCUBATION TO CONTINUE FOR 4 DAYS. 02/06/20 12:20 Blood - Central Line Blood Culture - Preliminary Staphylococcus Epidermidis Pending Organism 02/08/20 15:50 Blood - Peripheral Venous Blood Culture - Preliminary Staphylococcus Coagulase Neg 02/08/20 15:50 Blood - Peripheral Venous Blood Culture - Preliminary Staphylococcus Coagulase Neg 02/08/20 16:00 Urine - Urine - Catheterized Urine Culture - Final Normal Urogenital Vi Yeast Like Organism 02/06/20 12:20 Blood - Central Line Blood Culture - Final Staphylococcus Coagulase Neg 02/05/20 12:00 Sputum - Endotrachea Suction/Ventilator Gram Stain - Final 02/05/20 12:00 Sputum - Endotrachea Suction/Ventilator Sputum Culture - Final Serratia Marcescens Beta Hem Streptococcus Group F a/p bacteremia-staph epi- vanco sylvie is 4!- have asked micro to review- repeat blood cultures drawn when new central line was placed on 02/07 are positive as well! continue daptomycin- await sensitivities and further ID of blood cultures, echo in am, repeat blood culture pending 02/09 cpk wnl pneumonia-on ceftriaxone obesity s/p resp failure aflutter- per cardiology encourage incentive spirometry OOB d/w hospitalist service Problem List - Problems (1) Fever Code(s): R50.9 - FEVER, UNSPECIFIED (2) Bacteremia Code(s): R78.81 - BACTEREMIA (3) Pneumonia Code(s): J18.9 - PNEUMONIA, UNSPECIFIED ORGANISM (4) Obesity Code(s): E66.9 - OBESITY, UNSPECIFIED (5) Cervical spine disease Code(s): M48.9 - SPONDYLOPATHY, UNSPECIFIED (6) Breast cancer Code(s): C50.919 - MALIGNANT NEOPLASM OF UNSP SITE OF UNSPECIFIED FEMALE BREAST (7) History of breast cancer Code(s): Z85.3 - PERSONAL HISTORY OF MALIGNANT NEOPLASM OF BREAST
--- NOTE | 2020-02-12 10:55 | EKG ---
Test Reason : Blood Pressure : / mmHG Vent. Rate : 145 BPM Atrial Rate : 315 BPM P-R Int : 000 ms QRS Dur : 090 ms QT Int : 322 ms P-R-T Axes : 000 035 050 degrees QTc Int : 500 ms AGE AND GENDER SPECIFIC ECG ANALYSIS ATRIAL FLUTTER WITH VARIABLE A-V BLOCK ST ELEVATION CONSIDER INFERIOR INJURY OR ACUTE INFARCT ABNORMAL ECG WHEN COMPARED WITH ECG OF 25-JAN-2020 12:10, ATRIAL FLUTTER HAS REPLACED SINUS RHYTHM ST ELEVATION NOW PRESENT IN INFERIOR LEADS Confirmed by Rylie Bejarano ([id number]) on 02/12/2020 10:55:41 AM Referred By: Lawson Vasquez Confirmed By:Rylie Bejarano
--- NOTE | 2020-02-12 10:55 | EKG ---
Test Reason : Blood Pressure : / mmHG Vent. Rate : 094 BPM Atrial Rate : 094 BPM P-R Int : 154 ms QRS Dur : 092 ms QT Int : 374 ms P-R-T Axes : 052 018 069 degrees QTc Int : 467 ms SINUS RHYTHM WITH PREMATURE ATRIAL COMPLEXES POSSIBLE LEFT ATRIAL ENLARGEMENT BORDERLINE ECG WHEN COMPARED WITH ECG OF 11-FEB-2020 23:25, SINUS RHYTHM HAS REPLACED ATRIAL FLUTTER VENT. RATE HAS DECREASED BY [address] NO LONGER ELEVATED IN INFERIOR LEADS Confirmed by Rylie Bejarano ([id number]) on 02/12/2020 10:55:12 AM Referred By: Lawson Vasquez Confirmed By:Rylie Bejarano
[2020-02-12] MEDS: MULTIVIT INJ. ADULT COMBO WITH VIT K 1 COMBO 10 ML VIAL IV SCH (11:06)
[2020-02-12] MEDS: AMINO ACIDS 4.25%/D5W 1,000 ML IV SCH ×2 (11:06→17:01)
--- NOTE | 2020-02-12 11:06 | PN ---
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, LINING LAYER - Note 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: Selected Entries 02/11/20 02/11/20 02/11/20 01:00 04:32 06:00 Supper Total Score - Skin Risk Assessment Temperature Respiratory Rate Respiratory Depth Respiratory Effort Blood Pressure O2 Sat by Pulse 100 100 100 Oximetry (%) Oxygen Delivery Method Fraction of Inspired Oxygen (FIO2) Oxygen Flow Rate 02/11/20 02/11/20 02/11/20 09:00 09:01 09:40 Supper Total Score - Skin Risk Assessment Temperature Respiratory Rate Respiratory Depth Respiratory Effort Blood Pressure O2 Sat by Pulse 100 100 100 Oximetry (%) Oxygen Delivery High Flow O2 High Flow O2 Method Fraction of Inspired Oxygen (FIO2) Oxygen Flow Rate 02/11/20 02/11/20 02/11/20 10:00 14:58 19:22 Supper NPO Total Score - Skin Risk Assessment Temperature Respiratory Rate Respiratory Depth Respiratory Effort Blood Pressure O2 Sat by Pulse 97 100 Oximetry (%) Oxygen Delivery Method Fraction of Inspired Oxygen (FIO2) Oxygen Flow Rate 02/11/20 02/11/20 02/11/20 20:23 20:38 21:00 Supper Total Score - Skin Risk Assessment Temperature Respiratory Rate Respiratory Depth Respiratory Effort Blood Pressure O2 Sat by Pulse 100 100 100 Oximetry (%) Oxygen Delivery High Flow O2 Method Fraction of Inspired Oxygen (FIO2) Oxygen Flow Rate 02/11/20 02/11/20 02/11/20 21:35 21:59 22:08 Supper Total Score - Skin Risk Assessment Temperature Respiratory Rate Respiratory Depth Respiratory Effort Blood Pressure O2 Sat by Pulse 100 100 100 Oximetry (%) Oxygen Delivery Method Fraction of Inspired Oxygen (FIO2) Oxygen Flow Rate 02/11/20 02/11/20 02/11/20 22:19 22:38 23:08 Supper Total Score - Skin Risk Assessment Temperature Respiratory Rate Respiratory Depth Respiratory Effort Blood Pressure O2 Sat by Pulse 100 100 100 Oximetry (%) Oxygen Delivery Method Fraction of Inspired Oxygen (FIO2) Oxygen Flow Rate 02/11/20 02/11/20 02/12/20 23:31 23:47 01:46 Supper NPO Total Score - Skin Risk Assessment Temperature 100.6 F H Respiratory 18 Rate Respiratory Depth Respiratory Effort Blood Pressure 152/89 O2 Sat by Pulse 100 Oximetry (%) Oxygen Delivery Method Fraction of Inspired Oxygen (FIO2) Oxygen Flow Rate 02/12/20 02/12/20 02/12/20 04:48 05:41 09:00 Supper Total Score - Skin Risk Assessment Temperature 99.0 F 98.3 F Respiratory 18 18 Rate Respiratory Shallow Depth Respiratory Non-Labored Effort Blood Pressure 159/100 147/78 O2 Sat by Pulse 100 100 Oximetry (%) Oxygen Delivery High Flow O2 Method Fraction of 50 50 Inspired Oxygen (FIO2) Oxygen Flow 50 Rate 02/12/20 02/12/20 09:15 10:00 Supper Total Score - 12 Skin Risk Assessment Temperature Respiratory Rate Respiratory Depth Respiratory Effort Blood Pressure O2 Sat by Pulse 99 Oximetry (%) Oxygen Delivery High Flow O2 Method Fraction of 50 Inspired Oxygen (FIO2) Oxygen Flow 50 Rate Laboratory Tests 02/11/20 05:23 WBC 7.1 TF ordered on 02/08-Pt unable to tolerate NGT and requested it be removed. Per emr, difficult night, tachycardia with aflutter-now resolved More alert, audible. Poor insight, leg out of bed, attempting to get up and walk to bathroom. Unaware of weakness, disability, although she knows she is in the hospital. No saliva pooling in oral cavity. Swallow is delayed but improving. Delayed, fair swallow onset with trial of 1/2 tsp on puree. On Hi-rocky, and pt likely too large to fit in fluoroscopy unit for mbs to r/o silent aspiration. On hi-rocky SUGGEST-Trial of Dysphagia puree/honey thick liquid on tsp only.Crush meds/give in applesauce. Feed very slowly, 1/2 tsp at a time, WAIT FOR REFLEX BEFORE NEXT TRIAL Observe for increased WOB,SOB, congestion, fever, vocal wetness, cough, throat clearing- NPO if noted. Consider LTACH vs NH for rehab
[2020-02-12 11:13] LABS: BASO % 0.4 % (0-2.0); EOS % 0.7 % (0-4.5); HEMATOCRIT 33.4 % (32.4-45.2); HEMOGLOBIN 10.2 GM/dL (10.7-15.3); LYMPH % 24.4 % (8-40); MCH 25.8 pg (25.7-33.7); MCHC 30.5 g/dl (32.0-36.0); MEAN CELL VOLUME 84.4 fl (80-96); MEAN PLT VOLUME 8.6 fl (7.5-11.1); MONO % 9.5 % (3.8-10.2); PLATELET COUNT 198 K/MM3 (134-434); RBC 3.95 M/mm3 (3.60-5.2); RDW 17.5 % (11.6-15.6); WHITE BLOOD COUNT 6.4 K/mm3 (4.0-10.0)
[2020-02-12] MEDS: HEPARIN NA (PORCINE) 5,000 UNITS/ML 1ML VIAL IVPUSH PRN ×2 (11:54→21:01)
[2020-02-12 11:55] LABS: ALBUMIN 2.7 g/dl (3.4-5.0); BILIRUBIN,TOTAL 0.4 mg/dL (0.2-1); BLOOD UREA NITROGEN 15.6 mg/dL (7-18); CALCIUM 8.5 mg/dL (8.5-10.1); CREATININE 0.4 mg/dL (0.55-1.3); TOT PROT 6.2 g/dl (6.4-8.2)
[2020-02-12 12:55] LABS: POTASSIUM 2.8 mmol/L (3.5-5.1)
--- NOTE | 2020-02-12 12:56 | PN ---
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 (short form) - Note 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: PULMONARY Remains on HFOT. States breathing is improving. Vital Signs Period Temp Pulse Resp BP Sys/Gibbs Pulse Ox Last 24 Hr 98.3 F-100.6 F 76-160 18-20 123-190/78-100 97-100 Gen: less tachypneic Heart: RRR Lung: decreased breath sounds at the bases Abd: soft, nontender Ext: no edema CBC, BMP 02/12/20 09:45 02/12/20 09:45 Active Medications Heparin Sodium (Porcine) (Heparin -) 1,000 unit IVPUSH PRN PRN PRN Reason: Heparin Last Admin: 02/12/20 11:54 Dose: 1,000 unit Documented by: Heparin Sodium (Porcine) (Heparin -) 5,000 unit IVPUSH PRN PRN PRN Reason: Heparin Last Admin: 02/12/20 03:11 Dose: 5,000 unit Documented by: IV Flush (Triple Lumen Flush) 4 ml IVPUSH PRN PRN PRN Reason: Protocol Ceftriaxone Sodium 2 gm/ (Dextrose) 100 mls @ 100 mls/hr IVPB DAILY ANGIE; Protocol Last Admin: 02/12/20 09:08 Dose: 100 mls/hr Documented by: Amino Acids (Clinimix -) 1,000 mls @ 42 mls/hr IV Q24H ANGIE Last Admin: 02/12/20 11:06 Dose: 42 mls/hr Documented by: Daptomycin 1,000 mg/ Sodium (Chloride) 100 mls @ 100 mls/hr IVPB DAILY@1300 ANGIE; Protocol Last Admin: 02/11/20 14:07 Dose: 100 mls/hr Documented by: Heparin Sodium (Porcine) 25, (000 unit/ Sodium Chloride) 500 mls @ 20 mls/hr IV TITR ANGIE; Protocol Last Titration: 02/12/20 11:56 Dose: 1,100 unit/hr, 22 mls/hr Documented by: Diltiazem HCl 125 mg/ Sodium (Chloride) 125 mls @ 5 mls/hr IVPB TITR ANGIE; Protocol Last Admin: 02/12/20 07:25 Dose: Not Given Documented by: Insulin Aspart (Novolog Vial Sliding Scale -) 1 vial SQ Q6HPO ANGIE; Protocol Last Admin: 02/12/20 11:14 Dose: Not Given Documented by: Metoprolol Tartrate (Lopressor Injection -) 5 mg IVPUSH Q6H [facility] Last Admin: 02/12/20 12:25 Dose: Not Given Documented by: Multivitamins/Minerals (Infuvite Adult -) 10 ml IV DAILY [facility] Last Admin: 02/12/20 11:06 Dose: 10 ml Documented by: Pantoprazole Sodium (Protonix Iv) 40 mg IVPUSH DAILY [facility] Last Admin: 02/12/20 09:08 Dose: 40 mg Documented by: Scopolamine HBr (Transderm-Scop -) 1 patch TD Q72H [facility] Last Admin: 02/11/20 06:38 Dose: 1 patch Documented by: A/P Acute Hypoxic and Hypercapneic Respiratory Failure improving Upper Airway Obstruction/Soft Tissue Swelling/Hematoma/Thyromegaly Sinusitis Gram Positive Bacteremia Hypertensive Urgency Paroxysmal Atrial Fibrillation Morbid Obesity Pulmonary HTN HTN DM Likely OSAS/OHS - titrate HFOT to keep spO2 >90% - rate control - continue anticoagulation - continue antibiotics - incentive spirometry - chest PT - aspiration precautions - DVT/GI prophylaxis
[2020-02-12] MEDS ORDERED: POTASSIUM CHLORIDE 20 MEQ PREMIX IVPB 100 ML IVPB ONE (13:19)
--- NOTE | 2020-02-12 13:29 | PN ---
Physical Exam: SUBJECTIVE: Patient seen and examined. Overnight events noted. Per RN Pt. is a very difficult stick, Phlebotomy has been unable to get access. OBJECTIVE: Vital Signs Period Temp Pulse Resp BP Sys/Gibbs Pulse Ox Last 24 Hr 98.3 F-100.6 F 76-160 18-20 123-190/78-100 97-100 GENERAL: The patient is awake, alert, and, in no acute distress. HEAD: Normal with no signs of trauma. EYES: Sclera anicteric, conjunctiva clear. ENT: Ears normal, nares patent, oropharynx clear without exudates, moist mucous membranes. NECK: Trachea midline, full range of motion, supple. LUNGS: Breath sounds equal, clear to auscultation bilaterally, no wheezes, no crackles, no accessory muscle use. HEART: Regular rate and rhythm, S1, S2 without murmur ABDOMEN: Soft, nontender, obese, nondistended, normoactive bowel sounds, no guarding, no rebound EXTREMITIES: 2+ dorsal pedal pulses, warm, RLE calf tenderness well-perfused, no edema. RLE cool to touch to mid thigh. NEUROLOGICAL: Normal speech, gait not observed. PSYCH: Normal mood, normal affect. SKIN: Warm, dry, normal turgor, no rashes or lesions noted Laboratory Results - last 24 hr 02/11/20 02/11/20 02/11/20 13:12 18:12 22:50 WBC RBC Hgb Hct MCV MCH MCHC RDW Plt Count MPV Absolute Neuts (auto) Neutrophils % Lymphocytes % Monocytes % Eosinophils % Basophils % Nucleated RBC % PTT (Actin FS) Anticoagulation Therapy No Result Required. Puncture Site Right radial Patient Temperature No Result Required. ABG pH 7.435 ABG pCO2 56.40 H ABG pO2 137.5 H ABG HCO3 37.0 H ABG O2 Sat (Measured) 98.8 H ABG O2 Content No Result Required. ABG Base Excess 10.8 H Jeffrey Test Positive Patient On Oxygen Yes O2 Delivery Device Hfnc Oxygen Flow Rate 50% Vent Mode No Result Required. Vent Rate No Result Required. Mechanical Rate No Result Required. PEEP No Result Required. Pressure Support Vent No Result Required. Sodium Potassium Chloride Carbon Dioxide Anion Gap BUN Creatinine Est GFR (CKD-EPI)AfAm Est GFR (CKD-EPI)NonAf POC Glucometer 197 182 Random Glucose Hemoglobin A1c % Calcium Total Bilirubin AST ALT Alkaline Phosphatase Creatine Kinase Troponin I Total Protein Albumin Triglycerides Cholesterol Total LDL Cholesterol HDL Cholesterol TSH 02/12/20 02/12/20 02/12/20 02:20 02:20 05:46 WBC RBC Hgb Hct MCV MCH MCHC RDW Plt Count MPV Absolute Neuts (auto) Neutrophils % Lymphocytes % Monocytes % Eosinophils % Basophils % Nucleated RBC % PTT (Actin FS) 24.1 L Anticoagulation Therapy Puncture Site Patient Temperature ABG pH ABG pCO2 ABG pO2 ABG HCO3 ABG O2 Sat (Measured) ABG O2 Content ABG Base Excess Jeffrey Test Patient On Oxygen O2 Delivery Device Oxygen Flow Rate Vent Mode Vent Rate Mechanical Rate PEEP Pressure Support Vent Sodium Potassium Chloride Carbon Dioxide Anion Gap BUN Creatinine Est GFR (CKD-EPI)AfAm Est GFR (CKD-EPI)NonAf POC Glucometer 117 Random Glucose Hemoglobin A1c % Calcium Total Bilirubin AST ALT Alkaline Phosphatase Creatine Kinase 59 Troponin I 0.03 Total Protein Albumin Triglycerides Cholesterol Total LDL Cholesterol HDL Cholesterol TSH 02/12/20 02/12/20 02/12/20 09:45 09:45 09:45 WBC 6.4 RBC 3.95 Hgb 10.2 L Hct 33.4 MCV 84.4 MCH 25.8 MCHC 30.5 L RDW 17.5 H Plt Count 198 D MPV 8.6 Absolute Neuts (auto) 4.1 Neutrophils % 65.0 Lymphocytes % 24.4 Monocytes % 9.5 Eosinophils % 0.7 D Basophils % 0.4 Nucleated RBC % 0 PTT (Actin FS) Anticoagulation Therapy Puncture Site Patient Temperature ABG pH ABG pCO2 ABG pO2 ABG HCO3 ABG O2 Sat (Measured) ABG O2 Content ABG Base Excess Jeffrey Test Patient On Oxygen O2 Delivery Device Oxygen Flow Rate Vent Mode Vent Rate Mechanical Rate PEEP Pressure Support Vent Sodium 142 Potassium 2.8 L* Chloride 99 Carbon Dioxide 34 H Anion Gap 9 BUN 15.6 Creatinine 0.4 L Est GFR (CKD-EPI)AfAm 138.79 Est GFR (CKD-EPI)NonAf 119.75 POC Glucometer Random Glucose 130 H Hemoglobin A1c % 7.4 H Calcium 8.5 Total Bilirubin 0.4 AST 15 ALT 38 Alkaline Phosphatase 60 Creatine Kinase 65 Troponin I 0.03 Total Protein 6.2 L Albumin 2.7 L Triglycerides 170 H Cholesterol 311 H Total LDL Cholesterol 245 H HDL Cholesterol 41 TSH 0.68 02/12/20 02/12/20 09:45 11:11 WBC RBC Hgb Hct MCV MCH MCHC RDW Plt Count MPV Absolute Neuts (auto) Neutrophils % Lymphocytes % Monocytes % Eosinophils % Basophils % Nucleated RBC % PTT (Actin FS) 41.5 H Anticoagulation Therapy Puncture Site Patient Temperature ABG pH ABG pCO2 ABG pO2 ABG HCO3 ABG O2 Sat (Measured) ABG O2 Content ABG Base Excess Jeffrey Test Patient On Oxygen O2 Delivery Device Oxygen Flow Rate Vent Mode Vent Rate Mechanical Rate PEEP Pressure Support Vent Sodium Potassium Chloride Carbon Dioxide Anion Gap BUN Creatinine Est GFR (CKD-EPI)AfAm Est GFR (CKD-EPI)NonAf POC Glucometer 121 Random Glucose Hemoglobin A1c % Calcium Total Bilirubin AST ALT Alkaline Phosphatase Creatine Kinase Troponin I Total Protein Albumin Triglycerides Cholesterol Total LDL Cholesterol HDL Cholesterol TSH Active Medications Generic Name Dose Route Start Last Admin Trade Name Freq PRN Reason Stop Dose Admin Heparin Sodium (Porcine) 1,000 unit 02/12/20 00:56 02/12/20 11:54 Heparin - IVPUSH 1,000 unit PRN PRN Administration Heparin Heparin Sodium (Porcine) 5,000 unit 02/12/20 00:56 02/12/20 03:11 Heparin - IVPUSH 5,000 unit PRN PRN Administration Heparin IV Flush 4 ml 02/09/20 22:33 Triple Lumen Flush IVPUSH PRN PRN Protocol Ceftriaxone Sodium 2 gm/ 100 mls @ 100 mls/hr 02/10/20 10:00 02/12/20 09:08 Dextrose IVPB 100 mls/hr DAILY ANGIE Administration Protocol Amino Acids 1,000 mls @ 42 mls/hr 02/10/20 16:15 02/12/20 11:06 Clinimix - IV 42 mls/hr Q24H ANGIE Administration Daptomycin 1,000 mg/ Sodium 100 mls @ 100 mls/hr 02/10/20 13:00 02/11/20 14:07 Chloride IVPB 100 mls/hr DAILY@1300 ANGIE Administration Protocol Heparin Sodium (Porcine) 25, 500 mls @ 20 mls/hr 02/12/20 01:00 02/12/20 11:56 000 unit/ Sodium Chloride IV 1,100 unit/hr TITR ANGIE 22 mls/hr Titration Protocol 1,000 UNIT/HR Diltiazem HCl 125 mg/ Sodium 125 mls @ 5 mls/hr 02/12/20 01:45 02/12/20 07:25 Chloride IVPB Not Given TITR ANGIE Protocol 5 MG/HR Potassium Chloride 10 meq in 100 mls @ 100 mls/hr 02/12/20 13:30 Potassium Chloride 10 Meq Premix Ivpb - IVPB 02/12/20 17:29 Q60M ANGIE Insulin Aspart 1 vial 02/10/20 00:00 02/12/20 11:14 Novolog Vial Sliding Scale - SQ Not Given Q6HPO [facility] Protocol Metoprolol Tartrate 5 mg 02/10/20 01:00 02/12/20 12:25 Lopressor Injection - IVPUSH Not Given Q6H ANGIE Multivitamins/Minerals 10 ml 02/10/20 10:00 02/12/20 11:06 Infuvite Adult - IV 10 ml DAILY ANGIE Administration Pantoprazole Sodium 40 mg 02/10/20 10:00 02/12/20 09:08 Protonix Iv IVPUSH 40 mg DAILY ANGIE Administration Scopolamine HBr 1 patch 02/11/20 06:30 02/11/20 06:38 Transderm-Scop - TD 1 patch Q72H ANGIE Administration ASSESSMENT/PLAN: Pt. is a 50 y.o. F w/ PMHx. of HTN, DM, MO, severe b/l LE venous stasis and severe b/l UE lymphedema 2/2 b/l mastectomy w/ reconstruction 2/2 Breast CA. Pt. was for ACDF when PT. became hypotensive and hypoxic after dividing the SCM. Pt. did not respond to phenylepherine and procedure was aborted. Pt. was monitored in the ICU afterwards and now has been downgraded to Telemetry. #Acute hypercapenic and hypoxic respiratory failure Suspected neck hematoma c/w High Flow, will attempt to wean Pulmonology consults appreciated. Carotid body compression? #Morbidly obese #Suspected TEJAL/OHS Pulmonology consult appreciated CPAP ordered c/w Scopolamine Patch will need adherence to CPAP as outpatient, discussed with Pt. #CAP PNA #Staph bacteremia BCx. + x 2, Third set has been negative for 72 hours c/w Daptomycin and Ceftriaxone ID Consult appreciated Cultures growing bacteria resistant to Vancomycin #HTN #HLD Resume BP medications as BP permits #Cool RLE f/u arterial US Duplex negative c/w Hep gtt #FEN encourage PO intake, c/w clinimix Repleting Potassium with 40 meq x 2 today, will sign out to night team to give another 40 overnight Dysphagia Puree with Honey thick #DVT Ppx. Hep Gtt. Visit type - Emergency Visit Emergency Visit: Yes ED Registration Date: 01/25/20 Care time: The patient presented to the Emergency Department on the above date and was hospitalized for further evaluation of their emergent condition. - New Patient This patient is new to me today: Yes Date on this admission: 02/12/20 - Critical Care Critical Care patient: No - Discharge Referral Referred to [facility] No ATTENDING PHYSICIAN STATEMENT I saw and evaluated the patient. I reviewed the resident's note and discussed the case with the resident. I agree with the resident's findings and plan as documented. SUBJECTIVE: OBJECTIVE: ASSESSMENT AND PLAN:
[2020-02-12] MEDS: KCL 10 MEQ IVPB 10 MEQ/100 ML INFUS.BAG IVPB SCH ×6 (13:56→23:16)
--- NOTE | 2020-02-12 14:48 | PN ---
Teaching Attending Note Name of Resident: Obdulio Teresa ATTENDING PHYSICIAN STATEMENT I saw and evaluated the patient. I reviewed the resident's note and discussed the case with the resident. I agree with the resident's findings and plan as documented. SUBJECTIVE: Patient seen and examined at bedside, more alert, overnight had episode of Atrial flutter which broke with IV Diltiazem, ACS ruled out. Needs DOAC for maintenance AC. Cardiology following. VSS. OBJECTIVE: Gen: Tired appearing, morbidly obese, makes eye contact HEENT: NC/AT, TIERNEY, sclera anicteric, MMM, + clear secretions Neck: no audible strido, supple LUNG: B/l rhonchi present, HF 40L/40% CARD: RRR, no murmurs, S1/S2 normal ABD: Soft, Nt/ND, normoactive BS, obese EXT: 1+ DP pulses (LLE pulse stronger than RLE), RLE slightly cooler than LLE, mod nonpitting edema noted, chronic skin changes noted without any erythema Skin: Dry, chronic skin changed in b/l lower extremities without area of ulceration. Sacrum not examined Vital Signs - 24 hr 02/11/20 02/11/20 02/11/20 14:58 15:49 18:07 Temperature 98.8 F 98.8 F Pulse Rate 90 96 H Respiratory 18 18 Rate Blood Pressure 137/91 166/94 O2 Sat by Pulse 97 Oximetry (%) 02/11/20 02/11/20 02/11/20 18:16 19:22 20:23 Temperature 99.0 F Pulse Rate 98 H 76 Respiratory 20 Rate Blood Pressure 164/90 180/90 H O2 Sat by Pulse 100 100 Oximetry (%) 02/11/20 02/11/20 02/11/20 20:38 21:00 21:24 Temperature Pulse Rate 160 H Respiratory Rate Blood Pressure 190/80 H O2 Sat by Pulse 100 100 Oximetry (%) 02/11/20 02/11/20 02/11/20 21:35 21:59 22:08 Temperature Pulse Rate 153 H 157 H 159 H Respiratory 18 20 20 Rate Blood Pressure 140/98 150/93 153/81 O2 Sat by Pulse 100 100 100 Oximetry (%) 02/11/20 02/11/20 02/11/20 22:19 22:38 23:08 Temperature 99.8 F H Pulse Rate 157 H 153 H Respiratory 18 18 Rate Blood Pressure 145/93 123/86 O2 Sat by Pulse 100 100 100 Oximetry (%) 02/11/20 02/12/20 02/12/20 23:31 01:46 05:41 Temperature 99.5 F 100.6 F H 99.0 F Pulse Rate 155 H 118 H 81 Respiratory 18 18 18 Rate Blood Pressure 146/87 152/89 159/100 O2 Sat by Pulse 100 100 Oximetry (%) 02/12/20 02/12/20 02/12/20 09:00 09:15 14:15 Temperature 98.3 F Pulse Rate 78 78 Respiratory 18 Rate Blood Pressure 147/78 O2 Sat by Pulse 100 99 100 Oximetry (%) Microbiology 02/08/20 15:50 Blood - Peripheral Venous Blood Culture - Final Staphylococcus Coagulase Neg 02/10/20 12:17 Blood - Peripheral Venous Blood Culture - Preliminary NO GROWTH OBTAINED AFTER 48 HOURS, INCUBATION TO CONTINUE FOR 3 DAYS. 02/10/20 12:11 Blood - Peripheral Venous Blood Culture - Preliminary NO GROWTH OBTAINED AFTER 48 HOURS, INCUBATION TO CONTINUE FOR 3 DAYS. 02/08/20 15:50 Blood - Peripheral Venous Blood Culture - Final Staphylococcus Epidermidis 02/06/20 12:20 Blood - Central Line Blood Culture - Final Staphylococcus Epidermidis#2 02/08/20 16:00 Urine - Urine - Catheterized Urine Culture - Final Normal Urogenital Vi Yeast Like Organism 02/06/20 12:20 Blood - Central Line Blood Culture - Final Staphylococcus Coagulase Neg 02/05/20 12:00 Sputum - Endotrachea Suction/Ventilator Gram Stain - Final 02/05/20 12:00 Sputum - Endotrachea Suction/Ventilator Sputum Culture - Final Serratia Marcescens Beta Hem Streptococcus Group F Laboratory Results - last 24 hr 02/11/20 02/11/20 02/12/20 18:12 22:50 02:20 WBC RBC Hgb Hct MCV MCH MCHC RDW Plt Count MPV Absolute Neuts (auto) Neutrophils % Lymphocytes % Monocytes % Eosinophils % Basophils % Nucleated RBC % PTT (Actin FS) Sodium Potassium Chloride Carbon Dioxide Anion Gap BUN Creatinine Est GFR (CKD-EPI)AfAm Est GFR (CKD-EPI)NonAf POC Glucometer 197 182 Random Glucose Hemoglobin A1c % Calcium Total Bilirubin AST ALT Alkaline Phosphatase Creatine Kinase 59 Troponin I 0.03 Total Protein Albumin Triglycerides Cholesterol Total LDL Cholesterol HDL Cholesterol TSH 02/12/20 02/12/20 02/12/20 02:20 05:46 09:45 WBC 6.4 RBC 3.95 Hgb 10.2 L Hct 33.4 MCV 84.4 MCH 25.8 MCHC 30.5 L RDW 17.5 H Plt Count 198 D MPV 8.6 Absolute Neuts (auto) 4.1 Neutrophils % 65.0 Lymphocytes % 24.4 Monocytes % 9.5 Eosinophils % 0.7 D Basophils % 0.4 Nucleated RBC % 0 PTT (Actin FS) 24.1 L Sodium Potassium Chloride Carbon Dioxide Anion Gap BUN Creatinine Est GFR (CKD-EPI)AfAm Est GFR (CKD-EPI)NonAf POC Glucometer 117 Random Glucose Hemoglobin A1c % Calcium Total Bilirubin AST ALT Alkaline Phosphatase Creatine Kinase Troponin I Total Protein Albumin Triglycerides Cholesterol Total LDL Cholesterol HDL Cholesterol TSH 02/12/20 02/12/20 02/12/20 09:45 09:45 09:45 WBC RBC Hgb Hct MCV MCH MCHC RDW Plt Count MPV Absolute Neuts (auto) Neutrophils % Lymphocytes % Monocytes % Eosinophils % Basophils % Nucleated RBC % PTT (Actin FS) 41.5 H Sodium 142 Potassium 2.8 L* Chloride 99 Carbon Dioxide 34 H Anion Gap 9 BUN 15.6 Creatinine 0.4 L Est GFR (CKD-EPI)AfAm 138.79 Est GFR (CKD-EPI)NonAf 119.75 POC Glucometer Random Glucose 130 H Hemoglobin A1c % 7.4 H Calcium 8.5 Total Bilirubin 0.4 AST 15 ALT 38 Alkaline Phosphatase 60 Creatine Kinase 65 Troponin I 0.03 Total Protein 6.2 L Albumin 2.7 L Triglycerides 170 H Cholesterol 311 H Total LDL Cholesterol 245 H HDL Cholesterol 41 TSH 0.68 02/12/20 11:11 WBC RBC Hgb Hct MCV MCH MCHC RDW Plt Count MPV Absolute Neuts (auto) Neutrophils % Lymphocytes % Monocytes % Eosinophils % Basophils % Nucleated RBC % PTT (Actin FS) Sodium Potassium Chloride Carbon Dioxide Anion Gap BUN Creatinine Est GFR (CKD-EPI)AfAm Est GFR (CKD-EPI)NonAf POC Glucometer 121 Random Glucose Hemoglobin A1c % Calcium Total Bilirubin AST ALT Alkaline Phosphatase Creatine Kinase Troponin I Total Protein Albumin Triglycerides Cholesterol Total LDL Cholesterol HDL Cholesterol TSH Home Medications Medication Instructions Recorded Metoprolol Succinate [Toprol Xl] 150 mg PO HS 09/20/15 Gabapentin [Neurontin] 300 mg PO AM 08/30/17 Baclofen 10 mg PO DAILY 01/01/20 Clonidine Patch [Catapres Tts 0.2 mg TD WEEKLY 01/24/20 Patch -] Doxepin HCl [Sinequan -] 25 mg PO HS 01/24/20 Fluticasone Propionate [Flovent 50 mcg IH DAILY 01/24/20 Diskus] Gabapentin 600 mg PO HS 01/24/20 Hydralazine HCl 50 mg PO Q8H 01/24/20 Omeprazole Magnesium [Prilosec Otc] 20 mg PO DAILY 01/24/20 Rosuvastatin [Crestor -] 10 mg PO DAILY 01/24/20 Sitagliptin Phosphate [Januvia] 100 mg PO DAILY 01/24/20 Chlorthalidone 25 mg PO DAILY 02/02/20 Folic Acid 1 mg PO DAILY 02/02/20 Furosemide 40 mg PO DAILY 02/02/20 Leflunomide 20 mg PO DAILY 02/02/20 Mirabegron [Myrbetriq] 50 mg PO DAILY 02/02/20 Oxybutynin Chloride [Oxybutynin 10 mg PO DAILY 02/02/20 Chloride ER] Current Medications Generic Name Dose Route Start Last Admin Trade Name Freq PRN Reason Stop Dose Admin Heparin Sodium (Porcine) 1,000 unit 02/12/20 00:56 02/12/20 11:54 Heparin - IVPUSH 1,000 unit PRN PRN Administration Heparin Heparin Sodium (Porcine) 5,000 unit 02/12/20 00:56 02/12/20 03:11 Heparin - IVPUSH 5,000 unit PRN PRN Administration Heparin IV Flush 4 ml 02/09/20 22:33 Triple Lumen Flush IVPUSH PRN PRN Protocol Ceftriaxone Sodium 2 gm/ 100 mls @ 100 mls/hr 02/10/20 10:00 02/12/20 09:08 Dextrose IVPB 100 mls/hr DAILY ANGIE Administration Protocol Amino Acids 1,000 mls @ 42 mls/hr 02/10/20 16:15 02/12/20 11:06 Clinimix - IV 42 mls/hr Q24H ANGIE Administration Daptomycin 1,000 mg/ Sodium 100 mls @ 100 mls/hr 02/10/20 13:00 02/11/20 14:07 Chloride IVPB 100 mls/hr DAILY@1300 ANGIE Administration Protocol Heparin Sodium (Porcine) 25, 500 mls @ 20 mls/hr 02/12/20 01:00 02/12/20 11:5 6 000 unit/ Sodium Chloride IV 1,100 unit/hr TITR ANGIE 22 mls/hr Titration Protocol 1,000 UNIT/HR Diltiazem HCl 125 mg/ Sodium 125 mls @ 5 mls/hr 02/12/20 01:45 02/12/20 07:25 Chloride IVPB Not Given TITR ANGIE Protocol 5 MG/HR Potassium Chloride 10 meq in 100 mls @ 100 mls/hr 02/12/20 13:30 02/12/20 13:56 Potassium Chloride 10 Meq Premix Ivpb - IVPB 02/12/20 17:29 100 mls/hr Q60M ANGIE Administration Insulin Aspart 1 vial 02/10/20 00:00 02/12/20 11:14 Novolog Vial Sliding Scale - SQ Not Given Q6HPO [facility] Protocol Metoprolol Tartrate 5 mg 02/10/20 01:00 02/12/20 12:25 Lopressor Injection - IVPUSH Not Given Q6H ANGIE Multivitamins/Minerals 10 ml 02/10/20 10:00 02/12/20 11:06 Infuvite Adult - IV 10 ml DAILY ANGIE Administration Pantoprazole Sodium 40 mg 02/10/20 10:00 02/12/20 09:08 Protonix Iv IVPUSH 40 mg DAILY ANGIE Administration Scopolamine HBr 1 patch 02/11/20 06:30 02/11/20 06:38 Transderm-Scop - TD 1 patch Q72H ANGIE Administration ASSESSMENT AND PLAN: 50 F Acute hypercapenic and hypoxic respiratory failure Neck hematoma (resolved) TEJAL/OHS Morbidly obese CAP PNA Staph bacteremia HTN HLD Plan: Cont. Daptomycin due to refractory Staph bacteremia Hepatin gtt to DOAC per Cardiology recs Cont. Ceftriaxone for CAP Incentive spirometry, needs OOB to chair as tolerated, PT referral Strict avoidance of sedatives/opioids/gabapentanoids, frequent re-orientation DC steroids Obtain LE arterial doppler to r/o ischemic limb, lactic acid levels, CK levels DVT ppx: heparin Gtt
[2020-02-12 15:00] LABS: EPI CELLS >36 /uL (0-25.1); HYALINE CASTS 5 /uL (0-3.1); PH,URINE 5.5 (5.0-8.0); URINE APPEARANCE CLOUDY; URINE BACTERIA 65 /uL (0-1359); URINE BILIRUBIN NEGATIVE (NEGATIVE); URINE COLOR YELLOW; URINE GLUCOSE (UA) NEGATIVE (NEGATIVE); URINE KETONE NEGATIVE (NEGATIVE); URINE LEUK ESTERASE TRACE (NEGATIVE); URINE NITRITE NEGATIVE (NEGATIVE); URINE PROTEIN 2+ (NEGATIVE); URINE UROBILINOGEN 0.2 mg/dL (0.2-1.0); URINE WBC 64 /uL (0-25.8)
[2020-02-12 16:48] LABS: URINE CRYSTALS NONE SEEN /hpf; URINE RBC 206.1 /uL (0-23.9); YEAST POSITIVE (NEGATIVE)
[2020-02-12] MEDS: DAPTOMYCIN 1,000 MG in SODIUM CHLORIDE 100 ML IVPB SCH (16:54)
[2020-02-13] MEDS: KCL 10 MEQ IVPB 10 MEQ/100 ML INFUS.BAG IVPB SCH ×10 (00:53→22:00)
[2020-02-13] MEDS: INSULIN SLIDING SCALE (NOVOLOG) 1 VIAL SQ SCH ×4 (00:53→17:54)
[2020-02-13] MEDS: METOPROLOL TARTRATE 5 MG/5 ML VIAL IVPUSH SCH ×4 (00:53→20:12)
--- NOTE | 2020-02-13 01:50 | PN ---
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 (short form) - Note 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: Critical report from Dr. Triplett, on-call radiology: Art. US for cool RLE demonstrates atherosclerosis of popliteal/SFA but 2/2 limitations of bedside evaluation there is no evaluation of 2 of 3 run off. Recommendation: f/u with CT angiogram
[2020-02-13] MEDS: HEPARIN - 25,000 UNIT in SODIUM CHLORIDE 495 ML IV SCH (02:11)
[2020-02-13] MEDS: DILTIAZEM INJECTION 125 MG in SODIUM CHLORIDE 100 ML IVPB SCH (04:16)
--- NOTE | 2020-02-13 06:50 | PN ---
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 (short form) - Note 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: Chief Complaint: Events noted, notes reviewed, resting in bed on CPAP therapy, reports persistent dyspnea but clinically improved, denies any chest discomfort History of Present Illness: Seen and examined on telemetry. Events noted, notes reviewed, resting in bed on CPAP therapy, reports persistent dyspnea but clinically improved, denies any chest discomfort Medications: Current Medications Generic Name Dose Route Start Last Admin Trade Name Freq PRN Reason Stop Dose Admin Heparin Sodium (Porcine) 1,000 unit 02/12/20 00:56 02/12/20 21:01 Heparin - IVPUSH 1,000 unit PRN PRN Administration Heparin Heparin Sodium (Porcine) 5,000 unit 02/12/20 00:56 02/12/20 03:11 Heparin - IVPUSH 5,000 unit PRN PRN Administration Heparin IV Flush 4 ml 02/09/20 22:33 Triple Lumen Flush IVPUSH PRN PRN Protocol Ceftriaxone Sodium 2 gm/ 100 mls @ 100 mls/hr 02/10/20 10:00 02/12/20 09:08 Dextrose IVPB 100 mls/hr DAILY ANGIE Administration Protocol Amino Acids 1,000 mls @ 42 mls/hr 02/10/20 16:15 02/12/20 17:01 Clinimix - IV Not Given Q24H ANGIE Daptomycin 1,000 mg/ Sodium 100 mls @ 100 mls/hr 02/10/20 13:00 02/12/20 16:54 Chloride IVPB 100 mls/hr DAILY@1300 ANGIE Administration Protocol Heparin Sodium (Porcine) 25, 500 mls @ 20 mls/hr 02/12/20 01:00 02/13/20 02:11 000 unit/ Sodium Chloride IV 1,200 unit/hr TITR ANGIE 24 mls/hr Administration Protocol 1,000 UNIT/HR Diltiazem HCl 125 mg/ Sodium 125 mls @ 5 mls/hr 02/12/20 01:45 02/13/20 04:16 Chloride IVPB Not Given TITR ANGIE Protocol 5 MG/HR Insulin Aspart 1 vial 02/10/20 00:00 02/13/20 00:53 Novolog Vial Sliding Scale - SQ Not Given Q6HPO ANGIE Protocol Metoprolol Tartrate 5 mg 02/10/20 01:00 02/13/20 00:53 Lopressor Injection - IVPUSH 5 mg Q6H ANGIE Administration Multivitamins/Minerals 10 ml 02/10/20 10:00 02/12/20 11:06 Infuvite Adult - IV 10 ml DAILY ANGIE Administration Pantoprazole Sodium 40 mg 02/10/20 10:00 02/12/20 09:08 Protonix Iv IVPUSH 40 mg DAILY ANGIE Administration Scopolamine HBr 1 patch 02/11/20 06:30 02/11/20 06:38 Transderm-Scop - TD 1 patch Q72H ANGIE Administration Review of Systems Constitutional: denies Chills or Fever Respiratory: reports: Dyspnea Cardiovascular: As noted above Gastrointestinal: denies Nausea, Vomiting, Diarrhea or Constipation or Abdominal Discomfort Genitourinary: No Symptoms Reported Musculoskeletal: No Symptoms Reported Vital Signs: Last Vital Signs Temp Pulse Resp BP Pulse Ox 98.5 F 96 H 20 152/91 99 02/13/20 06:00 02/13/20 06:00 02/13/20 06:00 02/13/20 06:00 02/13/20 06:00 Intake & Output 02/10/20 02/11/20 02/12/20 02/13/20 23:59 23:59 23:59 23:59 Intake Total 704 290 2805 Output Total 900 300 Balance -22 204 2182 Weight 364 lb 9 oz Neck: Supple Negative JVD Respiratory: Diminished Breath Sounds at the Bases Cardiovascular: S1 S2 Regular Rate Rhythm Gastrointestinal: Soft Benign Normal Bowel Sounds Ext: Trace Edema Bilaterally Labs: CBC, [facility] 02/13/20 05:50 02/13/20 05:50 Hepatic Panel Total Bilirubin 0.4 mg/dL (0.2-1) 02/13/20 05:50 AST 14 U/L (15-37) L 02/13/20 05:50 ALT 34 U/L (13-61) 02/13/20 05:50 Alkaline Phosphatase 57 U/L (45-117) 02/13/20 05:50 Albumin 2.6 g/dl (3.4-5.0) L 02/13/20 05:50 CBC, BMP 02/12/20 09:45 02/12/20 09:45 Hepatic Panel Total Bilirubin 0.4 mg/dL (0.2-1) 02/12/20 09:45 AST 15 U/L (15-37) 02/12/20 09:45 ALT 38 U/L (13-61) 02/12/20 09:45 Alkaline Phosphatase 60 U/L (45-117) 02/12/20 09:45 Albumin 2.7 g/dl (3.4-5.0) L 02/12/20 09:45 INR, PTT INR 1.06 (0.83-1.09) 01/26/20 07:48 Fibrinogen 303.0 mg/dL (238-498) 01/25/20 12:09 Assessment/Plan ASSESSMENT: 1. Paroxysmal atrial flutter currently in sinus rhythm, [id number] score of 2 currently on heparin therapy 2. Hypertensive cardiovascular disease, hypertensive urgency resolved, not at goal blood pressure measurement 3. Acute Hypoxic and Hypercapneic Respiratory Failure, clinically resolving- probable obstructive sleep apnea 4. Community-acquired pneumonia, resolved 5. Pulmonary hypertension 6. Diabetes mellitus 7. History of an Upper Airway Obstruction/Soft Tissue Swelling/Hematoma/Thyromegaly 8. History of sinusitis 9. History of gram-positive bacteremia, suspected line sepsis clinically resolved 10. Morbid Obesity PLAN: 1. Continue IV Lopressor, eventual oral beta-stevie therapy initiation once oral intake is resumed 2. IV Cardizem therapy as needed 3. Continue anticoagulation therapy with heparin, eventual DOAC therapy initiation once oral intake is resumed 4. Antibiotic therapy as per the primary team/ID team 5. Supplemental oxygen therapy as per the pulmonary team True Sher MD
[2020-02-13 06:59] LABS: BASO % 0.3 % (0-2.0); EOS % 2.1 % (0-4.5); HEMATOCRIT 32.3 % (32.4-45.2); HEMOGLOBIN 9.9 GM/dL (10.7-15.3); LYMPH % 23.8 % (8-40); MCH 25.6 pg (25.7-33.7); MCHC 30.6 g/dl (32.0-36.0); MEAN CELL VOLUME 83.7 fl (80-96); MEAN PLT VOLUME 8.4 fl (7.5-11.1); MONO % 8.5 % (3.8-10.2); NEUT % 65.3 % (42.8-82.8); PLATELET COUNT 198 K/MM3 (134-434); RBC 3.86 M/mm3 (3.60-5.2); RDW 17.2 % (11.6-15.6); WHITE BLOOD COUNT 5.5 K/mm3 (4.0-10.0)
[2020-02-13 07:29] LABS: ALBUMIN 2.6 g/dl (3.4-5.0); BILIRUBIN,TOTAL 0.4 mg/dL (0.2-1); BLOOD UREA NITROGEN 12.6 mg/dL (7-18); CALCIUM 8.4 mg/dL (8.5-10.1); CREATININE 0.4 mg/dL (0.55-1.3); MAGNESIUM 1.8 mg/dL (1.8-2.4); PHOSPHOROUS 2.2 mg/dL (2.5-4.9); POTASSIUM 3.1 mmol/L (3.5-5.1); TOT PROT 5.8 g/dl (6.4-8.2)
--- NOTE | 2020-02-13 09:58 | PN ---
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, Physician History of Present Illness: PULMONARY ALERT ON HFOT ,COMFORTABLE SATTING WELL - Current Medication List Current Medications: Active Medications Heparin Sodium (Porcine) (Heparin -) 1,000 unit IVPUSH PRN PRN PRN Reason: Heparin Last Admin: 02/12/20 21:01 Dose: 1,000 unit Documented by: Heparin Sodium (Porcine) (Heparin -) 5,000 unit IVPUSH PRN PRN PRN Reason: Heparin Last Admin: 02/12/20 03:11 Dose: 5,000 unit Documented by: IV Flush (Triple Lumen Flush) 4 ml IVPUSH PRN PRN PRN Reason: Protocol Ceftriaxone Sodium 2 gm/ (Dextrose) 100 mls @ 100 mls/hr IVPB DAILY [facility]; Protocol Last Admin: 02/12/20 09:08 Dose: 100 mls/hr Documented by: Amino Acids (Clinimix -) 1,000 mls @ 42 mls/hr IV Q24H ANGIE Last Admin: 02/12/20 17:01 Dose: Not Given Documented by: Daptomycin 1,000 mg/ Sodium (Chloride) 100 mls @ 100 mls/hr IVPB DAILY@1300 ANGIE; Protocol Last Admin: 02/12/20 16:54 Dose: 100 mls/hr Documented by: Heparin Sodium (Porcine) 25, (000 unit/ Sodium Chloride) 500 mls @ 20 mls/hr IV TITR ANGIE; Protocol Last Admin: 02/13/20 02:11 Dose: 1,200 unit/hr, 24 mls/hr Documented by: Diltiazem HCl 125 mg/ Sodium (Chloride) 125 mls @ 5 mls/hr IVPB TITR ANGIE; Protocol Last Admin: 02/13/20 04:16 Dose: Not Given Documented by: Potassium Chloride (Potassium Chloride 10 Meq Premix Ivpb -) 10 meq in 100 mls @ 100 mls/hr IVPB Q60M ANGIE Stop: 02/13/20 11:44 Insulin Aspart (Novolog Vial Sliding Scale -) 1 vial SQ Q6HPO ANGIE; Protocol Last Admin: 02/13/20 07:06 Dose: Not Given Documented by: Metoprolol Tartrate (Lopressor Injection -) 5 mg IVPUSH Q6H ANGIE Last Admin: 02/13/20 07:07 Dose: 5 mg Documented by: Multivitamins/Minerals (Infuvite Adult -) 10 ml IV DAILY [facility] Last Admin: 02/12/20 11:06 Dose: 10 ml Documented by: Pantoprazole Sodium (Protonix Iv) 40 mg IVPUSH DAILY [facility] Last Admin: 02/12/20 09:08 Dose: 40 mg Documented by: Scopolamine HBr (Transderm-Scop -) 1 patch TD Q72H [facility] Last Admin: 02/11/20 06:38 Dose: 1 patch Documented by: - Objective Vital Signs: Vital Signs Temperature 99.4 F 02/13/20 09:00 Pulse Rate 91 H 02/13/20 09:00 Respiratory Rate 20 02/13/20 09:00 Blood Pressure 154/96 02/13/20 09:00 O2 Sat by Pulse Oximetry (%) 100 02/13/20 09:00 Constitutional: Yes: Well Nourished, Calm, Obese Eyes: Yes: WNL HENT: Yes: WNL Neck: Yes: WNL Cardiovascular: Yes: Regular Rate and Rhythm, S1, S2 Respiratory: Yes: Diminished Gastrointestinal: Yes: Normal Bowel Sounds, Soft, Abdomen, Obese Extremities: Yes: WNL Edema: No Labs: CBC, BMP 02/13/20 05:50 02/13/20 05:50 INR, PTT INR 1.06 (0.83-1.09) 01/26/20 07:48 Fibrinogen 303.0 mg/dL (238-498) 01/25/20 12:09 Assessment/Plan ASSESSMENT AND PLAN: Acute Hypoxic and Hypercapneic Respiratory Failure improving Upper Airway Obstruction/Soft Tissue Swelling/Hematoma/Thyromegaly Sinusitis Gram Positive Bacteremia Hypertensive Urgency Morbid Obesity Pulmonary HTN HTN DM Likely OSAS/OHS - Titrate HFOT - glucose control - antibiotics - incentive spirometry - chest PT - aspiration precautions - DVT/GI prophylaxis - titrate bp meds - DR BALDERAS
[2020-02-13] MEDS ORDERED: DEXTROSE 5%-WATER 100 ML IVPB ONE (10:28)
[2020-02-13] MEDS: PANTOPRAZOLE SODIUM 40 MG VIAL IVPUSH SCH (10:33)
[2020-02-13] MEDS: CEFTRIAXONE 2 GM in DEXTROSE 5%-WATER 100 ML IVPB SCH (10:33)
--- NOTE | 2020-02-13 10:50 | PN ---
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, [employer] - Note 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: Selected Entries 02/12/20 02/12/20 02/12/20 01:46 04:48 05:41 Diet Tolerated Supper Temperature 100.6 F H 99.0 F Pulse Rate 118 H 81 Respiratory 18 18 Rate Respiratory Depth Respiratory Effort Blood Pressure 152/89 159/100 O2 Sat by Pulse 100 Oximetry (%) Oxygen Delivery Method Fraction of 50 Inspired Oxygen (FIO2) Oxygen Flow Rate 02/12/20 02/12/20 02/12/20 09:00 09:15 13:28 Diet Tolerated Supper Temperature 98.3 F Pulse Rate 78 78 Respiratory 18 Rate Respiratory Shallow Depth Respiratory Non-Labored Effort Blood Pressure 147/78 O2 Sat by Pulse 100 99 100 Oximetry (%) Oxygen Delivery High Flow O2 High Flow O2 Method Fraction of 40 50 40 Inspired Oxygen (FIO2) Oxygen Flow 50 50 Rate 02/12/20 02/12/20 02/12/20 14:00 14:15 17:33 Diet Tolerated Supper Temperature 98.8 F Pulse Rate 81 Respiratory Rate Respiratory Depth Respiratory Effort Blood Pressure 158/98 O2 Sat by Pulse 100 100 Oximetry (%) Oxygen Delivery High Flow O2 Method Fraction of 40 40 Inspired Oxygen (FIO2) Oxygen Flow 50 Rate 02/12/20 02/12/20 02/12/20 19:44 20:32 21:00 Diet Tolerated Fair Supper 50% Temperature Pulse Rate 94 H 90 Respiratory 20 Rate Respiratory Depth Respiratory Non-Labored Effort Blood Pressure 156/86 O2 Sat by Pulse 99 100 96 Oximetry (%) Oxygen Delivery High Flow O2 High Flow O2 Method Fraction of 40 Inspired Oxygen (FIO2) Oxygen Flow 40 40 Rate 02/12/20 02/13/20 02/13/20 21:04 00:40 00:53 Diet Tolerated Supper Temperature Pulse Rate 91 H 80 92 H Respiratory 18 Rate Respiratory Depth Respiratory Effort Blood Pressure 152/92 152/92 O2 Sat by Pulse 100 Oximetry (%) Oxygen Delivery Bi-pap Method Fraction of 40 Inspired Oxygen (FIO2) Oxygen Flow Rate 02/13/20 02/13/20 02/13/20 02:00 04:45 06:00 Diet Tolerated Supper Temperature 99.8 F H 98.5 F Pulse Rate 76 87 96 H Respiratory Rate Respiratory Depth Respiratory Effort Blood Pressure 163/104 H 152/91 O2 Sat by Pulse 100 100 99 Oximetry (%) Oxygen Delivery Bi-pap Method Fraction of 40 Inspired Oxygen (FIO2) Oxygen Flow Rate 02/13/20 02/13/20 02/13/20 07:07 07:55 08:38 Diet Tolerated Supper Temperature Pulse Rate 98 H Respiratory Rate Respiratory Depth Respiratory Effort Blood Pressure 152/91 O2 Sat by Pulse 100 100 Oximetry (%) Oxygen Delivery Method Fraction of 40 40 Inspired Oxygen (FIO2) Oxygen Flow Rate 02/13/20 09:00 Diet Tolerated Supper Temperature 99.4 F Pulse Rate 91 H Respiratory Rate Respiratory Depth Respiratory Non-Labored Effort Blood Pressure 154/96 O2 Sat by Pulse 100 Oximetry (%) Oxygen Delivery Method Fraction of 40 Inspired Oxygen (FIO2) Oxygen Flow Rate Laboratory Tests 02/13/20 05:50 WBC 5.5 Selected Entries 02/12/20 02/13/20 19:44 10:12 Diet Tolerated Poor Supper 50% Trial of Dysphagia puree/honey thick liquid on tsp only.Crush meds/give in applesauce. Feed very slowly, 1/2 tsp at a time, WAIT FOR REFLEX BEFORE NEXT TRIAL Observe for increased WOB,SOB, congestion, fever, vocal wetness, cough, throat clearing- NPO if noted. Impaired insight/memory. on hi rocky. limited po acceptance. Please add magic cup/ensure pudding for increased nutitional intake. will need intensive PT/OT/speech/swallowing/cognitive rehab Consider LTACH vs NH for rehab
[2020-02-13] MEDS: MULTIVIT INJ. ADULT COMBO WITH VIT K 1 COMBO 10 ML VIAL IV SCH (13:27)
[2020-02-13] MEDS: DAPTOMYCIN 1,000 MG in SODIUM CHLORIDE 100 ML IVPB SCH (13:27)
--- NOTE | 2020-02-13 15:08 | PN ---
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 (short form) - Note 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: alert visiting with brother at bedside Vital Signs Period Temp Pulse Resp BP Sys/Gibbs Pulse Ox Last 24 Hr 98.5 F-99.8 F 76-123 18-20 147-163/86-104 95-100 cor-rrr lungs decreased bs at bases abd soft,nt ext +edema left IJ moving arms and legs better CBC, BMP 02/13/20 05:50 02/13/20 05:50 Microbiology 02/10/20 12:17 Blood - Peripheral Venous Blood Culture - Preliminary NO GROWTH OBTAINED AFTER 72 HOURS, INCUBATION TO CONTINUE FOR 2 DAYS. 02/10/20 12:11 Blood - Peripheral Venous Blood Culture - Preliminary NO GROWTH OBTAINED AFTER 72 HOURS, INCUBATION TO CONTINUE FOR 2 DAYS. 02/08/20 15:50 Blood - Peripheral Venous Blood Culture - Final Staphylococcus Coagulase Neg 02/08/20 15:50 Blood - Peripheral Venous Blood Culture - Final Staphylococcus Epidermidis 02/06/20 12:20 Blood - Central Line Blood Culture - Final Staphylococcus Epidermidis#2 02/08/20 16:00 Urine - Urine - Catheterized Urine Culture - Final Normal Urogenital Vi Yeast Like Organism 02/06/20 12:20 Blood - Central Line Blood Culture - Final Staphylococcus Coagulase Neg 02/05/20 12:00 Sputum - Endotrachea Suction/Ventilator Gram Stain - Final 02/05/20 12:00 Sputum - Endotrachea Suction/Ventilator Sputum Culture - Final Serratia Marcescens Beta Hem Streptococcus Group F a/p bacteremia-staph epi- continue daptomycin day #3- repeat blood cultures 02/09 are negative cpk wnl pneumonia-on ceftriaxone obesity s/p resp failure aflutter- per cardiology, now on heparin encourage incentive spirometry OOB d Problem List - Problems (1) Fever Code(s): R50.9 - FEVER, UNSPECIFIED (2) Bacteremia Code(s): R78.81 - BACTEREMIA (3) Pneumonia Code(s): J18.9 - PNEUMONIA, UNSPECIFIED ORGANISM (4) Obesity Code(s): E66.9 - OBESITY, UNSPECIFIED (5) Cervical spine disease Code(s): M48.9 - SPONDYLOPATHY, UNSPECIFIED (6) Breast cancer Code(s): C50.919 - MALIGNANT NEOPLASM OF UNSP SITE OF UNSPECIFIED FEMALE BREAST (7) History of breast cancer Code(s): Z85.3 - PERSONAL HISTORY OF MALIGNANT NEOPLASM OF BREAST
--- NOTE | 2020-02-13 18:01 | PN ---
Teaching Attending Note Name of Resident: Obdulio Teresa ATTENDING PHYSICIAN STATEMENT I saw and evaluated the patient. I reviewed the resident's note and discussed the case with the resident. I agree with the resident's findings and plan as documented. SUBJECTIVE: Patient seen and examined at bedside, improved MS today, still on HFOT will try to wean off, started on BiPAP QHS for TEJAL/OHS, needs PT/SNF placement. VSS. OBJECTIVE: Gen: morbidly obese, makes eye contact, alert HEENT: NC/AT, TIERNEY, sclera anicteric, MMM, + clear secretions Neck: no audible strido, supple LUNG: Good air entry anteriorally, good cough, on HFOT CARD: RRR, no murmurs, S1/S2 normal ABD: Soft, Nt/ND, normoactive BS, obese EXT: 1+ edema, warm extremities, 1+ pedal pulses, no calf tenderness Vital Signs - 24 hr 02/12/20 02/12/20 02/12/20 19:44 20:32 21:00 Temperature Pulse Rate 94 H 90 Respiratory 20 Rate Blood Pressure 156/86 O2 Sat by Pulse 99 100 96 Oximetry (%) 02/12/20 02/13/20 02/13/20 21:04 00:40 00:53 Temperature Pulse Rate 91 H 80 92 H Respiratory 18 Rate Blood Pressure 152/92 152/92 O2 Sat by Pulse 100 Oximetry (%) 02/13/20 02/13/20 02/13/20 02:00 04:45 06:00 Temperature 99.8 F H 98.5 F Pulse Rate 76 87 96 H Respiratory 20 20 Rate Blood Pressure 163/104 H 152/91 O2 Sat by Pulse 100 100 99 Oximetry (%) 02/13/20 02/13/20 02/13/20 07:07 07:55 08:38 Temperature Pulse Rate 98 H Respiratory Rate Blood Pressure 152/91 O2 Sat by Pulse 100 100 Oximetry (%) 02/13/20 02/13/20 02/13/20 09:00 12:44 13:31 Temperature 99.4 F Pulse Rate 91 H 123 H Respiratory 20 Rate Blood Pressure 154/96 147/92 O2 Sat by Pulse 100 100 Oximetry (%) 02/13/20 14:00 Temperature 98.8 F Pulse Rate 123 H Respiratory Rate Blood Pressure 147/92 O2 Sat by Pulse Oximetry (%) [facility] 02/10/20 12:17 Blood - Peripheral Venous Blood Culture - Preliminary NO GROWTH OBTAINED AFTER 72 HOURS, INCUBATION TO CONTINUE FOR 2 DAYS. 02/10/20 12:11 Blood - Peripheral Venous Blood Culture - Preliminary NO GROWTH OBTAINED AFTER 72 HOURS, INCUBATION TO CONTINUE FOR 2 DAYS. 02/08/20 15:50 Blood - Peripheral Venous Blood Culture - Final Staphylococcus Coagulase Neg 02/08/20 15:50 Blood - Peripheral Venous Blood Culture - Final Staphylococcus Epidermidis 02/06/20 12:20 Blood - Central Line Blood Culture - Final Staphylococcus Epidermidis#2 02/08/20 16:00 Urine - Urine - Catheterized Urine Culture - Final Normal Urogenital Vi Yeast Like Organism 02/06/20 12:20 Blood - Central Line Blood Culture - Final Staphylococcus Coagulase Neg 02/05/20 12:00 Sputum - Endotrachea Suction/Ventilator Gram Stain - Final 02/05/20 12:00 Sputum - Endotrachea Suction/Ventilator Sputum Culture - Final Serratia Marcescens Beta Hem Streptococcus Group F Laboratory Results - last 24 hr 02/12/20 02/12/20 02/12/20 18:21 18:21 18:21 WBC RBC Hgb Hct MCV MCH MCHC RDW Plt Count MPV Absolute Neuts (auto) Neutrophils % Lymphocytes % Monocytes % Eosinophils % Basophils % Nucleated RBC % PTT (Actin FS) 44.9 H Sodium Potassium Chloride Carbon Dioxide Anion Gap BUN Creatinine Est GFR (CKD-EPI)AfAm Est GFR (CKD-EPI)NonAf POC Glucometer Random Glucose Lactic Acid 0.7 Calcium Phosphorus Magnesium Total Bilirubin AST ALT Alkaline Phosphatase Creatine Kinase 58 Total Protein Albumin 02/12/20 02/13/20 02/13/20 21:56 03:40 05:50 WBC 5.5 RBC 3.86 Hgb 9.9 L Hct 32.3 L MCV 83.7 MCH 25.6 L MCHC 30.6 L RDW 17.2 H Plt Count 198 MPV 8.4 Absolute Neuts (auto) 3.6 Neutrophils % 65.3 Lymphocytes % 23.8 Monocytes % 8.5 Eosinophils % 2.1 D Basophils % 0.3 Nucleated RBC % 0 PTT (Actin FS) 76.9 H Sodium Potassium Chloride Carbon Dioxide Anion Gap BUN Creatinine Est GFR (CKD-EPI)AfAm Est GFR (CKD-EPI)NonAf POC Glucometer 118 Random Glucose Lactic Acid Calcium Phosphorus Magnesium Total Bilirubin AST ALT Alkaline Phosphatase Creatine Kinase Total Protein Albumin 02/13/20 02/13/20 02/13/20 05:50 06:41 11:39 WBC RBC Hgb Hct MCV MCH MCHC RDW Plt Count MPV Absolute Neuts (auto) Neutrophils % Lymphocytes % Monocytes % Eosinophils % Basophils % Nucleated RBC % PTT (Actin FS) Sodium 141 Potassium 3.1 L Chloride 101 Carbon Dioxide 34 H Anion Gap 6 L BUN 12.6 Creatinine 0.4 L Est GFR (CKD-EPI)AfAm 138.79 Est GFR (CKD-EPI)NonAf 119.75 POC Glucometer 120 121 Random Glucose 111 H Lactic Acid Calcium 8.4 L Phosphorus 2.2 L Magnesium 1.8 Total Bilirubin 0.4 AST 14 L ALT 34 Alkaline Phosphatase 57 Creatine Kinase Total Protein 5.8 L Albumin 2.6 L 02/13/20 17:20 WBC RBC Hgb Hct MCV MCH MCHC RDW Plt Count MPV Absolute Neuts (auto) Neutrophils % Lymphocytes % Monocytes % Eosinophils % Basophils % Nucleated RBC % PTT (Actin FS) Sodium Potassium Chloride Carbon Dioxide Anion Gap BUN Creatinine Est GFR (CKD-EPI)AfAm Est GFR (CKD-EPI)NonAf POC Glucometer 158 Random Glucose Lactic Acid Calcium Phosphorus Magnesium Total Bilirubin AST ALT Alkaline Phosphatase Creatine Kinase Total Protein Albumin Home Medications Medication Instructions Recorded Metoprolol Succinate [Toprol Xl] 150 mg PO HS 09/20/15 Gabapentin [Neurontin] 300 mg PO AM 08/30/17 Baclofen 10 mg PO DAILY 01/01/20 Clonidine Patch [Catapres Tts 0.2 mg TD WEEKLY 01/24/20 Patch -] Doxepin HCl [Sinequan -] 25 mg PO HS 01/24/20 Fluticasone Propionate [Flovent 50 mcg IH DAILY 01/24/20 Diskus] Gabapentin 600 mg PO HS 01/24/20 Hydralazine HCl 50 mg PO Q8H 01/24/20 Omeprazole Magnesium [Prilosec Otc] 20 mg PO DAILY 01/24/20 Rosuvastatin [Crestor -] 10 mg PO DAILY 01/24/20 Sitagliptin Phosphate [Januvia] 100 mg PO DAILY 01/24/20 Chlorthalidone 25 mg PO DAILY 02/02/20 Folic Acid 1 mg PO DAILY 02/02/20 Furosemide 40 mg PO DAILY 02/02/20 Leflunomide 20 mg PO DAILY 02/02/20 Mirabegron [Myrbetriq] 50 mg PO DAILY 02/02/20 Oxybutynin Chloride [Oxybutynin 10 mg PO DAILY 02/02/20 Chloride ER] Current Medications Generic Name Dose Route Start Last Admin Trade Name Freq PRN Reason Stop Dose Admin Heparin Sodium (Porcine) 1,000 unit 02/12/20 00:56 02/12/20 21:01 Heparin - IVPUSH 1,000 unit PRN PRN Administration Heparin Heparin Sodium (Porcine) 5,000 unit 02/12/20 00:56 02/12/20 03:11 Heparin - IVPUSH 5,000 unit PRN PRN Administration Heparin IV Flush 4 ml 02/09/20 22:33 Triple Lumen Flush IVPUSH PRN PRN Protocol Ceftriaxone Sodium 2 gm/ 100 mls @ 100 mls/hr 02/10/20 10:00 02/13/20 10:33 Dextrose IVPB 100 mls/hr DAILY ANGIE Administration Protocol Amino Acids 1,000 mls @ 42 mls/hr 02/10/20 16:15 02/12/20 17:01 Clinimix - IV Not Given Q24H ANGIE Daptomycin 1,000 mg/ Sodium 100 mls @ 100 mls/hr 02/10/20 13:00 02/13/20 13:27 Chloride IVPB 100 mls/hr DAILY@1300 ANGIE Administration Protocol Heparin Sodium (Porcine) 25, 500 mls @ 20 mls/hr 02/12/20 01:00 02/13/20 02:11 000 unit/ Sodium Chloride IV 1,200 unit/hr TITR ANGIE 24 mls/hr Administration Protocol 1,000 UNIT/HR Diltiazem HCl 125 mg/ Sodium 125 mls @ 5 mls/hr 02/12/20 01:45 02/13/20 04:16 Chloride IVPB Not Given TITR ANGIE Protocol 5 MG/HR Insulin Aspart 1 vial 02/10/20 00:00 02/13/20 17:54 Novolog Vial Sliding Scale - SQ 2 unit Q6HPO ANGIE Administration Protocol Metoprolol Tartrate 5 mg 02/10/20 01:00 02/13/20 13:31 Lopressor Injection - IVPUSH 5 mg Q6H ANGIE Administration Multivitamins/Minerals 10 ml 02/10/20 10:00 02/13/20 13:27 Infuvite Adult - IV 10 ml DAILY ANGIE Administration Pantoprazole Sodium 40 mg 02/10/20 10:00 02/13/20 10:33 Protonix Iv IVPUSH 40 mg DAILY ANGIE Administration Scopolamine HBr 1 patch 02/11/20 06:30 02/11/20 06:38 Transderm-Scop - TD 1 patch Q72H ANGIE Administration ASSESSMENT AND PLAN: 50 F Acute hypercapenic and hypoxic respiratory failure Neck hematoma (resolved) TEJAL/OHS Morbidly obese CAP PNA Staph bacteremia HTN HLD Peripheral artery disease (MILD) Plan: Cont. Daptomycin due to refractory Staph bacteremia, repeat cultures negative Start Eliquis 5mg BID for atrial flutter Cont. Ceftriaxone for CAP Incentive spirometry, needs OOB to chair as tolerated, PT referral Strict avoidance of sedatives/opioids/gabapentanoids, frequent re-orientation Obtain LE arterial doppler to r/o ischemic limb, lactic acid levels, CK levels DVT ppx: heparin Gtt
--- NOTE | 2020-02-13 21:27 | PN ---
Physical Exam: SUBJECTIVE: Patient seen and examined. No acute complaints today. Pt. appears more awake and answering more questions at a faster rate. Consulted Vascular PA for assistance with access. OBJECTIVE: Vital Signs Period Temp Pulse Resp BP Sys/Gibbs Pulse Ox Last 24 Hr 98.5 F-100.0 F 76-123 20-20 124-163/78-105 95-100 GENERAL: The patient is awake, alert, and in no acute distress. HEAD: Normal with no signs of trauma. EYES: Sclera anicteric, conjunctiva clear. ENT: Ears normal, nares patent, oropharynx clear without exudates, moist mucous membranes. NECK: Trachea midline, full range of motion, supple. LUNGS: Breath sounds equal, clear to auscultation bilaterally, no wheezes, no crackles, no accessory muscle use. HEART: Regular rate and rhythm, S1, S2 without murmur ABDOMEN: Soft, nontender, obese, nondistended, normoactive bowel sounds, no guarding, no rebound EXTREMITIES: 2+ dorsal pedal pulses, warm, RLE now equal in warmth to Left. NEUROLOGICAL: Normal speech, gait not observed. PSYCH: Normal mood, normal affect. SKIN: Warm, dry, normal turgor, no rashes or lesions noted Laboratory Results - last 24 hr 02/12/20 02/13/20 02/13/20 21:56 03:40 05:50 WBC 5.5 RBC 3.86 Hgb 9.9 L Hct 32.3 L MCV 83.7 MCH 25.6 L MCHC 30.6 L RDW 17.2 H Plt Count 198 MPV 8.4 Absolute Neuts (auto) 3.6 Neutrophils % 65.3 Lymphocytes % 23.8 Monocytes % 8.5 Eosinophils % 2.1 D Basophils % 0.3 Nucleated RBC % 0 PTT (Actin FS) 76.9 H Sodium Potassium Chloride Carbon Dioxide Anion Gap BUN Creatinine Est GFR (CKD-EPI)AfAm Est GFR (CKD-EPI)NonAf POC Glucometer 118 Random Glucose Calcium Phosphorus Magnesium Total Bilirubin AST ALT Alkaline Phosphatase Total Protein Albumin 02/13/20 02/13/20 02/13/20 05:50 06:41 11:39 WBC RBC Hgb Hct MCV MCH MCHC RDW Plt Count MPV Absolute Neuts (auto) Neutrophils % Lymphocytes % Monocytes % Eosinophils % Basophils % Nucleated RBC % PTT (Actin FS) Sodium 141 Potassium 3.1 L Chloride 101 Carbon Dioxide 34 H Anion Gap 6 L BUN 12.6 Creatinine 0.4 L Est GFR (CKD-EPI)AfAm 138.79 Est GFR (CKD-EPI)NonAf 119.75 POC Glucometer 120 121 Random Glucose 111 H Calcium 8.4 L Phosphorus 2.2 L Magnesium 1.8 Total Bilirubin 0.4 AST 14 L ALT 34 Alkaline Phosphatase 57 Total Protein 5.8 L Albumin 2.6 L 02/13/20 17:20 WBC RBC Hgb Hct MCV MCH MCHC RDW Plt Count MPV Absolute Neuts (auto) Neutrophils % Lymphocytes % Monocytes % Eosinophils % Basophils % Nucleated RBC % PTT (Actin FS) Sodium Potassium Chloride Carbon Dioxide Anion Gap BUN Creatinine Est GFR (CKD-EPI)AfAm Est GFR (CKD-EPI)NonAf POC Glucometer 158 Random Glucose Calcium Phosphorus Magnesium Total Bilirubin AST ALT Alkaline Phosphatase Total Protein Albumin Active Medications Generic Name Dose Route Start Last Admin Trade Name Freq PRN Reason Stop Dose Admin Heparin Sodium (Porcine) 1,000 unit 02/12/20 00:56 02/12/20 21:01 Heparin - IVPUSH 1,000 unit PRN PRN Administration Heparin Heparin Sodium (Porcine) 5,000 unit 02/12/20 00:56 02/12/20 03:11 Heparin - IVPUSH 5,000 unit PRN PRN Administration Heparin IV Flush 4 ml 02/09/20 22:33 Triple Lumen Flush IVPUSH PRN PRN Protocol Ceftriaxone Sodium 2 gm/ 100 mls @ 100 mls/hr 02/10/20 10:00 02/13/20 10:33 Dextrose IVPB 100 mls/hr DAILY ANGIE Administration Protocol Amino Acids 1,000 mls @ 42 mls/hr 02/10/20 16:15 02/12/20 17:01 Clinimix - IV Not Given Q24H ANGIE Daptomycin 1,000 mg/ Sodium 100 mls @ 100 mls/hr 02/10/20 13:00 02/13/20 13:27 Chloride IVPB 100 mls/hr DAILY@1300 ANGIE Administration Protocol Heparin Sodium (Porcine) 25, 500 mls @ 20 mls/hr 02/12/20 01:00 02/13/20 02:11 000 unit/ Sodium Chloride IV 1,200 unit/hr TITR ANGIE 24 mls/hr Administration Protocol 1,000 UNIT/HR Diltiazem HCl 125 mg/ Sodium 125 mls @ 5 mls/hr 02/12/20 01:45 02/13/20 04:16 Chloride IVPB Not Given TITR ANGIE Protocol 5 MG/HR Insulin Aspart 1 vial 02/10/20 00:00 02/13/20 17:54 Novolog Vial Sliding Scale - SQ 2 unit Q6HPO ANGIE Administration Protocol Metoprolol Tartrate 5 mg 02/10/20 01:00 02/13/20 20:12 Lopressor Injection - IVPUSH 5 mg Q6H ANGIE Administration Multivitamins/Minerals 10 ml 02/10/20 10:00 02/13/20 13:27 Infuvite Adult - IV 10 ml DAILY AGNIE Administration Pantoprazole Sodium 40 mg 02/10/20 10:00 02/13/20 10:33 Protonix Iv IVPUSH 40 mg DAILY ANGIE Administration Scopolamine HBr 1 patch 02/11/20 06:30 02/11/20 06:38 Transderm-Scop - TD 1 patch Q72H ANGIE Administration ASSESSMENT/PLAN: Pt. is a 50 y.o. F w/ PMHx. of HTN, DM, MO, severe b/l LE venous stasis and severe b/l UE lymphedema 2/2 b/l mastectomy w/ reconstruction 2/2 Breast CA. Pt. was for ACDF when PT. became hypotensive and hypoxic after dividing the SCM. Pt. did not respond to phenylepherine and procedure was aborted. Pt. was monitored in the ICU afterwards and now has been downgraded to Telemetry. #Acute hypercapenic and hypoxic respiratory failure Suspected neck hematoma c/w High Flow, will attempt to wean to Venturi Mask Pulmonology consults appreciated. Carotid body compression? #Morbidly obese #Suspected TEJAL/OHS Pulmonology consult appreciated CPAP ordered c/w Scopolamine Patch will need adherence to CPAP as outpatient, discussed with Pt. #Atrial Flutter Noted on EKG Heparin Gtt held #CAP PNA #Staph bacteremia BCx. + x 2, Third set has been negative for 72+ hours c/w Daptomycin and Ceftriaxone ID Consult appreciated Cultures growing bacteria resistant to Vancomycin #HTN #HLD Resume BP medications as BP permits #Cool RLE f/u arterial US Duplex negative c/w Hep gtt #FEN encourage PO intake, c/w clinimix Repleting Potassium with 40 meq x 2 today, will sign out to night team to give another 40 overnight Dysphagia Puree with Honey thick #DVT Ppx. Hep Gtt. Visit type - Emergency Visit Emergency Visit: Yes ED Registration Date: 01/25/20 Care time: The patient presented to the Emergency Department on the above date and was hospitalized for further evaluation of their emergent condition. - New Patient This patient is new to me today: No - Critical Care Critical Care patient: No - Discharge Referral Referred to [facility] Med P.C.: No ATTENDING PHYSICIAN STATEMENT I saw and evaluated the patient. I reviewed the resident's note and discussed the case with the resident. I agree with the resident's findings and plan as documented. SUBJECTIVE: OBJECTIVE: ASSESSMENT AND PLAN:
[2020-02-13 23:01] LABS: EPI CELLS >36 /uL (0-25.1); HYALINE CASTS 2 /uL (0-3.1); PH,URINE >= 9.0 (5.0-8.0); URINE APPEARANCE CLEAR; URINE BACTERIA 157 /uL (0-1359); URINE BILIRUBIN NEGATIVE (NEGATIVE); URINE COLOR YELLOW; URINE GLUCOSE (UA) NEGATIVE (NEGATIVE); URINE KETONE NEGATIVE (NEGATIVE); URINE LEUK ESTERASE 1+ (NEGATIVE); URINE NITRITE NEGATIVE (NEGATIVE); URINE PROTEIN 1+ (NEGATIVE); URINE UROBILINOGEN 0.2 mg/dL (0.2-1.0); URINE WBC 68 /uL (0-25.8); YEAST REVIEW (NEGATIVE)
[2020-02-13 23:33] LABS: URINE RBC 67.8 /uL (0-23.9)
[2020-02-14] MEDS: INSULIN SLIDING SCALE (NOVOLOG) 1 VIAL SQ SCH ×4 (00:43→17:19)
[2020-02-14] MEDS: HEPARIN - 25,000 UNIT in SODIUM CHLORIDE 495 ML IV SCH (00:48)
[2020-02-14] MEDS: METOPROLOL TARTRATE 5 MG/5 ML VIAL IVPUSH SCH ×3 (01:29→11:32)
[2020-02-14] MEDS: DILTIAZEM INJECTION 125 MG in SODIUM CHLORIDE 100 ML IVPB SCH (02:44)
[2020-02-14] MEDS: AMINO ACIDS 4.25%/D5W 1,000 ML IV SCH (02:44)
[2020-02-14] MEDS: SCOPOLAMINE HYDROBROMIDE 1 PATCH PATCH.TD72 TD SCH (06:40)
[2020-02-14 08:14] LABS: BASO % 0.8 % (0-2.0); EOS % 2.3 % (0-4.5); HEMATOCRIT 33.6 % (32.4-45.2); HEMOGLOBIN 10.1 GM/dL (10.7-15.3); LYMPH % 23.3 % (8-40); MCH 25.3 pg (25.7-33.7); MEAN CELL VOLUME 84.5 fl (80-96); MEAN PLT VOLUME 8.8 fl (7.5-11.1); MONO % 6.6 % (3.8-10.2); PLATELET COUNT 201 K/MM3 (134-434); RBC 3.98 M/mm3 (3.60-5.2); RDW 17.9 % (11.6-15.6); WHITE BLOOD COUNT 5.5 K/mm3 (4.0-10.0)
[2020-02-14 08:41] LABS: ALBUMIN 2.7 g/dl (3.4-5.0); BILIRUBIN,TOTAL 0.6 mg/dL (0.2-1); BLOOD UREA NITROGEN 9.9 mg/dL (7-18); CALCIUM 8.5 mg/dL (8.5-10.1); CREATININE 0.5 mg/dL (0.55-1.3); MAGNESIUM 1.7 mg/dL (1.8-2.4); PHOSPHOROUS 2.1 mg/dL (2.5-4.9); POTASSIUM 3.6 mmol/L (3.5-5.1); TOT PROT 6.1 g/dl (6.4-8.2)
--- NOTE | 2020-02-14 09:31 | PN ---
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: Selected Entries 02/12/20 02/12/20 02/12/20 01:46 04:48 05:41 Diet Tolerated Supper Temperature 100.6 F H 99.0 F Pulse Rate 118 H 81 Respiratory 18 18 Rate Respiratory Depth Respiratory Effort Blood Pressure 152/89 159/100 O2 Sat by Pulse 100 Oximetry (%) Oxygen Delivery Method Fraction of 50 Inspired Oxygen (FIO2) Oxygen Flow Rate 02/12/20 02/12/20 02/12/20 09:00 09:15 13:28 Diet Tolerated Supper Temperature 98.3 F Pulse Rate 78 78 Respiratory 18 Rate Respiratory Shallow Depth Respiratory Non-Labored Effort Blood Pressure 147/78 O2 Sat by Pulse 100 99 100 Oximetry (%) Oxygen Delivery High Flow O2 High Flow O2 Method Fraction of 40 50 40 Inspired Oxygen (FIO2) Oxygen Flow 50 50 Rate 02/12/20 02/12/20 02/12/20 14:00 14:15 17:33 Diet Tolerated Supper Temperature 98.8 F Pulse Rate 81 Respiratory Rate Respiratory Depth Respiratory Effort Blood Pressure 158/98 O2 Sat by Pulse 100 100 Oximetry (%) Oxygen Delivery High Flow O2 Method Fraction of 40 40 Inspired Oxygen (FIO2) Oxygen Flow 50 Rate 02/12/20 02/12/20 02/12/20 19:44 20:32 21:00 Diet Tolerated Fair Supper 50% Temperature Pulse Rate 94 H 90 Respiratory 20 Rate Respiratory Depth Respiratory Non-Labored Effort Blood Pressure 156/86 O2 Sat by Pulse 99 100 96 Oximetry (%) Oxygen Delivery High Flow O2 High Flow O2 Method Fraction of 40 Inspired Oxygen (FIO2) Oxygen Flow 40 40 Rate 02/12/20 02/13/20 02/13/20 21:04 00:40 00:53 Diet Tolerated Supper Temperature Pulse Rate 91 H 80 92 H Respiratory 18 Rate Respiratory Depth Respiratory Effort Blood Pressure 152/92 152/92 O2 Sat by Pulse 100 Oximetry (%) Oxygen Delivery Bi-pap Method Fraction of 40 Inspired Oxygen (FIO2) Oxygen Flow Rate 02/13/20 02/13/20 02/13/20 02:00 04:45 06:00 Diet Tolerated Supper Temperature 99.8 F H 98.5 F Pulse Rate 76 87 96 H Respiratory Rate Respiratory Depth Respiratory Effort Blood Pressure 163/104 H 152/91 O2 Sat by Pulse 100 100 99 Oximetry (%) Oxygen Delivery Bi-pap Method Fraction of 40 Inspired Oxygen (FIO2) Oxygen Flow Rate 02/13/20 02/13/20 02/13/20 07:07 07:55 08:38 Diet Tolerated Supper Temperature Pulse Rate 98 H Respiratory Rate Respiratory Depth Respiratory Effort Blood Pressure 152/91 O2 Sat by Pulse 100 100 Oximetry (%) Oxygen Delivery Method Fraction of 40 40 Inspired Oxygen (FIO2) Oxygen Flow Rate 02/13/20 09:00 Diet Tolerated Supper Temperature 99.4 F Pulse Rate 91 H Respiratory Rate Respiratory Depth Respiratory Non-Labored Effort Blood Pressure 154/96 O2 Sat by Pulse 100 Oximetry (%) Oxygen Delivery Method Fraction of 40 Inspired Oxygen (FIO2) Oxygen Flow Rate Laboratory Tests 02/13/20 05:50 WBC 5.5 Selected Entries 02/12/20 02/13/20 19:44 10:12 Diet Tolerated Poor Supper 50% Selected Entries 02/13/20 02/13/20 02/13/20 00:40 00:53 02:00 Diet Tolerated Lunch Supper Temperature 99.8 F H Pulse Rate 80 92 H 76 Blood Pressure 152/92 163/104 H 02/13/20 02/13/20 02/13/20 04:45 06:00 07:07 Diet Tolerated Lunch Supper Temperature 98.5 F Pulse Rate 87 96 H 98 H Blood Pressure 152/91 152/91 02/13/20 02/13/20 02/13/20 09:00 10:12 13:31 Diet Tolerated Poor Lunch Supper Temperature 99.4 F Pulse Rate 91 H 123 H Blood Pressure 154/96 147/92 02/13/20 02/13/20 02/13/20 14:00 18:00 20:00 Diet Tolerated Well Well Lunch 25% Supper 100% Temperature 98.8 F 100.0 F H 100.8 F H Pulse Rate 123 H 109 H 120 H Blood Pressure 147/92 157/105 H 124/78 02/13/20 02/13/20 02/14/20 20:12 22:00 01:29 Diet Tolerated Well Lunch Supper Temperature Pulse Rate 120 H 102 H Blood Pressure 124/78 150/98 02/14/20 02/14/20 02/14/20 02:05 06:00 06:56 Diet Tolerated Lunch Supper Temperature 100.4 F H 98.3 F Pulse Rate 121 H 95 H 98 H Blood Pressure 150/98 164/94 164/94 Laboratory Tests 02/14/20 05:33 WBC 5.5 Trial of Dysphagia puree/honey thick liquid on tsp only.Crush meds/give in applesauce. Feed very slowly, 1/2 tsp at a time, WAIT FOR REFLEX BEFORE NEXT TRIAL Impaired insight/memory. on hi rocky. Improving po acceptance. No overt difficulty observed or reported. 100.8 x 1 noted. WBC WNL. Consider-Dys ground/add tuna,egg salad, chicken salad -no celery, cottage cheese/[place] thick liquid on tsp Monitor carefully for aspiration symptoms.Observe for increased WOB,SOB, congestion, fever, vocal wetness, cough, throat clearing- NPO if noted. Accepted to [facility],for intensive PT/OT/speech/swallowing/cognitive rehab, per Social work.
--- NOTE | 2020-02-14 09:35 | PN ---
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, Physician History of Present Illness: PULMONARY ALERT,COMFORTABLE,SOB IMPROVING,ON HFOT 40L,FIO2 21% - Current Medication List Current Medications: Active Medications Heparin Sodium (Porcine) (Heparin -) 1,000 unit IVPUSH PRN PRN PRN Reason: Heparin Last Admin: 02/12/20 21:01 Dose: 1,000 unit Documented by: Heparin Sodium (Porcine) (Heparin -) 5,000 unit IVPUSH PRN PRN PRN Reason: Heparin Last Admin: 02/12/20 03:11 Dose: 5,000 unit Documented by: IV Flush (Triple Lumen Flush) 4 ml IVPUSH PRN PRN PRN Reason: Protocol Ceftriaxone Sodium 2 gm/ (Dextrose) 100 mls @ 100 mls/hr IVPB DAILY [facility]; Protocol Last Admin: 02/13/20 10:33 Dose: 100 mls/hr Documented by: Amino Acids (Clinimix -) 1,000 mls @ 42 mls/hr IV Q24H ANGIE Last Admin: 02/14/20 02:44 Dose: 42 mls/hr Documented by: Daptomycin 1,000 mg/ Sodium (Chloride) 100 mls @ 100 mls/hr IVPB DAILY@1300 ANGIE; Protocol Last Admin: 02/13/20 13:27 Dose: 100 mls/hr Documented by: Heparin Sodium (Porcine) 25, (000 unit/ Sodium Chloride) 500 mls @ 20 mls/hr IV TITR ANGIE; Protocol Last Admin: 02/14/20 00:48 Dose: 1,200 unit/hr, 24 mls/hr Documented by: Diltiazem HCl 125 mg/ Sodium (Chloride) 125 mls @ 5 mls/hr IVPB TITR ANGIE; Protocol Last Admin: 02/14/20 02:44 Dose: Not Given Documented by: Insulin Aspart (Novolog Vial Sliding Scale -) 1 vial SQ Q6HPO ANGIE; Protocol Last Admin: 02/14/20 06:39 Dose: Not Given Documented by: Metoprolol Tartrate (Lopressor Injection -) 5 mg IVPUSH Q6H ANGIE Last Admin: 02/14/20 06:56 Dose: 5 mg Documented by: Multivitamins/Minerals (Infuvite Adult -) 10 ml IV DAILY [facility] Last Admin: 02/13/20 13:27 Dose: 10 ml Documented by: Pantoprazole Sodium (Protonix Iv) 40 mg IVPUSH DAILY [facility] Last Admin: 02/13/20 10:33 Dose: 40 mg Documented by: Scopolamine HBr (Transderm-Scop -) 1 patch TD Q72H [facility] Last Admin: 02/14/20 06:40 Dose: Not Given Documented by: - Objective Vital Signs: Vital Signs Temperature 98.3 F 02/14/20 06:00 Pulse Rate 98 H 02/14/20 06:56 Respiratory Rate 19 02/14/20 06:00 Blood Pressure 164/94 02/14/20 06:56 O2 Sat by Pulse Oximetry (%) 95 02/14/20 06:00 Constitutional: Yes: Calm, Obese Eyes: Yes: WNL HENT: Yes: WNL Neck: Yes: WNL Cardiovascular: Yes: Regular Rate and Rhythm, S1, S2 Respiratory: Yes: Diminished Gastrointestinal: Yes: Normal Bowel Sounds, Soft Extremities: Yes: WNL Edema: No Labs: CBC, BMP 02/14/20 05:33 02/14/20 05:33 INR, PTT INR 1.06 (0.83-1.09) 01/26/20 07:48 Fibrinogen 303.0 mg/dL (238-498) 01/25/20 12:09 Assessment/Plan ASSESSMENT AND PLAN: Acute Hypoxic and Hypercapneic Respiratory Failure improving Upper Airway Obstruction/Soft Tissue Swelling/Hematoma/Thyromegaly Sinusitis Gram Positive Bacteremia Hypertensive Urgency Morbid Obesity Pulmonary HTN HTN DM Likely OSAS/OHS - Titrate HFOT to maintain O2 sat - glucose control - antibiotics - incentive spirometry - chest PT - aspiration precautions - DVT/GI prophylaxis - titrate bp meds - DR BALDERAS
[2020-02-14] MEDS ORDERED: DEXTROSE 5%-WATER 100 ML IVPB ONE (09:50)
--- NOTE | 2020-02-14 10:05 | PN ---
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, Physician History of Present Illness: Resting in bed on HFOT 40L, FIO2 21%, reports improved dyspnea, denies any chest discomfort, remains in NSR w/o recurrence of PAF, just underwent LUE PICC insertion and LIJ catheter d/c w/o sequelae. - Current Medication List Current Medications: Active Medications Heparin Sodium (Porcine) (Heparin -) 1,000 unit IVPUSH PRN PRN PRN Reason: Heparin Last Admin: 02/12/20 21:01 Dose: 1,000 unit Documented by: Heparin Sodium (Porcine) (Heparin -) 5,000 unit IVPUSH PRN PRN PRN Reason: Heparin Last Admin: 02/12/20 03:11 Dose: 5,000 unit Documented by: IV Flush (Triple Lumen Flush) 4 ml IVPUSH PRN PRN PRN Reason: Protocol Ceftriaxone Sodium 2 gm/ (Dextrose) 100 mls @ 100 mls/hr IVPB DAILY ANGIE; Protocol Last Admin: 02/13/20 10:33 Dose: 100 mls/hr Documented by: Amino Acids (Clinimix -) 1,000 mls @ 42 mls/hr IV Q24H ANGIE Last Admin: 02/14/20 02:44 Dose: 42 mls/hr Documented by: Daptomycin 1,000 mg/ Sodium (Chloride) 100 mls @ 100 mls/hr IVPB DAILY@1300 ANGIE; Protocol Last Admin: 02/13/20 13:27 Dose: 100 mls/hr Documented by: Heparin Sodium (Porcine) 25, (000 unit/ Sodium Chloride) 500 mls @ 20 mls/hr IV TITR ANGIE; Protocol Last Admin: 02/14/20 00:48 Dose: 1,200 unit/hr, 24 mls/hr Documented by: Diltiazem HCl 125 mg/ Sodium (Chloride) 125 mls @ 5 mls/hr IVPB TITR ANGIE; Protocol Last Admin: 02/14/20 02:44 Dose: Not Given Documented by: Insulin Aspart (Novolog Vial Sliding Scale -) 1 vial SQ Q6HPO ANGIE; Protocol Last Admin: 02/14/20 06:39 Dose: Not Given Documented by: Metoprolol Tartrate (Lopressor Injection -) 5 mg IVPUSH Q6H ANGIE Last Admin: 02/14/20 06:56 Dose: 5 mg Documented by: Multivitamins/Minerals (Infuvite Adult -) 10 ml IV DAILY [facility] Last Admin: 02/13/20 13:27 Dose: 10 ml Documented by: Pantoprazole Sodium (Protonix Iv) 40 mg IVPUSH DAILY [facility] Last Admin: 02/13/20 10:33 Dose: 40 mg Documented by: Scopolamine HBr (Transderm-Scop -) 1 patch TD Q72H [facility] Last Admin: 02/14/20 06:40 Dose: Not Given Documented by: - Objective Vital Signs: Vital Signs Temperature 98.3 F 02/14/20 06:00 Pulse Rate 98 H 02/14/20 06:56 Respiratory Rate 19 02/14/20 06:00 Blood Pressure 164/94 02/14/20 06:56 O2 Sat by Pulse Oximetry (%) 95 02/14/20 06:00 Constitutional: Yes: No Distress, Calm Neck: Yes: Supple Cardiovascular: Yes: Regular Rate and Rhythm Respiratory: Yes: SOB, Other (HFOT) Gastrointestinal: Yes: Normal Bowel Sounds, Soft, Abdomen, Obese Edema: No Labs: CBC, BMP 02/14/20 05:33 02/14/20 05:33 INR, PTT INR 1.06 (0.83-1.09) 01/26/20 07:48 Fibrinogen 303.0 mg/dL (238-498) 01/25/20 12:09 Problem List - Problems (1) Paroxysmal atrial flutter Code(s): I48.92 - UNSPECIFIED ATRIAL FLUTTER (2) Hypertensive heart disease Code(s): I11.9 - HYPERTENSIVE HEART DISEASE WITHOUT HEART FAILURE Qualifiers: Heart failure presence: without heart failure Qualified Code(s): I11.9 - Hypertensive heart disease without heart failure (3) Bacteremia Code(s): R78.81 - BACTEREMIA (4) Cervical spine disease Code(s): M48.9 - SPONDYLOPATHY, UNSPECIFIED (5) Obesity Code(s): E66.9 - OBESITY, UNSPECIFIED (6) Diastolic dysfunction Code(s): I51.89 - OTHER ILL-DEFINED HEART DISEASES Assessment/Plan 01/26/2020 Echo: Normal LV size and fxn, mild TR, borderline LAE 1. Paroxysmal atrial flutter -> sinus rhythm, [id number] score of 2 currently on heparin therapy 2. Hypertensive cardiovascular disease, hypertensive urgency resolved, not at goal blood pressure measurement 3. Acute Hypoxic and Hypercapneic Respiratory Failure clinically resolving- probable obstructive sleep apnea 4. Upper Airway Obstruction/Soft Tissue Swelling/Hematoma/Thyromegaly 5. Sinusitis 6. Gram Positive Bacteremia suspect line sepsis, Community-acquired pneumonia, resolved 7. Morbid Obesity 8. Pulmonary HTN 9. DM 10. Likely OSAS/OHS P:1. Resumed Toprol XL 150 qd, hydralazine 50 tid, Crestor 10 qd, chlorthalidone 25 qd, Eliquis 5 bid as oral intake re-established, Catapres patch, IV hydralazine for HTN 2. Abx per C&S and document clearance, line previously d/ted, now with LUE PICC 02/12 3. HFOT as needed, taper off decadron, glycemic control, incentive spirometry, chest PT, aspiration precautions, DVT/GI prophylaxis
[2020-02-14] MEDS: CEFTRIAXONE 2 GM in DEXTROSE 5%-WATER 100 ML IVPB SCH (10:14)
[2020-02-14] MEDS: PANTOPRAZOLE SODIUM 40 MG VIAL IVPUSH SCH (10:14)
[2020-02-14] MEDS: hydrALAZINE HCL 50 MG TABLET (FP) PO SCH ×2 (12:21→21:40)
--- NOTE | 2020-02-14 12:22 | PN ---
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 (short form) - Note 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: alert low grade temp overnight now resolved repeat blood cultures sent Vital Signs Period Temp Pulse Resp BP Sys/Gibbs Pulse Ox Last 24 Hr 98.3 F-100.8 F 93-144 19-20 124-164/78-105 92-100 cor-rrr lungs decresed bs at bases abd soft,nt ext less edema CBC, BMP 02/14/20 05:33 02/14/20 05:33 Microbiology 02/10/20 12:17 Blood - Peripheral Venous Blood Culture - Preliminary NO GROWTH OBTAINED AFTER 96 HOURS, INCUBATION TO CONTINUE FOR 1 DAYS. 02/10/20 12:11 Blood - Peripheral Venous Blood Culture - Preliminary NO GROWTH OBTAINED AFTER 96 HOURS, INCUBATION TO CONTINUE FOR 1 DAYS. 02/08/20 15:50 Blood - Peripheral Venous Blood Culture - Final Staphylococcus Coagulase Neg 02/08/20 15:50 Blood - Peripheral Venous Blood Culture - Final Staphylococcus Epidermidis 02/06/20 12:20 Blood - Central Line Blood Culture - Final Staphylococcus Epidermidis#2 02/08/20 16:00 Urine - Urine - Catheterized Urine Culture - Final Normal Urogenital Vi Yeast Like Organism 02/06/20 12:20 Blood - Central Line Blood Culture - Final Staphylococcus Coagulase Neg 02/05/20 12:00 Sputum - Endotrachea Suction/Ventilator Gram Stain - Final 02/05/20 12:00 Sputum - Endotrachea Suction/Ventilator Sputum Culture - Final Serratia Marcescens Beta Hem Streptococcus Group F a/p suspect fevers due to atelectasis bacteremia-staph epi- continue daptomycin day #4- repeat blood cultures 02/09 are negative, repeat sent last night cpk wnl-repeat in am pneumonia-on ceftriaxone day #5 obesity s/p resp failure aflutter- per cardiology, now on heparin encourage incentive spirometry OOB d/w resident Problem List - Problems (1) Fever Code(s): R50.9 - FEVER, UNSPECIFIED (2) Bacteremia Code(s): R78.81 - BACTEREMIA (3) Pneumonia Code(s): J18.9 - PNEUMONIA, UNSPECIFIED ORGANISM (4) Obesity Code(s): E66.9 - OBESITY, UNSPECIFIED (5) Cervical spine disease Code(s): M48.9 - SPONDYLOPATHY, UNSPECIFIED (6) Breast cancer Code(s): C50.919 - MALIGNANT NEOPLASM OF UNSP SITE OF UNSPECIFIED FEMALE BREAST (7) History of breast cancer Code(s): Z85.3 - PERSONAL HISTORY OF MALIGNANT NEOPLASM OF BREAST
--- NOTE | 2020-02-14 13:17 | PROC ---
Procedure Note Procedure: Midline insertion Patient requiring access for Heparin gtt, etc (poor venous access) Left UE prepped and draped in usual sterile fashion. Dark, nonpulsatile blood noted. Midline placed under ultrasound guidance in L basilic vein Flushes Central Line Insertion - Procedure Note TIME OUT performed prior to this procedure with verbal confirmation of correct patient identity, correct side, agreement of the procedure, correct patient position, availability of necessary equipment. The consent form is complete and accurate. Risk of possible infection, bleeding and pneumothorax have been discussed with the patient. Safety precautions based on patient history or medication use has been addressed. Area prepped with Chlorhexidine solution then draped using sterile barrier protection. Dark venous non-pulsatile flow noted from hub of needle. The catheter was introduced. Guide wire removed intact. Each port aspirated then flushed with sterile normal saline and capped. Line secured to skin with silk suture. Biopatch placed around base of line. Sterile occlusive dressing applied. No complications. Patient tolerated the procedure well. STAT chest xray ordered to confirm position and rule out pneumothorax
--- NOTE | 2020-02-14 13:23 | PROC ---
Procedure Note Procedure: Midline insertion Patient requiring access for Heparin gtt, etc (poor venous access). TIME OUT performed prior to this procedure with confirmation of correct patient identity, correct side, agreement of the procedure, correct patient position, availability of necessary equipment. Safety precautions based on patient history or medication use have been addressed. Area prepped with Chlorhexidine solution then draped using sterile barrier protection. Basilic vein identified under ultrasound guidance. Dark venous non- pulsatile flow noted from hub of needle. The catheter was introduced. Guide wire removed intact. Each port aspirated then flushed with sterile normal saline. Line secured to skin with secure device. Biopatch placed around base of line. Sterile occlusive dressing applied. No complications. Patient tolerated the procedure well. CATHETER IS NOT CENTRALLY LOCATED.
[2020-02-14] MEDS ORDERED: cloNIDine-TTS 0.2 MG/24 HOURS PATCH.TDWK TD SCH (14:45)
[2020-02-14] MEDS: MULTIVIT INJ. ADULT COMBO WITH VIT K 1 COMBO 10 ML VIAL IV SCH (14:55)
[2020-02-14] MEDS: DAPTOMYCIN 1,000 MG in SODIUM CHLORIDE 100 ML IVPB SCH (14:56)
[2020-02-14] MEDS: APIXABAN 5 MG TABLET PO SCH (21:39)
--- NOTE | 2020-02-14 22:32 | PN ---
Physical Exam: SUBJECTIVE: Patient seen and examined. Pt. had temperature to 100.4 overnight. Per RN desaturated to 84% when atemptimg to switch to venturi mask before improving, however Pt. was told she would not be able to eat with mask and Hi- rocky was reinstated. OBJECTIVE: Vital Signs Period Temp Pulse Resp BP Sys/Gibbs Pulse Ox Last 24 Hr 98.3 F-100.4 F 92-144 18-20 146-164/85-98 92-100 GENERAL: The patient is awake, alert, and in no acute distress. HEAD: Normal with no signs of trauma. EYES: Sclera anicteric, conjunctiva clear. ENT: Ears normal, nares patent, oropharynx clear without exudates, moist mucous membranes. NECK: Trachea midline, full range of motion, supple. LUNGS: Breath sounds equal, clear to auscultation bilaterally, no wheezes, no crackles, no accessory muscle use. HEART: Regular rate and rhythm, S1, S2 without murmur ABDOMEN: Soft, nontender, obese, nondistended, normoactive bowel sounds, no guarding, no rebound EXTREMITIES: 2+ dorsal pedal pulses, warm, RLE now equal in warmth to Left. NEUROLOGICAL: Normal speech, gait not observed. PSYCH: Normal mood, normal affect. SKIN: Warm, dry, normal turgor, no rashes or lesions noted Laboratory Results - last 24 hr 02/13/20 02/14/20 02/14/20 20:50 00:09 05:33 WBC RBC Hgb Hct MCV MCH MCHC RDW Plt Count MPV Absolute Neuts (auto) Neutrophils % Lymphocytes % Monocytes % Eosinophils % Basophils % Nucleated RBC % PTT (Actin FS) 42.7 H Sodium Potassium Chloride Carbon Dioxide Anion Gap BUN Creatinine Est GFR (CKD-EPI)AfAm Est GFR (CKD-EPI)NonAf POC Glucometer 114 Random Glucose Calcium Phosphorus Magnesium Total Bilirubin AST ALT Alkaline Phosphatase Total Protein Albumin Urine Color Yellow Urine Appearance Clear Urine pH >= 9.0 H D Ur Specific [place] 1.010 Urine Protein 1+ H Urine Glucose (UA) Negative Urine Ketones Negative Urine Blood 1+ H Urine Nitrite Negative Urine Bilirubin Negative Urine Urobilinogen 0.2 Ur Leukocyte Esterase 1+ H Urine WBC (Auto) 68 Urine RBC (Auto) 67.8 Urine Casts (Auto) 2 U Epithel Cells (Auto) >36 Urine Crystals (Auto) none Urine Bacteria (Auto) 157 Urine Yeast (Auto) Review A* 02/14/20 02/14/20 02/14/20 05:33 05:33 06:39 WBC 5.5 RBC 3.98 Hgb 10.1 L Hct 33.6 MCV 84.5 MCH 25.3 L MCHC 30.0 L RDW 17.9 H Plt Count 201 MPV 8.8 Absolute Neuts (auto) 3.7 Neutrophils % 67.0 Lymphocytes % 23.3 Monocytes % 6.6 Eosinophils % 2.3 Basophils % 0.8 Nucleated RBC % 0 PTT (Actin FS) Sodium 140 Potassium 3.6 Chloride 101 Carbon Dioxide 33 H Anion Gap 5 L BUN 9.9 Creatinine 0.5 L Est GFR (CKD-EPI)AfAm 128.97 Est GFR (CKD-EPI)NonAf 111.28 POC Glucometer 129 Random Glucose 128 H Calcium 8.5 Phosphorus 2.1 L Magnesium 1.7 L Total Bilirubin 0.6 AST 14 L ALT 31 Alkaline Phosphatase 61 Total Protein 6.1 L Albumin 2.7 L Urine Color Urine Appearance Urine pH Ur Specific [place] Urine Protein Urine Glucose (UA) Urine Ketones Urine Blood Urine Nitrite Urine Bilirubin Urine Urobilinogen Ur Leukocyte Esterase Urine WBC (Auto) Urine RBC (Auto) Urine Casts (Auto) U Epithel Cells (Auto) Urine Crystals (Auto) Urine Bacteria (Auto) Urine Yeast (Auto) 02/14/20 02/14/20 12:30 17:08 WBC RBC Hgb Hct MCV MCH MCHC RDW Plt Count MPV Absolute Neuts (auto) Neutrophils % Lymphocytes % Monocytes % Eosinophils % Basophils % Nucleated RBC % PTT (Actin FS) Sodium Potassium Chloride Carbon Dioxide Anion Gap BUN Creatinine Est GFR (CKD-EPI)AfAm Est GFR (CKD-EPI)NonAf POC Glucometer 129 150 Random Glucose Calcium Phosphorus Magnesium Total Bilirubin AST ALT Alkaline Phosphatase Total Protein Albumin Urine Color Urine Appearance Urine pH Ur Specific [place] Urine Protein Urine Glucose (UA) Urine Ketones Urine Blood Urine Nitrite Urine Bilirubin Urine Urobilinogen Ur Leukocyte Esterase Urine WBC (Auto) Urine RBC (Auto) Urine Casts (Auto) U Epithel Cells (Auto) Urine Crystals (Auto) Urine Bacteria (Auto) Urine Yeast (Auto) Active Medications Generic Name Dose Route Start Last Admin Trade Name Freq PRN Reason Stop Dose Admin Apixaban 5 mg 02/14/20 22:00 02/14/20 21:39 Eliquis - PO 5 mg BID ANGIE Administration Clonidine HCl 0.2 mg 02/14/20 14:45 02/14/20 15:34 Catapres Tts Patch - TD 0.2 mg Q7D ANGIE Administration Folic Acid 1 mg 02/15/20 10:00 Folic Acid - PO DAILY ANGIE Hydralazine HCl 50 mg 02/14/20 11:45 02/14/20 21:40 Apresoline - PO 50 mg TID ANGIE Administration IV Flush 4 ml 02/09/20 22:33 Triple Lumen Flush IVPUSH PRN PRN Protocol Ceftriaxone Sodium 2 gm/ 100 mls @ 100 mls/hr 02/10/20 10:00 02/14/20 10:14 Dextrose IVPB 100 mls/hr DAILY ANGIE Administration Protocol Amino Acids 1,000 mls @ 42 mls/hr 02/10/20 16:15 02/14/20 02:44 Clinimix - IV 42 mls/hr Q24H ANGIE Administration Daptomycin 1,000 mg/ Sodium 100 mls @ 100 mls/hr 02/10/20 13:00 02/14/20 14:56 Chloride IVPB 100 mls/hr DAILY@1300 [facility] Administration Protocol Insulin Aspart 1 vial 02/10/20 00:00 02/14/20 17:19 Novolog Vial Sliding Scale - SQ Not Given Q6HPO [facility] Protocol Metoprolol Succinate 150 mg 02/14/20 22:00 02/14/20 21:39 Toprol Xl - PO 150 mg HS ANGIE Administration Multivitamins/Minerals/Vitamin C 1 tab 02/15/20 10:00 Tab-A-Vit - PO DAILY ANGIE Oxybutynin Chloride 10 mg 02/15/20 10:00 Ditropan - PO DAILY ANGIE Pantoprazole Sodium 40 mg 02/15/20 10:00 Protonix - PO DAILY ANGIE Scopolamine HBr 1 patch 02/11/20 06:30 02/14/20 06:40 Transderm-Scop - TD Not Given Q72H [facility] ASSESSMENT/PLAN: Pt. is a 50 y.o. F w/ PMHx. of HTN, DM, MO, severe b/l LE venous stasis and severe b/l UE lymphedema 2/2 b/l mastectomy w/ reconstruction 2/2 Breast CA. Pt. was for ACDF when PT. became hypotensive and hypoxic after dividing the SCM. Pt. did not respond to phenylepherine and procedure was aborted. Pt. was monitored in the ICU afterwards and now has been downgraded to Telemetry. #Acute hypercapenic and hypoxic respiratory failure Suspected neck hematoma c/w High Flow, will attempt to wean to nasal cannula Pulmonology consults appreciated. Carotid body compression? #Morbidly obese #Suspected TEJAL/OHS Pulmonology consult appreciated CPAP ordered c/w Scopolamine Patch will need adherence to CPAP as outpatient, discussed with Pt. #Atrial Flutter Noted on EKG Heparin Gtt held #CAP PNA #Staph bacteremia BCx. + x 2, Third set has been negative for 72+ hours c/w Daptomycin(Day 4) and Ceftriaxone (Day 5) ID Consult appreciated Cultures growing bacteria resistant to Vancomycin CPK today wnl f/u cpk #GERD #HTN #HLD Resume home medications as BP permits #Cool RLE f/u arterial US Duplex negative Switched to Eliquis 5mg BID #FEN encourage PO intake, c/w clinimix Repleting Potassium with 40 meq x 2 today, will sign out to night team to give another 40 overnight Dysphagia Ground with Honey thick liquids #DVT Ppx. Hep Gtt. #Dispo Pt. will require rehab PT appreciated Visit type - Emergency Visit Emergency Visit: Yes ED Registration Date: 01/25/20 Care time: The patient presented to the Emergency Department on the above date and was hospitalized for further evaluation of their emergent condition. - New Patient This patient is new to me today: No - Critical Care Critical Care patient: No - Discharge Referral Referred to [facility] No ATTENDING PHYSICIAN STATEMENT I saw and evaluated the patient. I reviewed the resident's note and discussed the case with the resident. I agree with the resident's findings and plan as documented. SUBJECTIVE: OBJECTIVE: ASSESSMENT AND PLAN:
[2020-02-15] MEDS: INSULIN SLIDING SCALE (NOVOLOG) 1 VIAL SQ SCH ×4 (00:20→17:14)
[2020-02-15] MEDS: AMINO ACIDS 4.25%/D5W 1,000 ML IV SCH ×2 (02:58→19:43)
[2020-02-15] MEDS: hydrALAZINE HCL 50 MG TABLET (FP) PO SCH ×2 (06:22→13:17)
[2020-02-15 07:23] LABS: BASO % 0.5 % (0-2.0); EOS % 3.4 % (0-4.5); HEMOGLOBIN 9.8 GM/dL (10.7-15.3); LYMPH % 22.4 % (8-40); MCH 25.5 pg (25.7-33.7); MCHC 30.6 g/dl (32.0-36.0); MEAN CELL VOLUME 83.4 fl (80-96); MEAN PLT VOLUME 8.8 fl (7.5-11.1); MONO % 5.8 % (3.8-10.2); NEUT % 67.9 % (42.8-82.8); PLATELET COUNT 179 K/MM3 (134-434); RBC 3.83 M/mm3 (3.60-5.2); RDW 17.8 % (11.6-15.6); WHITE BLOOD COUNT 5.6 K/mm3 (4.0-10.0)
[2020-02-15 07:44] LABS: POTASSIUM 3.5 mmol/L (3.5-5.1)
[2020-02-15 07:51] LABS: ALBUMIN 2.6 g/dl (3.4-5.0); BILIRUBIN,TOTAL 0.4 mg/dL (0.2-1); BLOOD UREA NITROGEN 7.7 mg/dL (7-18); CALCIUM 8.4 mg/dL (8.5-10.1); CREATININE 0.4 mg/dL (0.55-1.3); MAGNESIUM 1.8 mg/dL (1.8-2.4); TOT PROT 6.1 g/dl (6.4-8.2)
[2020-02-15] MEDS ORDERED: DEXTROSE 5%-WATER 100 ML IVPB ONE (08:27)
[2020-02-15] MEDS: CEFTRIAXONE 2 GM in DEXTROSE 5%-WATER 100 ML IVPB SCH (09:23)
[2020-02-15] MEDS: APIXABAN 5 MG TABLET PO SCH ×2 (09:24→21:18)
[2020-02-15] MEDS: PANTOPRAZOLE 40 MG TABLET PO SCH (09:24)
[2020-02-15] MEDS: FOLIC ACID 1 MG TABLET (FP) PO SCH (09:24)
[2020-02-15] MEDS: OXYBUTYNIN CHLORIDE 5 MG TABLET PO SCH (09:25)
[2020-02-15] MEDS: MULTIVITAMINS (DAILY MVI) TABLET (FP) PO SCH (09:27)
[2020-02-15] MEDS ORDERED: hydrALAZINE HCL 20 MG/ML VIAL IVPUSH ONE (10:17)
--- NOTE | 2020-02-15 10:30 | PN ---
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, Physician History of Present Illness: Resting in bed on NC, reports improved dyspnea, denies any chest discomfort, remains in NSR w/o recurrence of PAF. - Current Medication List Current Medications: Active Medications Apixaban (Eliquis -) 5 mg PO BID [facility] Last Admin: 02/15/20 09:24 Dose: 5 mg Documented by: Clonidine HCl (Catapres Tts Patch -) 0.2 mg TD Q7D [facility] Last Admin: 02/14/20 15:34 Dose: 0.2 mg Documented by: Folic Acid (Folic Acid -) 1 mg PO DAILY [facility] Last Admin: 02/15/20 09:24 Dose: 1 mg Documented by: Hydralazine HCl (Apresoline -) 50 mg PO TID [facility] Last Admin: 02/15/20 06:22 Dose: 50 mg Documented by: IV Flush (Triple Lumen Flush) 4 ml IVPUSH PRN PRN PRN Reason: Protocol Ceftriaxone Sodium 2 gm/ (Dextrose) 100 mls @ 100 mls/hr IVPB DAILY [facility]; Pro tocol Last Admin: 02/15/20 09:23 Dose: 100 mls/hr Documented by: Amino Acids (Clinimix -) 1,000 mls @ 42 mls/hr IV Q24H [facility] Last Admin: 02/15/20 02:58 Dose: 42 mls/hr Documented by: Daptomycin 1,000 mg/ Sodium (Chloride) 100 mls @ 100 mls/hr IVPB DAILY@1300 [facility]; Protocol Last Admin: 02/14/20 14:56 Dose: 100 mls/hr Documented by: Insulin Aspart (Novolog Vial Sliding Scale -) 1 vial SQ Q6HPO [facility]; Protocol Last Admin: 02/15/20 06:22 Dose: Not Given Documented by: Metoprolol Succinate (Toprol Xl -) 150 mg PO HS [facility] Last Admin: 02/14/20 21:39 Dose: 150 mg Documented by: Multivitamins/Minerals/Vitamin C (Tab-A-Vit -) 1 tab PO DAILY [facility] Last Admin: 02/15/20 09:27 Dose: 1 tab Documented by: Oxybutynin Chloride (Ditropan -) 10 mg PO DAILY [facility] Last Admin: 02/15/20 09:25 Dose: 10 mg Documented by: Pantoprazole Sodium (Protonix -) 40 mg PO DAILY [facility] Last Admin: 02/15/20 09:24 Dose: 40 mg Documented by: Scopolamine HBr (Transderm-Scop -) 1 patch TD Q72H [facility] Last Admin: 02/14/20 06:40 Dose: Not Given Documented by: - Objective Vital Signs: Vital Signs Temperature 98.7 F 02/15/20 10:00 Pulse Rate 101 H 02/15/20 10:00 Respiratory Rate 20 02/15/20 10:00 Blood Pressure 133/80 02/15/20 10:00 O2 Sat by Pulse Oximetry (%) 100 02/15/20 10:00 Constitutional: Yes: No Distress, Calm Neck: Yes: Supple Cardiovascular: Yes: Regular Rate and Rhythm Respiratory: Yes: Diminished, On Nasal O2 Gastrointestinal: Yes: Soft, Abdomen, Obese, Hypoactive Bowel Sounds Edema: No Labs: CBC, BMP 02/15/20 05:35 02/15/20 05:35 INR, PTT INR 1.06 (0.83-1.09) 01/26/20 07:48 Fibrinogen 303.0 mg/dL (238-498) 01/25/20 12:09 - ....Imaging EKG: Report Reviewed (Tele: NSR w/ PAC) Problem List - Problems (1) Paroxysmal atrial flutter Code(s): I48.92 - UNSPECIFIED ATRIAL FLUTTER (2) Hypertensive heart disease Code(s): I11.9 - HYPERTENSIVE HEART DISEASE WITHOUT HEART FAILURE Qualifiers: Heart failure presence: without heart failure Qualified Code(s): I11.9 - Hypertensive heart disease without heart failure (3) Bacteremia Code(s): R78.81 - BACTEREMIA (4) Cervical spine disease Code(s): M48.9 - SPONDYLOPATHY, UNSPECIFIED (5) Obesity Code(s): E66.9 - OBESITY, UNSPECIFIED (6) Diastolic dysfunction Code(s): I51.89 - OTHER ILL-DEFINED HEART DISEASES Assessment/Plan 01/26/2020 Echo: Normal LV size and fxn, mild TR, borderline LAE 1. Paroxysmal atrial flutter -> sinus rhythm, [id number] score of 2 currently o n Eliquis 2. Hypertensive cardiovascular disease, hypertensive urgency resolved, not at goal blood pressure measurement 3. Acute Hypoxic and Hypercapneic Respiratory Failure clinically resolving- prob able obstructive sleep apnea 4. Upper Airway Obstruction/Soft Tissue Swelling/Hematoma/Thyromegaly 5. Sinusitis 6. Gram Positive Bacteremia suspect line sepsis, Community-acquired pneumonia, resolved 7. Morbid Obesity 8. Pulmonary HTN 9. DM 10. Likely OSAS/OHS P:1. Continue Toprol XL 150 qd, hydralazine 50 tid, Crestor 10 qd, chlorthalidone 25 qd, Eliquis 5 bid, Catapres patch, IV hydralazine for HTN 2. Abx per C&S and document clearance, line previously d/ted, now with LUE PICC 02/12 3. Wean FIO2, bipap nightly, tapered off decadron, glycemic control, incentive spirometry, aspiration precautions, DVT/GI prophylaxis, OOB to chair
--- NOTE | 2020-02-15 11:44 | PN ---
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, DIRECTOR OF AGRICULTURE - Note 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: Selected Entries 02/14/20 02/14/20 02/15/20 09:25 14:00 02:00 Breakfast 50% Lunch 25% Temperature 100.1 F H Pulse Rate 89 Blood Pressure 155/89 02/15/20 02/15/20 02/15/20 06:00 10:00 10:19 Breakfast 25% Lunch Temperature 98.2 F 98.7 F Pulse Rate 99 H 101 H Blood Pressure 157/101 H 133/80 Laboratory Tests 02/15/20 05:35 WBC 5.6 Selected Entries 02/14/20 02/14/20 02/15/20 09:25 14:00 02:00 Breakfast 50% Lunch 25% Skin Risk Level Total Score - Skin Risk Assessment Temperature 100.1 F H Pulse Rate 89 Blood Pressure 155/89 02/15/20 02/15/20 02/15/20 06:00 08:13 09:35 Breakfast Lunch Skin Risk Level High Risk Total Score - 12 Skin Risk Assessment Temperature 98.2 F Pulse Rate 99 H 102 H Blood Pressure 157/101 H 02/15/20 02/15/20 10:00 10:19 Breakfast 25% Lunch Skin Risk Level Total Score - Skin Risk Assessment Temperature 98.7 F Pulse Rate 101 H Blood Pressure 133/80 Laboratory Tests 02/15/20 05:35 WBC 5.6 Impaired insight.Verbal. Euphonic. Diet upgraded to dys chopped/nectar Dislikes most po intake, including plain water. No thrush identified Rec: diet upgrade to soft/thin Supplements b/n meals-magic cup, ensure pudding,ensure
--- NOTE | 2020-02-15 12:35 | PN ---
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 (short form) - Note 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: PULMONARY Remains on HFOT. States breathing is improving. Vital Signs Period Temp Pulse Resp BP Sys/Gibbs Pulse Ox Last 24 Hr 98.2 F-100.1 F 89-120 18-20 133-157/80-101 97-100 Gen: less tachypneic Heart: RRR Lung: decreased breath sounds at the bases Abd: soft, nontender Ext: no edema CBC, BMP 02/15/20 05:35 02/15/20 05:35 Active Medications Apixaban (Eliquis -) 5 mg PO BID [facility] Last Admin: 02/15/20 09:24 Dose: 5 mg Documented by: Clonidine HCl (Catapres Tts Patch -) 0.2 mg TD Q7D [facility] Last Admin: 02/14/20 15:34 Dose: 0.2 mg Documented by: Folic Acid (Folic Acid -) 1 mg PO DAILY [facility] Last Admin: 02/15/20 09:24 Dose: 1 mg Documented by: Hydralazine HCl (Apresoline -) 50 mg PO TID [facility] Last Admin: 02/15/20 06:22 Dose: 50 mg Documented by: IV Flush (Triple Lumen Flush) 4 ml IVPUSH PRN PRN PRN Reason: Protocol Ceftriaxone Sodium 2 gm/ (Dextrose) 100 mls @ 100 mls/hr IVPB DAILY [facility]; Protocol Last Admin: 02/15/20 09:23 Dose: 100 mls/hr Documented by: Amino Acids (Clinimix -) 1,000 mls @ 42 mls/hr IV Q24H [facility] Last Admin: 02/15/20 02:58 Dose: 42 mls/hr Documented by: Daptomycin 1,000 mg/ Sodium (Chloride) 100 mls @ 100 mls/hr IVPB DAILY@1300 [facility]; Protocol Last Admin: 02/14/20 14:56 Dose: 100 mls/hr Documented by: Insulin Aspart (Novolog Vial Sliding Scale -) 1 vial SQ Q6HPO [facility]; Protocol Last Admin: 02/15/20 12:08 Dose: 2 unit Documented by: Metoprolol Succinate (Toprol Xl -) 150 mg PO HS [facility] Last Admin: 02/14/20 21:39 Dose: 150 mg Documented by: Multivitamins/Minerals/Vitamin C (Tab-A-Vit -) 1 tab PO DAILY [facility] Last Admin: 02/15/20 09:27 Dose: 1 tab Documented by: Oxybutynin Chloride (Ditropan -) 10 mg PO DAILY [facility] Last Admin: 02/15/20 09:25 Dose: 10 mg Documented by: Pantoprazole Sodium (Protonix -) 40 mg PO DAILY [facility] Last Admin: 02/15/20 09:24 Dose: 40 mg Documented by: Scopolamine HBr (Transderm-Scop -) 1 patch TD Q72H [facility] Last Admin: 02/14/20 06:40 Dose: Not Given Documented by: A/P Acute Hypoxic and Hypercapneic Respiratory Failure improving Upper Airway Obstruction/Soft Tissue Swelling/Hematoma/Thyromegaly Pneumonia Gram Positive Bacteremia Hypertensive Urgency Paroxysmal Atrial Fibrillation Morbid Obesity Pulmonary HTN HTN DM Likely OSAS/OHS - titrate HFOT to keep spO2 >90%, can transition to nasal cannula - rate control - continue anticoagulation - continue antibiotics - incentive spirometry - chest PT - aspiration precautions - rehab/PT - DVT/GI prophylaxis
[2020-02-15] MEDS: DAPTOMYCIN 1,000 MG in SODIUM CHLORIDE 100 ML IVPB SCH (13:17)
--- NOTE | 2020-02-15 16:11 | PN ---
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 (short form) - Note 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: resting comfortably Vital Signs Period Temp Pulse Resp BP Sys/Gibbs Pulse Ox Last 24 Hr 98.2 F-100.1 F 89-112 18-20 133-157/80-101 97-100 cor-rrr lungs decreased bs at bases abd soft,nt ext no edema CBC, BMP 02/15/20 05:35 02/15/20 05:35 Microbiology 02/10/20 12:17 Blood - Peripheral Venous Blood Culture - Final NO GROWTH AFTER 5 DAYS INCUBATION 02/10/20 12:11 Blood - Peripheral Venous Blood Culture - Final NO GROWTH AFTER 5 DAYS INCUBATION 02/13/20 20:37 Blood - Peripheral Venous Blood Culture - Preliminary NO GROWTH OBTAINED AFTER 24 HOURS, INCUBATION TO CONTINUE FOR 4 DAYS. 02/13/20 20:37 Blood - Peripheral Venous Blood Culture - Preliminary NO GROWTH OBTAINED AFTER 24 HOURS, INCUBATION TO CONTINUE FOR 4 DAYS. 02/08/20 15:50 Blood - Peripheral Venous Blood Culture - Final Staphylococcus Coagulase Neg 02/08/20 15:50 Blood - Peripheral Venous Blood Culture - Final Staphylococcus Epidermidis 02/06/20 12:20 Blood - Central Line Blood Culture - Final Staphylococcus Epidermidis#2 02/08/20 16:00 Urine - Urine - Catheterized Urine Culture - Final Normal Urogenital Vi Yeast Like Organism 02/06/20 12:20 Blood - Central Line Blood Culture - Final Staphylococcus Coagulase Neg 02/05/20 12:00 Sputum - Endotrachea Suction/Ventilator Gram Stain - Final 02/05/20 12:00 Sputum - Endotrachea Suction/Ventilator Sputum Culture - Final Serratia Marcescens Beta Hem Streptococcus Group F a/p suspect fevers due to atelectasis bacteremia-staph epi- continue daptomycin day #5- repeat blood cultures 02/09 are negative, repeat negative to date cpk wnl- pneumonia-on ceftriaxone day #7 will d/c obesity s/p resp failure aflutter- per cardiology, now on elliquis encourage incentive spirometry OOB Problem List - Problems (1) Fever Code(s): R50.9 - FEVER, UNSPECIFIED (2) Bacteremia Code(s): R78.81 - BACTEREMIA (3) Pneumonia Code(s): J18.9 - PNEUMONIA, UNSPECIFIED ORGANISM (4) Obesity Code(s): E66.9 - OBESITY, UNSPECIFIED (5) Cervical spine disease Code(s): M48.9 - SPONDYLOPATHY, UNSPECIFIED (6) Breast cancer Code(s): C50.919 - MALIGNANT NEOPLASM OF UNSP SITE OF UNSPECIFIED FEMALE BREAST (7) History of breast cancer Code(s): Z85.3 - PERSONAL HISTORY OF MALIGNANT NEOPLASM OF BREAST
--- NOTE | 2020-02-15 17:08 | PN ---
Teaching Attending Note Name of Resident: Obdulio Teresa ATTENDING PHYSICIAN STATEMENT I saw and evaluated the patient. I reviewed the resident's note and discussed the case with the resident. I agree with the resident's findings and plan as documented. SUBJECTIVE: Patient seen and examined at bedside, improved strength will try to wean off HFOT to NC O2, cont. PT, cont. Daptomycin for Staph bacteremia. VSS. OBJECTIVE: Gen: morbidly obese, makes eye contact, alert HEENT: NC/AT, TIERNEY, sclera anicteric, MMM, + clear secretions Neck: no audible strido, supple LUNG: Good air entry anteriorally, good cough, on HFOT CARD: RRR, no murmurs, S1/S2 normal ABD: Soft, Nt/ND, normoactive BS, obese EXT: 1+ edema, warm extremities, 1+ pedal pulses, no calf tenderness Vital Signs - 24 hr 02/14/20 02/14/20 02/14/20 17:50 18:00 20:28 Temperature 99.0 F Pulse Rate 112 H Respiratory 18 Rate Blood Pressure O2 Sat by Pulse 98 98 Oximetry (%) 02/14/20 02/14/20 02/14/20 21:00 22:00 22:27 Temperature 99.5 F Pulse Rate 112 H Respiratory 18 Rate Blood Pressure 147/98 O2 Sat by Pulse 97 97 100 Oximetry (%) 02/15/20 02/15/20 02/15/20 02:00 04:28 06:00 Temperature 100.1 F H 98.2 F Pulse Rate 89 99 H Respiratory 20 18 Rate Blood Pressure 155/89 157/101 H O2 Sat by Pulse 100 100 100 Oximetry (%) 02/15/20 02/15/20 02/15/20 08:16 09:35 10:00 Temperature 98.7 F Pulse Rate 102 H 101 H Respiratory 20 Rate Blood Pressure 133/80 O2 Sat by Pulse 98 97 100 Oximetry (%) 02/15/20 02/15/20 14:00 16:04 Temperature 98.7 F Pulse Rate 91 H 102 H Respiratory 18 Rate Blood Pressure 155/92 O2 Sat by Pulse 100 99 Oximetry (%) Microbiology 02/10/20 12:17 Blood - Peripheral Venous Blood Culture - Final NO GROWTH AFTER 5 DAYS INCUBATION 02/10/20 12:11 Blood - Peripheral Venous Blood Culture - Final NO GROWTH AFTER 5 DAYS INCUBATION 02/13/20 20:37 Blood - Peripheral Venous Blood Culture - Preliminary NO GROWTH OBTAINED AFTER 24 HOURS, INCUBATION TO CONTINUE FOR 4 DAYS. 02/13/20 20:37 Blood - Peripheral Venous Blood Culture - Preliminary NO GROWTH OBTAINED AFTER 24 HOURS, INCUBATION TO CONTINUE FOR 4 DAYS. 02/08/20 15:50 Blood - Peripheral Venous Blood Culture - Final Staphylococcus Coagulase Neg 02/08/20 15:50 Blood - Peripheral Venous Blood Culture - Final Staphylococcus Epidermidis 02/06/20 12:20 Blood - Central Line Blood Culture - Final Staphylococcus Epidermidis#2 02/08/20 16:00 Urine - Urine - Catheterized Urine Culture - Final Normal Urogenital Vi Yeast Like Organism 02/06/20 12:20 Blood - Central Line Blood Culture - Final Staphylococcus Coagulase Neg 02/05/20 12:00 Sputum - Endotrachea Suction/Ventilator Gram Stain - Final 02/05/20 12:00 Sputum - Endotrachea Suction/Ventilator Sputum Culture - Final Serratia Marcescens Beta Hem Streptococcus Group F Laboratory Results - last 24 hr 02/14/20 02/15/20 02/15/20 17:08 00:19 00:36 WBC RBC Hgb Hct MCV MCH MCHC RDW Plt Count MPV Absolute Neuts (auto) Neutrophils % Lymphocytes % Monocytes % Eosinophils % Basophils % Nucleated RBC % PTT (Actin FS) Sodium Potassium Chloride Carbon Dioxide Anion Gap BUN Creatinine Est GFR (CKD-EPI)AfAm Est GFR (CKD-EPI)NonAf POC Glucometer 150 135 Random Glucose Calcium Phosphorus Magnesium Total Bilirubin AST ALT Alkaline Phosphatase Creatine Kinase Total Protein Albumin Stool Occult Blood Negative 02/15/20 02/15/20 02/15/20 05:35 05:35 05:35 WBC 5.6 RBC 3.83 Hgb 9.8 L Hct 32.0 L MCV 83.4 MCH 25.5 L MCHC 30.6 L RDW 17.8 H Plt Count 179 MPV 8.8 Absolute Neuts (auto) 3.8 Neutrophils % 67.9 Lymphocytes % 22.4 Monocytes % 5.8 Eosinophils % 3.4 Basophils % 0.5 Nucleated RBC % 0 PTT (Actin FS) 30.1 Sodium 140 Potassium 3.5 Chloride 102 Carbon Dioxide 30 Anion Gap 8 BUN 7.7 Creatinine 0.4 L Est GFR (CKD-EPI)AfAm 138.79 Est GFR (CKD-EPI)NonAf 119.75 POC Glucometer Random Glucose 131 H Calcium 8.4 L Phosphorus 3.0 Magnesium 1.8 Total Bilirubin 0.4 AST 14 L ALT 29 Alkaline Phosphatase 58 Creatine Kinase 50 Total Protein 6.1 L Albumin 2.6 L Stool Occult Blood 02/15/20 02/15/20 02/15/20 06:21 11:31 16:47 WBC RBC Hgb Hct MCV MCH MCHC RDW Plt Count MPV Absolute Neuts (auto) Neutrophils % Lymphocytes % Monocytes % Eosinophils % Basophils % Nucleated RBC % PTT (Actin FS) Sodium Potassium Chloride Carbon Dioxide Anion Gap BUN Creatinine Est GFR (CKD-EPI)AfAm Est GFR (CKD-EPI)NonAf POC Glucometer 135 155 121 Random Glucose Calcium Phosphorus Magnesium Total Bilirubin AST ALT Alkaline Phosphatase Creatine Kinase Total Protein Albumin Stool Occult Blood Home Medications Medication Instructions Recorded Metoprolol Succinate [Toprol Xl] 150 mg PO HS 09/20/15 Gabapentin [Neurontin] 300 mg PO AM 08/30/17 Clonidine Patch [Catapres Tts 0.2 mg TD WEEKLY 01/24/20 Patch -] Gabapentin 600 mg PO HS 01/24/20 Hydralazine HCl 50 mg PO Q8H 01/24/20 Omeprazole Magnesium [Prilosec Otc] 20 mg PO DAILY 01/24/20 Rosuvastatin [Crestor -] 10 mg PO DAILY 01/24/20 Sitagliptin Phosphate [Januvia] 100 mg PO DAILY 01/24/20 Folic Acid 1 mg PO DAILY 02/02/20 Furosemide 40 mg PO DAILY 02/02/20 Leflunomide 20 mg PO DAILY 02/02/20 Mirabegron [Myrbetriq] 50 mg PO DAILY 02/02/20 Oxybutynin Chloride [Oxybutynin 10 mg PO DAILY 02/02/20 Chloride ER] Current Medications Generic Name Dose Route Start Last Admin Trade Name Freq PRN Reason Stop Dose Admin Apixaban 5 mg 02/14/20 22:00 02/15/20 09:24 Eliquis - PO 5 mg BID [facility] Administration Clonidine HCl 0.2 mg 02/14/20 14:45 02/14/20 15:34 Catapres Tts Patch - TD 0.2 mg Q7D [facility] Administration Folic Acid 1 mg 02/15/20 10:00 02/15/20 09:24 Folic Acid - PO 1 mg DAILY [facility] Administration Hydralazine HCl 50 mg 02/14/20 11:45 02/15/20 13:17 Apresoline - PO 50 mg TID [facility] Administration IV Flush 4 ml 02/09/20 22:33 Triple Lumen Flush IVPUSH PRN PRN Protocol Ceftriaxone Sodium 2 gm/ 100 mls @ 100 mls/hr 02/10/20 10:00 02/15/20 09:23 Dextrose IVPB 100 mls/hr DAILY [facility] Administration Protocol Amino Acids 1,000 mls @ 42 mls/hr 02/10/20 16:15 02/15/20 02:58 Clinimix - IV 42 mls/hr Q24H [facility] Administration Daptomycin 1,000 mg/ Sodium 100 mls @ 100 mls/hr 02/10/20 13:00 02/15/20 13:17 Chloride IVPB 100 mls/hr DAILY@1300 [facility] Administration Protocol Insulin Aspart 1 vial 02/10/20 00:00 02/15/20 12:08 Novolog Vial Sliding Scale - SQ 2 unit Q6HPO [facility] Administration Protocol Metoprolol Succinate 150 mg 02/14/20 22:00 02/14/20 21:39 Toprol Xl - PO 150 mg HS [facility] Administration Multivitamins/Minerals/Vitamin C 1 tab 02/15/20 10:00 02/15/20 09:27 Tab-A-Vit - PO 1 tab DAILY [facility] Administration Oxybutynin Chloride 10 mg 02/15/20 10:00 02/15/20 09:25 Ditropan - PO 10 mg DAILY [facility] Administration Pantoprazole Sodium 40 mg 02/15/20 10:00 02/15/20 09:24 Protonix - PO 40 mg DAILY [facility] Administration Scopolamine HBr 1 patch 02/11/20 06:30 02/14/20 06:40 Transderm-Scop - TD Not Given Q72H [facility] ASSESSMENT AND PLAN: 50 F Acute hypercapenic and hypoxic respiratory failure Neck hematoma (resolved) TEJAL/OHS Morbidly obese CAP PNA Staph bacteremia HTN HLD Peripheral artery disease (MILD) Plan: Cont. Daptomycin per ID recs Cont. Eliquis 5mg BID for Atrial flutter Cont. Ceftriaxone for CAP Incentive spirometry, needs OOB to chair as tolerated, aggressive PT Strict avoidance of sedatives/opioids/gabapentanoids, frequent re-orientation DVT ppx: Elqiuis Downgrade when off HFOT
--- NOTE | 2020-02-15 17:12 | PN ---
Teaching Attending Note Name of Resident: Obdulio Teresa ATTENDING PHYSICIAN STATEMENT I saw and evaluated the patient. I reviewed the resident's note and discussed the case with the resident. I agree with the resident's findings and plan as documented. SUBJECTIVE: Patient seen and examined at bedside, continues to improve off HFOT on NC O2, will downgrade to Med-surg, needs PT/rehab. OBJECTIVE: Gen: morbidly obese, makes eye contact, alert and orientated, NAD HEENT: NC/AT, TIERNEY, sclera anicteric, MMM, + clear secretions Neck: no audible strido, supple LUNG: Good air entry anteriorally, good cough, on NC O2 CARD: RRR, no murmurs, S1/S2 normal ABD: Soft, Nt/ND, normoactive BS, obese EXT: No LE edema, warm extremities, 1+ pedal pulses, no calf tenderness Vital Signs - 24 hr 02/14/20 02/14/20 02/14/20 17:50 18:00 20:28 Temperature 99.0 F Pulse Rate 112 H Respiratory 18 Rate Blood Pressure O2 Sat by Pulse 98 98 Oximetry (%) 02/14/20 02/14/20 02/14/20 21:00 22:00 22:27 Temperature 99.5 F Pulse Rate 112 H Respiratory 18 Rate Blood Pressure 147/98 O2 Sat by Pulse 97 97 100 Oximetry (%) 02/15/20 02/15/20 02/15/20 02:00 04:28 06:00 Temperature 100.1 F H 98.2 F Pulse Rate 89 99 H Respiratory 20 18 Rate Blood Pressure 155/89 157/101 H O2 Sat by Pulse 100 100 100 Oximetry (%) 02/15/20 02/15/20 02/15/20 08:16 09:35 10:00 Temperature 98.7 F Pulse Rate 102 H 101 H Respiratory 20 Rate Blood Pressure 133/80 O2 Sat by Pulse 98 97 100 Oximetry (%) 02/15/20 02/15/20 14:00 16:04 Temperature 98.7 F Pulse Rate 91 H 102 H Respiratory 18 Rate Blood Pressure 155/92 O2 Sat by Pulse 100 99 Oximetry (%) Microbiology 02/10/20 12:17 Blood - Peripheral Venous Blood Culture - Final NO GROWTH AFTER 5 DAYS INCUBATION 02/10/20 12:11 Blood - Peripheral Venous Blood Culture - Final NO GROWTH AFTER 5 DAYS INCUBATION 02/13/20 20:37 Blood - Peripheral Venous Blood Culture - Preliminary NO GROWTH OBTAINED AFTER 24 HOURS, INCUBATION TO CONTINUE FOR 4 DAYS. 02/13/20 20:37 Blood - Peripheral Venous Blood Culture - Preliminary NO GROWTH OBTAINED AFTER 24 HOURS, INCUBATION TO CONTINUE FOR 4 DAYS. 02/08/20 15:50 Blood - Peripheral Venous Blood Culture - Final Staphylococcus Coagulase Neg 02/08/20 15:50 Blood - Peripheral Venous Blood Culture - Final Staphylococcus Epidermidis 02/06/20 12:20 Blood - Central Line Blood Culture - Final Staphylococcus Epidermidis#2 02/08/20 16:00 Urine - Urine - Catheterized Urine Culture - Final Normal Urogenital Vi Yeast Like Organism 02/06/20 12:20 Blood - Central Line Blood Culture - Final Staphylococcus Coagulase Neg 02/05/20 12:00 Sputum - Endotrachea Suction/Ventilator Gram Stain - Final 02/05/20 12:00 Sputum - Endotrachea Suction/Ventilator Sputum Culture - Final Serratia Marcescens Beta Hem Streptococcus Group F Laboratory Results - last 24 hr 02/14/20 02/15/20 02/15/20 17:08 00:19 00:36 WBC RBC Hgb Hct MCV MCH MCHC RDW Plt Count MPV Absolute Neuts (auto) Neutrophils % Lymphocytes % Monocytes % Eosinophils % Basophils % Nucleated RBC % PTT (Actin FS) Sodium Potassium Chloride Carbon Dioxide Anion Gap BUN Creatinine Est GFR (CKD-EPI)AfAm Est GFR (CKD-EPI)NonAf POC Glucometer 150 135 Random Glucose Calcium Phosphorus Magnesium Total Bilirubin AST ALT Alkaline Phosphatase Creatine Kinase Total Protein Albumin Stool Occult Blood Negative 02/15/20 02/15/20 02/15/20 05:35 05:35 05:35 WBC 5.6 RBC 3.83 Hgb 9.8 L Hct 32.0 L MCV 83.4 MCH 25.5 L MCHC 30.6 L RDW 17.8 H Plt Count 179 MPV 8.8 Absolute Neuts (auto) 3.8 Neutrophils % 67.9 Lymphocytes % 22.4 Monocytes % 5.8 Eosinophils % 3.4 Basophils % 0.5 Nucleated RBC % 0 PTT (Actin FS) 30.1 Sodium 140 Potassium 3.5 Chloride 102 Carbon Dioxide 30 Anion Gap 8 BUN 7.7 Creatinine 0.4 L Est GFR (CKD-EPI)AfAm 138.79 Est GFR (CKD-EPI)NonAf 119.75 POC Glucometer Random Glucose 131 H Calcium 8.4 L Phosphorus 3.0 Magnesium 1.8 Total Bilirubin 0.4 AST 14 L ALT 29 Alkaline Phosphatase 58 Creatine Kinase 50 Total Protein 6.1 L Albumin 2.6 L Stool Occult Blood 02/15/20 02/15/20 02/15/20 06:21 11:31 16:47 WBC RBC Hgb Hct MCV MCH MCHC RDW Plt Count MPV Absolute Neuts (auto) Neutrophils % Lymphocytes % Monocytes % Eosinophils % Basophils % Nucleated RBC % PTT (Actin FS) Sodium Potassium Chloride Carbon Dioxide Anion Gap BUN Creatinine Est GFR (CKD-EPI)AfAm Est GFR (CKD-EPI)NonAf POC Glucometer 135 155 121 Random Glucose Calcium Phosphorus Magnesium Total Bilirubin AST ALT Alkaline Phosphatase Creatine Kinase Total Protein Albumin Stool Occult Blood Home Medications Medication Instructions Recorded Metoprolol Succinate [Toprol Xl] 150 mg PO HS 09/20/15 Gabapentin [Neurontin] 300 mg PO AM 08/30/17 Clonidine Patch [Catapres Tts 0.2 mg TD WEEKLY 01/24/20 Patch -] Gabapentin 600 mg PO HS 01/24/20 Hydralazine HCl 50 mg PO Q8H 01/24/20 Omeprazole Magnesium [Prilosec Otc] 20 mg PO DAILY 01/24/20 Rosuvastatin [Crestor -] 10 mg PO DAILY 01/24/20 Sitagliptin Phosphate [Januvia] 100 mg PO DAILY 01/24/20 Folic Acid 1 mg PO DAILY 02/02/20 Furosemide 40 mg PO DAILY 02/02/20 Leflunomide 20 mg PO DAILY 02/02/20 Mirabegron [Myrbetriq] 50 mg PO DAILY 02/02/20 Oxybutynin Chloride [Oxybutynin 10 mg PO DAILY 02/02/20 Chloride ER] Current Medications Generic Name Dose Route Start Last Admin Trade Name Freq PRN Reason Stop Dose Admin Apixaban 5 mg 02/14/20 22:00 02/15/20 09:24 Eliquis - PO 5 mg BID ANGIE Administration Clonidine HCl 0.2 mg 02/14/20 14:45 02/14/20 15:34 Catapres Tts Patch - TD 0.2 mg Q7D ANGIE Administration Folic Acid 1 mg 02/15/20 10:00 02/15/20 09:24 Folic Acid - PO 1 mg DAILY ANGIE Administration Hydralazine HCl 50 mg 02/14/20 11:45 02/15/20 13:17 Apresoline - PO 50 mg TID ANGIE Administration IV Flush 4 ml 02/09/20 22:33 Triple Lumen Flush IVPUSH PRN PRN Protocol Ceftriaxone Sodium 2 gm/ 100 mls @ 100 mls/hr 02/10/20 10:00 02/15/20 09:23 Dextrose IVPB 100 mls/hr DAILY ANGIE Administration Protocol Amino Acids 1,000 mls @ 42 mls/hr 02/10/20 16:15 02/15/20 02:58 Clinimix - IV 42 mls/hr Q24H ANGIE Administration Daptomycin 1,000 mg/ Sodium 100 mls @ 100 mls/hr 02/10/20 13:00 02/15/20 13:17 Chloride IVPB 100 mls/hr DAILY@1300 ANGIE Administration Protocol Insulin Aspart 1 vial 02/10/20 00:00 02/15/20 12:08 Novolog Vial Sliding Scale - SQ 2 unit Q6HPO ANGIE Administration Protocol Metoprolol Succinate 150 mg 02/14/20 22:00 02/14/20 21:39 Toprol Xl - PO 150 mg HS ANGIE Administration Multivitamins/Minerals/Vitamin C 1 tab 02/15/20 10:00 02/15/20 09:27 Tab-A-Vit - PO 1 tab DAILY ANGIE Administration Oxybutynin Chloride 10 mg 02/15/20 10:00 02/15/20 09:25 Ditropan - PO 10 mg DAILY ANGIE Administration Pantoprazole Sodium 40 mg 02/15/20 10:00 02/15/20 09:24 Protonix - PO 40 mg DAILY ANGIE Administration Scopolamine HBr 1 patch 02/11/20 06:30 02/14/20 06:40 Transderm-Scop - TD Not Given Q72H [facility] ASSESSMENT AND PLAN: 50 F Acute hypercapenic and hypoxic respiratory failure Neck hematoma (resolved) TEJAL/OHS Morbidly obese CAP PNA Staph bacteremia HTN HLD Peripheral artery disease (MILD) Plan: Cont. Daptomycin per ID recs Cont. Eliquis 5mg BID for Atrial flutter Cont. Ceftriaxone for CAP Incentive spirometry, needs OOB to chair as tolerated, aggressive PT Strict avoidance of sedatives/opioids/gabapentanoids, frequent re-orientation DVT ppx: Elqiuis Downgrade to Med Surg
--- NOTE | 2020-02-15 18:05 | PN ---
Physical Exam: SUBJECTIVE: Patient seen and examined. Pt. improved from yesterday, tolerating PO better asking for increased diet, Pt. tolerating nasal cannula. Pt. does appear sad and states that she just wants to go home, tired of being in the hospital. Reassured Pt. that she has seen significant improvement and that we are approaching a time where she can go to a rehab facility. Pt. states she was able to walk further with physical therapy. OBJECTIVE: Vital Signs Period Temp Pulse Resp BP Sys/Gibbs Pulse Ox Last 24 Hr 98.2 F-100.1 F 89-112 18-20 133-157/80-101 97-100 GENERAL: The patient is awake, alert, and in no acute distress. HEAD: Normal with no signs of trauma. EYES: Sclera anicteric, conjunctiva clear. ENT: Ears normal, nares patent, oropharynx clear without exudates, moist mucous membranes. NECK: Trachea midline, full range of motion, supple. LUNGS: Breath sounds equal, clear to auscultation bilaterally, no wheezes, no crackles, no accessory muscle use. HEART: Regular rate and rhythm, S1, S2 without murmur ABDOMEN: Soft, nontender, obese, nondistended, normoactive bowel sounds, no gu arding, no rebound EXTREMITIES: 2+ dorsal pedal pulses, warm, RLE now equal in warmth to Left. NEUROLOGICAL: Normal speech, gait not observed. PSYCH: Normal mood, normal affect. SKIN: Warm, dry, normal turgor, no rashes or lesions noted Laboratory Results - last 24 hr 02/15/20 02/15/20 02/15/20 00:19 00:36 05:35 WBC RBC Hgb Hct MCV MCH MCHC RDW Plt Count MPV Absolute Neuts (auto) Neutrophils % Lymphocytes % Monocytes % Eosinophils % Basophils % Nucleated RBC % PTT (Actin FS) 30.1 Sodium Potassium Chloride Carbon Dioxide Anion Gap BUN Creatinine Est GFR (CKD-EPI)AfAm Est GFR (CKD-EPI)NonAf POC Glucometer 135 Random Glucose Calcium Phosphorus Magnesium Total Bilirubin AST ALT Alkaline Phosphatase Creatine Kinase Total Protein Albumin Stool Occult Blood Negative 02/15/20 02/15/20 02/15/20 05:35 05:35 06:21 WBC 5.6 RBC 3.83 Hgb 9.8 L Hct 32.0 L MCV 83.4 MCH 25.5 L MCHC 30.6 L RDW 17.8 H Plt Count 179 MPV 8.8 Absolute Neuts (auto) 3.8 Neutrophils % 67.9 Lymphocytes % 22.4 Monocytes % 5.8 Eosinophils % 3.4 Basophils % 0.5 Nucleated RBC % 0 PTT (Actin FS) Sodium 140 Potassium 3.5 Chloride 102 Carbon Dioxide 30 Anion Gap 8 BUN 7.7 Creatinine 0.4 L Est GFR (CKD-EPI)AfAm 138.79 Est GFR (CKD-EPI)NonAf 119.75 POC Glucometer 135 Random Glucose 131 H Calcium 8.4 L Phosphorus 3.0 Magnesium 1.8 Total Bilirubin 0.4 AST 14 L ALT 29 Alkaline Phosphatase 58 Creatine Kinase 50 Total Protein 6.1 L Albumin 2.6 L Stool Occult Blood 02/15/20 02/15/20 11:31 16:47 WBC RBC Hgb Hct MCV MCH MCHC RDW Plt Count MPV Absolute Neuts (auto) Neutrophils % Lymphocytes % Monocytes % Eosinophils % Basophils % Nucleated RBC % PTT (Actin FS) Sodium Potassium Chloride Carbon Dioxide Anion Gap BUN Creatinine Est GFR (CKD-EPI)AfAm Est GFR (CKD-EPI)NonAf POC Glucometer 155 121 Random Glucose Calcium Phosphorus Magnesium Total Bilirubin AST ALT Alkaline Phosphatase Creatine Kinase Total Protein Albumin Stool Occult Blood Active Medications Generic Name Dose Route Start Last Admin Trade Name Freq PRN Reason Stop Dose Admin Apixaban 5 mg 02/14/20 22:00 02/15/20 09:24 Eliquis - PO 5 mg BID ANGIE Administration Clonidine HCl 0.2 mg 02/14/20 14:45 02/14/20 15:34 Catapres Tts Patch - TD 0.2 mg Q7D ANGIE Administration Folic Acid 1 mg 02/15/20 10:00 02/15/20 09:24 Folic Acid - PO 1 mg DAILY ANGIE Administration Hydralazine HCl 50 mg 02/14/20 11:45 02/15/20 13:17 Apresoline - PO 50 mg TID ANGIE Administration IV Flush 4 ml 02/09/20 22:33 Triple Lumen Flush IVPUSH PRN PRN Protocol Amino Acids 1,000 mls @ 42 mls/hr 02/10/20 16:15 02/15/20 02:58 Clinimix - IV 42 mls/hr Q24H ANGIE Administration Daptomycin 1,000 mg/ Sodium 100 mls @ 100 mls/hr 02/10/20 13:00 02/15/20 13:17 Chloride IVPB 100 mls/hr DAILY@1300 ANGIE Administration Protocol Insulin Aspart 1 vial 02/10/20 00:00 02/15/20 17:14 Novolog Vial Sliding Scale - SQ Not Given Q6HPO ANGIE Protocol Metoprolol Succinate 150 mg 02/14/20 22:00 02/14/20 21:39 Toprol Xl - PO 150 mg HS ANGIE Administration Multivitamins/Minerals/Vitamin C 1 tab 02/15/20 10:00 02/15/20 09:27 Tab-A-Vit - PO 1 tab DAILY ANGIE Administration Oxybutynin Chloride 10 mg 02/15/20 10:00 02/15/20 09:25 Ditropan - PO 10 mg DAILY ANGIE Administration Pantoprazole Sodium 40 mg 02/15/20 10:00 02/15/20 09:24 Protonix - PO 40 mg DAILY ANGIE Administration Scopolamine HBr 1 patch 02/11/20 06:30 02/14/20 06:40 Transderm-Scop - TD Not Given Q72H COUNT INCLUDES THE [facility] ASSESSMENT/PLAN: Pt. is a 50 y.o. F w/ PMHx. of HTN, DM, MO, severe b/l LE venous stasis and severe b/l UE lymphedema 2/2 b/l mastectomy w/ reconstruction 2/2 Breast CA. Pt. was for ACDF when PT. became hypotensive and hypoxic after dividing the SCM. Pt. did not respond to phenylepherine and procedure was aborted. Pt. was monitored in the ICU afterwards and now has been downgraded to Telemetry. #Acute hypercapenic and hypoxic respiratory failure Suspected neck hematoma vs. Carotid body compression? c/w High Flow, will attempt to wean to nasal cannula Pulmonology consults appreciated. #Morbidly obese #Suspected TEJAL/OHS Pulmonology consult appreciated c/w CPAP c/w Scopolamine Patch will need adherence to CPAP as outpatient, discussed with Pt. #Atrial Flutter Noted on EKG resumed Eliquis c/w Toprol 150mg FOBT - #CAP PNA #Staph bacteremia BCx. + x 2, Third set has been negative for 72+ hours c/w Daptomycin(Day5); Ceftriaxone discontinued ID Consult appreciated Cultures growing bacteria resistant to Vancomycin CPK today wnl #GERD #HTN #HLD Resume home medications given 10mg IV Hydralazine today increased Hydralazine to 75mg TID to maintain BP contro #Cool RLE f/u arterial US Duplex negative Switched to Eliquis 5mg BID #FEN encourage PO intake, c/w clinimix monitor electrolytes and replete as needed Dysphagia Ground with Honey thick liquids #DVT Ppx. Eliquis #Dispo Pt. will require rehab PT appreciated Transfer to M/S Visit type - Emergency Visit Emergency Visit: Yes ED Registration Date: 01/25/20 Care time: The patient presented to the Emergency Department on the above date and was hospitalized for further evaluation of their emergent condition. - New Patient This patient is new to me today: No - Critical Care Critical Care patient: No - Discharge Referral Referred to [facility] Med P.C.: No ATTENDING PHYSICIAN STATEMENT I saw and evaluated the patient. I reviewed the resident's note and discussed the case with the resident. I agree with the resident's findings and plan as documented. SUBJECTIVE: OBJECTIVE: ASSESSMENT AND PLAN:
[2020-02-15] MEDS: METOPROLOL TARTRATE 5 MG/5 ML VIAL IVPUSH SCH (19:45)
[2020-02-15] MEDS: hydrALAZINE HCL 25 MG TABLET (FP) PO SCH (21:18)
[2020-02-16] MEDS: INSULIN SLIDING SCALE (NOVOLOG) 1 VIAL SQ SCH ×5 (01:27→23:17)
[2020-02-16] MEDS: AMINO ACIDS 4.25%/D5W 1,000 ML IV SCH (05:02)
[2020-02-16] MEDS: hydrALAZINE HCL 25 MG TABLET (FP) PO SCH ×3 (05:47→21:14)
[2020-02-16 07:48] LABS: HEMATOCRIT 33.1 % (32.4-45.2); HEMOGLOBIN 10.2 GM/dL (10.7-15.3); MCHC 30.8 g/dl (32.0-36.0); MEAN CELL VOLUME 84.6 fl (80-96); MEAN PLT VOLUME 8.8 fl (7.5-11.1); PLATELET COUNT 185 K/MM3 (134-434); RBC 3.91 M/mm3 (3.60-5.2); RDW 18.2 % (11.6-15.6); WHITE BLOOD COUNT 4.8 K/mm3 (4.0-10.0)
--- NOTE | 2020-02-16 08:00 | PN ---
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, Physician History of Present Illness: Resting in bed on NC, remains in NSR w/o recurrence of PAF. - Current Medication List Current Medications: Active Medications Apixaban (Eliquis -) 5 mg PO BID [facility] Last Admin: 02/15/20 21:18 Dose: 5 mg Documented by: Clonidine HCl (Catapres Tts Patch -) 0.2 mg TD Q7D [facility] Last Admin: 02/14/20 15:34 Dose: 0.2 mg Documented by: Folic Acid (Folic Acid -) 1 mg PO DAILY [facility] Last Admin: 02/15/20 09:24 Dose: 1 mg Documented by: Hydralazine HCl (Apresoline -) 75 mg PO TID [facility] Last Admin: 02/16/20 05:47 Dose: 75 mg Documented by: IV Flush (Triple Lumen Flush) 4 ml IVPUSH PRN PRN PRN Reason: Protocol Amino Acids (Clinimix -) 1,000 mls @ 42 mls/hr IV Q24H [facility] Last Admin: 02/16/20 05:02 Dose: 42 mls/hr Documented by: Daptomycin 1,000 mg/ Sodium (Chloride) 100 mls @ 100 mls/hr IVPB DAILY@1300 [facility]; Protocol Last Admin: 02/15/20 13:17 Dose: 100 mls/hr Documented by: Insulin Aspart (Novolog Vial Sliding Scale -) 1 vial SQ Q6HPO [facility]; Protocol Last Admin: 02/16/20 05:46 Dose: Not Given Documented by: Metoprolol Succinate (Toprol Xl -) 150 mg PO HS [facility] Last Admin: 02/15/20 21:18 Dose: 150 mg Documented by: Multivitamins/Minerals/Vitamin C (Tab-A-Vit -) 1 tab PO DAILY [facility] Last Admin: 02/15/20 09:27 Dose: 1 tab Documented by: Oxybutynin Chloride (Ditropan -) 10 mg PO DAILY [facility] Last Admin: 02/15/20 09:25 Dose: 10 mg Documented by: Pantoprazole Sodium (Protonix -) 40 mg PO DAILY [facility] Last Admin: 02/15/20 09:24 Dose: 40 mg Documented by: Scopolamine HBr (Transderm-Scop -) 1 patch TD Q72H [facility] Last Admin: 02/14/20 06:40 Dose: Not Given Documented by: - Objective Vital Signs: Vital Signs Temperature 98.8 F 02/16/20 05:38 Pulse Rate 88 02/16/20 05:38 Respiratory Rate 18 02/16/20 05:38 Blood Pressure 147/90 02/16/20 05:38 O2 Sat by Pulse Oximetry (%) 100 02/16/20 05:38 Constitutional: Yes: No Distress, Calm Neck: Yes: Supple Cardiovascular: Yes: Regular Rate and Rhythm Respiratory: Yes: Regular, Diminished, On Nasal O2 Gastrointestinal: Yes: Soft, Hypoactive Bowel Sounds Edema: No Labs: CBC, BMP 02/16/20 05:28 02/15/20 05:35 INR, PTT INR 1.06 (0.83-1.09) 01/26/20 07:48 Fibrinogen 303.0 mg/dL (238-498) 01/25/20 12:09 - ....Imaging EKG: Report Reviewed (Tele: NSR) Problem List - Problems (1) Paroxysmal atrial flutter Code(s): I48.92 - UNSPECIFIED ATRIAL FLUTTER (2) Hypertensive heart disease Code(s): I11.9 - HYPERTENSIVE HEART DISEASE WITHOUT HEART FAILURE Qualifiers: Heart failure presence: without heart failure Qualified Code(s): I11.9 - Hypertensive heart disease without heart failure (3) Bacteremia Code(s): R78.81 - BACTEREMIA (4) Cervical spine disease Code(s): M48.9 - SPONDYLOPATHY, UNSPECIFIED (5) Obesity Code(s): E66.9 - OBESITY, UNSPECIFIED (6) Diastolic dysfunction Code(s): I51.89 - OTHER ILL-DEFINED HEART DISEASES Assessment/Plan 01/26/2020 Echo: Normal LV size and fxn, mild TR, borderline LAE 1. Paroxysmal atrial flutter -> sinus rhythm, [id number] score of 2 currently on Eliquis 2. Hypertensive cardiovascular disease, hypertensive urgency resolved, not at goal blood pressure measurement 3. Acute Hypoxic and Hypercapneic Respiratory Failure clinically resolving- probable obstructive sleep apnea 4. Upper Airway Obstruction/Soft Tissue Swelling/Hematoma/Thyromegaly 5. Sinusitis 6. Gram Positive Bacteremia suspect line sepsis, Community-acquired pneumonia, resolved 7. Morbid Obesity 8. Pulmonary HTN 9. DM 10. Likely OSAS/OHS P:1. Continue Toprol XL 150 qd, hydralazine 50 tid, Crestor 10 qd, chlorthalidone 25 qd, Eliquis 5 bid, Catapres patch, IV hydralazine for HTN 2. Abx per C&S and document clearance, line previously d/ted, now with LUE PICC 02/12 3. Wean FIO2, bipap nightly, tapered off decadron, glycemic control, incentive spirometry, aspiration precautions, DVT/GI prophylaxis, OOB to chair
--- NOTE | 2020-02-16 09:51 | PN ---
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: Selected Entries 02/14/20 02/14/20 02/15/20 09:25 14:00 02:00 Breakfast 50% Lunch 25% Temperature 100.1 F H Pulse Rate 89 Blood Pressure 155/89 02/15/20 02/15/20 02/15/20 06:00 10:00 10:19 Breakfast 25% Lunch Temperature 98.2 F 98.7 F Pulse Rate 99 H 101 H Blood Pressure 157/101 H 133/80 Laboratory Tests 02/15/20 05:35 WBC 5.6 Selected Entries 02/14/20 02/14/20 02/15/20 09:25 14:00 02:00 Breakfast 50% Lunch 25% Skin Risk Level Total Score - Skin Risk Assessment Temperature 100.1 F H Pulse Rate 89 Blood Pressure 155/89 02/15/20 02/15/20 02/15/20 06:00 08:13 09:35 Breakfast Lunch Skin Risk Level High Risk Total Score - 12 Skin Risk Assessment Temperature 98.2 F Pulse Rate 99 H 102 H Blood Pressure 157/101 H 02/15/20 02/15/20 10:00 10:19 Breakfast 25% Lunch Skin Risk Level Total Score - Skin Risk Assessment Temperature 98.7 F Pulse Rate 101 H Blood Pressure 133/80 Laboratory Tests 02/15/20 05:35 WBC 5.6 Selected Entries 02/15/20 02/15/20 02/16/20 10:19 18:00 07:38 Breakfast 25% Supper 75% Weight 337 lb 4.8 oz Impaired insight.Verbal. Euphonic. Diet upgraded to dys chopped/nectar Dislikes most po intake, including plain water. No thrush identified Reviewed with resident who will upgrade diet to soft/thin Supplements b/n meals-magic cup, ensure pudding,ensure Monitor tolerance and for sufficient intake.
--- NOTE | 2020-02-16 10:28 | PN ---
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, Physician History of Present Illness: PULMONARY ALERT,COMFORTABLE,-SOB. - Current Medication List Current Medications: Active Medications Apixaban (Eliquis -) 5 mg PO BID [facility] Last Admin: 02/15/20 21:18 Dose: 5 mg Documented by: Clonidine HCl (Catapres Tts Patch -) 0.2 mg TD Q7D [facility] Last Admin: 02/14/20 15:34 Dose: 0.2 mg Documented by: Folic Acid (Folic Acid -) 1 mg PO DAILY [facility] Last Admin: 02/15/20 09:24 Dose: 1 mg Documented by: Hydralazine HCl (Apresoline -) 75 mg PO TID [facility] Last Admin: 02/16/20 05:47 Dose: 75 mg Documented by: IV Flush (Triple Lumen Flush) 4 ml IVPUSH PRN PRN PRN Reason: Protocol Amino Acids (Clinimix -) 1,000 mls @ 42 mls/hr IV Q24H [facility] Last Admin: 02/16/20 05:02 Dose: 42 mls/hr Documented by: Daptomycin 1,000 mg/ Sodium (Chloride) 100 mls @ 100 mls/hr IVPB DAILY@1300 [facility]; Protocol Last Admin: 02/15/20 13:17 Dose: 100 mls/hr Documented by: Insulin Aspart (Novolog Vial Sliding Scale -) 1 vial SQ Q6HPO [facility]; Protocol Last Admin: 02/16/20 05:46 Dose: Not Given Documented by: Metoprolol Succinate (Toprol Xl -) 150 mg PO HS [facility] Last Admin: 02/15/20 21:18 Dose: 150 mg Documented by: Multivitamins/Minerals/Vitamin C (Tab-A-Vit -) 1 tab PO DAILY [facility] Last Admin: 02/15/20 09:27 Dose: 1 tab Documented by: Oxybutynin Chloride (Ditropan -) 10 mg PO DAILY [facility] Last Admin: 02/15/20 09:25 Dose: 10 mg Documented by: Pantoprazole Sodium (Protonix -) 40 mg PO DAILY [facility] Last Admin: 02/15/20 09:24 Dose: 40 mg Documented by: Scopolamine HBr (Transderm-Scop -) 1 patch TD Q72H [facility] Last Admin: 02/14/20 06:40 Dose: Not Given Documented by: - Objective Vital Signs: Vital Signs Temperature 98.8 F 02/16/20 05:38 Pulse Rate 101 H 02/16/20 08:26 Respiratory Rate 18 02/16/20 05:38 Blood Pressure 147/90 02/16/20 05:38 O2 Sat by Pulse Oximetry (%) 99 02/16/20 08:26 Constitutional: Yes: Well Nourished, Calm, Obese Eyes: Yes: WNL HENT: Yes: WNL Neck: Yes: WNL Cardiovascular: Yes: Regular Rate and Rhythm, S1, S2 Respiratory: Yes: Diminished Gastrointestinal: Yes: Normal Bowel Sounds, Soft Extremities: Yes: WNL Edema: Yes Labs: CBC, BMP 02/16/20 05:28 Assessment/Plan ASSESSMENT AND PLAN: Acute Hypoxic and Hypercapneic Respiratory Failure improving Upper Airway Obstruction/Soft Tissue Swelling/Hematoma/Thyromegaly improving Sinusitis Gram Positive Bacteremia Hypertensive Urgency Morbid Obesity Pulmonary HTN HTN DM Likely OSAS/OHS - nasal o2 - glucose control - antibiotics - incentive spirometry - chest PT - DVT/GI prophylaxis - titrate bp med DR BALDERAS
[2020-02-16] MEDS: MULTIVITAMINS (DAILY MVI) TABLET (FP) PO SCH (10:29)
[2020-02-16] MEDS: FOLIC ACID 1 MG TABLET (FP) PO SCH (10:29)
[2020-02-16] MEDS: PANTOPRAZOLE 40 MG TABLET PO SCH (10:29)
[2020-02-16] MEDS: APIXABAN 5 MG TABLET PO SCH ×2 (10:29→21:14)
[2020-02-16] MEDS ORDERED: PT OWN MED DRAWER 7, Y5N ONE (10:31)
[2020-02-16] MEDS: OXYBUTYNIN CHLORIDE 5 MG TABLET PO SCH (10:31)
--- NOTE | 2020-02-16 11:02 | PN ---
Teaching Attending Note Name of Resident: Obdulio Teresa ATTENDING PHYSICIAN STATEMENT I saw and evaluated the patient. I reviewed the resident's note and discussed the case with the resident. I agree with the resident's findings and plan as documented. SUBJECTIVE:doing better, eating slightly better. no cp. no sob. no palpitaions no fever, no chills. OBJECTIVE: is comfortable. nad alert awake, Last Vital Signs Temp Pulse Resp BP Pulse Ox 98.9 F 98 H 18 147/95 97 02/16/20 09:00 02/16/20 09:00 02/16/20 09:00 02/16/20 09:00 02/16/20 11:52 GENERAL: Awake, alert, and fully oriented, in no acute distress. HEAD: Normal with no signs of trauma. EYES: Pupils equal, round and reactive to light, extraocular movements intact, sclera anicteric, conjunctiva clear. No lid lag. EARS, NOSE, THROAT: Ears normal, nares patent, oropharynx clear without exudates. Moist mucous membranes. NECK: Normal range of motion, supple without lymphadenopathy, JVD, or masses. LUNGS: Breath sounds equal, clear to auscultation bilaterally. No wheezes, and no crackles. No accessory muscle use. HEART: Regular rate and rhythm, normal S1 and S2 without murmur, rub or gallop. ABDOMEN: Soft, nontender, not distended, normoactive bowel sounds, no guarding, no rebound, no masses. No hepatomegaly or splenomegaly. MUSCULOSKELETAL: Normal range of motion at all joints. No bony deformities or tenderness. No CVA tenderness. UPPER EXTREMITIES: 2+ pulses, warm, well-perfused. No cyanosis. No clubbing. Cap refill <2 seconds. No peripheral edema. LOWER EXTREMITIES: 2+ pulses, warm, well-perfused. No calf tenderness. No peripheral edema. NEUROLOGICAL: Cranial nerves II-XII intact. Normal speech. Normal gait. PSYCHIATRIC: Cooperative. Good eye contact. Appropriate mood and affect. SKIN: Warm, dry, normal turgor, no rashes or lesions noted. CBC, BMP 02/16/20 05:28 02/15/20 05:35 ASSESSMENT AND PLAN: 50 F Acute hypercapenic and hypoxic respiratory failure Neck hematoma (resolved) TEJAL/OHS Morbidly obese CAP PNA Staph bacteremia HTN HLD Peripheral artery disease (MILD) Plan: Cont. Daptomycin Cont. Eliquis 5mg BID for Atrial flutter Cont. Ceftriaxone for CAP continue with aggressive PT anemia, will get anemia meeks.\ Supplement. Strict avoidance of sedatives/opioids/gabapentanoids, frequent re-orientation DVT ppx: Garry
--- NOTE | 2020-02-16 12:35 | PN ---
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 (short form) - Note 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: Patient resting on Oxygen therapy. Wound is clean, dry and intact. No Neurosurgery contraindication to discharge. LTACH versus SNF planned.
--- NOTE | 2020-02-16 13:24 | PN ---
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 (short form) - Note 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: doing well using incentive spirometry alert fevers down Vital Signs Period Temp Pulse Resp BP Sys/Gibbs Pulse Ox Last 24 Hr 98.5 F-100.1 F 88-120 18-20 147-159/80-95 95-100 cor-rrr llungs decreased bs at bases abd soft,nt ext no edema CBC, BMP 02/16/20 05:28 02/15/20 05:35 Microbiology 02/13/20 20:37 Blood - Peripheral Venous Blood Culture - Preliminary NO GROWTH OBTAINED AFTER 48 HOURS, INCUBATION TO CONTINUE FOR 3 DAYS. 02/13/20 20:37 Blood - Peripheral Venous Blood Culture - Preliminary NO GROWTH OBTAINED AFTER 48 HOURS, INCUBATION TO CONTINUE FOR 3 DAYS. 02/14/20 12:36 Urine - Urine Clean Catch Urine Culture - Final Yeast Like Organism 02/10/20 12:17 Blood - Peripheral Venous Blood Culture - Final NO GROWTH AFTER 5 DAYS INCUBATION 02/10/20 12:11 Blood - Peripheral Venous Blood Culture - Final NO GROWTH AFTER 5 DAYS INCUBATION 02/08/20 15:50 Blood - Peripheral Venous Blood Culture - Final Staphylococcus Coagulase Neg 02/08/20 15:50 Blood - Peripheral Venous Blood Culture - Final Staphylococcus Epidermidis 02/06/20 12:20 Blood - Central Line Blood Culture - Final Staphylococcus Epidermidis#2 02/08/20 16:00 Urine - Urine - Catheterized Urine Culture - Final Normal Urogenital Vi Yeast Like Organism 02/06/20 12:20 Blood - Central Line Blood Culture - Final Staphylococcus Coagulase Neg 02/05/20 12:00 Sputum - Endotrachea Suction/Ventilator Gram Stain - Final 02/05/20 12:00 Sputum - Endotrachea Suction/Ventilator Sputum Culture - Final Serratia Marcescens Beta Hem Streptococcus Group F Active Medications Apixaban (Eliquis -) 5 mg PO BID [facility] Last Admin: 02/16/20 10:29 Dose: 5 mg Documented by: Clonidine HCl (Catapres Tts Patch -) 0.2 mg TD Q7D [facility] Last Admin: 02/14/20 15:34 Dose: 0.2 mg Documented by: Folic Acid (Folic Acid -) 1 mg PO DAILY [facility] Last Admin: 02/16/20 10:29 Dose: 1 mg Documented by: Hydralazine HCl (Apresoline -) 75 mg PO TID [facility] Last Admin: 02/16/20 05:47 Dose: 75 mg Documented by: IV Flush (Triple Lumen Flush) 4 ml IVPUSH PRN PRN PRN Reason: Protocol Daptomycin 1,000 mg/ Sodium (Chloride) 100 mls @ 100 mls/hr IVPB DAILY@1300 [facility]; Protocol Last Admin: 02/15/20 13:17 Dose: 100 mls/hr Documented by: Insulin Aspart (Novolog Vial Sliding Scale -) 1 vial SQ Q6HPO [facility]; Protocol Last Admin: 02/16/20 11:48 Dose: Not Given Documented by: Metoprolol Succinate (Toprol Xl -) 150 mg PO HS [facility] Last Admin: 02/15/20 21:18 Dose: 150 mg Documented by: Multivitamins/Minerals/Vitamin C (Tab-A-Vit -) 1 tab PO DAILY [facility] Last Admin: 02/16/20 10:29 Dose: 1 tab Documented by: Oxybutynin Chloride (Ditropan -) 10 mg PO DAILY [facility] Last Admin: 02/16/20 10:31 Dose: 10 mg Documented by: Pantoprazole Sodium (Protonix -) 40 mg PO DAILY [facility] Last Admin: 02/16/20 10:29 Dose: 40 mg Documented by: Scopolamine HBr (Transderm-Scop -) 1 patch TD Q72H [facility] Last Admin: 02/14/20 06:40 Dose: Not Given Documented by: a/p suspect fevers due to atelectasis bacteremia-staph epi- continue daptomycin day #7- repeat blood cultures 02/09 are negative, repeat negative to date staph epi from 02/07 and 02/09 appear to differ based on sensitivities- suspect we can treat short term repat blood cultures 02/09 and 02/12 negative cpk wnl- obesity s/p resp failure aflutter- per cardiology, now on eliquis encourage incentive spirometry OOB Problem List - Problems (1) Fever Code(s): R50.9 - FEVER, UNSPECIFIED (2) Bacteremia Code(s): R78.81 - BACTEREMIA (3) Pneumonia Code(s): J18.9 - PNEUMONIA, UNSPECIFIED ORGANISM (4) Obesity Code(s): E66.9 - OBESITY, UNSPECIFIED (5) Cervical spine disease Code(s): M48.9 - SPONDYLOPATHY, UNSPECIFIED (6) Breast cancer Code(s): C50.919 - MALIGNANT NEOPLASM OF UNSP SITE OF UNSPECIFIED FEMALE BREAST (7) History of breast cancer Code(s): Z85.3 - PERSONAL HISTORY OF MALIGNANT NEOPLASM OF BREAST
[2020-02-16] MEDS: POTASSIUM CHLORIDE TABS 20 MEQ TABLET.ER (FP) PO SCH (13:55)
[2020-02-16] MEDS: DAPTOMYCIN 1,000 MG in SODIUM CHLORIDE 100 ML IVPB SCH (14:32)
[2020-02-16] MEDS ORDERED: TRIPLE LUMEN FLUSH 4 ML ML IVPUSH PRN (16:12)
--- NOTE | 2020-02-16 19:57 | PN ---
Physical Exam: SUBJECTIVE: Patient seen and examined. No acute events overnight. Pt. toleration PO diet and is able to advance. Pt. tolerating 2L NC. Awaiting placement for rehab facility. OBJECTIVE: Vital Signs Period Temp Pulse Resp BP Sys/Gibbs Pulse Ox Last 24 Hr 98.5 F-100.1 F 88-120 18-20 147-159/77-100 95-100 GENERAL: The patient is awake, alert, and in no acute distress. HEAD: Normal with no signs of trauma. EYES: Sclera anicteric, conjunctiva clear. ENT: Ears normal, nares patent, oropharynx clear without exudates, moist mucous membranes. NECK: Trachea midline, full range of motion, supple. LUNGS: Breath sounds equal, clear to auscultation bilaterally, no wheezes, no crackles, no accessory muscle use. HEART: Regular rate and rhythm, S1, S2 without murmur ABDOMEN: Soft, nontender, obese, nondistended, normoactive bowel sounds, no guarding, no rebound EXTREMITIES: 2+ dorsal pedal pulses, warm, RLE now equal in warmth to Left. NEUROLOGICAL: Normal speech, gait not observed. PSYCH: Normal mood, normal affect. SKIN: Warm, dry, normal turgor, no rashes or lesions noted Laboratory Results - last 24 hr 02/15/20 02/16/20 02/16/20 22:16 05:28 05:28 WBC 4.8 RBC 3.91 Hgb 10.2 L Hct 33.1 MCV 84.6 MCH 26.0 MCHC 30.8 L RDW 18.2 H Plt Count 185 MPV 8.8 PTT (Actin FS) 32.6 POC Glucometer 151 02/16/20 02/16/20 02/16/20 05:45 11:02 17:03 WBC RBC Hgb Hct MCV MCH MCHC RDW Plt Count MPV PTT (Actin FS) POC Glucometer 134 134 132 Active Medications Generic Name Dose Route Start Last Admin Trade Name Freq PRN Reason Stop Dose Admin Apixaban 5 mg 02/16/20 22:00 Eliquis - PO BID ANGIE Clonidine HCl 0.2 mg 02/21/20 14:45 Catapres Tts Patch - TD Q7D ANGIE Folic Acid 1 mg 02/17/20 10:00 Folic Acid - PO DAILY ANGIE Hydralazine HCl 75 mg 02/16/20 22:00 Apresoline - PO TID ANGIE IV Flush 4 ml 02/16/20 16:12 Triple Lumen Flush IVPUSH PRN PRN Protocol Daptomycin 1,000 mg/ Sodium 100 mls @ 100 mls/hr 02/17/20 13:00 Chloride IVPB DAILY@1300 [facility] Protocol Insulin Aspart 1 vial 02/16/20 18:00 02/16/20 17:47 Novolog Vial Sliding Scale - SQ Not Given Q6HPO [facility] Protocol Metoprolol Succinate 150 mg 02/16/20 22:00 Toprol Xl - PO HS ANGIE Multivitamins/Minerals/Vitamin C 1 tab 02/17/20 10:00 Tab-A-Vit - PO DAILY ANGIE Oxybutynin Chloride 10 mg 02/17/20 10:00 Ditropan - PO DAILY ANGIE Pantoprazole Sodium 40 mg 02/17/20 10:00 Protonix - PO DAILY ANGIE Potassium Chloride 20 meq 02/16/20 13:45 02/16/20 13:55 K-Dur - PO 20 meq DAILY ANGIE Administration Scopolamine HBr 1 patch 02/17/20 06:30 Transderm-Scop - TD Q72H [facility] ASSESSMENT/PLAN: Pt. is a 50 y.o. F w/ PMHx. of HTN, DM, MO, severe b/l LE venous stasis and severe b/l UE lymphedema 2/2 b/l mastectomy w/ reconstruction 2/2 Breast CA. Pt. was for ACDF when PT. became hypotensive and hypoxic after dividing the SCM. Pt. did not respond to phenylepherine and procedure was aborted. Pt. was monitored in the ICU afterwards and now has been downgraded to Telemetry. #Acute hypercapenic and hypoxic respiratory failure-resolving Suspected neck hematoma vs. Carotid body compression? Pt. tolerating NC without dyspnea or desaturation Pulmonology consults appreciated. #Morbidly obese #Suspected TEJAL/OHS Pulmonology consult appreciated c/w CPAP c/w Scopolamine Patch will need adherence to CPAP as outpatient, discussed with Pt. #Atrial Flutter Noted on EKG resumed Eliquis c/w Toprol 150mg FOBT - #CAP PNA #Staph bacteremia BCx. + x 2, Third set has been negative for 72+ hours c/w Daptomycin(Day5); Ceftriaxone discontinued ID Consult appreciated Cultures growing bacteria resistant to Vancomycin CPK today wnl #GERD #HTN #HLD Resume home medications given 10mg IV Hydralazine today increased Hydralazine to 75mg TID to maintain BP contro #Cool RLE f/u arterial US Duplex negative Switched to Eliquis 5mg BID #FEN encourage PO intake, c/w clinimix monitor electrolytes and replete as needed Dysphagia Ground with Honey thick liquids #DVT Ppx. Eliquis #Dispo Pt. will require rehab PT appreciated Transfer to M/S Visit type - Emergency Visit Emergency Visit: Yes ED Registration Date: 01/25/20 Care time: The patient presented to the Emergency Department on the above date and was hospitalized for further evaluation of their emergent condition. - New Patient This patient is new to me today: No - Critical Care Critical Care patient: No - Discharge Referral Referred to [facility] Med [facility] No ATTENDING PHYSICIAN STATEMENT I saw and evaluated the patient. I reviewed the resident's note and discussed the case with the resident. I agree with the resident's findings and plan as documented. SUBJECTIVE: OBJECTIVE: ASSESSMENT AND PLAN:
--- NOTE | 2020-02-16 19:58 | PN ---
Physical Exam: SUBJECTIVE: Patient seen and examined OBJECTIVE: Vital Signs Period Temp Pulse Resp BP Sys/Gibbs Pulse Ox Last 24 Hr 98.5 F-100.1 F 88-120 18-20 147-159/77-100 95-100 GENERAL: The patient is awake, alert, and fully oriented, in no acute distress. HEAD: Normal with no signs of trauma. EYES: PERRL, extraocular movements intact, sclera anicteric, conjunctiva clear. No ptosis. ENT: Ears normal, nares patent, oropharynx clear without exudates, moist mucous membranes. NECK: Trachea midline, full range of motion, supple. LUNGS: Breath sounds equal, clear to auscultation bilaterally, no wheezes, no crackles, no accessory muscle use. HEART: Regular rate and rhythm, S1, S2 without murmur, rub or gallop. ABDOMEN: Soft, nontender, nondistended, normoactive bowel sounds, no guarding, no rebound, no hepatosplenomegaly, no masses. EXTREMITIES: 2+ pulses, warm, well-perfused, no edema. NEUROLOGICAL: Cranial nerves II through XII grossly intact. Normal speech, gait not observed. PSYCH: Normal mood, normal affect. SKIN: Warm, dry, normal turgor, no rashes or lesions noted Laboratory Results - last 24 hr 02/15/20 02/16/20 02/16/20 22:16 05:28 05:28 WBC 4.8 RBC 3.91 Hgb 10.2 L Hct 33.1 MCV 84.6 MCH 26.0 MCHC 30.8 L RDW 18.2 H Plt Count 185 MPV 8.8 PTT (Actin FS) 32.6 POC Glucometer 151 02/16/20 02/16/20 02/16/20 05:45 11:02 17:03 WBC RBC Hgb Hct MCV MCH MCHC RDW Plt Count MPV PTT (Actin FS) POC Glucometer 134 134 132 Active Medications Generic Name Dose Route Start Last Admin Trade Name Freq PRN Reason Stop Dose Admin Apixaban 5 mg 02/16/20 22:00 Eliquis - PO BID ANGIE Clonidine HCl 0.2 mg 02/21/20 14:45 Catapres Tts Patch - TD Q7D ANGIE Folic Acid 1 mg 02/17/20 10:00 Folic Acid - PO DAILY ANGIE Hydralazine HCl 75 mg 02/16/20 22:00 Apresoline - PO TID ANGIE IV Flush 4 ml 02/16/20 16:12 Triple Lumen Flush IVPUSH PRN PRN Protocol Daptomycin 1,000 mg/ Sodium 100 mls @ 100 mls/hr 02/17/20 13:00 Chloride IVPB DAILY@1300 [facility] Protocol Insulin Aspart 1 vial 02/16/20 18:00 02/16/20 17:47 Novolog Vial Sliding Scale - SQ Not Given Q6HPO [facility] Protocol Metoprolol Succinate 150 mg 02/16/20 22:00 Toprol Xl - PO HS ANGIE Multivitamins/Minerals/Vitamin C 1 tab 02/17/20 10:00 Tab-A-Vit - PO DAILY ANGIE Oxybutynin Chloride 10 mg 02/17/20 10:00 Ditropan - PO DAILY ANGIE Pantoprazole Sodium 40 mg 02/17/20 10:00 Protonix - PO DAILY ANGIE Potassium Chloride 20 meq 02/16/20 13:45 02/16/20 13:55 K-Dur - PO 20 meq DAILY ANGIE Administration Scopolamine HBr 1 patch 02/17/20 06:30 Transderm-Scop - TD Q72H [facility] ASSESSMENT/PLAN: ATTENDING PHYSICIAN STATEMENT I saw and evaluated the patient. I reviewed the resident's note and discussed the case with the resident. I agree with the resident's findings and plan as documented. SUBJECTIVE: OBJECTIVE: ASSESSMENT AND PLAN:
[2020-02-17] MEDS: hydrALAZINE HCL 25 MG TABLET (FP) PO SCH ×3 (06:06→21:47)
[2020-02-17] MEDS: INSULIN SLIDING SCALE (NOVOLOG) 1 VIAL SQ SCH ×3 (06:12→17:26)
[2020-02-17] MEDS: SCOPOLAMINE HYDROBROMIDE 1 PATCH PATCH.TD72 TD SCH (06:44)
[2020-02-17] MEDS: APIXABAN 5 MG TABLET PO SCH ×2 (10:14→21:46)
[2020-02-17] MEDS: OXYBUTYNIN CHLORIDE 5 MG TABLET PO SCH (10:14)
[2020-02-17] MEDS: FOLIC ACID 1 MG TABLET (FP) PO SCH (10:14)
[2020-02-17] MEDS: POTASSIUM CHLORIDE TABS 20 MEQ TABLET.ER (FP) PO SCH (10:14)
[2020-02-17] MEDS: PANTOPRAZOLE 40 MG TABLET PO SCH (10:14)
[2020-02-17] MEDS: MULTIVITAMINS (DAILY MVI) TABLET (FP) PO SCH (10:14)
[2020-02-17 11:26] LABS: BASO % 0.5 % (0-2.0); EOS % 4.4 % (0-4.5); HEMOGLOBIN 10.7 GM/dL (10.7-15.3); MCH 26.3 pg (25.7-33.7); MCHC 31.4 g/dl (32.0-36.0); MEAN CELL VOLUME 83.7 fl (80-96); MEAN PLT VOLUME 8.6 fl (7.5-11.1); MONO % 7.3 % (3.8-10.2); NEUT % 66.8 % (42.8-82.8); PLATELET COUNT 195 K/MM3 (134-434); RBC 4.07 M/mm3 (3.60-5.2); RDW 18.7 % (11.6-15.6); WHITE BLOOD COUNT 4.4 K/mm3 (4.0-10.0)
--- NOTE | 2020-02-17 11:27 | PN ---
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, Physician Chief Complaint: Events noted Not in distress History of Present Illness: Patient was seen and examined. Awake and alert. Chart was reviewed Denies chest pain, SOB or palpitations - Current Medication List Current Medications: Active Medications Apixaban (Eliquis -) 5 mg PO BID [facility] Last Admin: 02/17/20 10:14 Dose: 5 mg Documented by: Clonidine HCl (Catapres Tts Patch -) 0.2 mg TD Q7D ANGIE Folic Acid (Folic Acid -) 1 mg PO DAILY [facility] Last Admin: 02/17/20 10:14 Dose: 1 mg Documented by: Hydralazine HCl (Apresoline -) 75 mg PO TID [facility] Last Admin: 02/17/20 06:06 Dose: 75 mg Documented by: IV Flush (Triple Lumen Flush) 4 ml IVPUSH PRN PRN PRN Reason: Protocol Daptomycin 1,000 mg/ Sodium (Chloride) 100 mls @ 100 mls/hr IVPB DAILY@1300 [facility]; Protocol Insulin Aspart (Novolog Vial Sliding Scale -) 1 vial SQ Q6HPO [facility]; Protocol Last Admin: 02/17/20 06:12 Dose: Not Given Documented by: Metoprolol Succinate (Toprol Xl -) 150 mg PO HS [facility] Last Admin: 02/16/20 21:15 Dose: 150 mg Documented by: Multivitamins/Minerals/Vitamin C (Tab-A-Vit -) 1 tab PO DAILY [facility] Last Admin: 02/17/20 10:14 Dose: 1 tab Documented by: Oxybutynin Chloride (Ditropan -) 10 mg PO DAILY [facility] Last Admin: 02/17/20 10:14 Dose: 10 mg Documented by: Pantoprazole Sodium (Protonix -) 40 mg PO DAILY [facility] Last Admin: 02/17/20 10:14 Dose: 40 mg Documented by: Potassium Chloride (K-Dur -) 20 meq PO DAILY [facility] Last Admin: 02/17/20 10:14 Dose: 20 meq Documented by: Scopolamine HBr (Transderm-Scop -) 1 patch TD Q72H [facility] Last Admin: 02/17/20 06:44 Dose: 1 patch Documented by: - Objective Vital Signs: Vital Signs Temperature 98.4 F 02/17/20 11:00 Pulse Rate 106 H 02/17/20 11:00 Respiratory Rate 22 H 02/17/20 11:00 Blood Pressure 131/73 08/15/20 11:00 O2 Sat by Pulse Oximetry (%) 97 02/17/20 11:00 Neck: Yes: Supple Cardiovascular: Yes: Regular Rate and Rhythm, S1, S2 Respiratory: Yes: CTA Bilaterally Gastrointestinal: Yes: Normal Bowel Sounds, Soft. No: Tenderness Edema: No Labs: CBC, BMP 02/17/20 10:35 Problem List - Problems (1) Bacteremia Code(s): R78.81 - BACTEREMIA (2) Cervical spine disease Code(s): M48.9 - SPONDYLOPATHY, UNSPECIFIED (3) Diastolic dysfunction Code(s): I51.89 - OTHER ILL-DEFINED HEART DISEASES (4) Hypertensive heart disease Code(s): I11.9 - HYPERTENSIVE HEART DISEASE WITHOUT HEART FAILURE Qualifiers: Heart failure presence: without heart failure Qualified Code(s): I11.9 - Hypertensive heart disease without heart failure (5) Paroxysmal atrial flutter Code(s): I48.92 - UNSPECIFIED ATRIAL FLUTTER Assessment/Plan 1. Paroxysmal atrial flutter currently sinus rhythm, [id number] score of 2 on Eliquis 2. Hypertensive cardiovascular disease 3. Acute Hypoxic and Hypercapneic Respiratory Failure clinically resolving - ? OSAS 4. Upper Airway Obstruction/Soft Tissue Swelling/Hematoma/Thyromegaly 5. Sinusitis 6. Gram Positive Bacteremia suspect line sepsis, Community-acquired pneumonia 7. Morbid Obesity 8. Pulmonary HTN 9. DM 10. Likely TEJAL PLAN: 1. Continue Toprol XL 150 mg QD, Hydralazine 50 mg TID, Crestor 10 mg QHS, Chlorthalidone 25 mg QD, Eliquis 5 mg BID, Catapres patch and IV hydralazine for HTN 2. Antibiotic coverage 3. Wean FIO2, CPAP nightly, aspiration precautions, DVT/GI prophylaxis, OOB to chair Myron Kunz MD
[2020-02-17 11:58] LABS: ALBUMIN 2.8 g/dl (3.4-5.0); BILIRUBIN,TOTAL 0.4 mg/dL (0.2-1); BLOOD UREA NITROGEN 6.9 mg/dL (7-18); CALCIUM 8.7 mg/dL (8.5-10.1); CREATININE 0.5 mg/dL (0.55-1.3); POTASSIUM 3.5 mmol/L (3.5-5.1); TOT PROT 6.6 g/dl (6.4-8.2)
--- NOTE | 2020-02-17 12:03 | PN ---
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, Physician History of Present Illness: AWAKE ALERT IN BED NO ACUTE DISTRESS TEMPS DOWN AFEBRILE TOLERATING DAPTO - Current Medication List Current Medications: Active Medications Apixaban (Eliquis -) 5 mg PO BID [facility] Last Admin: 02/17/20 10:14 Dose: 5 mg Documented by: Clonidine HCl (Catapres Tts Patch -) 0.2 mg TD Q7D [facility] Folic Acid (Folic Acid -) 1 mg PO DAILY [facility] Last Admin: 02/17/20 10:14 Dose: 1 mg Documented by: Hydralazine HCl (Apresoline -) 75 mg PO TID [facility] Last Admin: 02/17/20 06:06 Dose: 75 mg Documented by: IV Flush (Triple Lumen Flush) 4 ml IVPUSH PRN PRN PRN Reason: Protocol Daptomycin 1,000 mg/ Sodium (Chloride) 100 mls @ 100 mls/hr IVPB DAILY@1300 [facility]; Protocol Insulin Aspart (Novolog Vial Sliding Scale -) 1 vial SQ Q6HPO [facility]; Protocol Last Admin: 02/17/20 11:59 Dose: 2 units Documented by: Metoprolol Succinate (Toprol Xl -) 150 mg PO HS [facility] Last Admin: 02/16/20 21:15 Dose: 150 mg Documented by: Multivitamins/Minerals/Vitamin C (Tab-A-Vit -) 1 tab PO DAILY [facility] Last Admin: 02/17/20 10:14 Dose: 1 tab Documented by: Oxybutynin Chloride (Ditropan -) 10 mg PO DAILY [facility] Last Admin: 02/17/20 10:14 Dose: 10 mg Documented by: Pantoprazole Sodium (Protonix -) 40 mg PO DAILY [facility] Last Admin: 02/17/20 10:14 Dose: 40 mg Documented by: Potassium Chloride (K-Dur -) 20 meq PO DAILY [facility] Last Admin: 02/17/20 10:14 Dose: 20 meq Documented by: Scopolamine HBr (Transderm-Scop -) 1 patch TD Q72H [facility] Last Admin: 02/17/20 06:44 Dose: 1 patch Documented by: - Objective Vital Signs: Vital Signs Temperature 98.4 F 02/17/20 11:00 Pulse Rate 106 H 02/17/20 11:00 Respiratory Rate 22 H 02/17/20 11:00 Blood Pressure 131/73 02/17/20 11:00 O2 Sat by Pulse Oximetry (%) 97 02/17/20 11:00 Constitutional: Yes: No Distress, Obese Cardiovascular: Yes: Regular Rate and Rhythm, S1, S2 Respiratory: Yes: CTA Bilaterally Gastrointestinal: Yes: Normal Bowel Sounds, Soft, Abdomen, Obese Labs: CBC, BMP 02/17/20 10:35 02/17/20 10:35 INR, PTT INR 1.06 (0.83-1.09) 01/26/20 07:48 Fibrinogen 303.0 mg/dL (238-498) 01/25/20 12:09 Assessment/Plan S. EPI BACTEREMIA S/P RESP FAILURE MORBID OBESITY CONTINUE DAPTOMYCIN
[2020-02-17] MEDS ORDERED: DAPTOMYCIN 1,000 MG in SODIUM CHLORIDE 100 ML IVPB SCH (13:00)
--- NOTE | 2020-02-17 15:10 | PN ---
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 (short form) - Note 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: Resting in NAD. No CP or SOB. No acute events overnight. Intake & Output 02/14/20 02/15/20 02/16/20 02/17/20 23:59 23:59 23:59 23:59 Intake Total 1212 2318 1688 400 Output Total 1100 700 Balance 112 1618 1688 400 Weight 340 lb 335 lb 12.8 oz 337 lb 4.8 oz 325 lb 3.2 oz Last Vital Signs Temp Pulse Resp BP Pulse Ox 98.4 F 106 H 22 H 131/73 97 02/17/20 11:00 02/17/20 11:00 02/17/20 11:00 02/17/20 11:00 02/17/20 11:00 Active Medications Apixaban (Eliquis -) 5 mg PO BID [facility] Last Admin: 02/17/20 10:14 Dose: 5 mg Documented by: Clonidine HCl (Catapres Tts Patch -) 0.2 mg TD Q7D [facility] Folic Acid (Folic Acid -) 1 mg PO DAILY [facility] Last Admin: 02/17/20 10:14 Dose: 1 mg Documented by: Hydralazine HCl (Apresoline -) 75 mg PO TID [facility] Last Admin: 02/17/20 14:48 Dose: 75 mg Documented by: IV Flush (Triple Lumen Flush) 4 ml IVPUSH PRN PRN PRN Reason: Protocol Daptomycin 1,000 mg/ Sodium (Chloride) 100 mls @ 100 mls/hr IVPB DAILY@1300 SC H; Protocol Last Admin: 02/17/20 13:54 Dose: Not Given Documented by: Insulin Aspart (Novolog Vial Sliding Scale -) 1 vial SQ Q6HPO [facility]; Protocol Last Admin: 02/17/20 11:59 Dose: 2 units Documented by: Metoprolol Succinate (Toprol Xl -) 150 mg PO HS [facility] Last Admin: 02/16/20 21:15 Dose: 150 mg Documented by: Multivitamins/Minerals/Vitamin C (Tab-A-Vit -) 1 tab PO DAILY [facility] Last Admin: 02/17/20 10:14 Dose: 1 tab Documented by: Oxybutynin Chloride (Ditropan -) 10 mg PO DAILY [facility] Last Admin: 02/17/20 10:14 Dose: 10 mg Documented by: Pantoprazole Sodium (Protonix -) 40 mg PO DAILY [facility] Last Admin: 02/17/20 10:14 Dose: 40 mg Documented by: Potassium Chloride (K-Dur -) 20 meq PO DAILY [facility] Last Admin: 02/17/20 10:14 Dose: 20 meq Documented by: Scopolamine HBr (Transderm-Scop -) 1 patch TD Q72H [facility] Last Admin: 02/17/20 06:44 Dose: 1 patch Documented by: Laboratory Results - last 24 hr 02/16/20 02/16/20 02/16/20 12:45 17:03 23:15 WBC RBC Hgb Hct MCV MCH MCHC RDW Plt Count MPV Absolute Neuts (auto) Neutrophils % Lymphocytes % Monocytes % Eosinophils % Basophils % Nucleated RBC % PTT (Actin FS) Sodium Potassium Chloride Carbon Dioxide Anion Gap BUN Creatinine Est GFR (CKD-EPI)AfAm Est GFR (CKD-EPI)NonAf POC Glucometer 132 129 Random Glucose Calcium Iron TIBC Iron Saturation Unsaturated IBC Ferritin Total Bilirubin AST ALT Alkaline Phosphatase Total Protein Albumin COVID-19 (AMANDA) Not detected 02/17/20 02/17/20 02/17/20 06:11 10:35 10:35 WBC 4.4 RBC 4.07 Hgb 10.7 Hct 34.0 MCV 83.7 MCH 26.3 MCHC 31.4 L RDW 18.7 H Plt Count 195 MPV 8.6 Absolute Neuts (auto) 2.9 Neutrophils % 66.8 Lymphocytes % 21.0 Monocytes % 7.3 Eosinophils % 4.4 Basophils % 0.5 Nucleated RBC % 0 PTT (Actin FS) 33.4 Sodium Potassium Chloride Carbon Dioxide Anion Gap BUN Creatinine Est GFR (CKD-EPI)AfAm Est GFR (CKD-EPI)NonAf POC Glucometer 131 Random Glucose Calcium Iron TIBC Iron Saturation Unsaturated IBC Ferritin Total Bilirubin AST ALT Alkaline Phosphatase Total Protein Albumin COVID-19 (AMANDA) 02/17/20 02/17/20 10:35 11:51 WBC RBC Hgb Hct MCV MCH MCHC RDW Plt Count MPV Absolute Neuts (auto) Neutrophils % Lymphocytes % Monocytes % Eosinophils % Basophils % Nucleated RBC % PTT (Actin FS) Sodium 141 Potassium 3.5 Chloride 104 Carbon Dioxide 29 Anion Gap 8 BUN 6.9 L Creatinine 0.5 L Est GFR (CKD-EPI)AfAm 128.97 Est GFR (CKD-EPI)NonAf 111.28 POC Glucometer 159 Random Glucose 171 H Calcium 8.7 Iron 40 L TIBC 229 L Iron Saturation 17 L Unsaturated IBC 189 L Ferritin 141.3 Total Bilirubin 0.4 AST 15 ALT 31 Alkaline Phosphatase 59 Total Protein 6.6 Albumin 2.8 L COVID-19 (AMANDA) Constitutional: Yes: Well Nourished, Calm, Obese Eyes: Yes: WNL HENT: Yes: WNL Neck: Yes: WNL Cardiovascular: Yes: Regular Rate and Rhythm, S1, S2 Respiratory: Yes: Diminished Gastrointestinal: Yes: Normal Bowel Sounds, Soft Extremities: Yes: WNL Edema: Yes Labs: Assessment/Plan Acute Hypoxic and Hypercapneic Respiratory Failure improving Upper Airway Obstruction/Soft Tissue Swelling/Hematoma/Thyromegaly improving Sinusitis Gram Positive Bacteremia Hypertensive Urgency Morbid Obesity Pulmonary HTN HTN DM Likely OSAS/OHS - ABX per ID - nasal O2 as needed - incentive spirometry - DVT/GI prophylaxis - Sleep workup after discharge Dr Florentino
[2020-02-17] MEDS ORDERED: PT OWN MED DRAWER 7, Y5N ONE (21:05)
[2020-02-17] MEDS: LINEZOLID 600 MG TABLET (RESTRICTED TO ID) PO SCH (21:46)
[2020-02-18] MEDS: INSULIN SLIDING SCALE (NOVOLOG) 1 VIAL SQ SCH ×5 (02:34→23:51)
[2020-02-18] MEDS: hydrALAZINE HCL 25 MG TABLET (FP) PO SCH ×3 (06:08→23:05)
[2020-02-18] MEDS ORDERED: PT OWN MED DRAWER 7, Y5N ONE ×2 (10:03→21:14)
[2020-02-18] MEDS: POTASSIUM CHLORIDE TABS 20 MEQ TABLET.ER (FP) PO SCH (10:55)
[2020-02-18] MEDS: APIXABAN 5 MG TABLET PO SCH ×2 (10:56→23:05)
[2020-02-18] MEDS: PANTOPRAZOLE 40 MG TABLET PO SCH (10:56)
[2020-02-18] MEDS: FOLIC ACID 1 MG TABLET (FP) PO SCH (10:56)
[2020-02-18] MEDS: MULTIVITAMINS (DAILY MVI) TABLET (FP) PO SCH (10:56)
[2020-02-18] MEDS: OXYBUTYNIN CHLORIDE 5 MG TABLET PO SCH (10:56)
[2020-02-18 11:18] LABS: BASO % 0.6 % (0-2.0); EOS % 5.9 % (0-4.5); HEMATOCRIT 31.9 % (32.4-45.2); HEMOGLOBIN 9.9 GM/dL (10.7-15.3); LYMPH % 26.4 % (8-40); MCH 25.5 pg (25.7-33.7); MEAN CELL VOLUME 82.2 fl (80-96); MEAN PLT VOLUME 8.3 fl (7.5-11.1); MONO % 8.5 % (3.8-10.2); NEUT % 58.6 % (42.8-82.8); PLATELET COUNT 225 K/MM3 (134-434); RBC 3.89 M/mm3 (3.60-5.2); RDW 18.8 % (11.6-15.6); WHITE BLOOD COUNT 3.4 K/mm3 (4.0-10.0)
[2020-02-18] MEDS: LINEZOLID 600 MG TABLET (RESTRICTED TO ID) PO SCH (11:25)
[2020-02-18 11:46] LABS: ALBUMIN 2.8 g/dl (3.4-5.0); BLOOD UREA NITROGEN 5.4 mg/dL (7-18); CALCIUM 8.6 mg/dL (8.5-10.1); CREATININE 0.4 mg/dL (0.55-1.3); POTASSIUM 3.9 mmol/L (3.5-5.1); TOT PROT 6.5 g/dl (6.4-8.2)
[2020-02-18 11:48] LABS: BILIRUBIN,TOTAL 0.8 mg/dL (0.2-1)
--- NOTE | 2020-02-18 14:14 | PN ---
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 (short form) - Note 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: Resting in NAD. No CP or SOB. No acute events overnight. Intake & Output 02/15/20 02/16/20 02/17/20 02/18/20 23:59 23:59 23:59 23:59 Intake Total 2318 1688 1340 300 Output Total 700 Balance 1618 1688 1340 300 Weight 335 lb 12.8 oz 337 lb 4.8 oz 325 lb 3.2 oz 327 lb 7 oz Last Vital Signs Temp Pulse Resp BP Pulse Ox 97.8 F 96 H 20 129/63 92 L 02/18/20 10:00 02/18/20 10:00 02/18/20 10:00 02/18/20 10:00 02/18/20 10:00 Active Medications Apixaban (Eliquis -) 5 mg PO BID [facility] Last Admin: 02/18/20 10:56 Dose: 5 mg Documented by: Clonidine HCl (Catapres Tts Patch -) 0.2 mg TD Q7D [facility] Folic Acid (Folic Acid -) 1 mg PO DAILY [facility] Last Admin: 02/18/20 10:56 Dose: 1 mg Documented by: Hydralazine HCl (Apresoline -) 75 mg PO TID [facility] Last Admin: 02/18/20 06:08 Dose: 75 mg Documented by: IV Flush (Triple Lumen Flush) 4 ml IVPUSH PRN PRN PRN Reason: Protocol Insulin Aspart (Novolog Vial Sliding Scale -) 1 vial SQ Q6HPO [facility]; Protocol Last Admin: 02/18/20 11:18 Dose: Not Given Documented by: Linezolid (Zyvox (Restricted To Id) -) 600 mg PO BID [facility] Metoprolol Succinate (Toprol Xl -) 150 mg PO HS [facility] Last Admin: 02/17/20 21:46 Dose: 150 mg Documented by: Multivitamins/Minerals/Vitamin C (Tab-A-Vit -) 1 tab PO DAILY [facility] Last Admin: 02/18/20 10:56 Dose: 1 tab Documented by: Oxybutynin Chloride (Ditropan -) 10 mg PO DAILY [facility] Last Admin: 02/18/20 10:56 Dose: 10 mg Documented by: Pantoprazole Sodium (Protonix -) 40 mg PO DAILY [facility] Last Admin: 02/18/20 10:56 Dose: 40 mg Documented by: Potassium Chloride (K-Dur -) 20 meq PO DAILY [facility] Last Admin: 02/18/20 10:55 Dose: 20 meq Documented by: Scopolamine HBr (Transderm-Scop -) 1 patch TD Q72H [facility] Last Admin: 02/17/20 06:44 Dose: 1 patch Documented by: Constitutional: Yes: Well Nourished, Calm, Obese Eyes: Yes: WNL HENT: Yes: WNL Neck: Yes: WNL Cardiovascular: Yes: Regular Rate and Rhythm, S1, S2 Respiratory: Yes: Diminished Gastrointestinal: Yes: Normal Bowel Sounds, Soft Extremities: Yes: WNL Edema: Yes Labs: Laboratory Results - last 24 hr 02/17/20 02/18/20 02/18/20 17:25 06:01 10:11 WBC RBC Hgb Hct MCV MCH MCHC RDW Plt Count MPV Absolute Neuts (auto) Neutrophils % Lymphocytes % Monocytes % Eosinophils % Basophils % Nucleated RBC % PTT (Actin FS) 34.6 Sodium Potassium Chloride Carbon Dioxide Anion Gap BUN Creatinine Est GFR (CKD-EPI)AfAm Est GFR (CKD-EPI)NonAf POC Glucometer 136 147 Random Glucose Calcium Total Bilirubin AST ALT Alkaline Phosphatase Creatine Kinase Total Protein Albumin 02/18/20 02/18/20 02/18/20 10:11 10:11 10:11 WBC 3.4 L RBC 3.89 Hgb 9.9 L Hct 31.9 L MCV 82.2 MCH 25.5 L MCHC 31.0 L RDW 18.8 H Plt Count 225 MPV 8.3 Absolute Neuts (auto) 2.0 Neutrophils % 58.6 Lymphocytes % 26.4 D Monocytes % 8.5 Eosinophils % 5.9 H Basophils % 0.6 Nucleated RBC % 0 PTT (Actin FS) Sodium 139 Potassium 3.9 Chloride 103 Carbon Dioxide 28 Anion Gap 9 BUN 5.4 L Creatinine 0.4 L Est GFR (CKD-EPI)AfAm 138.79 Est GFR (CKD-EPI)NonAf 119.75 POC Glucometer Random Glucose 132 H Calcium 8.6 Total Bilirubin 0.8 AST 14 L ALT 30 Alkaline Phosphatase 53 Creatine Kinase 84 Total Protein 6.5 Albumin 2.8 L 02/18/20 11:18 WBC RBC Hgb Hct MCV MCH MCHC RDW Plt Count MPV Absolute Neuts (auto) Neutrophils % Lymphocytes % Monocytes % Eosinophils % Basophils % Nucleated RBC % PTT (Actin FS) Sodium Potassium Chloride Carbon Dioxide Anion Gap BUN Creatinine Est GFR (CKD-EPI)AfAm Est GFR (CKD-EPI)NonAf POC Glucometer 121 Random Glucose Calcium Total Bilirubin AST ALT Alkaline Phosphatase Creatine Kinase Total Protein Albumin Assessment/Plan Acute Hypoxic and Hypercapneic Respiratory Failure improving Upper Airway Obstruction/Soft Tissue Swelling/Hematoma/Thyromegaly improving Sinusitis Gram Positive Bacteremia Hypertensive Urgency Morbid Obesity Pulmonary HTN HTN DM Likely OSAS/OHS - ABX per ID - nasal O2 as needed - incentive spirometry - DVT/GI prophylaxis - Sleep workup after discharge - DC planning Dr Florentino
--- NOTE | 2020-02-18 17:57 | PN ---
Physical Exam: SUBJECTIVE: Patient seen and examined at bedside, will eventually need SNF/PRATIK d/t poor ambulation, deconditioning. VSS> OBJECTIVE: Gen: morbidly obese, makes eye contact, alert and orientated, NAD HEENT: NC/AT, TIERNEY, sclera anicteric, MMM, + clear secretions Neck: no audible strido, supple LUNG: Good air entry anteriorally, good cough, on NC O2 CARD: RRR, no murmurs, S1/S2 normal ABD: Soft, Nt/ND, normoactive BS, obese EXT: No LE edema, warm extremities, 1+ pedal pulses, no calf tenderness Vital Signs Period Temp Pulse Resp BP Sys/Gibbs Pulse Ox Last 24 Hr 97.8 F-99.3 F 87-113 20-20 121-138/59-74 92-98 Laboratory Results - last 24 hr 02/18/20 02/18/20 02/18/20 06:01 10:11 10:11 WBC 3.4 L RBC 3.89 Hgb 9.9 L Hct 31.9 L MCV 82.2 MCH 25.5 L MCHC 31.0 L RDW 18.8 H Plt Count 225 MPV 8.3 Absolute Neuts (auto) 2.0 Neutrophils % 58.6 Lymphocytes % 26.4 D Monocytes % 8.5 Eosinophils % 5.9 H Basophils % 0.6 Nucleated RBC % 0 PTT (Actin FS) 34.6 Sodium Potassium Chloride Carbon Dioxide Anion Gap BUN Creatinine Est GFR (CKD-EPI)AfAm Est GFR (CKD-EPI)NonAf POC Glucometer 147 Random Glucose Calcium Total Bilirubin AST ALT Alkaline Phosphatase Creatine Kinase Total Protein Albumin 02/18/20 02/18/20 02/18/20 10:11 10:11 11:18 WBC RBC Hgb Hct MCV MCH MCHC RDW Plt Count MPV Absolute Neuts (auto) Neutrophils % Lymphocytes % Monocytes % Eosinophils % Basophils % Nucleated RBC % PTT (Actin FS) Sodium 139 Potassium 3.9 Chloride 103 Carbon Dioxide 28 Anion Gap 9 BUN 5.4 L Creatinine 0.4 L Est GFR (CKD-EPI)AfAm 138.79 Est GFR (CKD-EPI)NonAf 119.75 POC Glucometer 121 Random Glucose 132 H Calcium 8.6 Total Bilirubin 0.8 AST 14 L ALT 30 Alkaline Phosphatase 53 Creatine Kinase 84 Total Protein 6.5 Albumin 2.8 L 02/18/20 16:53 WBC RBC Hgb Hct MCV MCH MCHC RDW Plt Count MPV Absolute Neuts (auto) Neutrophils % Lymphocytes % Monocytes % Eosinophils % Basophils % Nucleated RBC % PTT (Actin FS) Sodium Potassium Chloride Carbon Dioxide Anion Gap BUN Creatinine Est GFR (CKD-EPI)AfAm Est GFR (CKD-EPI)NonAf POC Glucometer 136 Random Glucose Calcium Total Bilirubin AST ALT Alkaline Phosphatase Creatine Kinase Total Protein Albumin Active Medications Generic Name Dose Route Start Last Admin Trade Name Freq PRN Reason Stop Dose Admin Apixaban 5 mg 02/16/20 22:00 02/18/20 10:56 Eliquis - PO 5 mg BID [facility] Administration Clonidine HCl 0.2 mg 02/21/20 14:45 Catapres Tts Patch - TD Q7D [facility] Folic Acid 1 mg 02/17/20 10:00 02/18/20 10:56 Folic Acid - PO 1 mg DAILY [facility] Administration Hydralazine HCl 75 mg 02/16/20 22:00 02/18/20 15:02 Apresoline - PO 75 mg TID [facility]GIE Administration IV Flush 4 ml 02/16/20 16:12 Triple Lumen Flush IVPUSH PRN PRN Protocol Insulin Aspart 1 vial 02/16/20 18:00 02/18/20 17:05 Novolog Vial Sliding Scale - SQ Not Given Q6HPO [facility] Protocol Linezolid 600 mg 02/17/20 22:00 Zyvox (Restricted To Id) - PO BID [facility] Metoprolol Succinate 150 mg 02/16/20 22:00 02/17/20 21:46 Toprol Xl - PO 150 mg HS [facility] Administration Multivitamins/Minerals/Vitamin C 1 tab 02/17/20 10:00 02/18/20 10:56 Tab-A-Vit - PO 1 tab DAILY [facility] Administration Oxybutynin Chloride 10 mg 02/17/20 10:00 02/18/20 10:56 Ditropan - PO 10 mg DAILY [facility] Administration Pantoprazole Sodium 40 mg 02/17/20 10:00 02/18/20 10:56 Protonix - PO 40 mg DAILY [facility] Administration Potassium Chloride 20 meq 02/16/20 13:45 02/18/20 10:55 K-Dur - PO 20 meq DAILY [facility] Administration Scopolamine HBr 1 patch 02/17/20 06:30 02/17/20 06:44 Transderm-Scop - TD 1 patch Q72H [facility] Administration ASSESSMENT/PLAN: 50 F Acute hypercapenic and hypoxic respiratory failure Neck hematoma (resolved) TEJAL/OHS Morbidly obese CAP PNA Staph bacteremia HTN HLD Peripheral artery disease (MILD) Deconditioning Plan: Abx switched to PO Linezolid d/t poor IV access Cont. Eliquis 5mg BID for Atrial flutter Incentive spirometry, needs OOB to chair as tolerated, aggressive PT Strict avoidance of sedatives/opioids/gabapentanoids, frequent re-orientation DVT ppx: Eliqiuis Downgrade to Med Surg Visit type - Emergency Visit Emergency Visit: Yes ED Registration Date: 01/25/20 Care time: The patient presented to the Emergency Department on the above date and was hospitalized for further evaluation of their emergent condition. - New Patient This patient is new to me today: No - Critical Care Critical Care patient: No - Discharge Referral Referred to [facility] Med P.C.: No
[2020-02-18] MEDS ORDERED: LINEZOLID 600 MG TABLET (RESTRICTED TO ID) PO ONE (22:00)
[2020-02-19] MEDS: hydrALAZINE HCL 25 MG TABLET (FP) PO SCH ×4 (06:13→21:31)
[2020-02-19] MEDS: INSULIN SLIDING SCALE (NOVOLOG) 1 VIAL SQ SCH ×4 (06:13→23:53)
[2020-02-19] MEDS ORDERED: PT OWN MED DRAWER 7, Y5N ONE ×3 (07:35→20:52)
--- NOTE | 2020-02-19 08:53 | PN ---
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, Physician History of Present Illness: Resting in bed on NC, remains in NSR w/o recurrence of PAF, debilitated. - Current Medication List Current Medications: Active Medications Apixaban (Eliquis -) 5 mg PO BID [facility] Last Admin: 02/18/20 23:05 Dose: 5 mg Documented by: Clonidine HCl (Catapres Tts Patch -) 0.2 mg TD Q7D [facility] Folic Acid (Folic Acid -) 1 mg PO DAILY [facility] Last Admin: 02/18/20 10:56 Dose: 1 mg Documented by: Hydralazine HCl (Apresoline -) 75 mg PO TID [facility] Last Admin: 02/19/20 06:16 Dose: Not Given Documented by: IV Flush (Triple Lumen Flush) 4 ml IVPUSH PRN PRN PRN Reason: Protocol Insulin Aspart (Novolog Vial Sliding Scale -) 1 vial SQ Q6HPO [facility]; Protocol Last Admin: 02/19/20 06:13 Dose: Not Given Documented by: Linezolid (Zyvox (Restricted To Id) -) 600 mg PO BID [facility] Metoprolol Succinate (Toprol Xl -) 150 mg PO HS [facility] Last Admin: 02/18/20 23:05 Dose: 150 mg Documented by: Multivitamins/Minerals/Vitamin C (Tab-A-Vit -) 1 tab PO DAILY [facility] Last Admin: 02/18/20 10:56 Dose: 1 tab Documented by: Oxybutynin Chloride (Ditropan -) 10 mg PO DAILY [facility] Last Admin: 02/18/20 10:56 Dose: 10 mg Documented by: Pantoprazole Sodium (Protonix -) 40 mg PO DAILY [facility] Last Admin: 02/18/20 10:56 Dose: 40 mg Documented by: Potassium Chloride (K-Dur -) 20 meq PO DAILY [facility] Last Admin: 02/18/20 10:55 Dose: 20 meq Documented by: Scopolamine HBr (Transderm-Scop -) 1 patch TD Q72H [facility] Last Admin: 02/17/20 06:44 Dose: 1 patch Documented by: - Objective Vital Signs: Vital Signs Temperature 98.6 F 02/19/20 06:00 Pulse Rate 86 02/19/20 07:46 Respiratory Rate 18 02/19/20 06:00 Blood Pressure 139/79 02/19/20 06:00 O2 Sat by Pulse Oximetry (%) 95 02/19/20 07:46 Constitutional: Yes: No Distress, Calm Neck: Yes: Supple Cardiovascular: Yes: Regular Rate and Rhythm Respiratory: Yes: Regular, CTA Bilaterally Gastrointestinal: Yes: Normal Bowel Sounds, Soft, Abdomen, Obese Edema: No Labs: CBC, BMP 02/18/20 10:11 02/18/20 10:11 INR, PTT INR 1.06 (0.83-1.09) 01/26/20 07:48 Fibrinogen 303.0 mg/dL (238-498) 01/25/20 12:09 Problem List - Problems (1) Paroxysmal atrial flutter Code(s): I48.92 - UNSPECIFIED ATRIAL FLUTTER (2) Hypertensive heart disease Code(s): I11.9 - HYPERTENSIVE HEART DISEASE WITHOUT HEART FAILURE Qualifiers: Heart failure presence: without heart failure Qualified Code(s): I11.9 - Hypertensive heart disease without heart failure (3) Bacteremia Code(s): R78.81 - BACTEREMIA (4) Cervical spine disease Code(s): M48.9 - SPONDYLOPATHY, UNSPECIFIED (5) Obesity Code(s): E66.9 - OBESITY, UNSPECIFIED (6) Diastolic dysfunction Code(s): I51.89 - OTHER ILL-DEFINED HEART DISEASES Assessment/Plan 01/26/2020 Echo: Normal LV size and fxn, mild TR, borderline LAE 1. Paroxysmal atrial flutter currently sinus rhythm, [id number] score of 2 on Eliquis 2. Hypertensive cardiovascular disease 3. Acute Hypoxic and Hypercapneic Respiratory Failure clinically resolving - ? OSAS 4. Upper Airway Obstruction/Soft Tissue Swelling/Hematoma/Thyromegaly 5. Sinusitis 6. Gram Positive Bacteremia suspect line sepsis, Community-acquired pneumonia 7. Morbid Obesity 8. Pulmonary HTN 9. DM 10. Likely TEJAL PLAN: 1. Continue Toprol XL 150 mg QD, Hydralazine 50 mg TID, Crestor 10 mg QHS, Chlorthalidone 25 mg QD, Eliquis 5 mg BID, Catapres 0.2 TD wk patch and IV hydralazine for HTN 2. Antibiotic coverage 3. Wean FIO2, CPAP nightly, aspiration precautions, DVT/GI prophylaxis, OOB to chair if possible, PT->SNF as tolerated
--- NOTE | 2020-02-19 10:01 | PN ---
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, [employer] - Note 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: Selected Entries 02/17/20 02/17/20 02/18/20 15:00 19:49 14:00 Breakfast 75% 0 Lunch 75% 25% Supper 75% Temperature Pulse Rate Blood Pressure 02/18/20 02/19/20 02/19/20 19:54 06:00 07:46 Breakfast Lunch Supper 75% Temperature 98.6 F Pulse Rate 89 86 Blood Pressure 139/79 Laboratory Tests 02/18/20 10:11 WBC 3.4 L Upgraded to soft diet/thin liquids Much improved cognitively, aware she can not get oob, is weak, knows about Covid Pandemic Speech precise. At times reduced speech initiation.
--- NOTE | 2020-02-19 10:47 | PN ---
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 (short form) - Note 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: PULMONARY AWAKE/VSS/AFEBRILE FLAT AFFECT APPEARS TO UNDERSTAND QUESTIONS BUT DOES NOT VERBALIZE VOLUNTARILY PT IS AT BEDSIDE WITH WALKER PATIENT TRANSFERS TO STANDING POSITION WITH DIFFICULTY MINIMAL SIDE BY SIDE STEPPING WITH ASSISTANCE OF TWO AND WALKER ANICTERIC DIMINISHED BASILAR BREATH SOUNDS/S/P LEFT THORACOTOMY S1S2 BS+ OBESE 2+ EDEMA ANKLES LABS/MEDS/NOTES/IMAGES/CHART REVIEWED Acute Hypoxic and Hypercapneic Respiratory Failure improved Upper Airway Obstruction/Soft Tissue Swelling/Hematoma/Thyromegaly improved Gram Positive Bacteremia on zyvox last + BC was 8 Hypertensive Urgency resolved Morbid Obesity Pulmonary HTN HTN DM Likely OSAS/OHS - ABX per ID - nasal O2 as needed - incentive spirometry - DVT/GI prophylaxis - Sleep workup after discharge - Would suggest neuro melodie RICO MD
[2020-02-19] MEDS: POTASSIUM CHLORIDE TABS 20 MEQ TABLET.ER (FP) PO SCH (11:16)
[2020-02-19] MEDS: OXYBUTYNIN CHLORIDE 5 MG TABLET PO SCH (11:16)
[2020-02-19] MEDS: PANTOPRAZOLE 40 MG TABLET PO SCH (11:16)
[2020-02-19] MEDS: MULTIVITAMINS (DAILY MVI) TABLET (FP) PO SCH (11:16)
[2020-02-19] MEDS: APIXABAN 5 MG TABLET PO SCH ×2 (11:17→21:30)
[2020-02-19] MEDS: FOLIC ACID 1 MG TABLET (FP) PO SCH (11:17)
[2020-02-19] MEDS: LINEZOLID 600 MG TABLET (RESTRICTED TO ID) PO SCH ×2 (12:31→21:30)
--- NOTE | 2020-02-19 12:45 | PN ---
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 (short form) - Note 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: doing well using incentive spirometry alert afebrile no iv access, started on linezolid yesterday Vital Signs Period Temp Pulse Resp BP Sys/Gibbs Pulse Ox Last 24 Hr 98.6 F-99.4 F 86-103 18-20 118-139/74-93 93-97 cor-rrr lungs clear abd soft,nt ext no edema CBC, BMP 02/18/20 10:11 02/18/20 10:11 a/p suspect fevers due to atelectasis-now resolved bacteremia-staph epi-completed one week of daptomycin, no iv access, will treat with po zyvoxx for one week to complete 2 weeks both isolates are different so I donot suslpect sustained bacteremia- most likely catheter related- all positive cultures were drawn through the catheter- not peripherally as marked (spoke with [facility] [employer]) obesity s/p resp failure aflutter- per cardiology, now on eliquis encourage incentive spirometry OOB d/w hospitalist Problem List - Problems (1) Fever Code(s): R50.9 - FEVER, UNSPECIFIED (2) Bacteremia Code(s): R78.81 - BACTEREMIA (3) Pneumonia Code(s): J18.9 - PNEUMONIA, UNSPECIFIED ORGANISM (4) Obesity Code(s): E66.9 - OBESITY, UNSPECIFIED (5) Cervical spine disease Code(s): M48.9 - SPONDYLOPATHY, UNSPECIFIED (6) Breast cancer Code(s): C50.919 - MALIGNANT NEOPLASM OF UNSP SITE OF UNSPECIFIED FEMALE BREAST (7) History of breast cancer Code(s): Z85.3 - PERSONAL HISTORY OF MALIGNANT NEOPLASM OF BREAST
[2020-02-19 13:53] VITALS: BMI 54.3
--- NOTE | 2020-02-19 16:47 | PN ---
Physical Exam: SUBJECTIVE: Patient seen and examined. No acute events. Pt. saturating well of supplemental O2. Pt. disheartneed at that fact that she has to feel happy over mild improvements from day to day when she walked into an elective procedure. Attempts made to refocus Pt. that daily improvements as indeed positive. Maria Antonia pictures to help Pt. understand what MAY have happened in the OR. OBJECTIVE: Vital Signs Period Temp Pulse Resp BP Sys/Gibbs Pulse Ox Last 24 Hr 98.6 F-99.4 F 86-103 18-18 118-139/67-93 93-97 GENERAL: The patient is awake, alert, and in no acute distress. HEAD: Normal with no signs of trauma. EYES: Sclera anicteric, conjunctiva clear. ENT: Ears normal, nares patent, oropharynx clear without exudates, moist mucous membranes. NECK: Trachea midline, full range of motion, supple. LUNGS: Breath sounds equal, clear to auscultation bilaterally, no wheezes, no crackles, no accessory muscle use. HEART: Regular rate and rhythm, S1, S2 without murmur ABDOMEN: Soft, nontender, obese, nondistended, normoactive bowel sounds, no guarding, no rebound EXTREMITIES: 2+ dorsal pedal pulses, warm, RLE now equal in warmth to Left. NEUROLOGICAL: Normal speech, gait not observed. PSYCH: Normal mood, normal affect. SKIN: Warm, dry, normal turgor, no rashes or lesions noted Laboratory Results - last 24 hr 02/18/20 02/18/20 02/19/20 16:53 23:50 06:13 POC Glucometer 136 126 123 02/19/20 02/19/20 11:19 16:32 POC Glucometer 188 145 Active Medications Generic Name Dose Route Start Last Admin Trade Name Freq PRN Reason Stop Dose Admin Apixaban 5 mg 02/16/20 22:00 02/19/20 11:17 Eliquis - PO 5 mg BID ANGIE Administration Clonidine HCl 0.2 mg 02/21/20 14:45 Catapres Tts Patch - TD Q7D ANGIE Folic Acid 1 mg 02/17/20 10:00 02/19/20 11:17 Folic Acid - PO 1 mg DAILY ANGIE Administration Hydralazine HCl 75 mg 02/16/20 22:00 02/19/20 16:31 Apresoline - PO 75 mg TID ANGIE Administration IV Flush 4 ml 02/16/20 16:12 Triple Lumen Flush IVPUSH PRN PRN Protocol Insulin Aspart 1 vial 02/16/20 18:00 02/19/20 12:31 Novolog Vial Sliding Scale - SQ 2 units Q6HPO ANGIE Administration Protocol Linezolid 600 mg 02/19/20 10:00 02/19/20 12:31 Zyvox (Restricted To Id) - PO 600 mg BID ANGIE Administration Metoprolol Succinate 150 mg 02/16/20 22:00 02/18/20 23:05 Toprol Xl - PO 150 mg HS ANGIE Administration Multivitamins/Minerals/Vitamin C 1 tab 02/17/20 10:00 02/19/20 11:16 Tab-A-Vit - PO 1 tab DAILY ANGIE Administration Oxybutynin Chloride 10 mg 02/17/20 10:00 02/19/20 11:16 Ditropan - PO 10 mg DAILY ANGIE Administration Pantoprazole Sodium 40 mg 02/17/20 10:00 02/19/20 11:16 Protonix - PO 40 mg DAILY ANGIE Administration Potassium Chloride 20 meq 02/16/20 13:45 02/19/20 11:16 K-Dur - PO 20 meq DAILY ANGIE Administration Scopolamine HBr 1 patch 02/17/20 06:30 02/17/20 06:44 Transderm-Scop - TD 1 patch Q72H ANGIE Administration ASSESSMENT/PLAN: Pt. is a 50 y.o. F w/ PMHx. of HTN, DM, MO, severe b/l LE venous stasis and severe b/l UE lymphedema 2/2 b/l mastectomy w/ reconstruction 2/2 Breast CA. Pt. was for ACDF when PT. became hypotensive and hypoxic after dividing the SCM. Pt. did not respond to phenylepherine and procedure was aborted. Pt. was monitored in the ICU afterwards and now has been downgraded to Telemetry. #Acute hypercapenic and hypoxic respiratory failure-resolving Suspected neck hematoma vs. Carotid body compression? Pt. of supplemental O2 Pulmonology consults appreciated. #Morbidly obese #Suspected TEJAL/OHS Pulmonology consult appreciated c/w CPAP c/w Scopolamine Patch will need adherence to CPAP as outpatient, discussed with Pt. #Atrial Flutter Noted on EKG resumed Eliquis c/w Toprol 150mg FOBT - #CAP PNA #Staph bacteremia BCx. + x 2, Third set has been negative for 72+ hours c/w Daptomycin(Day5); Ceftriaxone discontinued ID Consult appreciated Cultures growing bacteria resistant to Vancomycin CPK today wnl #GERD #HTN #HLD Resume home medications given 10mg IV Hydralazine today c/w Hydralazine 75mg TID to maintain BP contro #Cool RLE f/u arterial US Duplex negative Switched to Eliquis 5mg BID #FEN encourage PO intake, c/w clinimix monitor electrolytes and replete as needed Dysphagia Ground with Honey thick liquids #DVT Ppx. Eliquis #Dispo Pt. will require rehab PT appreciated M/S Visit type - Emergency Visit Emergency Visit: Yes ED Registration Date: 01/25/20 Care time: The patient presented to the Emergency Department on the above date and was hospitalized for further evaluation of their emergent condition. - New Patient This patient is new to me today: No - Critical Care Critical Care patient: No - Discharge Referral Referred to [facility] No ATTENDING PHYSICIAN STATEMENT I saw and evaluated the patient. I reviewed the resident's note and discussed the case with the resident. I agree with the resident's findings and plan as documented. SUBJECTIVE: OBJECTIVE: ASSESSMENT AND PLAN:
--- NOTE | 2020-02-19 20:01 | CON.NEURO ---
Consult Consult Specialty:: [facility] Referred by:: Dr Barbour Reason for Consultation:: AMS - History of Present Illness History of Present Illness: 50-year-old woman with multiple medical problem including 50 yo female morbid obesity, OSAS/OHS, HTN heart disease, hyperlipidemia, diastolic dysfunction patient was presenting to [facility] on January 24 for an elective C5 laminectomy when she had the sudden onset of hypotension and hypoxemia the procedure was stopped patient was intubated according to the chart and the patient was not able to give me any history the patient was intubated evaluated by multiple specialists admitted to the medical ICU with the surgery was not done patient has been in the hospital since January 24 patient was evaluated today by the environmental economist who recommended neuro evaluation due to difficulty communicating with the patient patient herself is a poor historian patient with history of breast cancer with bilateral upper extremities lymphedema. - History Source History Provided By: Medical Record Limitations to Obtaining History: Clinical Condition - Past Medical History Cardio/Vascular: Yes: HTN ...LMP: 08/24/17 ...LMP Comment: LMP>1year Rheumatology: Yes: Rheumatoid Arthritis Additional Medical History: bilateral venous stasis. morbid obesity - Past Surgical History Additional Surgical History: s/p bilateral mastectomy and reconstruction 2014. s/p gastric lap band - Alcohol/Substance Use Hx Alcohol Use: No - Smoking History Smoking history: Never smoked Have you smoked in the past 12 months: No - Social History ADL: Independent History of Recent Travel: No Home Medications - Allergies Allergies/Adverse Reactions: Allergies Allergy/AdvReac Type Severity Reaction Status Date / Time CHELY Inhibitors Allergy "swelling Verified 01/25/20 08:18 of tongue and face" lisinopril [From Zestril] Allergy Angioedema Verified 01/25/20 08:18 - Home Medications Home Medications: Ambulatory Orders Metoprolol Succinate [Toprol Xl] 150 mg PO HS 09/20/15 Gabapentin [Neurontin] 300 mg PO AM 08/30/17 Clonidine Patch [Catapres Tts Patch -] 0.2 mg TD WEEKLY 01/24/20 Gabapentin 600 mg PO HS 01/24/20 Hydralazine HCl 50 mg PO Q8H 01/24/20 Omeprazole Magnesium [Prilosec Otc] 20 mg PO DAILY 01/24/20 Rosuvastatin [Crestor -] 10 mg PO DAILY 01/24/20 Sitagliptin Phosphate [Januvia] 100 mg PO DAILY 01/24/20 Folic Acid 1 mg PO DAILY 02/02/20 Furosemide 40 mg PO DAILY 02/02/20 Leflunomide 20 mg PO DAILY 02/02/20 Mirabegron [Myrbetriq] 50 mg PO DAILY 02/02/20 Oxybutynin Chloride [Oxybutynin Chloride ER] 10 mg PO DAILY 02/02/20 Family Medical History Family History: Unable to Obtain Review of Systems - Review of Systems Neurological: reports: Dizziness, Headache, Incoordination, Numbness, Parasthesia Physical Exam-Neuro Vital Signs: Vital Signs Temperature 98.9 F 02/19/20 14:00 Pulse Rate 89 02/19/20 15:10 Respiratory Rate 18 02/19/20 14:00 Blood Pressure 136/67 02/19/20 14:00 O2 Sat by Pulse Oximetry (%) 94 L 02/19/20 15:10 Constitutional: Yes: Well Nourished, Mild Distress Neck: Yes: WNL Labs: CBC, BMP 02/18/20 10:11 02/18/20 10:11 INR, PTT INR 1.06 (0.83-1.09) 01/26/20 07:48 Fibrinogen 303.0 mg/dL (238-498) 01/25/20 12:09 - Neuro Exam Level Of Consciousness: Yes: Oriented to Person, Oriented to Place Eyes: Yes: PERRLA Speech: Garbled Dominant Hand: Right Cranial Nerves II-XII Intact: Yes Gag: Present DTR's: 0 Left Bicep, 0 Right Bicep, 0 Left Tricep, 0 Right Tricep Response to light touch: Abnormal Response to pain prick: Abnormal Response to temperature: Abnormal Motor Strength: 3/5: Left Arm, Right Arm, Left Leg, Right Leg Gait: Deferred Problem List - Problems (1) Brain damage, anoxic Code(s): G93.1 - ANOXIC BRAIN DAMAGE, NOT ELSEWHERE CLASSIFIED (2) Cervical spine disease Code(s): M48.9 - SPONDYLOPATHY, UNSPECIFIED Assessment/Plan it is very hard to pinpoint a specific neurological diagnosis in the mix of multiple medical acute and chronic problems I personally did not meet the patient prior to this admission and I don't know what her baseline mental status looks like I will call the spine surgeon who booked her surgery to discuss further Questionable degree anoxic brain damage during an episode of cardiopulmonary dysfunction 1. Fall precautions. 2. CAT scan of the head with no contrast. 3. Patient cannot fit into the MRI machine. 4. order Neurontin level. 5. Follow-up with the environmental economist and infectious disease specialist. 6. DVT prophylaxis. 7. Start Lexapro 10 mg once daily. Thank you very much for allowing me to be part of this patient neurological care.
--- NOTE | 2020-02-19 20:06 | PN ---
Teaching Attending Note Name of Resident: Obdulio Teresa ATTENDING PHYSICIAN STATEMENT I saw and evaluated the patient. I reviewed the resident's note and discussed the case with the resident. I agree with the resident's findings and plan as documented. SUBJECTIVE: Patient seen and examined at bedside, much improved, saturating well on RA, DC to SNF when accepted, VSS. OBJECTIVE: Gen: morbidly obese, makes eye contact, alert and orientated, NAD HEENT: NC/AT, TIERNEY, sclera anicteric, MMM, + clear secretions Neck: no audible strido, supple LUNG: Good air entry anteriorally, good cough CARD: RRR, no murmurs, S1/S2 normal ABD: Soft, Nt/ND, normoactive BS, obese EXT: No LE edema, warm extremities, 1+ pedal pulses, no calf tenderness. Vital Signs - 24 hr 02/18/20 02/19/20 02/19/20 21:00 06:00 07:46 Temperature 98.6 F Pulse Rate 89 86 Respiratory 18 Rate Blood Pressure 139/79 O2 Sat by Pulse 97 94 L 95 Oximetry (%) 02/19/20 02/19/20 02/19/20 09:00 10:00 11:26 Temperature 98.7 F Pulse Rate 91 H 99 H Respiratory 18 Rate Blood Pressure 121/73 O2 Sat by Pulse 94 L 94 L 93 L Oximetry (%) 02/19/20 02/19/20 14:00 15:10 Temperature 98.9 F Pulse Rate 97 H 89 Respiratory 18 Rate Blood Pressure 136/67 O2 Sat by Pulse 93 L 94 L Oximetry (%) Microbiology 02/13/20 20:37 Blood - Peripheral Venous Blood Culture - Final NO GROWTH AFTER 5 DAYS INCUBATION 02/13/20 20:37 Blood - Peripheral Venous Blood Culture - Final NO GROWTH AFTER 5 DAYS INCUBATION 02/14/20 12:36 Urine - Urine Clean Catch Urine Culture - Final Yeast Like Organism 02/10/20 12:17 Blood - Peripheral Venous Blood Culture - Final NO GROWTH AFTER 5 DAYS INCUBATION 02/10/20 12:11 Blood - Peripheral Venous Blood Culture - Final NO GROWTH AFTER 5 DAYS INCUBATION 02/08/20 15:50 Blood - Peripheral Venous Blood Culture - Final Staphylococcus Coagulase Neg 02/08/20 15:50 Blood - Peripheral Venous Blood Culture - Final Staphylococcus Epidermidis 02/06/20 12:20 Blood - Central Line Blood Culture - Final Staphylococcus Epidermidis#2 02/08/20 16:00 Urine - Urine - Catheterized Urine Culture - Final Normal Urogenital Vi Yeast Like Organism 02/06/20 12:20 Blood - Central Line Blood Culture - Final Staphylococcus Coagulase Neg 02/05/20 12:00 Sputum - Endotrachea Suction/Ventilator Gram Stain - Final 02/05/20 12:00 Sputum - Endotrachea Suction/Ventilator Sputum Culture - Final Serratia Marcescens Beta Hem Streptococcus Group F Laboratory Results - last 24 hr 02/18/20 02/19/20 02/19/20 23:50 06:13 11:19 POC Glucometer 126 123 188 02/19/20 16:32 POC Glucometer 145 Home Medications Medication Instructions Recorded Metoprolol Succinate [Toprol Xl] 150 mg PO HS 09/20/15 Gabapentin [Neurontin] 300 mg PO AM 08/30/17 Clonidine Patch [Catapres Tts 0.2 mg TD WEEKLY 01/24/20 Patch -] Gabapentin 600 mg PO HS 01/24/20 Hydralazine HCl 50 mg PO Q8H 01/24/20 Omeprazole Magnesium [Prilosec Otc] 20 mg PO DAILY 01/24/20 Rosuvastatin [Crestor -] 10 mg PO DAILY 01/24/20 Sitagliptin Phosphate [Januvia] 100 mg PO DAILY 01/24/20 Folic Acid 1 mg PO DAILY 02/02/20 Furosemide 40 mg PO DAILY 02/02/20 Leflunomide 20 mg PO DAILY 02/02/20 Mirabegron [Myrbetriq] 50 mg PO DAILY 02/02/20 Oxybutynin Chloride [Oxybutynin 10 mg PO DAILY 02/02/20 Chloride ER] Current Medications Generic Name Dose Route Start Last Admin Trade Name Freq PRN Reason Stop Dose Admin Apixaban 5 mg 02/16/20 22:00 02/19/20 11:17 Eliquis - PO 5 mg BID ANGIE Administration Clonidine HCl 0.2 mg 02/21/20 14:45 Catapres Tts Patch - TD Q7D ANGIE Folic Acid 1 mg 02/17/20 10:00 02/19/20 11:17 Folic Acid - PO 1 mg DAILY ANGIE Administration Hydralazine HCl 75 mg 02/16/20 22:00 02/19/20 16:31 Apresoline - PO 75 mg TID ANGIE Administration IV Flush 4 ml 02/16/20 16:12 Triple Lumen Flush IVPUSH PRN PRN Protocol Insulin Aspart 1 vial 02/16/20 18:00 02/19/20 17:06 Novolog Vial Sliding Scale - SQ Not Given Q6HPO ANGIE Protocol Linezolid 600 mg 02/19/20 10:00 02/19/20 12:31 Zyvox (Restricted To Id) - PO 600 mg BID ANGIE Administration Metoprolol Succinate 150 mg 02/16/20 22:00 02/18/20 23:05 Toprol Xl - PO 150 mg HS ANGIE Administration Multivitamins/Minerals/Vitamin C 1 tab 02/17/20 10:00 02/19/20 11:16 Tab-A-Vit - PO 1 tab DAILY ANGIE Administration Oxybutynin Chloride 10 mg 02/17/20 10:00 02/19/20 11:16 Ditropan - PO 10 mg DAILY ANGIE Administration Pantoprazole Sodium 40 mg 02/17/20 10:00 02/19/20 11:16 Protonix - PO 40 mg DAILY ANGIE Administration Potassium Chloride 20 meq 02/16/20 13:45 02/19/20 11:16 K-Dur - PO 20 meq DAILY ANGIE Administration Scopolamine HBr 1 patch 02/17/20 06:30 02/17/20 06:44 Transderm-Scop - TD 1 patch Q72H ANGIE Administration ASSESSMENT AND PLAN: 50 F Acute hypercapenic and hypoxic respiratory failure Neck hematoma (resolved) TEJAL/OHS Morbidly obese CAP PNA Staph bacteremia HTN HLD Peripheral artery disease (MILD) Deconditioning Plan: Abx switched to PO Linezolid d/t poor IV access Cont. Eliquis 5mg BID for Atrial flutter Incentive spirometry, needs OOB to chair as tolerated, aggressive PT Strict avoidance of sedatives/opioids/gabapentanoids, frequent re-orientation DVT ppx: Heidi DC to SNF when accepted
[2020-02-20] MEDS ORDERED: PT OWN MED DRAWER 7, Y5N ONE ×2 (05:42→09:11)
[2020-02-20] MEDS: hydrALAZINE HCL 25 MG TABLET (FP) PO SCH ×2 (06:51→13:47)
[2020-02-20] MEDS: SCOPOLAMINE HYDROBROMIDE 1 PATCH PATCH.TD72 TD SCH (06:51)
[2020-02-20] MEDS: INSULIN SLIDING SCALE (NOVOLOG) 1 VIAL SQ SCH ×3 (06:56→17:08)
[2020-02-20] MEDS: LINEZOLID 600 MG TABLET (RESTRICTED TO ID) PO SCH (09:27)
[2020-02-20] MEDS: APIXABAN 5 MG TABLET PO SCH (09:28)
[2020-02-20] MEDS: PANTOPRAZOLE 40 MG TABLET PO SCH (09:28)
[2020-02-20] MEDS: OXYBUTYNIN CHLORIDE 5 MG TABLET PO SCH (09:28)
[2020-02-20] MEDS: POTASSIUM CHLORIDE TABS 20 MEQ TABLET.ER (FP) PO SCH (09:28)
[2020-02-20] MEDS: MULTIVITAMINS (DAILY MVI) TABLET (FP) PO SCH (09:29)
[2020-02-20] MEDS: FOLIC ACID 1 MG TABLET (FP) PO SCH (09:29)
[2020-02-20] MEDS ORDERED: INSULIN (NOVOLOG) ASPART 100 UNITS/ML 10ML VIAL ONE (10:19)
--- NOTE | 2020-02-20 10:29 | PN ---
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, [employer] - Note 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: Selected Entries 02/17/20 02/17/20 02/18/20 15:00 19:49 14:00 Breakfast 75% 0 Lunch 75% 25% Supper 75% Temperature Pulse Rate Blood Pressure 02/18/20 02/19/20 02/19/20 19:54 06:00 07:46 Breakfast Lunch Supper 75% Temperature 98.6 F Pulse Rate 89 86 Blood Pressure 139/79 Laboratory Tests 02/18/20 10:11 WBC 3.4 L Upgraded to soft diet/thin liquids Much improved cognitively, aware she can not get oob, is weak, knows about Covid Pandemic Speech precise. At times reduced speech initiation. Referred to neurology as pt doesnt always initiate speech. Neuro imp- Questionable degree anoxic brain damage during an episode of cardiopulmonary dysfunction I concur,however, pt has improved significantly, initially with signif memory deficits and impaired insight. Much more cognizant of surroundings, covid, etc. Speech initiation varies. Rarely self initiates, but does respond to questions now with cues. Asked her why she wasnt speaking and responding and if she was depressed? She said"Yes,I am sick of being in the bed all day, every day, staring at the ceiling. I just need to get back to some normalcy" Suggest- r/o reactive depression- adjustment- [facility] vs [facility]? Lorin Ku? much improved. Motivated young woman with good potential. NEEDS INTENSIVE PT.
--- NOTE | 2020-02-20 11:51 | PN ---
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, Physician Chief Complaint: Events noted Not in distress History of Present Illness: Patient was seen and examined. Awake and alert. Chart was reviewed Denies chest pain, SOB or palpitations - Current Medication List Current Medications: Active Medications Apixaban (Eliquis -) 5 mg PO BID [facility] Last Admin: 02/20/20 09:28 Dose: 5 mg Documented by: Clonidine HCl (Catapres Tts Patch -) 0.2 mg TD Q7D [facility] Folic Acid (Folic Acid -) 1 mg PO DAILY [facility] Last Admin: 02/20/20 09:29 Dose: 1 mg Documented by: Hydralazine HCl (Apresoline -) 75 mg PO TID [facility] Last Admin: 02/20/20 06:51 Dose: 75 mg Documented by: IV Flush (Triple Lumen Flush) 4 ml IVPUSH PRN PRN PRN Reason: Protocol Insulin Aspart (Novolog Vial Sliding Scale -) 1 vial SQ Q6HPO [facility]; Protocol Last Admin: 02/20/20 11:28 Dose: Not Given Documented by: Linezolid (Zyvox (Restricted To Id) -) 600 mg PO BID [facility] Last Admin: 02/20/20 09:27 Dose: 600 mg Documented by: Metoprolol Succinate (Toprol Xl -) 150 mg PO HS [facility] Last Admin: 02/19/20 21:30 Dose: 150 mg Documented by: Multivitamins/Minerals/Vitamin C (Tab-A-Vit -) 1 tab PO DAILY [facility] Last Admin: 02/20/20 09:29 Dose: 1 tab Documented by: Oxybutynin Chloride (Ditropan -) 10 mg PO DAILY [facility] Last Admin: 02/20/20 09:28 Dose: 10 mg Documented by: Pantoprazole Sodium (Protonix -) 40 mg PO DAILY [facility] Last Admin: 02/20/20 09:28 Dose: 40 mg Documented by: Potassium Chloride (K-Dur -) 20 meq PO DAILY [facility] Last Admin: 02/20/20 09:28 Dose: 20 meq Documented by: Scopolamine HBr (Transderm-Scop -) 1 patch TD Q72H [facility] Last Admin: 02/20/20 06:51 Dose: 1 patch Documented by: - Objective Vital Signs: Vital Signs Temperature 98.3 F 02/20/20 06:00 Pulse Rate 87 02/20/20 06:00 Respiratory Rate 20 02/20/20 06:00 Blood Pressure 111/59 L 02/20/20 06:00 O2 Sat by Pulse Oximetry (%) 100 02/20/20 06:00 Neck: Yes: Supple Cardiovascular: Yes: Regular Rate and Rhythm, S1, S2 Respiratory: Yes: CTA Bilaterally Gastrointestinal: Yes: Normal Bowel Sounds, Soft. No: Tenderness Edema: No Problem List - Problems (1) Bacteremia Code(s): R78.81 - BACTEREMIA (2) Cervical spine disease Code(s): M48.9 - SPONDYLOPATHY, UNSPECIFIED (3) Diastolic dysfunction Code(s): I51.89 - OTHER ILL-DEFINED HEART DISEASES (4) Hypertensive heart disease Code(s): I11.9 - HYPERTENSIVE HEART DISEASE WITHOUT HEART FAILURE Qualifiers: Heart failure presence: without heart failure Qualified Code(s): I11.9 - Hypertensive heart disease without heart failure (5) Paroxysmal atrial flutter Code(s): I48.92 - UNSPECIFIED ATRIAL FLUTTER Assessment/Plan 1. Paroxysmal atrial flutter currently sinus rhythm, [id number] score of 2 on Eliquis 2. Hypertensive cardiovascular disease 3. Acute Hypoxic and Hypercapneic Respiratory Failure clinically resolving - ? OSAS 4. Upper Airway Obstruction/Soft Tissue Swelling/Hematoma/Thyromegaly 5. Sinusitis 6. Gram Positive Bacteremia suspect line sepsis, Community-acquired pneumonia 7. Morbid Obesity 8. Pulmonary HTN 9. DM PLAN: 1. Continue Toprol XL 150 mg QD, Hydralazine 75 mg TID, Chlorthalidone 25 mg QD, Eliquis 5 mg BID, Catapres patch 2. Wean FIO2, CPAP nightly, aspiration precautions, DVT/GI prophylaxis, OOB to chair and PT Myron Kunz MD
--- NOTE | 2020-02-20 12:04 | PN ---
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 (short form) - Note 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: Resting in NAD. No CP or SOB. No acute events overnight. Intake & Output 02/17/20 02/18/20 02/19/20 02/20/20 23:59 23:59 23:59 23:59 Intake Total 1340 620 460 100 Output Total 600 Balance 1340 620 460 -500 Weight 325 lb 3.2 oz 327 lb 7 oz 325 lb Last Vital Signs Temp Pulse Resp BP Pulse Ox 98.3 F 87 20 111/59 L 100 02/20/20 06:00 02/20/20 06:00 02/20/20 06:00 02/20/20 06:00 02/20/20 06:00 Active Medications Apixaban (Eliquis -) 5 mg PO BID [facility] Last Admin: 02/20/20 09:28 Dose: 5 mg Documented by: Clonidine HCl (Catapres Tts Patch -) 0.2 mg TD Q7D [facility] Folic Acid (Folic Acid -) 1 mg PO DAILY [facility] Last Admin: 02/20/20 09:29 Dose: 1 mg Documented by: Hydralazine HCl (Apresoline -) 75 mg PO TID [facility] Last Admin: 02/20/20 06:51 Dose: 75 mg Documented by: IV Flush (Triple Lumen Flush) 4 ml IVPUSH PRN PRN PRN Reason: Protocol Insulin Aspart (Novolog Vial Sliding Scale -) 1 vial SQ Q6HPO [facility]; Protocol Last Admin: 02/20/20 11:28 Dose: Not Given Documented by: Linezolid (Zyvox (Restricted To Id) -) 600 mg PO BID [facility] Last Admin: 02/20/20 09:27 Dose: 600 mg Documented by: Metoprolol Succinate (Toprol Xl -) 150 mg PO [facility] Last Admin: 02/19/20 21:30 Dose: 150 mg Documented by: Multivitamins/Minerals/Vitamin C (Tab-A-Vit -) 1 tab PO DAILY [facility] Last Admin: 02/20/20 09:29 Dose: 1 tab Documented by: Oxybutynin Chloride (Ditropan -) 10 mg PO DAILY [facility] Last Admin: 02/20/20 09:28 Dose: 10 mg Documented by: Pantoprazole Sodium (Protonix -) 40 mg PO DAILY [facility] Last Admin: 02/20/20 09:28 Dose: 40 mg Documented by: Potassium Chloride (K-Dur -) 20 meq PO DAILY [facility] Last Admin: 02/20/20 09:28 Dose: 20 meq Documented by: Scopolamine HBr (Transderm-Scop -) 1 patch TD Q72H [facility] Last Admin: 02/20/20 06:51 Dose: 1 patch Documented by: Constitutional: Yes: Well Nourished, Calm, Obese Eyes: Yes: WNL HENT: Yes: WNL Neck: Yes: WNL Cardiovascular: Yes: Regular Rate and Rhythm, S1, S2 Respiratory: Yes: Diminished Gastrointestinal: Yes: Normal Bowel Sounds, Soft Extremities: Yes: WNL Edema: Yes Labs: Laboratory Results - last 24 hr 02/19/20 02/19/20 02/20/20 16:32 23:52 06:55 POC Glucometer 145 150 126 02/20/20 11:27 POC Glucometer 121 Assessment/Plan Acute Hypoxic and Hypercapneic Respiratory Failure improving Upper Airway Obstruction/Soft Tissue Swelling/Hematoma/Thyromegaly improving Sinusitis Gram Positive Bacteremia Hypertensive Urgency Morbid Obesity Pulmonary HTN HTN DM Likely OSAS/OHS - ABX per ID - nasal O2 as needed - incentive spirometry - DVT/GI prophylaxis - Sleep workup after discharge - DC planning Dr Florentino
--- NOTE | 2020-02-20 13:06 | PN ---
Physical Exam: SUBJECTIVE: Patient seen and examined. Overnight Pt. refused BiPAP again and opted for 2L NC. Pt. states she will refuse to take Lexapro because " who wouldn't be sad and having to stay in the hospital for so long?" Discussed with Tiff Pt. awaiting insurance authorization at many facilities. Preference is for [facility]. OBJECTIVE: Vital Signs Period Temp Pulse Resp BP Sys/Gibbs Pulse Ox Last 24 Hr 98.3 F-99.0 F 87-100 18-20 111-136/59-72 93-100 GENERAL: The patient was asleep on room entry now in no acute distress. HEAD: Normal with no signs of trauma. EYES: Sclera anicteric, conjunctiva clear. ENT: Ears normal, nares patent, oropharynx clear without exudates, moist mucous membranes. NECK: Trachea midline, full range of motion, supple. LUNGS: Breath sounds equal, clear to auscultation bilaterally, no wheezes, no crackles, no accessory muscle use. Pt. using 2LNC at night. HEART: Regular rate and rhythm, S1, S2 without murmur ABDOMEN: Soft, nontender, obese, nondistended, normoactive bowel sounds EXTREMITIES: 2+ dorsal pedal pulses, warm bilaterally NEUROLOGICAL: Normal speech, gait not observed. PSYCH: Normal mood, normal affect. SKIN: Warm, dry, normal turgor Laboratory Results - last 24 hr 02/19/20 02/19/20 02/20/20 16:32 23:52 06:55 POC Glucometer 145 150 126 02/20/20 11:27 POC Glucometer 121 Active Medications Generic Name Dose Route Start Last Admin Trade Name Freq PRN Reason Stop Dose Admin Apixaban 5 mg 02/16/20 22:00 02/20/20 09:28 Eliquis - PO 5 mg BID ANGIE Administration Clonidine HCl 0.2 mg 02/21/20 14:45 Catapres Tts Patch - TD Q7D ANGIE Folic Acid 1 mg 02/17/20 10:00 02/20/20 09:29 Folic Acid - PO 1 mg DAILY ANGIE Administration Hydralazine HCl 75 mg 02/16/20 22:00 02/20/20 06:51 Apresoline - PO 75 mg TID ANGIE Administration IV Flush 4 ml 02/16/20 16:12 Triple Lumen Flush IVPUSH PRN PRN Protocol Insulin Aspart 1 vial 02/16/20 18:00 02/20/20 11:28 Novolog Vial Sliding Scale - SQ Not Given Q6HPO ANGIE Protocol Linezolid 600 mg 02/19/20 10:00 02/20/20 09:27 Zyvox (Restricted To Id) - PO 600 mg BID ANGIE Administration Metoprolol Succinate 150 mg 02/16/20 22:00 02/19/20 21:30 Toprol Xl - PO 150 mg HS ANGIE Administration Multivitamins/Minerals/Vitamin C 1 tab 02/17/20 10:00 02/20/20 09:29 Tab-A-Vit - PO 1 tab DAILY ANGIE Administration Oxybutynin Chloride 10 mg 02/17/20 10:00 02/20/20 09:28 Ditropan - PO 10 mg DAILY ANGIE Administration Pantoprazole Sodium 40 mg 02/17/20 10:00 02/20/20 09:28 Protonix - PO 40 mg DAILY ANGIE Administration Potassium Chloride 20 meq 02/16/20 13:45 02/20/20 09:28 K-Dur - PO 20 meq DAILY ANGIE Administration Scopolamine HBr 1 patch 02/17/20 06:30 02/20/20 06:51 Transderm-Scop - TD 1 patch Q72H ANGIE Administration ASSESSMENT/PLAN: Pt. is a 50 y.o. F w/ PMHx. of HTN, DM, MO, severe b/l LE venous stasis and severe b/l UE lymphedema 2/2 b/l mastectomy w/ reconstruction 2/2 Breast CA. Pt. was for ACDF when PT. became hypotensive and hypoxic after dividing the SCM. Pt. did not respond to phenylepherine and procedure was aborted. Pt. was monitored in the ICU afterwards and now has been downgraded to Telemetry. #Acute hypercapenic and hypoxic respiratory failure-resolving Suspected neck hematoma vs. Carotid body compression? Pt. of supplemental O2 Pulmonology consults appreciated. #Morbidly obese #Suspected TEJAL/OHS Pulmonology consult appreciated c/w CPAP c/w Scopolamine Patch will need adherence to CPAP as outpatient, discussed with Pt. however PT. continues to refuse Pt. refusing Lexapro for depression? Pt. has not experienced symptoms long enough for depression to be a diagnosis. Sad mood has been noted and will advised on discharge that Pt. should seek medical care if symptoms persist. #Atrial Flutter Noted on EKG resumed Eliquis c/w Toprol 150mg FOBT - #CAP PNA #Staph bacteremia BCx. + x 2, Third set has been negative for 72+ hours c/w Daptomycin(Day5); Ceftriaxone discontinued ID Consult appreciated Cultures growing bacteria resistant to Vancomycin CPK today wnl #GERD #HTN #HLD Resume home medications given 10mg IV Hydralazine today c/w Hydralazine 75mg TID to maintain BP control, has improved. #Cool RLE Arterial US negative for stenosis Duplex negative Switched to Eliquis 5mg BID #FEN encourage PO intake, c/w clinimix monitor electrolytes and replete as needed Diet titrated up to soft with thin liquids #DVT Ppx. Eliquis 5mg BID #Dispo Pt. will require rehab PT appreciated M/S ATTENDING PHYSICIAN STATEMENT I saw and evaluated the patient. I reviewed the resident's note and discussed the case with the resident. I agree with the resident's findings and plan as documented. SUBJECTIVE: OBJECTIVE: ASSESSMENT AND PLAN:
--- NOTE | 2020-02-20 14:37 | PN ---
Teaching Attending Note Name of Resident: Obdulio Teresa ATTENDING PHYSICIAN STATEMENT I saw and evaluated the patient. I reviewed the resident's note and discussed the case with the resident. I agree with the resident's findings and plan as documented. SUBJECTIVE: seen and examined OBJECTIVE: Last Vital Signs Temp Pulse Resp BP Pulse Ox 98.8 F 97 H 20 136/71 97 02/20/20 14:00 02/20/20 14:00 02/20/20 14:00 02/20/20 14:00 02/20/20 14:00 Gen: morbidly obese, makes eye contact, alert and orientated, NAD HEENT: NC/AT, TIERNEY, sclera anicteric, MMM, + clear secretions Neck: no audible strido, supple LUNG: Good air entry anteriorally, good cough CARD: RRR, no murmurs, S1/S2 normal ABD: Soft, Nt/ND, normoactive BS, obese EXT: No LE edema, warm extremities, 1+ pedal pulses, no calf tenderness. CBCD WBC 3.4 K/mm3 (4.0-10.0) L 02/18/20 10:11 RBC 3.89 M/mm3 (3.60-5.2) 02/18/20 10:11 Hgb 9.9 GM/dL (10.7-15.3) L 02/18/20 10:11 Hct 31.9 % (32.4-45.2) L 02/18/20 10:11 MCV 82.2 fl (80-96) 02/18/20 10:11 MCHC 31.0 g/dl (32.0-36.0) L 02/18/20 10:11 RDW 18.8 % (11.6-15.6) H 02/18/20 10:11 Plt Count 225 K/MM3 (134-434) 02/18/20 10:11 MPV 8.3 fl (7.5-11.1) 02/18/20 10:11 CMP Sodium 139 mmol/L (136-145) 02/18/20 10:11 Potassium 3.9 mmol/L (3.5-5.1) 02/18/20 10:11 Chloride 103 mmol/L (98-107) 02/18/20 10:11 Carbon Dioxide 28 mmol/L (21-32) 02/18/20 10:11 Anion Gap 9 MMOL/L (8-16) 02/18/20 10:11 BUN 5.4 mg/dL (7-18) L 02/18/20 10:11 Creatinine 0.4 mg/dL (0.55-1.3) L 02/18/20 10:11 Calcium 8.6 mg/dL (8.5-10.1) 02/18/20 10:11 Total Bilirubin 0.8 mg/dL (0.2-1) 02/18/20 10:11 AST 14 U/L (15-37) L 02/18/20 10:11 ALT 30 U/L (13-61) 02/18/20 10:11 Alkaline Phosphatase 53 U/L (45-117) 02/18/20 10:11 Total Protein 6.5 g/dl (6.4-8.2) 02/18/20 10:11 Albumin 2.8 g/dl (3.4-5.0) L 02/18/20 10:11 ASSESSMENT AND PLAN: Acute hypercapenic and hypoxic respiratory failure Neck hematoma (resolved) TEJAL/OHS Morbidly obese CAP PNA Staph bacteremia HTN HLD Peripheral artery disease (MILD) Deconditioning DVT ppx: Eliqiuis DC to SNF when accepted
[2020-02-20] MEDS ORDERED: HYDROCORTISONE 0.5% TOPICAL OINTMENT TUBE TP PRN (15:46)
[2020-02-20 15:50] VITALS: BP 136/71; PULSE 97; TEMP 98.8
[2020-02-20] MEDS ORDERED: HYDROCORTISONE 0.5% TOPICAL CREAM 30 GM TUBE TP PRN (16:55)
--- NOTE | 2020-02-20 17:00 | DS ---
Physical Exam: SUBJECTIVE: Patient seen and examined. Overnight Pt. refused BiPAP again and opted for 2L NC. Pt. states she will refuse to take Lexapro because " who wouldn't be sad and having to stay in the hospital for so long?" Discussed with Tiff Pt. awaiting insurance authorization at many facilities. Pt. accepted to [facility] OBJECTIVE: Vital Signs Period Temp Pulse Resp BP Sys/Gibbs Pulse Ox Last 24 Hr 98.3 F-99.0 F 87-100 18-20 111-136/59-72 96-100 PHYSICAL EXAM GENERAL: The patient was asleep on room entry now in no acute distress. HEAD: Normal with no signs of trauma. EYES: Sclera anicteric, conjunctiva clear. ENT: Ears normal, nares patent, oropharynx clear without exudates, moist mucous membranes. NECK: Trachea midline, full range of motion, supple. LUNGS: Breath sounds equal, clear to auscultation bilaterally, no wheezes, no crackles, no accessory muscle use. Pt. using 2LNC at night. HEART: Regular rate and rhythm, S1, S2 without murmur ABDOMEN: Soft, nontender, obese, nondistended, normoactive bowel sounds EXTREMITIES: 2+ dorsal pedal pulses, warm bilaterally NEUROLOGICAL: Normal speech, gait not observed. PSYCH: Sad affect SKIN: Warm, dry, normal turgor LABS Laboratory Results - last 24 hr 02/19/20 02/20/20 02/20/20 23:52 06:55 11:27 POC Glucometer 150 126 121 HOSPITAL COURSE: Date of Admission:01/25/20 Date of Discharge: 02/20/20 Pt. is a 49 y/o female with pmhx of breast cancer (s/p bilateral mastectomy, reconstruction, lymph node dissection), b/l LE venous stasis and b/l UE lymphedema, HTN, DM, morbid obesity admitted to the ICU s/p aborted cervical corpectomy. Upon separation of the SCM pt became hypotensive and hypoxic. Pt was not responsive to phenylephrine and was given epinephrine and vasopressin bolus, heparin 5000 units (concern for PE) and was brought to ICU for evaluation and monitoring. CTA showed no evidence of PE. CT showed right paratracheal edema/hematoma. Per neurology, pt was unfit to undergo previously planned spinal procedure and there are no plans to proceed with surgery during this admission. Pt remained intubated/sedated (on fentanyl, propofol and versed) in view of paratracheal edema/swelling and was given enteral feeds. CXR showed bibasilar effusion with atelectasis/infiltrated and was started on decadron. Pt had sinusitis with purulent drainage and was started on empiric therapy. Pt was taken off pressors but was then found to be hypertensive with SBP>180. Pt was started on hydralazine, metoprolol, and cardene drip. Once BP started improving, pt was tapered of cardene gtt. Repeat CT neck showed decreased swelling/hematom a. Pt was extubated on 02/05 and was on HFOT to keep SpO2 >90%. Pt was tapered off decadron, given chest PT and encouraged use of incentive spirometry. Pts sputum culture grew serratia marcescens and blood culture grew coagulase negative staph. Pt was treated with ceftriaxone and vancomycin for bacteremia. Vancomycin MACKENZIE was 4 and was advanced to daptomycin and was then switched to linezolid due to poor IV access. Once Pt became hemodynamically stable Pt was transferred from ICU to be monitored on telemetry. Pt was found to have paroxysmal atrial fibrillation/Atrial Flutter and was managed with Toprol and Eliquis. Pt was placed on aspiration precautions and evaluated by speech and swallow. Pt progressed from NPO to puree/honey thick liquid diet and then to soft diet/thin liquid.Pt is recommended to have a sleep workup after discharge for OSAS/OH Minutes to complete discharge: 35 Discharge Summary Problems reviewed: Yes Reason For Visit: CERVICAL SPONDYLOSIS Current Active Problems Bacteremia (Acute) Brain damage, anoxic (Acute) Breast cancer (Acute) Cervical spine disease (Acute) Diastolic dysfunction (Acute) Fever (Acute) History of breast cancer (Acute) Hypertensive heart disease (Acute) Obesity (Acute) Paroxysmal atrial flutter (Acute) Pneumonia (Acute) Condition: Stable - Instructions Diet, Activity, Other Instructions: You came in for an elective procedure on your cervical spine. During the procedure at the beginning before access to the spine your blood pressure went very low and your oxygenation went low. You were monitored in the ICU while intubated. We imaged your chest and found some swelling around your neck. You improved and breathing tube was removed on 02/06/20. We found bacteria in your blood and started you on IV antibiotics. We retested your blood and it grew different bacteria so we removed the line and all other repeats were negative. You were seen by an Infectious Disease specialist while you were here. While we were monitoring you on telemetry you had an even and atrial flutter was noted. You were seen by a office administrative assistant and you were started on new medications as detailed below including blood thinners. You were seen by a Assistant Merchandiser and recommended to have special lung testing and sleep studies. You have sleep apnea and it is recommended heavily that you use your CPAP machine. You were seen by a speech and swallow specialist and had repeated evaluations for your swallowing, you are now able to tolerate soft foods with thin liquids. You were seen by your Neurosurgeon. You were seen by a Neurologist who reviewed your chart and recommended starting Lexapro. We did not start this medication. Please continue taking Toprol gmail Post Operative Instructions Physical Activity Resume your normal everyday activity as tolerated. No heavy lifting or exercise until seen by your surgeon. You may walk unlimited amounts and climb stairs. You may resume driving the car when you feel safe and comfortable behind the wheel and you are no longer wearing your brace. Do not operate a vehicle while taking narcotic medication. Brace If you had neck surgery, wear surgical collar 23 hr/day. Remove to shower only. Wound Care Keep your incision clean, dry and covered at all times. Apply an occlusive dressing (Saran wrap or Tegaderm) when showering to avoid getting your incision wet. Do not submerge incision or apply ointments or creams. The cathryn will be removed in the office in 10-14 days post-op. Diet There are no dietary restrictions. Eat healthy, high-fiber foods. Drink 6-8 glasses of liquid each day. This will assist in keeping your bowels regular. Pain Management You may take Tylenol or acetaminophen. Any pain prescription medication ordered should be taken as prescribed for moderate to severe pain. Avoid any ibuprofen (Motrin, Advil, Aleve, Toradol, etc) for 3 months unless otherwise discussed with your surgeon. Call Dr Neal for any of the following: Severe pain not relieved by medication Fever of 101 or higher Excessive bleeding or drainage on dressing Inability to urinate Any chest pain or shortness of breath, seek Emergency Care. Call the office to confirm a post-operative appointment for 2-3 weeks post-op Lawson Vasquez MD [facility] [address] [address] iSTOP The Drug Utilization Report below displays all of the controlled substance prescriptions, if any, that your patient has filled in the last twelve months. The information displayed on this report is compiled from pharmacy submissions to the Department, and accurately reflects the information as submitted by the pharmacies. This report was requested by: Micah Mulligan | Reference #: [id number] Referrals: [facility] [place] [facility] [place] [Provider Group] - 1 Week ON STAFF,NOT [Non Staff, Medical] - 1 Week David Florentino MD [Staff Physician] - 1 Week Lawson Vasquez [facility], [facility] [Staff Physician] - 1 Week Chaitanya Noriega MD [Staff Physician] - 1 Week Disposition: RETIREMENT FACILITY - Home Medications Comprehensive Discharge Medication List: Ambulatory Orders Metoprolol Succinate [Toprol Xl] 150 mg PO HS 09/20/15 Clonidine Patch [Catapres Tts Patch -] 0.2 mg TD WEEKLY 01/24/20 Omeprazole Magnesium [Prilosec Otc] 20 mg PO DAILY 01/24/20 Rosuvastatin [Crestor -] 10 mg PO DAILY 01/24/20 Sitagliptin Phosphate [Januvia] 100 mg PO DAILY 01/24/20 Folic Acid 1 mg PO DAILY 02/02/20 Furosemide 40 mg PO DAILY 02/02/20 Leflunomide 20 mg PO DAILY 02/02/20 Mirabegron [Myrbetriq] 50 mg PO DAILY 02/02/20 Oxybutynin Chloride [Oxybutynin Chloride ER] 10 mg PO DAILY 02/02/20 Apixaban [Eliquis -] 5 mg PO BID #60 tablet 02/20/20 Hydrocortisone 0.5% Ointment [Hytone 0.5% Ointment -] 1 applic TP DAILY PRN #1 tube 02/20/20 Linezolid [Zyvox (Restricted To Id) -] 600 mg PO BID #12 tablet 02/20/20 Metoprolol Succinate [Toprol XL -] 150 mg PO HS #30 tab.sr.24h 02/20/20 hydrALAZINE HCL [Apresoline -] 75 mg PO TID #90 tablet 02/20/20 This patient is new to me today: No Emergency Visit: No Critical Care patient: No - Discharge Referral Referred to [facility] No ATTENDING PHYSICIAN STATEMENT I saw and evaluated the patient. I reviewed the resident's note and discussed the case with the resident. I agree with the resident's findings and plan as documented. SUBJECTIVE: OBJECTIVE: ASSESSMENT AND PLAN:
--- NOTE | 2020-02-20 20:00 | PN ---
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, Physician History of Present Illness: events noted Chart reviewed Looks better Cooperative - Objective Vital Signs: Vital Signs Temperature 98.8 F 02/20/20 14:00 Pulse Rate 97 H 02/20/20 14:00 Respiratory Rate 02/20/20 14:00 Blood Pressure 136/71 02/20/20 14:00 O2 Sat by Pulse Oximetry (%) 97 02/20/20 14:00 Constitutional: Yes: Well Nourished Eyes: Yes: WNL Neurological: Yes: Alert, Oriented, Babinski positive, Cran Nerves II-XII Intact ...Motor Strength: WNL Labs: CBC, BMP 02/18/20 10:11 02/18/20 10:11 INR, PTT INR 1.06 (0.83-1.09) 01/26/20 07:48 Fibrinogen 303.0 mg/dL (238-498) 01/25/20 12:09 Problem List - Problems (1) Brain damage, anoxic Assessment/Plan: 1. MRI of the brain with no contrast. 2. EEG as an outpatient Code(s): G93.1 - ANOXIC BRAIN DAMAGE, NOT ELSEWHERE CLASSIFIED (2) Cervical spine disease Code(s): M48.9 - SPONDYLOPATHY, UNSPECIFIED
[2020-02-21] MEDS ORDERED: cloNIDine-TTS 0.2 MG/24 HOURS PATCH.TDWK TD SCH (14:45)
== END 2020-02-20 19:02 | DRG 207 ==
LOC: J2C 07:30 → JICU 13:10 → J4W 02-09 21:44 → J8W 02-16 15:28
PROVIDERS: ADMIT Neurological Surgery; ATTEND Student in an Organized Health Care Education/Training Program
PROC: 0BH17EZ Insertion of Endotracheal Airway into Trachea, Via Natural or Artificial Opening (ICD-10-PCS; 2020-01-25)
PROC: 05HN33Z Insertion of Infusion Device into Left Internal Jugular Vein, Percutaneous Approach (ICD-10-PCS; 2020-01-25)
PROC: B544ZZA Ultrasonography of Left Jugular Veins, Guidance (ICD-10-PCS; 2020-01-25)
PROC: 5A1955Z Respiratory Ventilation, Greater than 96 Consecutive Hours (ICD-10-PCS; principal; 2020-01-25 08:00)
PROC: 05HM33Z Insertion of Infusion Device into Right Internal Jugular Vein, Percutaneous Approach (ICD-10-PCS; 2020-02-02)
PROC: B543ZZA Ultrasonography of Right Jugular Veins, Guidance (ICD-10-PCS; 2020-02-02)
PROC: 05HN33Z Insertion of Infusion Device into Left Internal Jugular Vein, Percutaneous Approach (ICD-10-PCS; 2020-02-08)
PROC: B544ZZA Ultrasonography of Left Jugular Veins, Guidance (ICD-10-PCS; 2020-02-08)
PROC: 0DH67UZ Insertion of Feeding Device into Stomach, Via Natural or Artificial Opening (ICD-10-PCS; 2020-02-09)
PROC: 05HB33Z Insertion of Infusion Device into Right Basilic Vein, Percutaneous Approach (ICD-10-PCS; 2020-02-14)
DX: J95.88 Other intraoperative complications of respiratory system, not elsewhere classified (principal); J18.9 Pneumonia, unspecified organism; J96.01 Acute respiratory failure with hypoxia; J96.02 Acute respiratory failure with hypercapnia; I97.88 Other intraoperative complications of the circulatory system, not elsewhere classified; Z68.43 Body mass index [BMI] 50.0-59.9, adult; E87.2 Acidosis; J98.11 Atelectasis; R57.9 Shock, unspecified; R78.81 Bacteremia; I48.92 Unspecified atrial flutter; T82.7XXA Infection and inflammatory reaction due to other cardiac and vascular devices, implants and grafts, initial encounter; G93.1 Anoxic brain damage, not elsewhere classified; E66.01 Morbid (severe) obesity due to excess calories; I95.9 Hypotension, unspecified; J39.8 Other specified diseases of upper respiratory tract; I16.0 Hypertensive urgency; Y83.9 Surgical procedure, unspecified as the cause of abnormal reaction of the patient, or of later complication, without mention of misadventure at the time of the procedure; I48.0 Paroxysmal atrial fibrillation; G47.33 Obstructive sleep apnea (adult) (pediatric); E78.5 Hyperlipidemia, unspecified; I73.9 Peripheral vascular disease, unspecified; I27.20 Pulmonary hypertension, unspecified; I11.9 Hypertensive heart disease without heart failure; M48.9 Spondylopathy, unspecified; K21.9 Gastro-esophageal reflux disease without esophagitis; Z85.3 Personal history of malignant neoplasm of breast; E87.6 Hypokalemia; J32.9 Chronic sinusitis, unspecified; D72.829 Elevated white blood cell count, unspecified
CPT/HCPCS: 36415; 36600; 70490-TC; 70491-TC; 71045-TC-FY; 71250-TC; 71275-TC; 80048; 80053; 80061; 81003; 82272; 82375; 82550; 82553; 82728; 82803; 82962; 83036; 83050; 83540; 83550; 83605; 83721; 83735; 83880; 84100; 84443; 84478; 84484; 85025; 85027; 85379; 85384; 85610; 85730; 86850; 86900; 86901; 87040; 87070; 87077; 87086; 87186; 87205; 93005; 93010; 93306-TC; 93925-TC; 93970-TC; 94002; 94010; 94660; 97116-GP; 97162-GP; G0480; J0131; J0878; J1100; J1644; Q9967; U0003